=== PATIENT | male | born 1925 | race Caucasian/White ===

== ENCOUNTER 2016-05-30 09:01 | Emergency (ER) | payer MEDICARE ==
[~2016-05-30] VITALS: Ht 172.7 cm; Wt 68.0 kg
[~2016-05-30 09:01] MED LIST: HYZAAR; LOSA100T28 PO; MULT1TAB63
--- OUTSIDE RECORDS SUMMARY | 2016-05-30 09:09 | XMS REPORT | Continuity of Care Document ---
Author Author [facility] Organization [facility] Address Unknown Phone Unavailable Allergies Active Description Code Type Severity Reaction Onset Reported/Identified Relationship to Patient Clinical Status Yes Penicillins [id number] Drug Allergy Unknown N/A 02/17/2008 Yes No Known Drug Allergies [id number] Drug Allergy Unknown N/ A 07/07/2015 Medications Problems Date Dx Coded Attending Type Code Diagnosis Diagnosed By 01/17/2015 Ot 401.9 01/17/2015 ROSA MARIE Ot 780.79 01/17/2015 ROSA MARIE Ot 786.50 02/07/2015 VIRGEN FRANKLIN, DEVIN Magdaleno Ot R07.89 02/14/2015 VIRGEN FRANKLIN, DEVIN Magdaleno Ot R07.89 07/07/2015 MARQUEZ FRANKLIN, JUDIE Ken Ot R19.5 07/07/2015 MARQUEZ FRANKLIN, JUDIE Ken Ot R19.7 07/07/2015 MARQUEZ FRANKLIN, JUDIE Ken Ot Z01.818 07/10/2015 ROSA MARIE Ot 780.79 07/10/2015 ROSA MARIE Ot 786.50 07/10/2015 VIRGEN FRANKLIN, DEVIN Magdaleno Ot R07.89 07/10/2015 MARQUEZ FRANKLIN, JUDIE Ken Ot K57.90 DVRTCLOS OF INTEST, PART UNSP, W/O PERF 07/10/2015 MARQUEZ FRANKLIN, JUDIE Ken Ot K62.1 RECTAL POLYP 07/11/2015 JUDIE ZAYAS MD Ot K57.90 07/11/2015 JUDIE ZAYAS MD Ot K62.1 Procedures Results Encounters ACCT No. Visit Date/Time Discharge Status Pt. Type Provider Facility Loc./Unit Complaint [id number] 07/10/2015 07:57:00 2015 11:44:00 DIS Outpatient JUDIE ZAYAS MD [facility] [id number] 07/07/2015 06:05:00 2015 09:02:00 DIS Outpatient MARQUEZ FRANKLIN, JUDIE Ken [facility] PREOP [id number] 01/17/2015 11:47:00 2014 23:59:59 CLS Outpatient VIRGEN FRANKLIN, DEVIN Magdaleno [facility] RAD [id number] 12/03/2012 11:00:00 2012 23:59:59 CLS Outpatient ROSA MARIE [facility] LAB [id number] 01/17/2015 11:48:00 Document Registration
--- NOTE | 2016-05-30 09:36 | Diagnostic Imaging Report ---
INDICATION: Weight loss, shortness of breath, hypertension. Comparison made with prior examination from 01/17/2015. FINDINGS: The lungs are clear although mildly hyperexpanded with flattening of the diaphragms and expansion of the retrosternal airspace. This is unchanged. No infiltrate, failure, effusion or pneumothorax. IMPRESSION: Stable chest. Dictated by: Dictated on workstation # [id number]
[2016-05-30 10:14] LABS: BASOPHILS % (AUTO) 0 % (0-10); EOSINOPHILS % (AUTO) 0 % (0-10); LYMPHOCYTES # (AUTO) 3.4 X 10^3 (1.0-4.0); LYMPHOCYTES % (AUTO) 37 % (12-44); MEAN CORPUSCULAR HEMOGLOBIN 33 PG (25-34); MEAN CORPUSCULAR HGB CONC 35 G/DL (32-36); MEAN CORPUSCULAR VOLUME 94 FL (80-99); MEAN PLATELET VOLUME 8.6 FL (7.4-10.4); MONOCYTES # (AUTO) 0.9 X 10^3 (0.0-1.0); MONOCYTES % (AUTO) 9 % (0-12); NEUTROPHILS # (AUTO) 4.9 X 10^3 (1.8-7.8); NEUTROPHILS % (AUTO) 53 % (42-75); PLATELET COUNT 309 10^3/uL (130-400); RED BLOOD COUNT 4.66 10^6/uL (4.35-5.85); RED CELL DISTRIBUTION WIDTH 13.1 % (10.0-14.5); WHITE BLOOD COUNT 9.3 10^3/uL (4.3-11.0)
[2016-05-30 10:34] LABS: ALANINE AMINOTRANSFERASE 16 U/L (0-55); ALBUMIN 4.2 G/DL (3.2-4.5); ANION GAP 12 MMOL/L (5-14); ASPARTATE AMINO TRANSFERASE 18 U/L (5-34); BILIRUBIN,TOTAL 1.4 MG/DL (0.1-1.0); BLOOD UREA NITROGEN 14 MG/DL (7-18); BUN/CREATININE RATIO 15; CALCIUM 8.7 MG/DL (8.5-10.1); CARBON DIOXIDE 25 MMOL/L (21-32); CHLORIDE 95 MMOL/L (98-107); CREATININE SERUM 0.93 MG/DL (0.60-1.30); GFR ESTIMATED > 60; GLUCOSE 106 MG/DL (70-105); POTASSIUM 3.8 MMOL/L (3.6-5.0); SODIUM 132 MMOL/L (135-145); TOTAL PROTEIN 6.7 G/DL (6.4-8.2)
[2016-05-30] MEDS ORDERED: NS IV 1000 ML 1,000 ML IV ONE (11:07)
[2016-05-30] MEDS ORDERED: ANTACID SUSP 30 ML UDC (MYLANTA) PO ONE (11:15)
[2016-05-30] MEDS ORDERED: KETOROLAC 30 MG/ML VIAL IVP ONE (11:15)
[2016-05-30] MEDS ORDERED: ONDANSETRON 4 MG/2 ML (SDV) Z0FRAN IVP ONE (11:15)
[2016-05-30] MEDS ORDERED: LIDOCAINE 2% VISCOUS 15 ML UDC PO ONE (11:15)
[2016-05-30 12:03] LABS: BILIRUBIN,URINE NEGATIVE (NEGATIVE); KETONES,URINE NEGATIVE (NEGATIVE); LEUKOCYTE ESTERASE ,URINE NEGATIVE (NEGATIVE); NITRITE,URINE NEGATIVE (NEGATIVE); PH,URINE 7 (5-9); PROTEIN,URINE NEGATIVE (NEGATIVE); UROBILINOGEN,URINE NORMAL (NORMAL)
[2016-05-30 12:11] LABS: SQUAMOUS EPITHELIAL CELL,UR RARE /HPF
[2016-05-30] MEDS ORDERED: OMEP20TA7 PO (12:27)
[2016-05-30] MEDS ORDERED: OSLT75C PO (12:27)
--- NOTE | 2016-05-30 12:29 | ED General ---
General Chief Complaint: Respiratory Problems Stated Complaint: COUGH,ELEVATED BS, HEADACHE Nursing Triage Note: c/o cough/congestion since May 08. Had 5 day regimen of Tamiflu which improved symptoms. Patient's condition has regressed the last week. Denies fever. Denies vomiting. Reports weight loss. Nursing Sepsis Screen: No Definite Risk Source of Information: Patient, Family Exam Limitations: No Limitations History of Present Illness Time Seen by Provider: 09:05 Initial Comments This 89-year-old gentleman presents to the emergency room with complaints of headache, abdominal discomfort, cough, hypertension and diarrhea. Stools are loose and he has no appetite. Patient was treated for a bronchitis-like syndrome and was prescribed Cipro on May 20. He also has recently been diagnosed with influenza A and finished his Tamiflu treatment on the or . He took Tylenol and ibuprofen at home. He reports his headache is a new symptom now. Abdominal discomfort seems to be related to cough. He noted hypertension at home of 180/94. He doubled his losartan yesterday. Allergies and Home Medications Allergies Uncoded Allergies: pcn, iv dye (Allergy, Intermediate, hives and sob , 06/01/16) Home Medications Losartan Potassium 100 Mg Tablet 100 MG PO DAILY (Reported) Nebivolol HCl 5 Mg Tablet 5 MG PO DAILY PRN PRN HEART RATE (Reported) Omeprazole 20 Mg Capsule.dr 20 MG PO BID (Reported) Constitutional: see HPI EENTM: see HPI Respiratory: see HPI Cardiovascular: no symptoms reported Gastrointestinal: see HPI Genitourinary: no symptoms reported Musculoskeletal: no symptoms reported Skin: no symptoms reported Psychiatric/Neurological: See HPI Hematologic/Lymphatic: No Symptoms Reported Past Ciabehk-Oloxpw-Ojayog Hx Patient Social History Alcohol Use: Denies Use Recreational Drug Use: No Smoking Status: Former Smoker Type Used: Cigarettes 2nd Hand Smoke Exposure: No Recent Foreign Travel: No Contact w/Someone Who Travel: No Recent Infectious Disease Expo: No Recent Hopitalizations: Yes Immunizations Up To Date Date of Pneumonia Vaccine: Jul 10, 2011 Date of Influenza Vaccine: Feb 09, 2016 Surgeries HX Surgeries: Yes (right clavicle separtation surgery 1986, hernia repair 2006 , spinal sx) Respiratory Hx Respiratory Disorders: Yes (chronic bronchitis) Respiratory Disorders: Chronic Bronchitis Cardiovascular Hx Cardiac Disorders: Yes Cardiac Disorders: Hypertension Neurological Hx Neurological Disorders: No Reproductive System Hx Reproductive Disorders: No Genitourinary Hx Genitourinary Disorders: No Gastrointestinal Hx Gastrointestinal Disorders: No Musculoskeletal Hx Musculoskeletal Disorders: No Endocrine Hx Endocrine Disorders: No HEENT HX ENT Disorders: No Cancer Hx Cancer: No Psychosocial Hx Psychiatric Problems: No Blood Transfusions Hx Blood Disorders: No Physical Exam Vital Signs Vital Sign - Last 12Hours 05/30/16 09:10 Temp 97.5 Pulse 90 Resp 20 B/P 205/105 Pulse Ox 98 O2 Delivery Room Air Capillary Refill : Less Than 3 Seconds General Appearance: WD/WN Mild Distress HEENT: PERRL/EOMI TMs Normal Normal ENT Inspection Pharynx Normal Neck: Normal Inspection Respiratory: Lungs Clear Normal Breath Sounds No Accessory Muscle Use No Respiratory Distress Cardiovascular: Regular Rate, Rhythm No Edema No Murmur Gastrointestinal: Normal Bowel Sounds Soft Tenderness (epigastric) Extremity: Normal Inspection No Pedal Edema Neurologic/Psychiatric: Alert Oriented x3 No Motor/Sensory Deficits Normal 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 Epigastric pain instantly improved with GI cocktail. Since symptoms promptly rebounded after completing Tamiflu, I will prescribe a second round of Tamiflu. Blood pressure is now normal. Diagnostic Imaging Diagonstic Imaging: Xray Plain Films/CT/US/NM/MRI: chest Comments NAME: CRISTINA BOYKIN [facility] REC#: [id number] PT STATUS: REG ER : 1925 PHYSICIAN: DEJUAN BRANDON MD ADMIT DATE: 05/30/16/ER Draft Date of Exam:05/30/16 CHEST PA/LAT (2 VIEW) INDICATION: Weight loss, shortness of breath, hypertension. Comparison made with prior examination from 01/17/2015. FINDINGS: The lungs are clear although mildly hyperexpanded with flattening of the diaphragms and expansion of the retrosternal airspace. This is unchanged. No infiltrate, failure, effusion or pneumothorax. IMPRESSION: Stable chest. Dictated on workstation # [id number] Dict: 05/30/16925 Trans: 05/30/1636 [facility] [id number] Interpreted by: MAYA GEORGE Electronically signed by: Departure Impression Impression: Primary Impression: Flu-like symptoms Additional Impressions: Epigastric pain Headache Qualified Code: R51 - Headache Disposition: 01 HOME, SELF-CARE Condition: Improved Departure-Patient Inst. Decision time for Depature: 12:20 Referrals: DEVIN NEW MD (PCP/Family) Primary Care Physician Patient Instructions: Acute Abdomen (Belly Pain), Gastritis Add. Discharge Instructions: Drink plenty of clear liquids. Take omeprazole twice daily as prescribed for the next 2 weeks to protect your stomach. You are syndrome may be related to a new virus or a rebound of the influenza virus. You may take a second round of Tamiflu if you choose. Complete the entire 5 day course if you choose to take the Tamiflu. For pain, start with Tylenol (acetaminophen) 1000 mg every 6 hours as needed. For pain uncontrolled by Tylenol, add ibuprofen up to 600 mg every 6 hours as needed. Always take ibuprofen with food or milk to avoid stomach irritation. Contact your doctor or return to the emergency room if symptoms worsen or you' re not improving within the next couple of days. All discharge instructions reviewed with patient and/or family. Voiced understanding. DEJUAN BRANDON MD May 30, 2016 12:29 Urine Nitrite NEGATIVE NEGATIVE Urine Protein NEGATIVE NEGATIVE Urine RBC NONE /HPF Urine RBC (Auto) 1+ H NEGATIVE Urine Specific [place] 1.010 L 1.016-1.022 Urine Squamous Epithelial Cells RARE /HPF Urine Urobilinogen NORMAL NORMAL MG/DL Urine WBC NONE /HPF Urine pH 7 5-9 Micro Results Microbiology 05/30/16 Influenza Types A,B Antigen (JUAN A) - Final, Complete My Orders Orders-DEJUAN BRANDON MD Cbc With Automated Diff (05/30/16 09:07) Comprehensive Metabolic Panel (05/30/16 09:07) Influenza A And B Antigens (05/30/16 09:07) Chest Pa/Lat (2 View) (05/30/16 09:07) Saline Lock/Iv-Start (05/30/16 09:07) Ketorolac Injection (Toradol Injection) (05/30/16 11:15) Ondansetron Injection (Zofran Injectio (05/30/16 11:15) Lidocaine 2% Viscous 15 Ml (Xylocaine Vi (05/30/16 11:15) Antacid Suspension (Mylanta Suspension (05/30/16 11:15) Ns Iv 1000 Ml (Sodium Chloride 0.9%) (05/30/16 11:07) Lipase (05/30/16 11:07) Ua Culture If Indicated (05/30/16 11:07) Medications Given in ED Current Medications Medications Dose Ordered Sig/Dia Route Start Time Stop Time Status Last Admin Dose Admin Al Hydrox/Mg Hydrox/ Simethicone 30 ml 30 ml ONCE ONCE PO 05/30/16 11:15 05/30/16 11:16 DC 05/30/16 11:26 30 ML Ketorolac Tromethamine 30 mg ONCE ONCE IVP 05/30/16 11:15 05/30/16 11:16 DC 05/30/16 11:25 30 MG Lidocaine HCl 15 ml ONCE ONCE PO 05/30/16 11:15 05/30/16 11:16 DC 05/30/16 11:25 15 ML Ondansetron HCl 4 mg ONCE ONCE IVP 05/30/16 11:15 05/30/16 11:16 DC 05/30/16 11:25 4 MG Sodium Chloride 1,000 ml @ 0 mls/hr Q0M ONCE IV 05/30/16 11:07 05/30/16 11:09 DC 05/30/16 11:25 1,000 MLS/HR Vital Signs/I&O Vital Sign - Last 12Hours 05/30/16 05/30/16 09:10 11:25 Temp 97.5 98.3 Pulse 90 Resp 20 B/P 205/105 Pulse Ox 98 O2 Delivery Room Air Blood Pressure Mean: 138 Progress Note : Time: 12:24 Progress Note Patient feels much better after IV fluids and Toradol. Epigastric pain instantly improved with GI cocktail. Since symptoms promptly rebounded after completing Tamiflu, I will prescribe a second round of Tamiflu. Blood pressure is now normal. Diagnostic Imaging Diagonstic Imaging: Xray Plain Films/CT/US/NM/MRI: chest Comments NAME: CRISTINA BOYKIN [facility] REC#: [id number] PT STATUS: REG ER : 1925 PHYSICIAN: DEJUAN BRANDON MD ADMIT DATE: 05/30/16/ER Draft Date of Exam:05/30/16 CHEST PA/LAT (2 VIEW) INDICATION: Weight loss, shortness of breath, hypertension. Comparison made with prior examination from 01/17/2015. FINDINGS: The lungs are clear although mildly hyperexpanded with flattening of the diaphragms and expansion of the retrosternal airspace. This is unchanged. No infiltrate, failure, effusion or pneumothorax. IMPRESSION: Stable chest. Dictated on workstation # [id number] Dict: 05/30/1626 Trans: 05/30/16 0936 [facility] [id number] Interpreted by: MAYA GEORGE Electronically signed by: Departure Impression Impression: Primary Impression: Flu-like symptoms Additional Impressions: Epigastric pain Headache Qualified Code: R51 - Headache Disposition: 01 HOME, SELF-CARE Condition: Improved Departure-Patient Inst. Decision time for Depature: 12:20 Referrals: DEVIN NEW MD (PCP/Family) Primary Care Physician Patient Instructions: Acute Abdomen (Belly Pain), Gastritis Add. Discharge Instructions: Drink plenty of clear liquids. Take omeprazole twice daily as prescribed for the next 2 weeks to protect your stomach. You are syndrome may be related to a new virus or a rebound of the influenza virus. You may take a second round of Tamiflu if you choose. Complete the entire 5 day course if you choose to take the Tamiflu. For pain, start with Tylenol (acetaminophen) 1000 mg every 6 hours as needed. For pain uncontrolled by Tylenol, add ibuprofen up to 600 mg every 6 hours as needed. Always take ibuprofen with food or milk to avoid stomach irritation. Contact your doctor or return to the emergency room if symptoms worsen or you' re not improving within the next couple of days. All discharge instructions reviewed with patient and/or family. Voiced understanding. Scripts Omeprazole 20 Mg Tablet.dr20 Mg PO BID #30 TAB Prov:DEJUAN BRANDON MD 05/30/16 Oseltamivir Phosphate (Tamiflu)75 Mg Cap75 Mg PO BID #10 CAP Prov:DEJUAN BRANDON MD 05/30/16 DEJUAN BRANDON MD May 30, 2016 12:29
[2016-05-30 12:44] VITALS: BP 127/80
[2016-05-31] MEDS ORDERED: OMEP20CA12 PO (14:00)
[2016-05-31] MEDS ORDERED: NEBI5TAB8 PO (14:00)
[2016-06-25] MEDS ORDERED: LACT20SO2 PO (13:20)
[2016-06-25] MEDS ORDERED: AMLO5TAB2 PO (13:20)
[2016-06-25] MEDS ORDERED: LOSA50TA36 PO (13:20)
[2016-06-25] MEDS ORDERED: IBUP-2055 PO (13:20)
[2016-07-21] MEDS ORDERED: VALA10004 PO (08:11)
[2016-07-21] MEDS ORDERED: NEBI5TAB8 PO (08:11)
== END 2016-05-30 12:46 | disposition home or self-care (01) ==
LOC: EDUNIT# 09:01 → ER 09:04
DX: J11.1 Influenza due to unidentified influenza virus with other respiratory manifestations (principal); R51 Headache; R10.13 Epigastric pain; Z87.891 Personal history of nicotine dependence
CPT/HCPCS: 36415; 71020; 80053; 81000; 83690; 85025; 87804; 96361; 96374; 96375

== ENCOUNTER 2016-05-31 09:01 | Inpatient (IN) | payer MEDICARE ==
[~2016-05-31] VITALS: Ht 172.7 cm; Wt 66.6 kg
[~2016-05-31 09:01] MED LIST changes: +OMEP20TA7 PO; +OSLT75C PO
--- OUTSIDE RECORDS SUMMARY | 2016-05-31 09:07 | XMS REPORT | Continuity of Care Document ---
Author Author [facility] Organization [facility] Address Unknown Phone Unavailable Care Team Providers Care Plan Rep Name Role Phone DEVIN NEW MD PCP Insurance Providers Payer Name Policy Number Subscriber Name Relationship Wps Medicare [id number] Glenn Boykin 20 Self / Same As Patient Blue Cross [facility] Supp [id number] Glenn Boykin 20 Self / Same As Patient Advance Directives Directive Response Recorded Date/Time Advance Directives Yes 05/30/16 9:51am Health Care Power of Digital Forensics Investigator Suhail PINEDA DTR 07/10/15 9:47am Organ Donor Yes 07/10/15 9:47am Resuscitation Status Full Code 05/30/16 9:51am Chief Complaint and Reason for Visit Chief Complaint Respiratory Problems Reason for Visit Headache [id number] Epigastric pain Problems Active Problems Medical Problem Onset Date Status Epigastric pain Unknown Acute Flu-like symptoms Unknown Acute Headache Unknown Acute Medications Current Home Medications Medication Dose Units Route Directions Days/Qty Instructions Start Date Losartan Potassium 100 Mg 100 Mg Oral Daily 07/07/15 Oseltamivir Phosphate 75 Mg 75 Mg Oral Twice A Day 10 05/30/16 Omeprazole 20 Mg 20 Mg Oral Twice A Day 30 05/30/16 Past Home Medications Medication Directions Ordered Status [Hyzaar] Tab, 02/17/08 Discontinued Multivitamins 1 Ea Tablet, 02/17/08 Discontinued Social History Social History Problem Response Recorded Date/Time Alcohol Use Denies Use 05/30/2016 9:51am Recreational Drug Use No 05/30/2016 9:51am Recent Foreign Travel No 05/30/2016 9:10am Recent Infectious Disease Exposure No 05/30/2016 9:10am Smoking Status Former Smoker 05/30/2016 9:51am Do you dip or chew tobacco? No 07/10/2015 9:44am Type Used Cigarettes 05/30/2016 9:51am Recent Hopitalizations Yes 05/30/2016 9:51am Query Response Start Date Stop Date Smoking Status Former Smoker Hospital Discharge Instructions No hospital discharge instructions. Plan of Care Discharge Date 05/30/16 12:46pm Disposition 01 HOME, SELF-CARE Condition at Discharge Improved Instructions/Education Provided Gastritis Acute Abdomen (Belly Pain) Prescriptions See Medication Section Referrals DEVIN NEW MD - Primary Care Physician Additional Instructions/Education Drink plenty of clear liquids. Take omeprazole twice daily as prescribed for the next 2 weeks to protect your stomach. You are syndrome may be related to a new virus or a rebound of the influenza virus. You may take a second round of Tamiflu if you choose. Complete the entire 5 day course if you choose to take the Tamiflu. For pain, start with Tylenol (acetaminophen) 1000 mg every 6 hours as needed. For pain uncontrolled by Tylenol, add ibuprofen up to 600 mg every 6 hours as needed. Always take ibuprofen with food or milk to avoid stomach irritation. Contact your doctor or return to the emergency room if symptoms worsen or you' re not improving within the next couple of days. All discharge instructions reviewed with patient and/or family. Voiced understanding. Functional Status No functional status results. Allergies, Adverse Reactions, Alerts No known allergies. Immunizations No immunization records. Vital Signs Acute Vital Signs Vital Response Date/Time Temperature (Fahrenheit) 98.3 degrees F (97.6 - 99.5) 05/30/2016 12:44pm Temperature (Calculated Celsius) 36.61115 degrees C (36.4 - 37.5) 05/30/2016 12:44pm Temperature Source Temporal 05/30/2016 12:44pm Pulse Rate (adult) 62 bpm (60 - 90) 05/30/2016 12:44pm Respiratory Rate 16 bpm (12 - 24) 05/30/2016 12:44pm O2 Sat by Pulse Oximetry 98 % (88 - 100) 05/30/2016 12:44pm Blood Pressure 127/80 mm Hg 05/30/2016 12:44pm Blood Pressure Mean 138 mm Hg 05/30/2016 9:10am Pain Numeric Pain Scale 3 05/30/2016 12:44pm Height (Feet) 5 feet 05/30/2016 9:10am Height (Inches) 8 inches 05/30/2016 9:10am Height (Calculated Centimeters) 172.180565 cm 05/30/2016 9:10am Weight (Pounds) 150 pounds 05/30/2016 9:10am Weight (Calculated Kilograms) 68.740720 kilograms 05/30/2016 9:10am Capillary Refill Capillary Refill Less Than 3 Seconds 05/30/2016 9:10am Height 5 ft 8 in Weight 150 lb Body Mass Index 22.8 kg/m^2 Results Laboratory Results Test Name Result Units Flags Reference Collection Date/Time Result Date/ Time Comments White Blood Count 9.3 10^3/uL 4.3-11.0 05/30/2016 10:05am 05/30/2016 10 :18am Red Blood Count 4.66 10^6/uL 4.35-5.85 05/30/2016 10:05am 05/30/2016 10 :18am Hemoglobin 15.3 G/DL 13.3-17.7 05/30/2016 10:05am 05/30/2016 10:18am Hematocrit 44 % 40-54 05/30/2016 10:05am 05/30/2016 10:18am Mean Corpuscular Volume 94 FL 80-99 05/30/2016 10:05am 05/30/2016 10: 18am Mean Corpuscular Hemoglobin 33 PG 25-34 05/30/2016 10:05am 05/30/2016 10:18am Mean Corpuscular Hemoglobin Concent 35 G/DL 32-36 05/30/2016 10:05am 10:18am Red Cell Distribution Width 13.1 % 10.0-14.5 05/30/2016 10:05am 2016 10:18am Platelet Count 309 10^3/uL 130-400 05/30/2016 10:05am 05/30/2016 10: 18am Mean Platelet Volume 8.6 FL 7.4-10.4 05/30/2016 10:05am 05/30/2016 10: 18am Neutrophils (%) (Auto) 53 % 42-75 05/30/2016 10:05am 05/30/2016 10: 18am Lymphocytes (%) (Auto) 37 % 12-44 05/30/2016 10:05am 05/30/2016 10: 18am Monocytes (%) (Auto) 9 % 0-12 05/30/2016 10:05am 05/30/2016 10:18am Eosinophils (%) (Auto) 0 % 0-10 05/30/2016 10:05am 05/30/2016 10:18am Basophils (%) (Auto) 0 % 0-10 05/30/2016 10:05am 05/30/2016 10:18am Neutrophils # (Auto) 4.9 X 10^3 1.8-7.8 05/30/2016 10:05am 05/30/2016 10:18am Lymphocytes # (Auto) 3.4 X 10^3 1.0-4.0 05/30/2016 10:05am 05/30/2016 10:18am Monocytes # (Auto) 0.9 X 10^3 0.0-1.0 05/30/2016 10:05am 05/30/2016 10: 18am Eosinophils # (Auto) 0.0 10^3/uL 0.0-0.3 05/30/2016 10:05am 05/30/2016 10:18am Basophils # (Auto) 0.0 10^3/uL 0.0-0.1 05/30/2016 10:05am 05/30/2016 10 :18am Urine Color YELLOW 05/30/2016 11:50am 05/30/2016 12:12pm Urine Clarity CLEAR 05/30/2016 11:50am 05/30/2016 12:12pm Urine pH 7 5-9 05/30/2016 11:50am 05/30/2016 12:12pm Urine Specific [place] 1.010 * 1.016-1.022 05/30/2016 11:50am 2016 12:12pm Urine Protein NEGATIVE NEGATIVE 05/30/2016 11:50am 05/30/2016 12: 12pm Urine Glucose (UA) NEGATIVE NEGATIVE 05/30/2016 11:50am 05/30/2016 12 :12pm Urine RBC (Auto) 1+ * NEGATIVE 05/30/2016 11:50am 05/30/2016 12:12pm Urine Ketones NEGATIVE NEGATIVE 05/30/2016 11:50am 05/30/2016 12: 12pm Urine Nitrite NEGATIVE NEGATIVE 05/30/2016 11:50am 05/30/2016 12: 12pm Urine Bilirubin NEGATIVE NEGATIVE 05/30/2016 11:50am 05/30/2016 12: 12pm Urine Urobilinogen NORMAL MG/DL NORMAL 05/30/2016 11:50am 05/30/2016 12 :12pm Urine Leukocyte Esterase NEGATIVE NEGATIVE 05/30/2016 11:50am 2016 12:12pm Urine RBC NONE /HPF 05/30/2016 11:50am 05/30/2016 12:12pm Urine WBC NONE /HPF 05/30/2016 11:50am 05/30/2016 12:12pm Urine Bacteria NEGATIVE /HPF 05/30/2016 11:50am 05/30/2016 12:12pm Urine Squamous Epithelial Cells RARE /HPF 05/30/2016 11:50am 2016 12:12pm Urine Crystals NONE /LPF 05/30/2016 11:50am 05/30/2016 12:12pm Urine Casts NONE /LPF 05/30/2016 11:50am 05/30/2016 12:12pm Urine Mucus NEGATIVE /LPF 05/30/2016 11:50am 05/30/2016 12:12pm Urine Culture Indicated NO 05/30/2016 11:50am 05/30/2016 12:12pm Sodium Level 132 MMOL/L L 135-145 05/30/2016 10:05am 05/30/2016 10:35am Potassium Level 3.8 MMOL/L 3.6-5.0 05/30/2016 10:05am 05/30/2016 10: 35am Chloride Level 95 MMOL/L L 98-107 05/30/2016 10:05am 05/30/2016 10:35am Carbon Dioxide Level 25 MMOL/L 21-32 05/30/2016 10:05am 05/30/2016 10: 35am Anion Gap 12 MMOL/L 5-14 05/30/2016 10:05am 05/30/2016 10:35am Blood Urea Nitrogen 14 MG/DL 7-18 05/30/2016 10:05am 05/30/2016 10: 35am Creatinine 0.93 MG/DL 0.60-1.30 05/30/2016 10:05am 05/30/2016 10:35am BUN/Creatinine Ratio 15 05/30/2016 10:05am 05/30/2016 10:35am Estimat Glomerular Filtration Rate > 60 05/30/2016 10:05am 2016 10:35am GFR INTERPRETIVE DATA UNITS FOR ESTIMATED GFR (eGFR): mL/min/1.73 M2 REFERENCE RANGE FOR ESTIMATED GFR (eGFR) eGFR NORMAL eGFR >60 MODERATELY DECREASED eGFR 30-59 SEVERLY DECREASED eGFR 15-29 KIDNEY FAILURE <15 (OR DIALYSIS) Glucose Level 106 MG/DL H 70-105 05/30/2016 10:05am 05/30/2016 10:35am Calcium Level 8.7 MG/DL 8.5-10.1 05/30/2016 10:05am 05/30/2016 10:35am Total Bilirubin 1.4 MG/DL H 0.1-1.0 05/30/2016 10:05am 05/30/2016 10: 35am Alkaline Phosphatase 63 U/L 40-136 05/30/2016 10:05am 05/30/2016 10: 35am Aspartate Amino Transf (AST/SGOT) 18 U/L 5-34 05/30/2016 10:05am 2016 10:35am Alanine Aminotransferase (ALT/SGPT) 16 U/L 0-55 05/30/2016 10:05am 10:35am Total Protein 6.7 G/DL 6.4-8.2 05/30/2016 10:05am 05/30/2016 10:35am Albumin 4.2 G/DL 3.2-4.5 05/30/2016 10:05am 05/30/2016 10:35am Lipase 18 U/L 8-78 05/30/2016 10:05am 05/30/2016 11:40am Procedures No known history of procedures. Encounters Encounter Location Arrival/Admit Date Discharge/Depart Date Attending Provider Departed Emergency Room [facility] 05/30/16 9:04am 05/30 12:46pm DEJUAN BRANDON MD Recent Diagnosis
[2016-05-31] MEDS ORDERED: NS IV 500 ML 500 ML IV ONE (09:14)
[2016-05-31 09:37] LABS: BASOPHILS % (AUTO) 0 % (0-10); EOSINOPHILS % (AUTO) 0 % (0-10); LYMPHOCYTES # (AUTO) 2.9 X 10^3 (1.0-4.0); LYMPHOCYTES % (AUTO) 24 % (12-44); MEAN CORPUSCULAR HEMOGLOBIN 33 PG (25-34); MEAN CORPUSCULAR HGB CONC 35 G/DL (32-36); MEAN CORPUSCULAR VOLUME 93 FL (80-99); MEAN PLATELET VOLUME 8.8 FL (7.4-10.4); MONOCYTES # (AUTO) 0.8 X 10^3 (0.0-1.0); MONOCYTES % (AUTO) 7 % (0-12); NEUTROPHILS # (AUTO) 8.3 X 10^3 (1.8-7.8); NEUTROPHILS % (AUTO) 69 % (42-75); PLATELET COUNT 301 10^3/uL (130-400); RED BLOOD COUNT 4.86 10^6/uL (4.35-5.85); RED CELL DISTRIBUTION WIDTH 12.9 % (10.0-14.5)
[2016-05-31] MEDS ORDERED: fentaNYL INJECTION 100 MCG/2 ML AMP ONE (09:40)
--- NOTE | 2016-05-31 09:45 | ED General ---
General Chief Complaint: Cough/Cold/Flu Symptoms Stated Complaint: WEAKNESS/HEADACHE ELEV BP Source of Information: Patient Exam Limitations: No Limitations History of Present Illness Time Seen by Provider: 09:35 Initial Comments Here with report of headache, body aches and overall not feeling well. Seen yesterday for similar and was better at discharge. Started eating worse last night. Complains of pressure in his head overall. He is anxious and shaky currently. Does have mild cough. Denies nausea or vomiting. Decreased appetite noted. Timing/Duration: 2-3 Days Severity: Moderate Associated Systoms: No Chest Pain, No Cough, HeadachesNo Nausea/Vomiting, No Shortness of Air, Weakness Allergies and Home Medications Allergies Coded Allergies: No Known Drug Allergies (Unverified , 07/07/15) Home Medications Losartan Potassium 100 Mg Tablet 100 MG PO DAILY (Reported) Omeprazole 20 Mg Tablet.dr #30 20 MG PO BID Prescribed by: DEJUAN HORNE on 05/30/16 1227 Oseltamivir Phosphate 75 Mg Cap #10 75 MG PO BID Prescribed by: DEJUAN HORNE on 05/30/16 1227 Constitutional: see HPINo chills, No fever, malaise weakness EENTM: nose congestion nose painNo throat pain Respiratory: coughNo short of breath, No wheezing Cardiovascular: no symptoms reported Gastrointestinal: No constipation, loss of appetiteNo nausea, No vomiting Genitourinary: no symptoms reported Musculoskeletal: see HPI muscle painNo neck pain Skin: no symptoms reported Psychiatric/Neurological: Anxiety Headache Hematologic/Lymphatic: No Symptoms Reported All Other Systems Reviewed Negative Unless Noted: Yes Past Dmnlatn-Gflvph-Wdhyur Hx Patient Social History Alcohol Use: Denies Use Recreational Drug Use: No Smoking Status: Never a Smoker Type Used: Cigarettes 2nd Hand Smoke Exposure: No Recent Hopitalizations: Yes Immunizations Up To Date Date of Pneumonia Vaccine: Jul 10, 2011 Date of Influenza Vaccine: Feb 09, 2016 Surgeries HX Surgeries: Yes (right clavicle separtation surgery 1986, hernia repair 2006 , spinal sx) Surgeries: Abdominal, Orthopedic Respiratory Hx Respiratory Disorders: No (chronic bronchitis) Cardiovascular Hx Cardiac Disorders: Yes Reproductive System Hx Reproductive Disorders: No Genitourinary Hx Genitourinary Disorders: No Gastrointestinal Hx Gastrointestinal Disorders: No Musculoskeletal Hx Musculoskeletal Disorders: No Endocrine Hx Endocrine Disorders: No Psychosocial Hx Psychiatric Problems: No Blood Transfusions Hx Blood Disorders: No Reviewed Nursing Assessment Reviewed/Agree w Nursing PMH: Yes Family Medical History Significant Family History: No Pertinent Family Hx Physical Exam Vital Signs Vital Sign - Last 12Hours 05/31/16 09:05 Temp 97.6 Pulse 72 Resp 28 B/P 177/97 Pulse Ox 99 O2 Delivery Room Air Capillary Refill : General Appearance: WD/WN Anxious HEENT: PERRL/EOMI Pharyngeal Erythema (mild) Other (nasal congestion and maxillary sinus tenderness noted.) Respiratory: Lungs Clear Normal Breath Sounds Cardiovascular: Regular Rate, Rhythm No Murmur Gastrointestinal: Non Tender Soft Back: Normal Inspection No CVA Tenderness No Vertebral Tenderness Extremity: Non Tender No Calf Tenderness Neurologic/Psychiatric: Alert Oriented x3 Skin: Normal Color Warm/Dry Progress/Results/Core Measures Results/Orders Lab Results Laboratory Tests Test 05/31/16 09:30 Range/Units Alanine Aminotransferase (ALT/SGPT) 18 0-55 U/L Albumin 4.5 3.2-4.5 G/DL Alkaline Phosphatase 64 40-136 U/L Anion Gap 11 5-14 MMOL/L Aspartate Amino Transf (AST/SGOT) 19 5-34 U/L BUN/Creatinine Ratio 12 Basophils # (Auto) 0.0 0.0-0.1 10^3/uL Basophils (%) (Auto) 0 0-10 % Blood Urea Nitrogen 12 7-18 MG/DL C-Reactive Protein High Sensitivity 0.10 0.00-0.50 MG/DL Calcium Level 9.1 8.5-10.1 MG/DL Carbon Dioxide Level 24 21-32 MMOL/L Chloride Level 93 L 98-107 MMOL/L Creatinine 0.99 0.60-1.30 MG/DL Eosinophils # (Auto) 0.0 0.0-0.3 10^3/uL Eosinophils (%) (Auto) 0 0-10 % Estimat Glomerular Filtration Rate > 60 Glucose Level 117 H 70-105 MG/DL Hematocrit 45 40-54 % Hemoglobin 15.8 13.3-17.7 G/DL Lymphocytes # (Auto) 2.9 1.0-4.0 X 10^3 Lymphocytes (%) (Auto) 24 12-44 % Mean Corpuscular Hemoglobin 33 25-34 PG Mean Corpuscular Hemoglobin Concent 35 32-36 G/DL Mean Corpuscular Volume 93 80-99 FL Mean Platelet Volume 8.8 7.4-10.4 FL Monocytes # (Auto) 0.8 0.0-1.0 X 10^3 Monocytes (%) (Auto) 7 0-12 % Neutrophils # (Auto) 8.3 H 1.8-7.8 X 10^3 Neutrophils (%) (Auto) 69 42-75 % Platelet Count 301 130-400 10^3/uL Potassium Level 4.0 3.6-5.0 MMOL/L Red Blood Count 4.86 4.35-5.85 10^6/uL Red Cell Distribution Width 12.9 10.0-14.5 % Sodium Level 128 L 135-145 MMOL/L Total Bilirubin 1.5 H 0.1-1.0 MG/DL Total Protein 7.2 6.4-8.2 G/DL White Blood Count 12.0 H 4.3-11.0 10^3/uL My Orders Orders-ISATU BOOTH MD Ct Head Wo (05/31/16 09:14) Cbc With Automated Diff (05/31/16 09:14) Comprehensive Metabolic Panel (05/31/16 09:14) Hs C Reactive Protein (05/31/16 09:14) Saline Lock/Iv-Start (05/31/16 09:14) Ns Iv 500 Ml (Sodium Chloride 0.9%) (05/31/16 09:14) Fentanyl Injection (Sublimaze Injection (05/31/16 09:40) Ceftriaxone Injection (Rocephin Injectio (05/31/16 10:15) Fentanyl Injection (Sublimaze Injection (05/31/16 10:09) Dexamethasone Pf Injection (Decadron Pf (05/31/16 10:10) Fentanyl Injection (Sublimaze Injection (05/31/16 10:53) Psa Screen (05/31/16 10:56) Medications Given in ED Current Medications Medications Dose Ordered Sig/Dia Route Start Time Stop Time Status Last Admin Dose Admin Ceftriaxone Sodium/Sodium Chloride 50 ml @ 100 mls/hr ONCE ONCE IV 05/31/16 10:15 05/31/16 10:44 DC 05/31/16 10:38 100 MLS/HR Fentanyl Citrate 100 mcg 100 mcg STK-MED ONCE .ROUTE 05/31/16 09:40 05/31/16 09:41 DC 05/31/16 10:06 50 MCG Sodium Chloride 500 ml @ 0 mls/hr Q0M ONCE IV 05/31/16 09:14 05/31/16 09:15 DC 05/31/16 09:32 500 MLS/HR Vital Signs/I&O Vital Sign - Last 12Hours 05/31/16 05/31/16 05/31/16 09:05 10:06 10:28 Temp 97.6 97.6 97.6 Pulse 72 Resp 28 B/P 177/97 Pulse Ox 99 O2 Delivery Room Air Progress Note : Progress Note Seen and evaluated. IV, labs and UA ordered. CT head ordered. Monitor patient. Bony lesion noted on culture very him. Sinus disease also noted. Rocephin 1 g IV. Decadron 10 mg IV. Both meds for sinusitis but will get double coverage on calvarial lesion with Decadron. Patient is shaky, weak and having persistent pain despite fentanyl 50 g IV. I did discuss the case with Dr. Centeno. She accepts patient for admission. Status post verified and patient qualifies for observation status currently. 1040: Discussed case with Dr. Ledezma who is seen patient in the ER. She accepts patient for admission, observation status. Repeat fentanyl 50 g IV. Patient has not given urine sample yet and that is pending. This will be ordered for the floor. All findings concerns as discussed with patient and family who agree with plan. Admit, observation status. Diagnostic Imaging Diagonstic Imaging: CT Plain Films/CT/US/NM/MRI: head Comments VIA [facility]. [place], [place] NAME: CRISTINA BOYKIN [facility] REC#: [id number] PT STATUS: REG ER : [id number] PHYSICIAN: IASTU BOOTH MD ADMIT DATE: 05/31/16/ER Draft Date of Exam:05/31/16 CT HEAD WO INDICATION: Weakness, cough, headache. TECHNIQUE: Routine non contrast-enhanced axial images were obtained from the skull base to the vertex. COMPARISON: None. FINDINGS: The ventricles and cortical sulci are diffusely prominent, compatible with age-related volume loss. There are confluent areas of abnormal, low attenuation in the periventricular white matter. This is consistent with small vessel ischemic changes; age-indeterminate. There is no prior study available for comparison. There is no midline shift or mass-effect. No acute intra-axial hemorrhage is seen. There are no abnormal areas of increased or decreased density to suggest acute hemorrhage or edema. No extra-axial masses or collections are present. Evaluation of the bony calvarium demonstrates area of osteolysis involving the posterior calvarium to the left lateral midline. There appears to be some expansion of the calvarium as well. There is erosion of both the inner and outer tables. Area in question measures approximately 3.2 x 2.6 x 1.2 cm. The visualized paranasal sinuses show air-fluid levels within the bilateral maxillary sinuses. The mastoid air cells are clear. IMPRESSION: 1. No acute intracranial abnormality. No CT evidence of mass, acute infarct or intracranial hemorrhage. 2. Small vessel ischemic changes in the periventricular and subcortical white matter; likely chronic. 3. Air-fluid levels within the bilateral maxillary sinuses. Correlation for underlying acute sinusitis is recommended. 4. Abnormal appearance to the calvarium with apparent expansile lytic lesion posteriorly to the left lateral midline. Although this could represent a large arachnoid granulation, underlying malignant process cannot be excluded. Correlation with bone scan is recommended. Dictated on workstation # [id number] Dict: 05/31/16 0955 Trans: 05/31/16 1005 SAMUEL [id number] Interpreted by: DAMIAN BADILLO Electronically signed by: Departure Communication Time/Spoke to Admitting Phy: 10:24 Impression Impression: Primary Impression: Sinusitis Qualified Code: J01.00 - Acute maxillary sinusitis, unspecified Additional Impressions: Intractable headache Qualified Code: R51 - Headache Skull lesion Dehydration Disposition: ADMITTED INPATIENT Condition: Stable Decision to Admit Reason: Admit from ER (General) Decision to Admit/Date: May 31, 2016 Time/Decision to Admit Time: 10:24 Departure-Patient Inst. Referrals: DEVIN NEW MD (PCP/Family) Primary Care Physician ISATU BOOTH MD May 31, 2016 09:45
[2016-05-31 09:59] LABS: ALANINE AMINOTRANSFERASE 18 U/L (0-55); ALBUMIN 4.5 G/DL (3.2-4.5); ANION GAP 11 MMOL/L (5-14); ASPARTATE AMINO TRANSFERASE 19 U/L (5-34); BILIRUBIN,TOTAL 1.5 MG/DL (0.1-1.0); BLOOD UREA NITROGEN 12 MG/DL (7-18); BUN/CREATININE RATIO 12; CALCIUM 9.1 MG/DL (8.5-10.1); CARBON DIOXIDE 24 MMOL/L (21-32); CHLORIDE 93 MMOL/L (98-107); CREATININE SERUM 0.99 MG/DL (0.60-1.30); GFR ESTIMATED > 60; GLUCOSE 117 MG/DL (70-105); SODIUM 128 MMOL/L (135-145); TOTAL PROTEIN 7.2 G/DL (6.4-8.2)
--- NOTE | 2016-05-31 10:06 | Diagnostic Imaging Report ---
INDICATION: Weakness, cough, headache. TECHNIQUE: Routine non contrast-enhanced axial images were obtained from the skull base to the vertex. COMPARISON: None. FINDINGS: The ventricles and cortical sulci are diffusely prominent, compatible with age-related volume loss. There are confluent areas of abnormal, low attenuation in the periventricular white matter. This is consistent with small vessel ischemic changes; age-indeterminate. There is no prior study available for comparison. There is no midline shift or mass-effect. No acute intra-axial hemorrhage is seen. There are no abnormal areas of increased or decreased density to suggest acute hemorrhage or edema. No extra-axial masses or collections are present. Evaluation of the bony calvarium demonstrates area of osteolysis involving the posterior calvarium to the left lateral midline. There appears to be some expansion of the calvarium as well. There is erosion of both the inner and outer tables. Area in question measures approximately 3.2 x 2.6 x 1.2 cm. The visualized paranasal sinuses show air-fluid levels within the bilateral maxillary sinuses. The mastoid air cells are clear. IMPRESSION: 1. No acute intracranial abnormality. No CT evidence of mass, acute infarct or intracranial hemorrhage. 2. Small vessel ischemic changes in the periventricular and subcortical white matter; likely chronic. 3. Air-fluid levels within the bilateral maxillary sinuses. Correlation for underlying acute sinusitis is recommended. 4. Abnormal appearance to the calvarium with apparent expansile lytic lesion posteriorly to the left lateral midline. Although this could represent a large arachnoid granulation, underlying malignant process cannot be excluded. Correlation with bone scan is recommended. Dictated by: Dictated on workstation # [id number]
[2016-05-31] MEDS ORDERED: fentaNYL INJECTION 100 MCG/2 ML AMP IVP STA ×2 (10:09→10:53)
[2016-05-31] MEDS ORDERED: DEXAMETHASONE PF 10 MG/ML (DECADRON) VIAL IV STA (10:10)
[2016-05-31] MEDS ORDERED: cefTRIAXone INJECTION 1,000 MG in NS (IVPB) 50 ML IV ONE (10:15)
[2016-05-31] MEDS ORDERED: ENOXAPARIN 40 MG/0.4 ML (LOVENOX) SYR SC SCH (11:15)
[2016-05-31] MEDS ORDERED: cefTRIAXone INJECTION 1,000 MG in NS (IVPB) 50 ML IV SCH (11:20)
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
[2016-05-31] MEDS ORDERED: CATHETER FLUSH 10 ML SYR IV PRN (13:45)
[2016-05-31] MEDS ORDERED: OMEP20CA12 PO (14:00)
[2016-05-31] MEDS ORDERED: NEBI5TAB8 PO (14:00)
[2016-05-31] MEDS: NS IV 1000 ML 1,000 ML IV SCH ×2 (14:03→23:32)
[2016-05-31 14:04] VITALS: BP 160/76
[2016-05-31] MEDS: ACETAMINOPHEN 500 MG TAB (TYLENOL) PO PRN ×2 (14:09→20:33)
[2016-05-31] MEDS ORDERED: PATIENT MAY USE OWN MEDS, ALL MC SCH (14:30)
--- NOTE | 2016-05-31 14:31 | Diagnostic Imaging Report ---
PROCEDURE: US abdomen complete. TECHNIQUE: Multiple real-time grayscale images were obtained over the abdomen in various projections. INDICATION: Elevated bilirubin levels, generalized abdominal pain. COMPARISON: None. DISCUSSION: Sonographic evaluation of the abdomen was performed. The left hepatic lobe is mostly obscured due to overlying bowel gas. The visualized right hepatic lobe appears normal in echotexture and size. No discrete hepatic mass identified. The gallbladder appears normal without evidence of cholelithiasis, wall thickening, or pericholecystic fluid. No evidence of intrahepatic biliary duct dilatation. The common bile duct and pancreas are obscured due to overlying bowel gas. The spleen appears normal in echotexture and size measuring 9.3 cm. The visualized aorta and IVC appear within normal limits. The bilateral kidneys appear normal in echotexture and size without evidence of hydronephrosis or renal mass. The right kidney measures 11.3 cm. The left kidney measures 10.8 cm. There is no ascites or abnormal bowel loops identified. No sonographic Guzman sign was reported. IMPRESSION: 1. Limited visualization of the midline structures due to overlying bowel gas. No acute abnormality identified. Dictated by: Dictated on workstation # [id number]
[2016-05-31 15:32] VITALS: BP 163/93
[2016-05-31 19:15] VITALS: BP 143/79
[2016-05-31] MEDS: OMEPRAZOLE 20 MG (PriLOSEC) CAP NON-FORMULARY PO SCH (20:32)
[2016-05-31] MEDS ORDERED: PANTOPRAZOLE 20 MG TABLET (PROTONIX) PO SCH (21:00)
[2016-05-31] MEDS ORDERED: OMEPRAZOLE 20 MG (PriLOSEC) CAP NON-FORMULARY PO SCH (21:00)
[2016-06-01] VITALS: BP 155/78
[2016-06-01 04:00] VITALS: BP 148/84
[2016-06-01 05:47] LABS: BASOPHILS % (AUTO) 0 % (0-10); EOSINOPHILS % (AUTO) 0 % (0-10); LYMPHOCYTES # (AUTO) 2.5 X 10^3 (1.0-4.0); LYMPHOCYTES % (AUTO) 22 % (12-44); MEAN CORPUSCULAR HEMOGLOBIN 33 PG (25-34); MEAN CORPUSCULAR HGB CONC 35 G/DL (32-36); MEAN CORPUSCULAR VOLUME 94 FL (80-99); MEAN PLATELET VOLUME 9.2 FL (7.4-10.4); MONOCYTES # (AUTO) 1.1 X 10^3 (0.0-1.0); MONOCYTES % (AUTO) 10 % (0-12); NEUTROPHILS # (AUTO) 7.7 X 10^3 (1.8-7.8); NEUTROPHILS % (AUTO) 68 % (42-75); PLATELET COUNT 293 10^3/uL (130-400); RED BLOOD COUNT 4.29 10^6/uL (4.35-5.85); WHITE BLOOD COUNT 11.3 10^3/uL (4.3-11.0)
[2016-06-01] MEDS: OMEPRAZOLE 20 MG (PriLOSEC) CAP NON-FORMULARY PO SCH ×2 (06:20→23:24)
[2016-06-01 06:33] LABS: ALANINE AMINOTRANSFERASE 15 U/L (0-55); ANION GAP 11 MMOL/L (5-14); ASPARTATE AMINO TRANSFERASE 15 U/L (5-34); BILIRUBIN,TOTAL 1.1 MG/DL (0.1-1.0); BLOOD UREA NITROGEN 9 MG/DL (7-18); BUN/CREATININE RATIO 11; CALCIUM 8.4 MG/DL (8.5-10.1); CARBON DIOXIDE 23 MMOL/L (21-32); CHLORIDE 97 MMOL/L (98-107); CREATININE SERUM 0.84 MG/DL (0.60-1.30); GFR ESTIMATED > 60; GLUCOSE 102 MG/DL (70-105); POTASSIUM 4.4 MMOL/L (3.6-5.0); SODIUM 131 MMOL/L (135-145); TOTAL PROTEIN 5.7 G/DL (6.4-8.2)
[2016-06-01 06:45] LABS: BILIRUBIN,URINE NEGATIVE (NEGATIVE); KETONES,URINE NEGATIVE (NEGATIVE); LEUKOCYTE ESTERASE ,URINE NEGATIVE (NEGATIVE); NITRITE,URINE NEGATIVE (NEGATIVE); PH,URINE 7 (5-9); PROTEIN,URINE 1+ (NEGATIVE); UROBILINOGEN,URINE NORMAL (NORMAL)
[2016-06-01 06:59] LABS: SQUAMOUS EPITHELIAL CELL,UR RARE /HPF; WBC,URINE RARE /HPF
[2016-06-01 08:00] VITALS: BP 183/93
[2016-06-01] MEDS: ACETAMINOPHEN 500 MG TAB (TYLENOL) PO PRN ×4 (08:04→23:23)
[2016-06-01] MEDS ORDERED: ACETAMINOPHEN 650 MG SUPP (TYLENOL) ONE (08:19)
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
[2016-06-01] MEDS ORDERED: cefTRIAXone INJECTION 2,000 MG in NS (IVPB) 50 ML IV ONE (08:30)
[2016-06-01] MEDS ORDERED: VANCOMYCIN INJECTION 0.1 MG in NS (IVPB) 250 ML IV SCH (08:30)
[2016-06-01] MEDS ORDERED: IOHEXOL 350 MG/ML 100 ML (OMNIPAQUE 350) VIAL IV ONE (08:45)
[2016-06-01] MEDS ORDERED: NS 100 ML (IVPB) BAG IV ONE (08:45)
[2016-06-01] MEDS ORDERED: LOSARTAN 50 MG (COZAAR) TAB PO SCH (09:00)
[2016-06-01] MEDS ORDERED: NON-FORMULARY MEDICATION 1 EA EA (Losartan Potassium 100 MG) PO SCH (09:00)
[2016-06-01] MEDS ORDERED: VANCOMYCIN 1250 MG/NS 250 ML IVPB IV NR ×2 (10:00)
[2016-06-01] MEDS: NS IV 1000 ML 1,000 ML IV SCH ×4 (10:12→23:21)
[2016-06-01] MEDS: LOSARTAN 100 MG TAB PO SCH (10:53)
[2016-06-01 12:00] VITALS: BP 187/95
[2016-06-01] MEDS ORDERED: GADOBUTROL 7.5 MMOL/7.5 ML (GADAVIST) VIAL IV ONE (12:00)
[2016-06-01] MEDS ORDERED: ONDANSETRON 4 MG/2 ML (SDV) Z0FRAN ONE (12:18)
--- NOTE | 2016-06-01 15:20 | Diagnostic Imaging Report ---
PROCEDURE: MR imaging of the brain with and without contrast. TECHNIQUE: Multiplanar, multisequence MR imaging of the brain was performed with and without contrast. INDICATION: Skull lesion. Altered mental status. COMPARISON: CT head of 05/31/2016. FINDINGS: No foci of restricted diffusion to indicate acute infarct. No space-occupying mass or hydrocephalus. No blooming hypointensities on gradient imaging to indicate intracranial hemorrhage. 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 No isolated lobar atrophy. Central major arterial flow voids are preserved. Paranasal sinuses demonstrate air-fluid levels in both maxillary sinuses. Other paranasal sinuses are clear. The irregular lobulated intramedullary lesion in the posterior left parietal calvarium has intrinsic T1 hyperintensities, does not restrict diffusion and does not have appreciable enhancement. Imaging appearance would favor a benign process such as intraosseous hemangioma. No pathologic enhancement on postcontrast imaging. IMPRESSION: 1. No acute intracranial process. Specifically, no infarct or intracranial neoplasm. 2. Nonaggressive lesion in the high left parietal calvarium has intrinsic T1 hyperintensities most compatible with fat or chronic blood. This appearance would favor a benign process such as intraosseous hemangioma or prominent arachnoid granulations. Dictated by: Dictated on workstation # [id number]
[2016-06-01 16:00] VITALS: BP 164/80
--- NOTE | 2016-06-01 19:56 | Diagnostic Imaging Report ---
INDICATION: Fever. Cough. COMPARISON: 05/30/2016. EXAMINATION: Single frontal radiographic view of the chest was obtained. FINDINGS: Low inspiratory volumes. Otherwise, lungs are clear. There is no focal consolidation, large effusion or pneumothorax. Cardiac silhouette and pulmonary vasculature are within normal limits. Note is made of aortic atherosclerosis. Bony structures are stable. IMPRESSION: Low lung volumes, but otherwise no acute cardiopulmonary process. Dictated by: Dictated on workstation # [id number]
[2016-06-01 20:00] VITALS: BP 176/83
[2016-06-01] MEDS ORDERED: VANCOMYCIN 750 MG/NS 250 ML IVPB IV SCH ×2 (21:00)
[2016-06-02] VITALS: BP 186/71
[2016-06-02] MEDS ORDERED: ACETAMINOPHEN 650 MG SUPP (TYLENOL) ONE (01:17)
[2016-06-02 04:00] VITALS: BP 156/94
[2016-06-02 05:58] LABS: BASOPHILS % (AUTO) 0 % (0-10); EOSINOPHILS % (AUTO) 0 % (0-10); LYMPHOCYTES % (AUTO) 19 % (12-44); MEAN CORPUSCULAR HEMOGLOBIN 33 PG (25-34); MEAN CORPUSCULAR HGB CONC 35 G/DL (32-36); MEAN CORPUSCULAR VOLUME 95 FL (80-99); MEAN PLATELET VOLUME 8.9 FL (7.4-10.4); MONOCYTES # (AUTO) 1.1 X 10^3 (0.0-1.0); MONOCYTES % (AUTO) 10 % (0-12); NEUTROPHILS # (AUTO) 7.1 X 10^3 (1.8-7.8); NEUTROPHILS % (AUTO) 70 % (42-75); PLATELET COUNT 231 10^3/uL (130-400); RED BLOOD COUNT 4.04 10^6/uL (4.35-5.85); RED CELL DISTRIBUTION WIDTH 12.8 % (10.0-14.5); WHITE BLOOD COUNT 10.3 10^3/uL (4.3-11.0)
[2016-06-02 06:11] LABS: ALANINE AMINOTRANSFERASE 13 U/L (0-55); ALBUMIN 3.4 G/DL (3.2-4.5); ANION GAP 9 MMOL/L (5-14); ASPARTATE AMINO TRANSFERASE 19 U/L (5-34); BILIRUBIN,TOTAL 0.7 MG/DL (0.1-1.0); BLOOD UREA NITROGEN 8 MG/DL (7-18); BUN/CREATININE RATIO 10; CALCIUM 7.6 MG/DL (8.5-10.1); CARBON DIOXIDE 23 MMOL/L (21-32); CHLORIDE 94 MMOL/L (98-107); CREATININE SERUM 0.81 MG/DL (0.60-1.30); GFR ESTIMATED > 60; GLUCOSE 89 MG/DL (70-105); POTASSIUM 3.4 MMOL/L (3.6-5.0); SODIUM 126 MMOL/L (135-145); TOTAL PROTEIN 5.6 G/DL (6.4-8.2)
[2016-06-02] MEDS ORDERED: KETOROLAC 30 MG/ML VIAL IVP ONE (06:45)
[2016-06-02 08:25] VITALS: BP 134/71
[2016-06-02] MEDS: NS IV 1000 ML 1,000 ML IV SCH ×2 (08:27→22:58)
[2016-06-02] MEDS: OMEPRAZOLE 20 MG (PriLOSEC) CAP NON-FORMULARY PO SCH ×3 (08:58→21:49)
[2016-06-02] MEDS ORDERED: cefTRIAXone INJECTION 1,000 MG in NS (IVPB) 50 ML IV SCH (09:00)
[2016-06-02] MEDS: LOSARTAN 100 MG TAB PO SCH ×2 (09:00→10:26)
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
[2016-06-02] MEDS: GABAPENTIN 100 MG (NEURONTIN) CAP PO SCH ×2 (10:24→21:49)
[2016-06-02] MEDS ORDERED: KCL 20 MEQ TAB (K-DUR) PO ONE ×2 (10:28→10:30)
[2016-06-02] MEDS: ACYCLOVIR INJECTION 500 MG in NS (IVPB) 250 ML IV SCH ×2 (11:00→17:47)
[2016-06-02 12:30] VITALS: BP 131/70
[2016-06-02] MEDS: ACETAMINOPHEN 500 MG TAB (TYLENOL) PO PRN ×2 (13:18→21:49)
--- NOTE | 2016-06-02 16:00 | Progress Note-Standard ---
Standard Progress Note Progress Notes/Assess & Plan Progress/Assessment & Plan Herpes Zoster impacting 2/3 branches of trigeminal nerve significant ocular involvement. 2+ upper lid edema 3+ chemosis No proptosis noted 2+ injection on inferior and temporal conj. OS Only positive lissamine staining OU Cornea shows + F staining OS>>OD in open fissure Pupils PERRLA -APD No report of photophobia near VA (checked with bifocal) OD 20/40 20/200 FROM present no significant pain in any gaze cover test Ortho OU IOP with Spencer OD 19mmHg OS 21mmHg Pseudophakic with well positioned IOL None dilated few of the fundus WNL OU Final Diagnosis 1) Herpes Zoster impacting the L superior and inferior eye lid 2) Exposure keratitis secondary to lid edema OS>OD 3) Chronic inflammatory dry eye OU 4) Lid edema OS Currently no signs of active Zoster lesions on globe or cornea. Irritation is from Exotoxins Loss of VA appears to be from debris in the tear film Plan: 1) 800mg Acyclovir PO 5x a day 2) order Zirgan Ophthalmic salo QID OS for 7 days 3) AT Liberally ( At least QID) 4) Ice packs OS for comfort PRN 5) RTC in 48 hours if dismissed in my office for better SLE 6) Patient to call if condition becomes worse 7) Will consider topical steroid once patient is showing signs of improvement with antiviral HEATHER BAEZ OD Jun 02, 2016 16:00
[2016-06-02] MEDS: ARTIFICAL TEARS 0.4 ML UNIT DOSE (REFRESH PLUS) OU SCH ×2 (16:32→21:49)
[2016-06-02 16:59] VITALS: BP 148/87
[2016-06-02] MEDS ORDERED: GANCICLOVIR OS SCH (17:00)
[2016-06-02] MEDS ORDERED: TROUGH ORDER-PHARMACY XX NR (20:00)
[2016-06-02 20:59] VITALS: BP 175/83
[2016-06-03] VITALS: BP 147/68
[2016-06-03] MEDS: ACYCLOVIR INJECTION 500 MG in NS (IVPB) 250 ML IV SCH ×3 (02:26→18:07)
[2016-06-03] MEDS: ACETAMINOPHEN 500 MG TAB (TYLENOL) PO PRN ×3 (04:18→21:34)
[2016-06-03 04:21] VITALS: BP 130/90
[2016-06-03] MEDS: OMEPRAZOLE 20 MG (PriLOSEC) CAP NON-FORMULARY PO SCH ×2 (06:02→20:28)
[2016-06-03] MEDS: ARTIFICAL TEARS 0.4 ML UNIT DOSE (REFRESH PLUS) OU SCH ×4 (06:03→20:27)
[2016-06-03 08:15] VITALS: BP 158/78
[2016-06-03] MEDS: LOSARTAN 100 MG TAB PO SCH (09:24)
[2016-06-03] MEDS: GABAPENTIN 100 MG (NEURONTIN) CAP PO SCH ×2 (09:24→20:27)
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
[2016-06-03] MEDS: TRIFLURIDINE 1% 7.5 ML BTL (VIROPTIC) NON-FORMULARY OP SCH ×3 (11:38→20:27)
[2016-06-03] MEDS: ARTIFICAL TEARS 0.4 ML UNIT DOSE (REFRESH PLUS) OS PRN (11:52)
[2016-06-03 12:45] VITALS: BP 193/88
[2016-06-03 16:03] VITALS: BP 156/74
[2016-06-03] MEDS: NS IV 1000 ML 1,000 ML IV SCH (18:30)
[2016-06-03] MEDS: NYSTATIN ORAL SUSP 5 ML UDC PO SCH (18:30)
[2016-06-03 20:00] VITALS: BP 175/96
[2016-06-04] VITALS: BP 150/71
[2016-06-04] MEDS: NYSTATIN ORAL SUSP 5 ML UDC PO SCH ×4 (00:26→17:47)
[2016-06-04] MEDS: ARTIFICAL TEARS 0.4 ML UNIT DOSE (REFRESH PLUS) OS PRN (00:26)
[2016-06-04] MEDS: TRIFLURIDINE 1% 7.5 ML BTL (VIROPTIC) NON-FORMULARY OP SCH ×6 (00:26→20:03)
[2016-06-04] MEDS: ACYCLOVIR INJECTION 500 MG in NS (IVPB) 250 ML IV SCH ×3 (02:32→17:47)
[2016-06-04 04:00] VITALS: BP 160/80
[2016-06-04] MEDS: ARTIFICAL TEARS 0.4 ML UNIT DOSE (REFRESH PLUS) OU SCH ×4 (06:03→20:04)
[2016-06-04] MEDS: OMEPRAZOLE 20 MG (PriLOSEC) CAP NON-FORMULARY PO SCH ×2 (06:03→20:04)
[2016-06-04] MEDS: ACETAMINOPHEN 500 MG TAB (TYLENOL) PO PRN ×2 (06:03→19:12)
[2016-06-04] MEDS: NS IV 1000 ML 1,000 ML IV SCH ×2 (07:41→09:15)
[2016-06-04 08:00] VITALS: BP 176/74
[2016-06-04] MEDS: GABAPENTIN 100 MG (NEURONTIN) CAP PO SCH ×2 (09:09→20:04)
[2016-06-04] MEDS: LOSARTAN 100 MG TAB PO SCH (09:09)
[2016-06-04 10:51] LABS: BASOPHILS % (AUTO) 0 % (0-10); EOSINOPHILS % (AUTO) 1 % (0-10); LYMPHOCYTES # (AUTO) 2.8 X 10^3 (1.0-4.0); LYMPHOCYTES % (AUTO) 32 % (12-44); MEAN CORPUSCULAR HEMOGLOBIN 33 PG (25-34); MEAN CORPUSCULAR HGB CONC 36 G/DL (32-36); MEAN CORPUSCULAR VOLUME 92 FL (80-99); MEAN PLATELET VOLUME 8.9 FL (7.4-10.4); MONOCYTES # (AUTO) 1.1 X 10^3 (0.0-1.0); MONOCYTES % (AUTO) 13 % (0-12); NEUTROPHILS # (AUTO) 4.8 X 10^3 (1.8-7.8); NEUTROPHILS % (AUTO) 55 % (42-75); PLATELET COUNT 223 10^3/uL (130-400); RED BLOOD COUNT 3.94 10^6/uL (4.35-5.85); RED CELL DISTRIBUTION WIDTH 12.7 % (10.0-14.5); WHITE BLOOD COUNT 8.7 10^3/uL (4.3-11.0)
[2016-06-04 11:09] LABS: ANION GAP 10 MMOL/L (5-14); BLOOD UREA NITROGEN 10 MG/DL (7-18); BUN/CREATININE RATIO 14; CALCIUM 7.5 MG/DL (8.5-10.1); CARBON DIOXIDE 22 MMOL/L (21-32); CHLORIDE 95 MMOL/L (98-107); CREATININE SERUM 0.72 MG/DL (0.60-1.30); GFR ESTIMATED > 60; GLUCOSE 95 MG/DL (70-105); POTASSIUM 3.1 MMOL/L (3.6-5.0); SODIUM 127 MMOL/L (135-145)
[2016-06-04 11:11] LABS: ERYTHROCYTE SEDIMENTATION RATE 9 MM/HR (0-30)
[2016-06-04] MEDS ORDERED: ONDANSETRON 4 MG/2 ML (SDV) Z0FRAN IVP PRN (11:15)
[2016-06-04 11:16] LABS: CRENATED RBC MODERATE; EOSINOPHILS % (MANUAL) 1 %; LYMPHOCYTES % (MANUAL) 18 %; NEUTROPHILS % (MANUAL) 58 %; REACTIVE LYMPHOCYTES 15 %
[2016-06-04 12:00] VITALS: BP 161/92
[2016-06-04 16:56] VITALS: BP 187/88
[2016-06-04 19:59] VITALS: BP 170/72
[2016-06-04] MEDS ORDERED: POTASSIUM CHLORIDE INJ 20 MEQ in NS IV 1000 ML 1,000 ML IV SCH (20:01)
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
[2016-06-04] MEDS: NS W/KCL 20 MEQ/L 1,000 ML IV SCH (21:37)
[2016-06-05] VITALS: BP 155/72
[2016-06-05] MEDS: TRIFLURIDINE 1% 7.5 ML BTL (VIROPTIC) NON-FORMULARY OP SCH ×3 (00:03→09:33)
[2016-06-05] MEDS: NYSTATIN ORAL SUSP 5 ML UDC PO SCH ×2 (00:04→05:12)
[2016-06-05] MEDS: ARTIFICAL TEARS 0.4 ML UNIT DOSE (REFRESH PLUS) OS PRN (00:04)
[2016-06-05] MEDS: ACYCLOVIR INJECTION 500 MG in NS (IVPB) 250 ML IV SCH ×2 (02:14→09:34)
[2016-06-05] MEDS: NS W/KCL 20 MEQ/L 1,000 ML IV SCH (03:52)
[2016-06-05 04:00] VITALS: BP 150/90
[2016-06-05] MEDS: ARTIFICAL TEARS 0.4 ML UNIT DOSE (REFRESH PLUS) OU SCH ×2 (05:12→09:44)
[2016-06-05] MEDS: OMEPRAZOLE 20 MG (PriLOSEC) CAP NON-FORMULARY PO SCH (06:30)
[2016-06-05] MEDS ORDERED: KCL 10 MEQ TAB (MICRO K) PO SCH (07:00)
[2016-06-05 08:00] VITALS: BP 179/95
[2016-06-05] MEDS: LOSARTAN 100 MG TAB PO SCH (09:33)
[2016-06-05] MEDS: GABAPENTIN 100 MG (NEURONTIN) CAP PO SCH (09:33)
[2016-06-05] MEDS ORDERED: LIDOCAINE UROJET 2% GEL 10 ML PKG TOP PRN (11:00)
[2016-06-05] MEDS ORDERED: LIDOCAINE UROJET 2% GEL 10 ML PKG ONE (11:22)
--- NOTE | 2016-06-05 12:01 | Progress Note-Standard ---
Standard Progress Note Progress Notes/Assess & Plan Progress/Assessment & Plan Herpes Zoster impacting 2/3 branches of trigeminal nerve significant ocular involvement. 2+ upper lid edema 3+ chemosis No proptosis noted 2+ injection on inferior and temporal conj. OS Only positive lissamine staining OU Cornea shows + F staining OS>>OD in open fissure Pupils PERRLA -APD No report of photophobia near VA (checked with bifocal) OD 20/40 20/200 FROM present no significant pain in any gaze cover test Ortho OU IOP with Spencer OD 19mmHg OS 21mmHg Pseudophakic with well positioned IOL None dilated few of the fundus WNL OU HEATHER BAEZ OD Jun 05, 2016 12:01
--- NOTE | 2016-06-05 12:13 | Progress Note-Standard ---
Standard Progress Note Progress Notes/Assess & Plan Progress/Assessment & Plan Herpes Zoster impacting 2/3 branches of trigeminal nerve significant ocular involvement. significant improvement in lid edema and erythema. FROM Pupils PERRLA 1APD conj displays 2+ Chemosis and 2+ injection. Appears to be early circumlimbal injection developing Corneal staining has improved. No signs of zoster lesion developing no signs of toxicity from Viroptic IOP was 20mmHG patient reports photophobia but did not display signs during the exam Final Diagnosis Continue With topical Viroptic QID OS for full 7 day course (Zirgan not available) Begin Pred Forte QID OS for 7 days, patient is displaying inflammatory response due to viral shedding and exotoxins with lid involvement (This likely accounts for photophobia) Patients pain level and symptoms do not align with clinical findings Continue IV antiviral as directed by inpatient time (from an ophthalmic viewpoint 800mg acyclovir 5X would be adequate therapy) RTC in 48 hours of if symptoms increase Continue cold packs and AT PRN for discomfort VA today is stable from previous visit. Blurred vision likely result of debris in the tear film. Possible VF loss to to TIA in 2008 will complete VF when the patient is dismissed HEATHER BAEZ OD Jun 05, 2016 12:13
[2016-06-05] MEDS ORDERED: ALFUZOSIN HCL 10 MG TAB (UROXATRAL) PO SCH (18:00)
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
[2016-06-25] MEDS ORDERED: LACT20SO2 PO (13:20)
[2016-06-25] MEDS ORDERED: LOSA50TA36 PO (13:20)
[2016-06-25] MEDS ORDERED: IBUP-2055 PO (13:20)
[2016-06-25] MEDS ORDERED: AMLO5TAB2 PO (13:20)
[2016-07-21] MEDS ORDERED: NEBI5TAB8 PO (08:11)
[2016-07-21] MEDS ORDERED: VALA10004 PO (08:11)
== END 2016-06-05 11:38 | disposition swing bed (61) | DRG 125 ==
LOC: EDUNIT# 09:01 → ER 09:03 → UNDOADMOB 11:07 → 4TH 11:07 → INTOOBSV 06-02 11:52 → OBSVTOIN 06-02 11:52
PROVIDERS: ADMIT Internal Medicine; ATTEND Internal Medicine
DX: B02.39 Other herpes zoster eye disease (principal); B02.22 Postherpetic trigeminal neuralgia; J01.00 Acute maxillary sinusitis, unspecified; E87.1 Hypo-osmolality and hyponatremia; E86.0 Dehydration; H16.8 Other keratitis; E87.6 Hypokalemia; H57.8 Other specified disorders of eye and adnexa; Z66 Do not resuscitate; M85.88 Other specified disorders of bone density and structure, other site; I10 Essential (primary) hypertension; R63.4 Abnormal weight loss; K21.9 Gastro-esophageal reflux disease without esophagitis; R63.0 Anorexia
CPT/HCPCS: 36415; 70450; 70553; 71010; 71020; 76700; 80048; 80053; 81000; 82962; 83605; 83690; 84153; 85007; 85025; 85027; 85652; 86141; 87040; 87804; 96361; 96374; 96375; G0378

== ENCOUNTER 2016-06-05 09:01 | Inpatient (IN) | payer MEDICARE ==
[~2016-06-05] VITALS: Ht 172.7 cm; Wt 66.7 kg
[~2016-06-05 09:01] MED LIST changes: +NEBI5TAB8 PO; +OMEP20CA12 PO
[2016-06-05] MEDS ORDERED: PATIENT MAY USE OWN MEDS, ALL MC SCH (11:45)
[2016-06-05] MEDS ORDERED: CATHETER FLUSH 10 ML SYR IV PRN (11:45)
[2016-06-05] MEDS ORDERED: ACYCLOVIR INJECTION 500 MG in NS (IVPB) 250 ML IV SCH (11:45)
[2016-06-05] MEDS ORDERED: LIDOCAINE UROJET 2% GEL 10 ML PKG TOP PRN (11:45)
[2016-06-05] MEDS ORDERED: ONDANSETRON 4 MG/2 ML (SDV) Z0FRAN IVP PRN (11:45)
[2016-06-05 12:00] VITALS: BP 161/85
--- OUTSIDE RECORDS SUMMARY | 2016-06-05 12:13 | XMS REPORT | Continuity of Care Document ---
Author Author [facility] Organization 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 Name Role Phone DEVIN NEW MD PCP Insurance Providers Payer Name Policy Number Subscriber Name Relationship Wps Medicare [id number] Glenn Boykin 20 Self / Same As Patient Blue Cross [facility] Supp [id number] Glenn Boykin 20 Self / Same As Patient Advance Directives Directive Response Recorded Date/Time Advance Directives Yes 05/30/16 9:51am Health Care Power of Investment Strategist Suhail PINEDA DTR 07/10/15 9:47am Organ Donor Yes 07/10/15 9:47am Resuscitation Status Full Code 05/30/16 9:51am Chief Complaint and Reason for Visit Chief Complaint Respiratory Problems Reason for Visit Headache [id number] Epigastric pain Problems Active Problems Medical Problem [...] - 99.5) 05/30/2016 12:44pm Temperature (Calculated Celsius) 36.36532 degrees C (36.4 - 37.5) 05/30/2016 12:44pm [...] 8 inches 05/30/2016 9:10am Height (Calculated Centimeters) 172.893459 cm 05/30/2016 9:10am Weight (Pounds) 150 pounds 05/30/2016 9:10am Weight (Calculated Kilograms) 68.817947 kilograms 05/30/2016 9:10am Capillary Refill Capillary Refill [...] 5-9 05/30/2016 11:50am 05/30/2016 12:12pm Urine Specific [place] 1.010 * 1.016-1.022 05/30/2016 11:50am 2016 12:12pm [...] Date Attending Provider Departed Emergency Room [facility] 05/30/16 9:04am 05/30 12:46pm DEJUAN BRANDON MD Recent Diagnosis
[2016-06-05] MEDS ORDERED: ARTIFICAL TEARS 0.4 ML UNIT DOSE (REFRESH PLUS) OS PRN (12:15)
[2016-06-05] MEDS ORDERED: ARTIFICAL TEARS 0.4 ML UNIT DOSE (REFRESH PLUS) OU SCH (16:00)
--- NOTE | 2016-06-05 16:01 | Physical Therapy Evaluation ---
PT Evaluation-General Medical Diagnosis Admission Date Jun 05, 2016 at 11:42 Medical Diagnosis: Upper respiratory infection Onset Date: Jun 05, 2016 Therapy Diagnosis Therapy Diagnosis: weakness; abn gait Height/Weight Height (Feet): 5 Height (Inches): 8.00 Weight (Pounds): 146 Weight (Ounces): 15.0 Precautions Precautions/Isolations: Contact/Enteric Isolation Referral Physician: Taryn Reason for Referral: Evaluation/Treatment Medical History Pertinent Medical History: HTN Current History Pt admitted with upper respiratory infection with complaints of malaise and headache. Pt transfrred to [facility] for medical management and therapy services. Reviewed History: Yes Social History Home: Single Level Current Living Status: Alone Entry Into Home: Stairs With Railing Prior/Core FIM Prior Level of Function Functional [place] Measure 0=Not Assessed/NA 4=Minimal Assistance 1=Total Assistance 5=Supervision or Setup 2=Maximal Assistance 6=Modified [place] 3=Moderate Assistance 7=Complete [place] Pt was indep and active outdoors prior to admission. He performs yard work and still drives. PT Evaluation-Current Subjective Agreeable to PT. Reports he is somewhat weak. Objective Patient Orientation: Person, Place, Time, Situation Problem Solving: Good Attachments: IV ROM/Strength ROM Lower Extremities WFL Strenght Lower Extremities grossly 4/5 throughout Integumentary/Posture Integumentary intact Bowel Incontinence: No Bladder Incontinence: No Posture normal and symmetrical Neuromuscular (Tone, Coordination, Reflexes) no noted functional deficit Sensory Vision: Functional (left eye blurry due to shingles) Hearing: Impaired Hand Dominance: Right Sensation Right Lower Extremit: Intact Sensation Left Lower Extremity: Intact Transfers Functional [place] Measure 0=Not Assessed/NA 4=Minimal Assistance 1=Total Assistance 5=Supervision or Setup 2=Maximal Assistance 6=Modified [place] 3=Moderate Assistance 7=Complete [place] Transfers (B, C, W/C) (FIM): 4 (CGA for safety and light tactile cues to sequence) Supine to/from Sit: 4 Sit to/from Stand: 4 Sit to Lying (QC): 4 Lying to Sitting/Side of Bed(Q: 4 Sit to Stand (QC): 4 Chair/Aqk-em-Fzmaf Xfer(QC): 4 Gait Does the Patient Walk?: Yes Mode of Locomotion: Walk Anticipated Mode of Locomotion: Walk Gait (FIM): 2 Distance (FIM): 7=856-48 ft Distance: 125 ft Walk 50 ft with 2 Turns(QC): 4 (in the room to look out the window.) Walk 150 ft (QC): 88 (did not walk 150 ft) Gait Level of Assist: 4 (due to slightly unsteady gait without AD) Gait Assistive Device: None Comments/Gait Description Unsteady gait with narrow TAMMY at times and scissoring at times; recommend use of FWW to follow. Wheelchair Training Does the Pt Use a Wheelchair?: No Stairs Stairs (FIM): 0 (unsafe to attempt) Balance Sitting Static: Good Sitting Dynamic: Good Standing Static: Fair Standing Dynamic: Fair Treatment Gait training with education and cues for safety with functional mobility. Assessment/Needs Pt presents with decreased functional strength and mobility as well as balance deficits with functional gait. He presents with a decrease in functional activity tolerance as well. He will benefit from skilled PT services to work on addressing deficits to allow him to return home as before. Rehab Potential: Good PT Short Term Goals Short Term Goals Time Frame: Jun 12, 2016 Transfers (B,C,W/C) (FIM): 5 Gait (FIM): 5 Distance (FIM): 3=150 ft Gait Assistive Device: FWW PT Research Geologist Goals Research Geologist Goals PT Half-Way Goals Time Frame: Jun 19, 2016 Transfers (B,C,W/C) (FIM): 6 Sit to Lying (QC): 6 Lying-Sitting on Side/Bed(QC): 6 Sit to Stand (QC): 6 Chair/Acd-ug-Dmwwy Xfer(QC): 6 Does the Patient Walk: Yes Gait (FIM): 6 Walk 50ft with 2 Turns (QC): 6 Walk 150 ft (QC): 6 Gait Level of Assist: 6 Gait Assistive Device: Cane Single Point Does the Pt use WC or Scooter?: No Stairs (FIM): 2 # of Steps: 4 PT Plan Problem List Problem List: Activity Tolerance, Functional Strength, Safety Treatment/Plan Treatment Plan: Continue Plan of Care Treatment Plan: Bed Mobility, Education, Functional Activity Pooja, Functional Strength, Gait, Safety, Therapeutic Exercise, Transfers Treatment Duration: Jun 19, 2016 # of days/week 5 Visits Per Week: 5 Pt/Family Agrees w/Plan: Yes Safety Risks/Education Patient Education: Gait Training, Safety Issues Teaching Recipient: Patient Teaching Methods: Demonstration, Discussion Response to Teaching: Return Demonstration, Reinforcement Needed Discharge Recommendations Plan Use a FWW next visit Time/GCodes Time In: 1430 Time Out: 1500 Total Billed Treatment Time: 30 Total Billed Treatment visit EVM 15 GT 15 JAIME HARTMANN PT Jun 05, 2016 16:01
[2016-06-05] MEDS ORDERED: ARTIFICAL TEARS 0.4 ML UNIT DOSE (REFRESH PLUS) OU PRN (17:00)
[2016-06-05] MEDS: ALFUZOSIN HCL 10 MG TAB (UROXATRAL) PO SCH (17:04)
[2016-06-05] MEDS: NYSTATIN ORAL SUSP 5 ML UDC PO SCH ×2 (17:04→17:20)
[2016-06-05] MEDS: ACYCLOVIR INJECTION 500 MG in NS (IVPB) 250 ML IV SCH (17:05)
[2016-06-05] MEDS: prednisoLONE 1% OPTH (PRED FORTE) 5 ML BTL OS SCH ×3 (17:20→21:39)
[2016-06-05] MEDS: NS W/KCL 20 MEQ/L 1,000 ML IV SCH (17:21)
[2016-06-05] MEDS: TRIFLURIDINE 1% 7.5 ML BTL (VIROPTIC) NON-FORMULARY OP SCH ×2 (17:36→20:46)
[2016-06-05 18:00] VITALS: BP 136/77
[2016-06-05] MEDS: GABAPENTIN 100 MG (NEURONTIN) CAP PO SCH (20:52)
[2016-06-05] MEDS: OMEPRAZOLE 20 MG (PriLOSEC) CAP NON-FORMULARY PO SCH (20:52)
[2016-06-06] MEDS: ACYCLOVIR INJECTION 500 MG in NS (IVPB) 250 ML IV SCH ×3 (01:45→17:55)
[2016-06-06] MEDS: TRIFLURIDINE 1% 7.5 ML BTL (VIROPTIC) NON-FORMULARY OP SCH ×4 (04:07→12:48)
[2016-06-06] MEDS: NS W/KCL 20 MEQ/L 1,000 ML IV SCH ×2 (04:11→15:25)
[2016-06-06 06:00] VITALS: BP 148/79
[2016-06-06] MEDS: KCL 10 MEQ TAB (MICRO K) PO SCH (06:10)
[2016-06-06] MEDS: OMEPRAZOLE 20 MG (PriLOSEC) CAP NON-FORMULARY PO SCH ×2 (06:10→21:12)
[2016-06-06] MEDS: NYSTATIN ORAL SUSP 5 ML UDC PO SCH ×4 (06:10→17:55)
--- NOTE | 2016-06-06 08:49 | Progress Note-Hospitalist ---
Subjective HPI/CC On Admission patient feeling better reportingpain this morning. He has been able to void on his own. He did require catheterization 1 800 mL now. Mild photophobia this morning some blurring of vision better currently. Appetite improving afebrile. Still having left retro-orbital and forehead discomfort. Date Seen 06/06/16 Objective Exam Vital Signs Vital Sign - Last 12Hours 06/05/16 12:00 Temp 97.9 Pulse 67 Resp 18 B/P 161/85 Pulse Ox 98 O2 Delivery Room Air Capillary Refill : General Appearance: No Apparent Distress HEENT: Other (Minimal edema under her left eye there is minimal erythema over the left supraorbital nerve distribution no open sores are noted minimal conjunctival injection is noted patient opens his eyes not shielding them from the window but is open and eliminated. Pupils are 4-5 mm and equal extraocular muscles are intact.) Respiratory: Chest Non Tender Lungs Clear Normal Breath Sounds No Accessory Muscle Use No Respiratory Distress Cardiovascular: Regular Rate, Rhythm No Edema No Gallop No JVD No Murmur Normal Peripheral Pulses Gastrointestinal: Normal Bowel Sounds No Organomegaly No Pulsatile Mass Non Tender Soft Other (No suprapubic tenderness is noted the bladder is not palpable.) Assessment/Plan Assessment and Plan Assess & Plan/Chief Complaint 1. Herpes zoster involving the supraorbital nerve and conjunctiva continue to improve 2. Fever abating questionable encephalitis continue IV acyclovir 3. TIA lasting [address] head aspirin initiated blood pressure back down to normal continue to monitor today. 4. Urinary retention improved continue Flomax. SOBEIDA NEGRON MD Jun 06, 2016 08:49
[2016-06-06] MEDS ORDERED: prednisoLONE 1% OPTH (PRED FORTE) 5 ML BTL OS SCH (09:00)
[2016-06-06 09:40] VITALS: BP 182/88
[2016-06-06] MEDS: GABAPENTIN 100 MG (NEURONTIN) CAP PO SCH ×2 (09:44→21:12)
[2016-06-06] MEDS: PATIENT'S OWN MED (RX USE ONLY) PO SCH (09:44)
--- NOTE | 2016-06-06 09:52 | Occupational Therapy Eval ---
OT Evaluation-General/PLF Medical Diagnosis Admission Date Jun 05, 2016 at 11:42 Medical Diagnosis: Upper respiratory infection, shingles Onset Date: Jun 05, 2016 Therapy Diagnosis Therapy Diagnosis: decreased self care, weakness Height/Weight Height (Feet): 5 Height (Inches): 8.00 Weight (Pounds): 146 Weight (Ounces): 15.0 Precautions Precautions/Isolations: Contact Isolation (special), Fall Prevention Safety Interventions: Bed Exit Alarm Referral Physician: aTryn Referral Reason: Evaluation/Treatment Medical History Pertinent Medical History: GERD, HTN Additional Medical History Hernia repair, clavicle surgery 1986, vision loss lasting 4 months in 2003, TIA 2008, spinal surgery, chronic bronchitis Current History Shingles in L eye, trigeminal pain. lesion calvarium Reviewed History: Yes Social History Home: Single Level Current Living Status: Alone Entry Into Home: Stairs With Railing ADL-Prior Level of Function ADL PLOF Comments Patient and friend reported that he was independent with all his basic ADLs prior to admission. 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 Pain reported 0/10 Appearance Asleep but easily awakened. Confused, perseverated on getting a shower. Unable to follow instructions to take socks off. Able to answer some orientation questions with cues Mental Status/Objective Patient Orientation: Person, Place (with cues), Time (with cues) Attachments: IV Current Glasses/Contacts: Yes Upper Extremity ROM Grossly WFL bilat Upper Extremity Strength Difficulty following instructions for muscle testing. Grossly 4/5 bilat ADL-Treatment ADL-Current Pt's friend reported that she has been feeding him because he takes too big of bites and chokes. He can get a drink by holding her hand with a cup in it but does not reach for cup or mug. She said she has been brushing his teeth but thinks he could do it himself with setup. She reported that two people walk him to the bathroom with him holding on to IV pole. He needs help getting on and off the toilet and managing hygiene. Pt was unable to follow instructions to take his slipper socks off and perseverated about getting a shower and then resting. Functional [place] Measure 0=Not Assessed/NA 4=Minimal Assistance 1=Total Assistance 5=Supervision or Setup 2=Maximal Assistance 6=Modified [place] 3=Moderate Assistance 7=Complete IndependenceIRFPAI Quality Coding Scale 6 Independent with activity with or without an assistive device 5 Patient requires set up or clean up by helper. Patient completes activity by themselves 4 Supervision or touching assist (CGA). [place] provide cues , steadying assist 3 The helper provides less than half the effort to complete the activity 2 The helper provides more than half the effort to complete the activity 1 Dependent. The helper does all the effort to complete an activity 7 Patient refused to complete or attempt activity 9 The patient did not perform the activity before the current illness or injury 88 Not attempted due to Medical conditions or safety concerns Eating (FIM): 1 Eating (QC): 1 Grooming (FIM): 1 Oral Hygiene (QC): 1 Lower Body Dressing (FIM): 1 Toileting (FIM): 1 (two peson) Toileting Hygiene (QC): 1 (two person) Toilet/Commode Transfer (FIM): 1 (two person) Toilet Transfer (QC): 1 (two person) Per PT evaluation, pt was CGA-min with transfers and ambulation Education OT Patient Education: Purpose of tx/functional activities, Rehab process Teaching Recipient: Patient Teaching Methods: Discussion Response to Teaching: Verbalize Understanding OT Short Term Goals Short Term Goals Transfers (B,C,W/C) (FIM): 5 1=Demonstrate adherence to instructed precautions during ADL tasks. 2=Patient will verbalize/demonstrate understanding of assistive devices/ modifications for ADL. 3=Patient will improve strength/tolerance for activity to enable patient to perform ADL's. OT Pulp Mill Supervisor Goals Senior Care Goals Time Frame: Jun 20, 2016 Eating (FIM): 6 Eating (QC): 6 Groomin Oral Hygiene (QC): 6 Bathing(FIM): 5 Upper Body Dressing(FIM): 6 Lower Body Dressing(FIM): 6 Toileting(FIM): 6 Toileting Hygiene (QC): 6 Toilet/Commode Transfer(FIM): 6 Toilet/Commode Transfer (QC): 6 Shower Transfer(FIM): 6 Additional Goals: 2-Verbalize Understanding, 3-ImproveStrength/Pooja 1=Demonstrate adherence to instructed precautions during ADL tasks. 2=Patient will verbalize/demonstrate understanding of assistive devices/ modifications for ADL. 3=Patient will improve strength/tolerance for activity to enable patient to perform ADL's. OT Education/Plan Problem List/Assessment Assessment: Decreased UE Strength, Dependent Transfers, Impaired Cognition, Impaired Funct Balance, Impaired Self-Care Skills Pt would benefit from skilled OT to increase his independence in basic self care to allow him to return to his home to live safely with family support. Discharge Recommendations Plan/Recommendations: Continue POC Treatment Plan/Plan of Care Treatment,Training & Education: Yes Patient would benefit from OT for education, treatment and training to promote independence in ADL's, mobility, safety and/or upper extremity function for ADL' s. Plan of Care: ADL Retraining, Functional Mobility, UE Funct Exercise/Act, UE Neuromus Re-Ed/Coord Treatment Duration: Jun 20, 2016 # of days/week 5 Visits Per Week: 5 Agreement: Yes Rehab Potential: Good Time/GCodes Start Time: 09:00 Stop Time: 09:35 Total Time Billed (hr/min): 35 Billed Treatment Time visit, 35 minutes evaluation moderate complexity ALHAJI DAVILA OT Jun 06, 2016 09:51
[2016-06-06 10:05] VITALS: BP 167/89
--- NOTE | 2016-06-06 10:36 | Diagnostic Imaging Report ---
PROCEDURE: CT head without contrast. TECHNIQUE: Multiple contiguous axial images were obtained through the brain without the use of intravenous contrast. INDICATION: Weak. Difficulty speaking. COMPARISON: MRI brain without and with IV contrast 06/01/2016. CT head without contrast 05/31/2016. FINDINGS: No intracranial hemorrhage, mass-effect, hydrocephalus or extra-axial fluid collections. No CT evidence of acute infarction. Generalized cerebral and cerebellar parenchymal volume loss is age appropriate. Intracranial vascular calcifications. Stable benign-appearing lesion in the left parietal bone. Air-fluid levels in the partially visualized maxillary sinuses. Mastoid air cells are clear. The visualized orbits are unremarkable. IMPRESSION: 1. No acute intracranial CT findings. 2. Air-fluid levels in the bilateral maxillary sinuses are partially visualized. Dictated by: Dictated on workstation # [id number]
[2016-06-06] MEDS: prednisoLONE 1% OPTH (PRED FORTE) 5 ML BTL OS SCH ×2 (10:42→13:00)
[2016-06-06 10:45] VITALS: BP 158/88
[2016-06-06] MEDS: ACETAMINOPHEN 500 MG TAB (TYLENOL) PO PRN (10:53)
--- NOTE | 2016-06-06 11:20 | Physical Therapy Progress Note ---
Therapy Progress Note Attempted PT visit this am. Pt with increased confusion and perseverating on certain things. Nursing working to get a CT scan complete. No treatment this am. Will recheck in the afternoon. JAIME HARTMANN PT Jun 06, 2016 11:20
--- NOTE | 2016-06-06 11:42 | Progress Note-Hospitalist ---
Progress Note HPI/CC on Admission patient feeling better reportingpain this morning. He has been able to void on his own. He did require catheterization 1 800 mL now. Mild photophobia this morning some blurring of vision better currently. Appetite improving afebrile. Still having left retro-orbital and forehead discomfort. Progress Notes/Assess & Plan Date Seen 06/06/16 Diagonsis/Assessment & Plan HPI: I was called because manufactured buildings repairer was evaluating vision check and pt was unable to talk and was confused and OT reported pt was unable to take socks off and all he wanted to do was get in the shower. But when I evaluated the pt he had complete resolution of symptoms, was at bedside and whatever occurred is no longer present so will evaluate with NIH exam, obtain CT scan. Update: NIH score was 0. Patient does not seem to have any confusion currently his exam was normal normal commissioner of internal revenue normal strength and able to ambulate without difficulties so will monitor and manage conservatively. Scribed by Gilbert Torres under the direct supervision of Dr. Centeno. DIEGO CENTENO DO Jun 06, 2016 11:42
[2016-06-06] MEDS: ASPIRIN 325 MG (5 GR) TABLET PO SCH (12:48)
--- NOTE | 2016-06-06 15:11 | Physical Therapy Progress Note ---
Therapy Progress Note Per nursing, ok to see pt but pt is very tried and continues to have a headache that won't go away. Pt refused PT due to continued headache and feeling nauseated. PT will check back tomorrow. 1 visit, no tx Time: [id number] GLADYS RUTHERFORD PTA Jun 06, 2016 15:11
[2016-06-06] MEDS: TRIFLURIDINE 1% 7.5 ML BTL (VIROPTIC) NON-FORMULARY OS SCH ×2 (15:25→21:12)
[2016-06-06] MEDS: ALFUZOSIN HCL 10 MG TAB (UROXATRAL) PO SCH (17:55)
[2016-06-06 18:00] VITALS: BP 144/70
[2016-06-07] MEDS: NYSTATIN ORAL SUSP 5 ML UDC PO SCH ×3 (00:04→11:24)
[2016-06-07] MEDS: TRIFLURIDINE 1% 7.5 ML BTL (VIROPTIC) NON-FORMULARY OS SCH ×4 (00:04→11:24)
[2016-06-07] MEDS: ACYCLOVIR INJECTION 500 MG in NS (IVPB) 250 ML IV SCH ×2 (02:47→09:30)
[2016-06-07] MEDS: ACETAMINOPHEN 500 MG TAB (TYLENOL) PO PRN ×2 (04:34→09:28)
[2016-06-07 05:57] VITALS: BP 135/77
[2016-06-07] MEDS: KCL 10 MEQ TAB (MICRO K) PO SCH (06:10)
[2016-06-07] MEDS: OMEPRAZOLE 20 MG (PriLOSEC) CAP NON-FORMULARY PO SCH (06:10)
[2016-06-07] MEDS: ASPIRIN 325 MG (5 GR) TABLET PO SCH (06:10)
[2016-06-07] MEDS: PATIENT'S OWN MED (RX USE ONLY) PO SCH (09:29)
[2016-06-07] MEDS: GABAPENTIN 100 MG (NEURONTIN) CAP PO SCH (09:29)
--- NOTE | 2016-06-07 10:12 | Occupational Ther Daily Note ---
OT Current Status-Daily Note Subjective Pt seen in room, up in recliner, wants to shower rather than do sponge bath. No pain mentioned Appearance Alert, cooperative. More participative and attentive to task today Mental Status/Objective Patient Orientation: Person, Situation Functional [place] Measure 0=Not Assessed/NA 4=Minimal Assistance 1=Total Assistance 5=Supervision or Setup 2=Maximal Assistance 6=Modified [place] 3=Moderate Assistance 7=Complete [place] ADL-Treatment Functional [place] Measure 0=Not Assessed/NA 4=Minimal Assistance 1=Total Assistance 5=Supervision or Setup 2=Maximal Assistance 6=Modified [place] 3=Moderate Assistance 7=Complete IndependenceIRFPAI Quality Coding Scale 6 Independent with activity with or without an assistive device 5 Patient requires set up or clean up by helper. Patient completes activity by themselves 4 Supervision or touching assist (CGA). [place] provide cues , steadying assist 3 The helper provides less than half the effort to complete the activity 2 The helper provides more than half the effort to complete the activity 1 Dependent. The helper does all the effort to complete an activity 7 Patient refused to complete or attempt activity 9 The patient did not perform the activity before the current illness or injury 88 Not attempted due to Medical conditions or safety concerns Eating (FIM): 5 (Pt was able to take a bite of fruit and get a drink from a cup with setup) Eating (QC): 5 (Pt was able to take a bite of fruit and get a drink from a cup with setup) Grooming (FIM): 5 (Pt washed face and hands during shower) Bathing (FIM): 5 (Setup, supervision for standing. washed and dried all parts. Shower bench, grab bars, hand held shower. Stood without support to wash bottom) Upper Body (FIM): 5 (setup) Lower Body Dressing (FIM): 5 (setup, SBA when standing. SLipper socks off and on) Toileting (FIM): 5 (Managed clothing and hygiene, SBA when standing. Tall toilet, grab bars) Toileting Hygiene (QC): 4 (SBA/supervision when standing. managed clothing and hygiene) Transfers (B, C, W/C) (FIM): 4 (CGA, Fww. occasionally wobbly and with decreased safety awareness walking from chair to shower bench) Toilet/Commode Transfer (FIM): 5 (SBA, tall toilet, grab bars) Toilet Transfer (QC): 4 (SBA/supervision for getting on/off tall toilet, grab bars) Shower Transfer(FIM): 4 (CGA, shower bench, grab bars) Pt returned to chair, all needs met. Suggested chair alarm to RN due to decreased safety Education OT Patient Education: Modified ADL techniques, Purpose of tx/functional activities, Reviewed precautions, Safety issues, Transfer techniques Teaching Recipient: Patient Teaching Methods: Demonstration, Discussion Response to Teaching: Verbalize Understanding, Return Demonstration, Reinforcement Needed OT Short Term Goals Short Term Goals Transfers (B,C,W/C) (FIM): 5 1=Demonstrate adherence to instructed precautions during ADL tasks. 2=Patient will verbalize/demonstrate understanding of assistive devices/ modifications for ADL. 3=Patient will improve strength/tolerance for activity to enable patient to perform ADL's. OT Precision Instrument Maker And Repairer Goals Longterm Goals Time Frame: Jun 20, 2016 Eating (FIM): 6 Eating (QC): 6 Groomin Oral Hygiene (QC): 6 Bathing(FIM): 5 Upper Body Dressing(FIM): 6 Lower Body Dressing(FIM): 6 Toileting(FIM): 6 Toileting Hygiene (QC): 6 Toilet/Commode Transfer(FIM): 6 Toilet/Commode Transfer (QC): 6 Shower Transfer(FIM): 6 Additional Goals: 2-Verbalize Understanding, 3-ImproveStrength/Pooja 1=Demonstrate adherence to instructed precautions during ADL tasks. 2=Patient will verbalize/demonstrate understanding of assistive devices/ modifications for ADL. 3=Patient will improve strength/tolerance for activity to enable patient to perform ADL's. OT Education/Plan Problem List/Assessment Pt would benefit from skilled OT to increase his independence in basic self care to allow him to return to his home to live safely with family support. Discharge Recommendations Plan/Recommendations: Continue POC Treatment Plan/Plan of Care Patient would benefit from OT for education, treatment and training to promote independence in ADL's, mobility, safety and/or upper extremity function for ADL' s. Plan of Care: ADL Retraining, Functional Mobility, UE Funct Exercise/Act, UE Neuromus Re-Ed/Coord Treatment Duration: Jun 20, 2016 Visits Per Week: 5 Agreement: Yes Rehab Potential: Good Time/GCodes Start Time: 09:00 Stop Time: 09:35 Total Time Billed (hr/min): 35 Billed Treatment Time visit, 35 minutes ADL ALHAJI DAVILA OT Jun 07, 2016 10:12
--- NOTE | 2016-06-07 10:38 | Physical Therapy Daily Note ---
PT Daily Note-Current Subjective Patient is up in recliner and agrees to PT. Pain Numeric Pain Scale: 0-No Pain Location: No Pain Reported Mental Status Patient Orientation: Normal For Age Transfers Functional [place] Measure 0=Not Assessed/NA 4=Minimal Assistance 1=Total Assistance 5=Supervision or Setup 2=Maximal Assistance 6=Modified [place] 3=Moderate Assistance 7=Complete IndependenceIRFPAI Quality Coding Scale 6 Independent with activity with or without an assistive device 5 Patient requires set up or clean up by helper. Patient completes activity by themselves 4 Supervision or touching assist (CGA). [place] provide cues , steadying assist 3 The helper provides less than half the effort to complete the activity 2 The helper provides more than half the effort to complete the activity 1 Dependent. The helper does all the effort to complete an activity 7 Patient refused to complete or attempt activity 9 The patient did not perform the activity before the current illness or injury 88 Not attempted due to Medical conditions or safety concerns Transfers (B, C, W/C) (FIM): 5 Scootin Sit to/from Stand: 5 Sit to Stand (QC): 5 Gait Training Does the Patient Walk?: Yes Gait (FIM): 5 Distance (FIM): 3=150 ft Distance: 300' Walk 50 ft with 2 Turns(QC): 5 Walk 150 ft (QC): 5 Gait Level of Assist: 5 Gait Assistive Device: FWW safe and functional with FWW Exercises Seated Therapy Exercises: Ankle pumps, Long arc quads Seated Reps: 25 Assessment Patient tolerated treatment and returned to room and in recliner with needs met. Patient is progressing slowly. PT Short Term Goals Short Term Goals Time Frame: Jun 12, 2016 Transfers (B,C,W/C) (FIM): 5 Gait (FIM): 5 Distance (FIM): 3=150 ft Gait Assistive Device: FWW PT Skilled Nursing Goals Skilled Nursing Goals PT Naval Designer Goals Time Frame: Jun 19, 2016 Transfers (B,C,W/C) (FIM): 6 Sit to Lying (QC): 6 Lying-Sitting on Side/Bed(QC): 6 Sit to Stand (QC): 6 Chair/Toe-qf-Hqtpn Xfer(QC): 6 Does the Patient Walk: Yes Gait (FIM): 6 Walk 50ft with 2 Turns (QC): 6 Walk 150 ft (QC): 6 Gait Level of Assist: 6 Gait Assistive Device: Cane Single Point Does the Pt use WC or Scooter?: No Stairs (FIM): 2 # of Steps: 4 PT Plan Treatment/Plan Treatment Plan: Continue Plan of Care Treatment Plan: Bed Mobility, Education, Functional Activity Pooja, Functional Strength, Gait, Safety, Therapeutic Exercise, Transfers Treatment Duration: Jun 19, 2016 Visits Per Week: 5 Time/GCodes Time In: 1020 Time Out: 1035 Total Billed Treatment Time: 15 Total Billed Treatment 1 visit FA 15 min GENET CANELA PT Jun 07, 2016 10:38
[2016-06-07] MEDS ORDERED: [UNRECOGNIZED DRUG - OTHER] OP (12:46)
[2016-06-07] MEDS ORDERED: VALA10004 PO (12:48)
[2016-06-07] MEDS ORDERED: TAMS0.4C98 PO (12:49)
--- NOTE | 2016-06-07 13:10 | Discharge Summary-Hospitalist ---
Diagnosis/Chief Complaint Date of Admission Jun 05, 2016 at 11:42 Date of Discharge Discharge Date: Jun 07, 2016 Discharge Diagnosis 1. Herpes zoster involving the supraorbital nerve and conjunctiva continue to improve 2. Fever abating questionable encephalitis continue IV acyclovir 3. TIA lasting [address] head aspirin initiated blood pressure back down to normal continue to monitor today. 4. Urinary retention improved continue Flomax. Reason Hospital Visit/Course Mr. Bartlett was admitted to swing bed status after admission for herpes zoster involving the left supraorbital nerve and left conjunctiva without evidence for left zoster ophthalmicus according to Dr. Clinton. He did have evidence for sepsis not severe with ongoing fever requiring IV acyclovir. He had significant left-sided headache fatigue and dehydration in addition to hyponatremia requiring IV saline for hyponatremia as well as dehydration. His course was further complicated by urinary retention that did require catheterization for which 800 mL residual post void was obtained. Flomax was initiated and no further catheterization was required. His course was further complicated by TIA manifested as expressive aphasia that lasted for 10 minutes aspirin was initiated at for CT head scanning revealed no evidence for bleeding this was done because of his ongoing headache. He had no recurrence and was ultimately discharged after he demonstrated independent ambulation with return of appetite and ability to void on his own. He will continue Valtrex for another 5 days Viroptic eyedrops and will follow-up with next week. He is advised to follow with Dr. Person in 1-2 weeks as well. He should have a basic metabolic panel check for follow-up of his hyponatremia. He was discharged on a baby aspirin daily and told to contact EMS services via dialing 911 should he have any acute neurologic change at home. This was discussed with his daughter as well. He'll be set up for carotid duplex evaluation as an outpatient to be sent to Dr. Person. Discharge Summary Discharge Physical Examination Allergies: Uncoded Allergies: pcn, iv dye (Allergy, Intermediate, hives and sob , 06/01/16) Vitals & I&Os Vital Signs Date Time Temp Pulse Resp B/P Pulse Ox O2 Delivery O2 Flow Rate FiO2 06/07/16 05:57 98.1 98 18 135/77 93 Room Air Discharge Home Medications: Active Scripts Active Flomax (Tamsulosin HCl) 0.4 Mg Cap 0.4 Mg PO WITH EVENING MEAL Valtrex (Valacyclovir HCl) 1,000 Mg Tablet 1,000 Mg PO Q8H Viroptic (Trifluridine) 7.5 Ml Soln 7.5 Ml OP Q4H 5 Days Reported Bystolic (Nebivolol HCl) 5 Mg Tablet 5 Mg PO DAILY PRN Omeprazole 20 Mg Capsule.dr 20 Mg PO BID Losartan Potassium 100 Mg Tablet 100 Mg PO DAILY Instructions to patient/family Please see electonic discharge instructions given to patient. Copy Copies To 2: DEVIN PERSON MD, MARK D MD Jun 07, 2016 13:10
[2016-06-07] MEDS ORDERED: PRED1DRO OP (13:19)
[2016-06-07 14:20] VITALS: BP 132/62
--- NOTE | 2016-06-07 14:49 | Therapy Team Discharge Summary ---
Therapy Discharge Summary Discharge Recommendations Date of Discharge June 07, 2016 Therapy D/C Recommendations: 24 hr Supervision Occupational Therapy Pt was seen for skilled OT to increase his independence in basic self care to allow him to return home safely to live with family support. On evaluation, pt was dependant with eating, grooming, lower body dressing and toileting, requiring someone to feed him and two people to take him to the bathroom. During evaluation, he had an episode of decreased communication, self care management and mobility. He also had decreased vision from shingles in his eye. On date of discharge, he had progressed to SBA for eating, grooming, dressing and bathing and CGA for toilet and shower transfers (shower bench, tall toilet, grab bars, hand held shower.) 24 hour supervision is required. He may also benefit from skilled OT home health. See tx plan for goals met. DC OT PT Alf Goals Alf Goals PT Alf Goals Time Frame: Jun 19, 2016 Transfers (B,C,W/C) (FIM): 6 Sit to Lying (QC): 6 Lying-Sitting on Side/Bed(QC): 6 Sit to Stand (QC): 6 Chair/Drt-ta-Ggdqt Xfer(QC): 6 Does the Patient Walk: Yes Gait (FIM): 6 Walk 50ft with 2 Turns (QC): 6 Walk 150 ft (QC): 6 Gait Level of Assist: 6 Gait Assistive Device: Cane Single Point Does the Pt use WC or Scooter?: No Stairs (FIM): 2 # of Steps: 4 OT Alf Goals Captain Airline Pilot Goals Time Frame: Jun 20, 2016 Eating (FIM): 6 (Not met 2-24-17) Eating (QC): 6 (Not met 2-24-17) Groomin (Not met 2-24-17) Oral Hygiene (QC): 6 (Not met 2-24-17) Bathing(FIM): 5 (Met 2-24-17) Upper Body Dressing(FIM): 6 (Not met 2-24-17) Lower Body Dressing(FIM): 6 (Not met 2-24-17) Toileting(FIM): 6 (Not met 2-24-17) Toileting Hygiene (QC): 6 (Not met 2-24-17) Toilet/Commode Transfer(FIM): 6 (Not met 2-24-17) Toilet/Commode Transfer (QC): 6 (Not met 06-07-16) Shower Transfer(FIM): 6 (Not met 06-07-16) Additional Goals: 2-Verbalize Understanding, 3-ImproveStrength/Pooja 1=Demonstrate adherence to instructed precautions during ADL tasks. 2=Patient will verbalize/demonstrate understanding of assistive devices/ modifications for ADL. 3=Patient will improve strength/tolerance for activity to enable patient to perform ADL's. ALHAJI DAVILA OT Jun 07, 2016 14:48
--- NOTE | 2016-06-07 16:28 | Progress Note-Standard ---
Standard Progress Note Progress Notes/Assess & Plan Progress/Assessment & Plan Patient reports improvement in burning and stinging Vision some what blurry but improved. lid edema markedly improved 1+ conj injection 1+ circumlimbal injection no cell and flare All other finding consistent with last visit Final Diagnosis Zoster outbreak with ocular inflammation but no ocular lesions Will continue Oral or IV antiviral under care of hospitalist Continue Viroptic until full 7 days are completed Will evaluate in office at the end of therapy and consider need for topical steroid to reduce inflammation then HEATHER BAEZ OD Jun 07, 2016 16:28
--- NOTE | 2016-06-10 09:36 | Therapy Team Discharge Summary ---
Therapy Discharge Summary Discharge Recommendations Date of Discharge Jun 07, 2016 at 14:20 Therapy D/C Recommendations: 24 hr Supervision Physical Therapy This patient was seen by skilled PT services to address functional strength and mobility in prepartation to return home. Upon PT evaluation, he was min assist with functional gait and transfers and was assessed without an AD, however recommneding use of a walker for safety. Treatment consisted of transfers and gait training for safe functional mobility. At dischrge, pt was SBA with all mobility. He did make progress, but goals unmet due to short stay. DC PT due to discharge from facility. PT Penitentiary Goals Barrel Loader And Cleaner Goals PT Penitentiary Goals Time Frame: Jun 19, 2016 Transfers (B,C,W/C) (FIM): 6 (unmet, remained at a 5) Sit to Lying (QC): 6 (unmet, remained at a 5) Lying-Sitting on Side/Bed(QC): 6 (unmet, remained at a 5) Sit to Stand (QC): 6 (unmet, remained at a 5) Chair/Vbl-rk-Axsmb Xfer(QC): 6 (unmet, remained at a 5) Does the Patient Walk: Yes Gait (FIM): 6 (unmet, remained at a 5) Walk 50ft with 2 Turns (QC): 6 (unmet, remained at a) Walk 150 ft (QC): 6 (unmet, remained at a 5) Gait Level of Assist: 6 Gait Assistive Device: Cane Single Point Does the Pt use WC or Scooter?: No Stairs (FIM): 2 (unmet--not retested, unexpected DC) # of Steps: 4 OT Penitentiary Goals Penitentiary Goals Time Frame: Jun 20, 2016 Eating (FIM): 6 (Not met 2-24-17) Eating (QC): 6 (Not met 2-24-17) Groomin (Not met 2-24-17) Oral Hygiene (QC): 6 (Not met 2-24-17) Bathing(FIM): 5 (Met 2-24-17) Upper Body Dressing(FIM): 6 (Not met 2-24-17) Lower Body Dressing(FIM): 6 (Not met 2-24-17) Toileting(FIM): 6 (Not met 2-24-17) Toileting Hygiene (QC): 6 (Not met 2-24-17) Toilet/Commode Transfer(FIM): 6 (Not met 06-07-16) Toilet/Commode Transfer (QC): 6 (Not met 06-07-16) Shower Transfer(FIM): 6 (Not met 06-07-16) Additional Goals: 2-Verbalize Understanding, 3-ImproveStrength/Pooja 1=Demonstrate adherence to instructed precautions during ADL tasks. 2=Patient will verbalize/demonstrate understanding of assistive devices/ modifications for ADL. 3=Patient will improve strength/tolerance for activity to enable patient to perform ADL's. JAIME HARTMANN PT Jun 10, 2016 09:36
[2016-06-20] MEDS ORDERED: AMLO5TAB2 PO (08:44)
[2016-06-20] MEDS ORDERED: PRED5DRO17 OS (08:44)
[2016-06-20] MEDS ORDERED: ACET325T49 PO (08:44)
[2016-06-20] MEDS ORDERED: LACT20SO2 PO (09:25)
[2016-06-25] MEDS ORDERED: LACT20SO2 PO (13:20)
[2016-06-25] MEDS ORDERED: LOSA50TA36 PO (13:20)
[2016-06-25] MEDS ORDERED: IBUP-2055 PO (13:20)
[2016-06-25] MEDS ORDERED: AMLO5TAB2 PO (13:20)
[2016-07-21] MEDS ORDERED: NEBI5TAB8 PO (08:11)
[2016-07-21] MEDS ORDERED: VALA10004 PO (08:11)
== END 2016-06-07 14:20 | disposition home health service (06) | DRG 125 ==
LOC: 4TH 11:42
PROVIDERS: ADMIT Internal Medicine; ATTEND Internal Medicine
DX: B02.39 Other herpes zoster eye disease (principal); B02.22 Postherpetic trigeminal neuralgia; G45.9 Transient cerebral ischemic attack, unspecified; R33.9 Retention of urine, unspecified; R50.9 Fever, unspecified; I10 Essential (primary) hypertension; K21.9 Gastro-esophageal reflux disease without esophagitis; Z66 Do not resuscitate
CPT/HCPCS: 70450

== ENCOUNTER 2016-06-09 09:53 | Inpatient (IN) | payer MEDICARE ==
[~2016-06-09] VITALS: Ht 172.7 cm; Wt 60.8 kg
[2016-06-09] VITALS (7 sets, daily range): BP systolic 121–145; BP diastolic 57–107
[~2016-06-09 09:53] MED LIST changes: +PRED1DRO OP; +TAMS0.4C98 PO; +VALA10004 PO; +[UNRECOGNIZED DRUG - OTHER] OP
--- OUTSIDE RECORDS SUMMARY | 2016-06-09 09:58 | XMS REPORT | Continuity of Care Document ---
Author Author [facility] Organization [facility] Address Unknown Phone Unavailable Care Team Providers Care Financial Specialist Name Role Phone DEVIN NEW MD PCP Insurance Providers Payer Name Policy Number Subscriber Name Relationship Wps Medicare [id number] Glenn Boykin 20 Self / Same As Patient Blue Cross [facility] Supp [id number] Glenn Boykin 20 Self / Same As Patient Advance Directives Directive Response Recorded Date/Time Advance Directives Yes 05/30/16 9:51am Health Care Power of Verifier Suhail PINEDA DTR 07/10/15 9:47am Organ Donor Yes 07/10/15 9:47am Resuscitation Status Full Code 05/30/16 9:51am Chief Complaint and Reason for Visit Chief Complaint Respiratory Problems Reason for Visit Headache [id number] Epigastric pain Problems Active Problems Medical Problem [...] - 99.5) 05/30/2016 12:44pm Temperature (Calculated Celsius) 36.97992 degrees C (36.4 - 37.5) 05/30/2016 12:44pm [...] 8 inches 05/30/2016 9:10am Height (Calculated Centimeters) 172.205266 cm 05/30/2016 9:10am Weight (Pounds) 150 pounds 05/30/2016 9:10am Weight (Calculated Kilograms) 68.679762 kilograms 05/30/2016 9:10am Capillary Refill Capillary Refill [...] 5-9 05/30/2016 11:50am 05/30/2016 12:12pm Urine Specific [place] 1.010 * 1.016-1.022 05/30/2016 11:50am 2016 12:12pm [...] Date Attending Provider Departed Emergency Room [facility] 05/30/16 9:04am 05/30 12:46pm DEJUAN BRANDON MD Recent Diagnosis
[2016-06-09] MEDS ORDERED: NS IV 1000 ML 1,000 ML IV ONE (10:08)
[2016-06-09] MEDS ORDERED: ACETAMINOPHEN 325 MG SUPP (TYLENOL) PR ONE (10:15)
[2016-06-09 10:21] LABS: BASOPHILS % (AUTO) 0 % (0-10); EOSINOPHILS % (AUTO) 0 % (0-10); LYMPHOCYTES # (AUTO) 2.9 X 10^3 (1.0-4.0); LYMPHOCYTES % (AUTO) 26 % (12-44); MEAN CORPUSCULAR HEMOGLOBIN 33 PG (25-34); MEAN CORPUSCULAR HGB CONC 36 G/DL (32-36); MEAN CORPUSCULAR VOLUME 92 FL (80-99); MEAN PLATELET VOLUME 8.4 FL (7.4-10.4); MONOCYTES # (AUTO) 0.8 X 10^3 (0.0-1.0); MONOCYTES % (AUTO) 7 % (0-12); NEUTROPHILS # (AUTO) 7.7 X 10^3 (1.8-7.8); NEUTROPHILS % (AUTO) 67 % (42-75); PLATELET COUNT 385 10^3/uL (130-400); RED BLOOD COUNT 4.43 10^6/uL (4.35-5.85); RED CELL DISTRIBUTION WIDTH 13.1 % (10.0-14.5); WHITE BLOOD COUNT 11.4 10^3/uL (4.3-11.0)
[2016-06-09 10:29] LABS: INR 1.1 (0.8-1.4); PROTHROMBIN TIME PATIENT 13.6 SEC (12.2-14.7)
[2016-06-09] MEDS ORDERED: fentaNYL INJECTION 100 MCG/2 ML AMP IVP ONE ×3 (10:30→15:15)
[2016-06-09 10:39] LABS: ALANINE AMINOTRANSFERASE 31 U/L (0-55); ALBUMIN 4.2 G/DL (3.2-4.5); ANION GAP 14 MMOL/L (5-14); ASPARTATE AMINO TRANSFERASE 27 U/L (5-34); BILIRUBIN,TOTAL 1.7 MG/DL (0.1-1.0); BLOOD UREA NITROGEN 11 MG/DL (7-18); BUN/CREATININE RATIO 12; CALCIUM 8.9 MG/DL (8.5-10.1); CARBON DIOXIDE 21 MMOL/L (21-32); CHLORIDE 95 MMOL/L (98-107); CREATININE SERUM 0.92 MG/DL (0.60-1.30); GFR ESTIMATED > 60; GLUCOSE 108 MG/DL (70-105); SODIUM 130 MMOL/L (135-145); TOTAL PROTEIN 6.8 G/DL (6.4-8.2)
[2016-06-09 10:40] LABS: BILIRUBIN,URINE NEGATIVE (NEGATIVE); KETONES,URINE 3+ (NEGATIVE); LEUKOCYTE ESTERASE ,URINE NEGATIVE (NEGATIVE); NITRITE,URINE NEGATIVE (NEGATIVE); PH,URINE 8 (5-9); PROTEIN,URINE 2+ (NEGATIVE); UROBILINOGEN,URINE NORMAL (NORMAL)
[2016-06-09 10:51] LABS: WBC,URINE RARE /HPF
--- NOTE | 2016-06-09 10:53 | Diagnostic Imaging Report ---
INDICATION: Fever and weakness. COMPARISON: Comparison made with prior examination 06/01/2016. FINDINGS: There is cardiomegaly. Lungs are clear. There is no pleural effusion or pneumothorax. Mediastinum is unremarkable. IMPRESSION: 1. No acute cardiopulmonary abnormality. 2. Cardiomegaly. Dictated by: Dictated on workstation # [id number]
[2016-06-09] MEDS ORDERED: LABETALOL HCL 20 MG/4 ML VIAL ONE (11:19)
[2016-06-09] MEDS ORDERED: LABETALOL HCL 20 MG/4 ML VIAL IV ONE ×2 (11:30→11:45)
[2016-06-09] MEDS ORDERED: cefTRIAXone INJECTION 1,000 MG in NS (IVPB) 50 ML IV ONE ×4 (11:45)
[2016-06-09] MEDS ORDERED: ACYCLOVIR INJECTION 500 MG in NS (IVPB) 250 ML IV ONE (11:45)
--- NOTE | 2016-06-09 11:53 | ED General ---
General Chief Complaint: Fever-Adult/Adol Stated Complaint: FEVER/CONFUSION Nursing Triage Note: PT TO ED PER W/C BY FAMILY, PT HAS FEVER AND WEAKNESS, WAS RELEASED FROM HOSPITAL ON FRIDAY Nursing Sepsis Screen: Possible Severe Sepsis Risk Source of Information: Patient, Family, Old Records Exam Limitations: No Limitations History of Present Illness Time Seen by Provider: 10:01 Initial Comments This 89-year-old gentleman is brought to the emergency room by his family for reasons of acute decompensation this morning. He was recently admitted and treated for fever, sinusitis, herpes zoster and possible encephalitis. He was treated with antibiotics in the hospital and discharged on acyclovir. He was doing fairly well until this morning when he became febrile and developed acute altered mental status. He has also become rather restless. He is febrile on presentation. Patient is not talking in seems to be in pain. He would not eat breakfast this morning. Allergies and Home Medications Allergies Uncoded Allergies: pcn, iv dye (Allergy, Intermediate, hives and sob , 06/01/16) Home Medications Losartan Potassium 100 Mg Tablet 100 MG PO DAILY (Reported) Nebivolol HCl 5 Mg Tablet 5 MG PO DAILY PRN PRN HEART RATE (Reported) Omeprazole 20 Mg Capsule.dr 20 MG PO BID (Reported) Prednisolone Acetate 1 Ml Drops.susp #1 1 ML OP QID 1 drop left eye 4 times daily for 5 days Prescribed by: SOBEIDA NEGRON on 06/07/16 1319 Tamsulosin HCl 0.4 Mg Cap #30 0.4 MG PO with evening meal Prescribed by: SOBEIDA NEGRON on 06/07/16 1249 Trifluridine 7.5 Ml Soln 5Days 7.5 ML OP Q4H Prescribed by: SOBEIDA NEGRON on 06/07/16 1246 Valacyclovir HCl 1,000 Mg Tablet #15 1,000 MG PO Q8H Prescribed by: SOBEIDA NEGRON on 06/07/16 1248 Constitutional: see HPI EENTM: other (zoster rash to the left face and eye) Respiratory: no symptoms reported Cardiovascular: other (marked hypertension) Gastrointestinal: no symptoms reported Genitourinary: no symptoms reported Musculoskeletal: no symptoms reported Skin: no symptoms reported Psychiatric/Neurological: See HPI Hematologic/Lymphatic: No Symptoms Reported Past Bvnkdvb-Aloxdy-Ygskfg Hx Patient Social History Alcohol Use: Denies Use Recreational Drug Use: No Smoking Status: Former Smoker Type Used: Cigarettes 2nd Hand Smoke Exposure: No Recent Foreign Travel: No Contact w/Someone Who Travel: No Recent Infectious Disease Expo: No Recent Hopitalizations: Yes (DISCHARGED ON Friday06/07/16) Immunizations Up To Date Date of Pneumonia Vaccine: Jul 10, 2011 Date of Influenza Vaccine: Feb 09, 2016 Seasonal Allergies Seasonal Allergies: No Surgeries HX Surgeries: Yes (right clavicle separtation surgery 1986, hernia repair 2006 , spinal sx) Surgeries: Abdominal, Appendectomy, Orthopedic Respiratory Hx Respiratory Disorders: Yes (chronic bronchitis) Respiratory Disorders: Chronic Bronchitis Cardiovascular Hx Cardiac Disorders: Yes Cardiac Disorders: Hypertension Neurological Hx Neurological Disorders: Yes Neurological Disorders: TIA Reproductive System Hx Reproductive Disorders: No Sexually Transmitted Disease: No HIV/AIDS: No Genitourinary Hx Genitourinary Disorders: No Gastrointestinal Hx Gastrointestinal Disorders: Yes Gastrointestinal Disorders: Gastroesophageal Reflux Musculoskeletal Hx Musculoskeletal Disorders: Yes Musculoskeletal Disorders: Arthritis Endocrine Hx Endocrine Disorders: No HEENT HX ENT Disorders: Yes Loss of Vision: Bilateral Hearing Impairment: Hard of Hearing Cancer Hx Cancer: No Psychosocial Hx Psychiatric Problems: No Blood Transfusions Hx Blood Disorders: No Adverse Reaction to a Blood Tr: No Family Medical History Significant Family History: No Pertinent Family Hx Family Medial History: Abdominal aortic aneurysm 19 FATHER Cardiovascular disease G8 BROTHER G8 SISTER Completed stroke 19 MOTHER FH: cancer 19 MOTHER Physical Exam Vital Signs Vital Sign - Last 12Hours 06/09/16 09:55 Temp 102.1 Pulse 101 Resp 24 B/P 177/171 Pulse Ox 96 O2 Delivery Room Air Capillary Refill : Less Than 3 Seconds General Appearance: WD/WN Moderate Distress Other (ill appearing, restless) HEENT: PERRL/EOMI Pharynx Normal Other (zoster rash near the left eye) Neck: Full Range of Motion Normal Inspection Supple Respiratory: Lungs Clear Normal Breath Sounds No Accessory Muscle Use No Respiratory Distress Cardiovascular: No Edema No Murmur Gastrointestinal: Normal Bowel Sounds Non Tender Soft Extremity: Normal Inspection No Pedal Edema Neurologic/Psychiatric: Alert Other (patient is not able to communicate verbally. He has decreased responsiveness and appears somewhat agitated.) Skin: Normal Color Warm/Dry Progress/Results/Core Measures Results/Orders Lab Results Laboratory Tests Test 06/09/16 10:10 06/09/16 10:25 06/09/16 13:02 Range/Units Activated Partial Thromboplast Time 22 L 24-35 SEC Alanine Aminotransferase (ALT/SGPT) 31 0-55 U/L Albumin 4.2 3.2-4.5 G/DL Alkaline Phosphatase 53 40-136 U/L Anion Gap 14 5-14 MMOL/L Aspartate Amino Transf (AST/SGOT) 27 5-34 U/L BUN/Creatinine Ratio 12 Basophils # (Auto) 0.0 0.0-0.1 10^3/uL Basophils (%) (Auto) 0 0-10 % Blood Urea Nitrogen 11 7-18 MG/DL C-Reactive Protein High Sensitivity 0.36 0.00-0.50 MG/DL Calcium Level 8.9 8.5-10.1 MG/DL Carbon Dioxide Level 21 21-32 MMOL/L Chloride Level 95 L 98-107 MMOL/L Creatinine 0.92 0.60-1.30 MG/DL Eosinophils # (Auto) 0.0 0.0-0.3 10^3/uL Eosinophils (%) (Auto) 0 0-10 % Estimat Glomerular Filtration Rate > 60 Glucose Level 108 H 70-105 MG/DL Hematocrit 41 40-54 % Hemoglobin 14.6 13.3-17.7 G/DL INR Comment 1.1 0.8-1.4 Lactic Acid Level 1.9 0.5-2.0 MMOL/L Lymphocytes # (Auto) 2.9 1.0-4.0 X 10^3 Lymphocytes (%) (Auto) 26 12-44 % Mean Corpuscular Hemoglobin 33 25-34 PG Mean Corpuscular Hemoglobin Concent 36 32-36 G/DL Mean Corpuscular Volume 92 80-99 FL Mean Platelet Volume 8.4 7.4-10.4 FL Monocytes # (Auto) 0.8 0.0-1.0 X 10^3 Monocytes (%) (Auto) 7 0-12 % Neutrophils # (Auto) 7.7 1.8-7.8 X 10^3 Neutrophils (%) (Auto) 67 42-75 % Platelet Count 385 130-400 10^3/uL Potassium Level 4.0 3.6-5.0 MMOL/L Prothrombin Time 13.6 12.2-14.7 SEC Red Blood Count 4.43 4.35-5.85 10^6/uL Red Cell Distribution Width 13.1 10.0-14.5 % Sodium Level 130 L 135-145 MMOL/L Total Bilirubin 1.7 H 0.1-1.0 MG/DL Total Protein 6.8 6.4-8.2 G/DL White Blood Count 11.4 H 4.3-11.0 10^3/uL Urine Amorphous Sediment FEW SAMARA PHOSPHATE H /LPF Urine Bacteria FEW H /HPF Urine Bilirubin NEGATIVE NEGATIVE Urine Casts NONE /LPF Urine Clarity CLEAR Urine Color YELLOW Urine Crystals PRESENT H /LPF Urine Culture Indicated NO Urine Glucose (UA) NEGATIVE NEGATIVE Urine Ketones 3+ H NEGATIVE Urine Leukocyte Esterase NEGATIVE NEGATIVE Urine Mucus NEGATIVE /LPF Urine Nitrite NEGATIVE NEGATIVE Urine Protein 2+ H NEGATIVE Urine RBC NONE /HPF Urine RBC (Auto) 3+ H NEGATIVE Urine Specific [place] 1.010 L 1.016-1.022 Urine Urobilinogen NORMAL NORMAL MG/DL Urine WBC RARE /HPF Urine pH 8 5-9 CSF Appearance SLT CLDY CSF Color SL XANTH CSF Glucose 43 L 50-80 MG/DL CSF Lymphocytes % CSF Mononuclear WBCs % CSF Polynuclear WBCs % CSF RBC 53 H 0-0 CELLS CSF Total Protein 396 H 15-40 MG/DL CSF Tube Number 4 CSF WBC 4 0-5 CELLS Micro Results Microbiology 06/09/16 Gram Stain - Final, Resulted 06/09/16 CSF Culture, Resulted Pending 06/09/16 Influenza Types A,B Antigen (JUAN A) - Final, Complete My Orders Orders-DEJUAN BRANDON MD Cbc With Automated Diff (06/09/16 10:08) Comprehensive Metabolic Panel (06/09/16 10:08) Lactic Acid Analyzer (06/09/16 10:08) Blood Culture (06/09/16 10:08) Sputum Culture (06/09/16 10:08) Ua Culture If Indicated (06/09/16 10:08) Protime With Inr (06/09/16 10:08) Partial Thromboplastin Time (06/09/16 10:08) Chest 1 View, Ap/Pa Only (06/09/16 10:08) O2 (06/09/16 10:08) Saline Lock/Iv-Start (06/09/16 10:08) Saline Lock/Iv-Start (06/09/16 10:08) Vital Signs Adult Sepsis Patie Q1HR (06/09/16 10:08) Remove Rings In Anticipation O (06/09/16 10:08) Influenza A And B Antigens (06/09/16 10:08) Ns Iv 1000 Ml (Sodium Chloride 0.9%) (06/09/16 10:08) Acetaminophen Suppository (Tylenol Suppo (06/09/16 10:15) Fentanyl Injection (Sublimaze Injection (06/09/16 10:30) Labetalol Injection (Normodyne Injection (06/09/16 11:30) Labetalol Injection (Normodyne Injection (06/09/16 11:19) Ceftriaxone Injection (Rocephin Injectio (06/09/16 11:45) Ceftriaxone Injection (Rocephin Injectio (06/09/16 11:45) Acyclovir Injection (Zovirax Injection) (06/09/16 11:45) Fentanyl Injection (Sublimaze Injection (06/09/16 11:45) Labetalol Injection (Normodyne Injection (06/09/16 11:45) Hs C Reactive Protein (06/09/16 11:44) Ct Head Wo (06/09/16 11:45) Csf Cell Count (06/09/16 11:45) Csf Glucose (06/09/16 11:45) Csf Total Protein (06/09/16 11:45) Csf Culture (06/09/16 11:45) Virus Culture (06/09/16 11:45) Fentanyl Injection (Sublimaze Injection (06/09/16 15:15) Medications Given in ED Current Medications Medications Dose Ordered Sig/Dia Route Start Time Stop Time Status Last Admin Dose Admin Acetaminophen 650 mg ONCE ONCE SD 06/09/16 10:15 06/09/16 10:16 DC 06/09/16 10:17 650 MG Acyclovir/Sodium Chloride 260 ml @ 266 mls/hr ONCE ONCE IV 06/09/16 11:45 06/09/16 12:43 DC 06/09/16 13:12 266 MLS/HR Ceftriaxone Sodium 1000 mg/ Sodium Chloride 50 ml @ 100 mls/hr ONCE ONCE IV 06/09/16 11:45 06/09/16 12:14 DC 06/09/16 11:49 100 MLS/HR Ceftriaxone Sodium 1000 mg/ Sodium Chloride 50 ml @ 100 mls/hr ONCE ONCE IV 06/09/16 11:45 06/09/16 12:14 DC 06/09/16 11:50 100 MLS/HR Fentanyl Citrate 25 mcg ONCE ONCE IVP 06/09/16 10:30 06/09/16 10:31 DC 06/09/16 10:38 25 MCG Fentanyl Citrate 25 mcg ONCE ONCE IVP 06/09/16 15:15 06/09/16 15:16 DC 06/09/16 15:33 25 MCG Fentanyl Citrate 50 mcg ONCE ONCE IVP 06/09/16 11:45 06/09/16 11:46 DC 06/09/16 11:53 50 MCG Labetalol HCl 20 mg ONCE ONCE IV 06/09/16 11:45 06/09/16 11:46 DC 06/09/16 11:53 20 MG Labetalol HCl 10 mg 10 mg ONCE ONCE IV 06/09/16 11:30 06/09/16 11:31 DC 06/09/16 11:23 10 MG Sodium Chloride 1,000 ml @ 0 mls/hr Q0M ONCE IV 06/09/16 10:08 06/09/16 10:10 DC 06/09/16 10:17 1,000 MLS/HR Vital Signs/I&O Vital Sign - Last 12Hours 06/09/16 06/09/16 09:55 15:22 Temp 102.1 100.1 Pulse 101 82 Resp 24 11 B/P 177/171 Pulse Ox 96 96 O2 Delivery Room Air Blood Pressure Mean: 173 Progress Note #1: Time: 11:49 Progress Note Patient is still febrile despite Tylenol use and IV fluids. The initial liter of IV fluids is still running. At this point I'm concerned about meningitis either from herpes or from his sinusitis. I've ordered Rocephin 2 g and acyclovir 800 mg to be given by IV. Labetalol was used to treat blood pressure but blood pressure has now rebounded. An additional 20 mg of labetalol has been ordered along with 50 g of fentanyl to help with his discomfort. CT of the head has been ordered and lumbar puncture is planned. I will check with anesthesia regarding availability for LP as this patient's LP may be difficult given his chills and altered mental status. Progress Note #2: Time: 15:06 Progress Note Patient received Rocephin 2 g IV and acyclovir 800 mg IV. He continues to have altered mental status. Lumbar puncture was successful and revealed findings suspicious for meningitis. Diagnostic Imaging Diagonstic Imaging: Xray Plain Films/CT/US/NM/MRI: chest Comments Chest x-ray viewed by me and report reviewed. See report below: NAME: CRISTINA BOYKIN [facility] REC#: [id number] PT STATUS: REG ER : 1925 PHYSICIAN: DEJUAN BRANDON MD ADMIT DATE: 06/09/16/ER Signed Date of Exam: 06/09/16 CHEST 1 VIEW, AP/PA ONLY INDICATION: Fever and weakness. COMPARISON: Comparison made with prior examination 06/01/2016. FINDINGS: There is cardiomegaly. Lungs are clear. There is no pleural effusion or pneumothorax. Mediastinum is unremarkable. IMPRESSION: 1. No acute cardiopulmonary abnormality. 2. Cardiomegaly. Dictated by: Dictated on workstation # [id number] Dict: 06/09/16 1050 Trans: 06/09/16 1053 [id number] Interpreted by: BROCK IBRAHIM Electronically signed by:BROCK IBRAHIM 06/09/16 1056 Diagonstic Imaging: CT Plain Films/CT/US/NM/MRI: head Comments CT head viewed by me and report reviewed. See report below: NAME: CRISTINA BOYKIN [facility] REC#: [id number] PT STATUS: REG ER : 1925 PHYSICIAN: DEJUAN BRANDON MD ADMIT DATE: 06/09/16/ER Draft Date of Exam:06/09/16 CT HEAD WO PROCEDURE: CT head without contrast. TECHNIQUE: Multiple contiguous axial images were obtained through the brain without the use of intravenous contrast. INDICATION: Fever, weakness. FINDINGS: This exam is less than optimal due to motion and streak artifact. There is no mass, shift of midline or hemorrhage to suggest an acute intracranial abnormality. 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 The ventricles are also stable in size when compared to the prior exam. The cortical atrophy and the periventricular encephalomalacia seen previously is again visualized and no different. The orbits are symmetrical and within normal limits. There is persistent involvement of the maxillary antrum by mucosal thickening and fluid. The left maxillary antrum does seem better aerated than on the prior exam however. IMPRESSION: 1. There is no evidence for an acute intracranial abnormality on this suboptimal exam. 2. If clinical concern regarding an acute abnormality persists and further imaging is desired, then MRI would be recommended. Dictated on workstation # [id number] Dict: 06/09/16 1259 Trans: 06/09/16 1309 [id number] Interpreted by: TEODORO VINSON MD Departure Impression Impression: Primary Impression: Meningitis Additional Impressions: Sepsis Qualified Code: A41.9 - Sepsis, unspecified organism Altered mental status Qualified Code: R41.82 - Altered mental status, unspecified Hypertensive urgency Herpes zoster Qualified Code: B02.8 - Zoster with other complications Disposition: 09 ADMITTED INPATIENT Condition: Improved Decision to Admit Reason: Admit from ER (General) Decision to Admit/Date: Jun 09, 2016 Time/Decision to Admit Time: 10:30 Departure-Patient Inst. Referrals: DEVIN NEW MD (PCP/Family) Primary Care Physician DEJUAN BRANDON MD Jun 09, 2016 11:52
--- NOTE | 2016-06-09 13:09 | Diagnostic Imaging Report ---
PROCEDURE: CT head without contrast. TECHNIQUE: Multiple contiguous axial images were obtained through the brain without the use of intravenous contrast. INDICATION: Fever, weakness. FINDINGS: This exam is less than optimal due to motion and streak artifact. There is no mass, shift of midline or hemorrhage to suggest an acute intracranial abnormality. 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 The ventricles are also stable in size when compared to the prior exam. The cortical atrophy and the periventricular encephalomalacia seen previously is again visualized and no different. The orbits are symmetrical and within normal limits. There is persistent involvement of the maxillary antrum by mucosal thickening and fluid. The left maxillary antrum does seem better aerated than on the prior exam however. IMPRESSION: 1. There is no evidence for an acute intracranial abnormality on this suboptimal exam. 2. If clinical concern regarding an acute abnormality persists and further imaging is desired, then MRI would be recommended. Dictated by: Dictated on workstation # [id number]
--- NOTE | 2016-06-09 13:25 | Anesthesia-Procedure Note ---
Procedure Start/Stop Time Date of Procedure: Jun 09, 2016 Start Time: 12:50 Referring Physician: Danielito Stop Time: 13:15 Procedures/Interventions Discussed Risk,Benefits: Yes Patient Consents: No (Patients daughter signed consent) Position: Lying, L3-4, Right Sterile Technique: Yes Opening Pressure: 25 Fluid Color: cloudy, yellow orangeish Spinal Needle Used: 22g Winn 3 1/2 inch Procedure Notes Procedure explained to patients family. Consent signed. Pt already on left side. Nurse helped with positioning. Back palpated, beta prep x 3. Drape placed. 22 g Winn used csf obtained. Needle removed. KOJO YATES CRNA Jun 09, 2016 13:25
[2016-06-09 13:50] LABS: CSF GLUCOSE 43 MG/DL (50-80)
[2016-06-09 14:16] LABS: CSF TOTAL PROTEIN 396 MG/DL (15-40)
[2016-06-09 14:57] LABS: APPEARANCE,CSF SLT CLDY; COLOR,CSF SL XANTH; WHITE BLOOD CELL,CSF 4 CELLS (0-5)
[2016-06-09] MEDS ORDERED: NITROGLYCERIN 2% OINT 1 GM UNIT DOSE PACKET ONE (16:09)
[2016-06-09] MEDS ORDERED: ACETAMINOPHEN 650 MG SUPP (TYLENOL) ONE (16:09)
[2016-06-09] MEDS ORDERED: NITROGLYCERIN 2% OINT 1 GM UNIT DOSE PACKET TOP PRN (16:15)
[2016-06-09] MEDS ORDERED: ACETAMINOPHEN 325 MG TABLET/CAPLET (TYLENOL) PO PRN (16:30)
[2016-06-09] MEDS: D5 1/2 NS W/KCL 20 MEQ/L 1,000 ML IV SCH (17:44)
[2016-06-09] MEDS: fentaNYL INJECTION 100 MCG/2 ML AMP IVP PRN (17:46)
[2016-06-09] MEDS: cefTRIAXone 2 GM/NS 50 ML IVPB IV SCH ×2 (21:40)
[2016-06-09] MEDS: ACYCLOVIR 800 MG/NS 250 ML IVPB IV SCH ×2 (21:46)
[2016-06-09] MEDS ORDERED: ACETAMINOPHEN 650 MG SUPP (TYLENOL) PR PRN (23:45)
[2016-06-09] MEDS ORDERED: ACETAMINOPHEN 325 MG SUPP (TYLENOL) ONE (23:49)
[2016-06-10] VITALS (24 sets, daily range): BP systolic 82–163; BP diastolic 51–111
[2016-06-10] MEDS ORDERED: ACETAMINOPHEN 325 MG SUPP (TYLENOL) PR PRN
[2016-06-10] MEDS: fentaNYL INJECTION 100 MCG/2 ML AMP IVP PRN (00:56)
[2016-06-10 04:19] LABS: BASOPHILS % (AUTO) 0 % (0-10); EOSINOPHILS % (AUTO) 0 % (0-10); LYMPHOCYTES % (AUTO) 23 % (12-44); MEAN CORPUSCULAR HEMOGLOBIN 34 PG (25-34); MEAN CORPUSCULAR HGB CONC 36 G/DL (32-36); MEAN CORPUSCULAR VOLUME 93 FL (80-99); MEAN PLATELET VOLUME 8.7 FL (7.4-10.4); MONOCYTES # (AUTO) 1.6 X 10^3 (0.0-1.0); MONOCYTES % (AUTO) 13 % (0-12); NEUTROPHILS # (AUTO) 8.1 X 10^3 (1.8-7.8); NEUTROPHILS % (AUTO) 64 % (42-75); PLATELET COUNT 329 10^3/uL (130-400); RED BLOOD COUNT 3.88 10^6/uL (4.35-5.85); RED CELL DISTRIBUTION WIDTH 13.3 % (10.0-14.5); WHITE BLOOD COUNT 12.7 10^3/uL (4.3-11.0)
[2016-06-10 04:39] LABS: ANION GAP 12 MMOL/L (5-14); BLOOD UREA NITROGEN 12 MG/DL (7-18); BUN/CREATININE RATIO 15; CALCIUM 7.9 MG/DL (8.5-10.1); CARBON DIOXIDE 21 MMOL/L (21-32); CHLORIDE 96 MMOL/L (98-107); CREATININE SERUM 0.79 MG/DL (0.60-1.30); GFR ESTIMATED > 60; GLUCOSE 118 MG/DL (70-105); PHOSPHORUS 2.4 MG/DL (2.3-4.7); POTASSIUM 3.5 MMOL/L (3.6-5.0); SODIUM 129 MMOL/L (135-145)
[2016-06-10] MEDS: MAGNESIUM 1 GM/100 ML IVPB 100 ML IV SCH (05:28)
[2016-06-10] MEDS: KCL 20 MEQ TAB (K-DUR) PO SCH (05:28)
[2016-06-10] MEDS: ACYCLOVIR 800 MG/NS 250 ML IVPB IV SCH ×4 (05:43→14:06)
[2016-06-10] MEDS: D5 1/2 NS W/KCL 20 MEQ/L 1,000 ML IV SCH ×3 (05:43→16:30)
[2016-06-10] MEDS ORDERED: KCL 20 MEQ TAB (K-DUR) PO SCH (06:00)
[2016-06-10] MEDS ORDERED: MAGNESIUM 1 GM/100 ML IVPB 100 ML IV SCH (06:00)
[2016-06-10] MEDS ORDERED: POTASSIUM CL 10MEQ/50ML IVPB 50 ML IV SCH (06:00)
[2016-06-10] MEDS ORDERED: FLU TRIvalent (5 YOA+) 2016-17 (AFLURIA) 0.5 ML IM ONE (07:00)
[2016-06-10] MEDS: POTASSIUM CL 10MEQ/50ML IVPB 50 ML IV SCH ×3 (07:58→10:49)
[2016-06-10] MEDS: cefTRIAXone 2 GM/NS 50 ML IVPB IV SCH ×2 (08:11)
[2016-06-10] MEDS ORDERED: PATIENT MAY USE OWN MED,SINGLE MED PO SCH (08:30)
[2016-06-10] MEDS: TRIFLURIDINE 1% OP SCH ×4 (08:30→20:09)
--- NOTE | 2016-06-10 08:54 | History & Physical-Hospitalist ---
HPI History of Present Illness: HPI/Chief Complaint Mr. Bartlett is an 89-year-old white male who been discharged in the hospital on Friday the after treatment for herpes zoster with left trigeminal nerve involvement and concern for zoster ophthalmicus. It was ultimately determined that he did not have ZOSTER OPHTHALMICUS. HE WAS SENT HOME WITH valtrex 1 g every 8 hours. according to his daughter he became fatigued and has developed headaches and fever with nausea. she had to crush the medicine. he then became confused and delirious. he was brought back to the emergency room where he was noted to be febrile and stuporous. lumbar puncture revealed a significantly elevated protein level with over [address] head was negative. 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 this morning he is moaning in bed unable to give any history with daughter at the bedside. above history is taken from the daughter. she denies that he was complaining about any photophobia or vision change or ocular pain. they had been compliant with viroptic eyedrops as well as his valtrex. she had been able to get it down him by crushing the pill. Date Seen 06/10/16 Attending Physician Darren Person MD PCP Darren Person MD Referring Physician Date of Admission Jun 09, 2016 at 15:23 Home Medications & Allergies Home Medications Reviewed patient Home Medication Reconciliation Form Allergies Uncoded Allergies: pcn, iv dye (Allergy, Intermediate, hives and sob , 06/01/16) Past Uhdxjzs-Uiwpyr-Riwsts Hx Patient Social History Alcohol Use: Denies Use Recreational Drug Use: No Smoking Status: Former Smoker Type Used: Cigarettes 2nd Hand Smoke Exposure: No Physical Abuse Screen: No Sexual Abuse: No Recent Foreign Travel: No Contact w/other who traveled: No Recent Hopitalizations: Yes (DISCHARGED ON Friday06/07/16) Recent Infectious Disease Expo: No Immunizations Up To Date Date of Pneumonia Vaccine: Jul 10, 2011 Date of Influenza Vaccine: Feb 09, 2016 Seasonal Allergies Seasonal Allergies: No Surgeries HX Surgeries: Yes (right clavicle separtation surgery 1986, hernia repair 2006 , spinal sx) Surgeries: Abdominal, Appendectomy, Orthopedic Respiratory Hx Respiratory Disorders: Yes (chronic bronchitis) Cardiovascular Hx Cardiovascular Disorders: Yes Cardiac Disorders: Hypertension Neurological Hx Neurological Disorders: Yes Neurological Disorders: TIA Reproductive System Hx Reproductive Disorders: No Sexually Transmitted Disease: No HIV/AIDS: No Genitourinary Hx Genitourinary Disorders: No Gastrointestinal Hx Gastrointestinal Disorders: Yes Gastrointestinal Disorders: Gastroesophageal Reflux Musculoskeletal Hx Musculoskeletal Disorders: Yes Musculoskeletal Disorders: Arthritis Endocrine Hx Endocrine Disorders: No HEENT HX ENT Disorders: Yes Loss of Vision: Bilateral Hearing Impairment: Hard of Hearing Cancer Hx Cancer: No Psychosocial Hx Psychiatric Problems: No Blood Transfusions Hx Blood Disorders: No Adverse Reaction to a Blood Tr: No Family Medical History Significant Family History: No Pertinent Family Hx Family Hx: Abdominal aortic aneurysm 19 FATHER Cardiovascular disease G8 BROTHER G8 SISTER Completed stroke 19 MOTHER FH: cancer 19 MOTHER Review of Systems ROS-Unable to Obtain: unable to give hx Constitutional: see HPI Physical Exam Physical Exam Vital Signs Vital Sign - Last 12Hours 06/09/16 09:55 Temp 102.1 Pulse 101 Resp 24 B/P 177/171 Pulse Ox 96 O2 Delivery Room Air Capillary Refill : Less Than 3 Seconds General Appearance: Mild Distress HEENT: Other (pupils 4mm equil reactive to light ) Neck: Other (no rigidity but there is mild stiffness range of motion appears to be normal.) Respiratory: Lungs Clear Normal Breath Sounds No Accessory Muscle Use No Respiratory Distress Cardiovascular: Regular Rate, Rhythm No Edema No Gallop No JVD No Murmur Normal Peripheral Pulses Gastrointestinal: Normal Bowel Sounds No Organomegaly Soft Extremity: Normal Inspection Normal Range of Motion No Pedal Edema Skin: Warm/Dry Other (mild flushing no rashes noted no petechia no purpura) Results Results/Procedures Lab Laboratory Tests 06/09/16 10:10 06/10/16 04:05 06/11/16 04:05 Assessment/Plan Admission Diagnosis 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 There is no evidence to suggest bacterial meningitis so we will discontinue Rocephin. Had a long discussion with the daughter. Did discuss risk with ongoing delirium and cognitive dysfunction. Also discussed the risk for seizure disorder with daughter and staff. He is also at risk for urinary retention for which there is no current evidence for. We'll continue to monitor. Currently prognosis is guarded. 2. Mild hyponatremia 3. Previous herpes zoster with second third division trigeminal nerve involvement on the left. Clinical Quality Measures DVT/VTE Risk/Contraindication: Risk Factor Score Per Nursin RFS Level Per Nursing on Admit: 2=Moderate SOBEIDA NEGRON MD Jun 10, 2016 08:54
[2016-06-10] MEDS ORDERED: PRED1DRO OS (10:22)
[2016-06-10] MEDS ORDERED: TAMS0.4C2 PO (10:22)
[2016-06-10] MEDS ORDERED: VALA1000 PO (10:22)
[2016-06-10] MEDS ORDERED: TRIF7.5D6 OS (10:27)
[2016-06-11] VITALS (15 sets, daily range): BP systolic 117–165; BP diastolic 58–98
[2016-06-11] MEDS: ACYCLOVIR 800 MG/NS 250 ML IVPB IV SCH ×4 (01:55→14:42)
[2016-06-11 04:17] LABS: BASOPHILS % (AUTO) 0 % (0-10); EOSINOPHILS # (AUTO) 0.1 10^3/uL (0.0-0.3); EOSINOPHILS % (AUTO) 1 % (0-10); LYMPHOCYTES # (AUTO) 2.1 X 10^3 (1.0-4.0); LYMPHOCYTES % (AUTO) 20 % (12-44); MEAN CORPUSCULAR HEMOGLOBIN 33 PG (25-34); MEAN CORPUSCULAR HGB CONC 36 G/DL (32-36); MEAN CORPUSCULAR VOLUME 93 FL (80-99); MEAN PLATELET VOLUME 8.3 FL (7.4-10.4); MONOCYTES # (AUTO) 0.9 X 10^3 (0.0-1.0); MONOCYTES % (AUTO) 9 % (0-12); NEUTROPHILS # (AUTO) 7.2 X 10^3 (1.8-7.8); NEUTROPHILS % (AUTO) 70 % (42-75); PLATELET COUNT 319 10^3/uL (130-400); RED BLOOD COUNT 3.87 10^6/uL (4.35-5.85); RED CELL DISTRIBUTION WIDTH 13.4 % (10.0-14.5); WHITE BLOOD COUNT 10.4 10^3/uL (4.3-11.0)
[2016-06-11 04:38] LABS: ANION GAP 12 MMOL/L (5-14); BLOOD UREA NITROGEN 5 MG/DL (7-18); BUN/CREATININE RATIO 7; CALCIUM 7.9 MG/DL (8.5-10.1); CARBON DIOXIDE 20 MMOL/L (21-32); CHLORIDE 101 MMOL/L (98-107); CREATININE SERUM 0.68 MG/DL (0.60-1.30); GFR ESTIMATED > 60; GLUCOSE 129 MG/DL (70-105); MAGNESIUM 2.1 MG/DL (1.8-2.4); PHOSPHORUS 1.8 MG/DL (2.3-4.7); POTASSIUM 4.1 MMOL/L (3.6-5.0); SODIUM 133 MMOL/L (135-145)
[2016-06-11] MEDS: TRIFLURIDINE 1% OP SCH ×6 (04:57→20:57)
[2016-06-11] MEDS: POTASSIUM CL 10MEQ/50ML IVPB 50 ML IV SCH (05:16)
[2016-06-11] MEDS: MAGNESIUM 1 GM/100 ML IVPB 100 ML IV SCH (05:16)
[2016-06-11] MEDS: KCL 20 MEQ TAB (K-DUR) PO SCH (05:16)
--- NOTE | 2016-06-11 08:29 | Diagnostic Imaging Report ---
INDICATION: Dyspnea COMPARISON STUDY: Chest from June 09. FINDINGS: Portable upright view of the chest demonstrates the lungs to be clear. The heart, mediastinum, pulmonary vascularity and visualized bony thorax are normal. IMPRESSION: Negative chest. Dictated by: Dictated on workstation # [id number]
--- NOTE | 2016-06-11 09:20 | Progress Note-Hospitalist ---
Subjective HPI/CC On Admission Mr. Bartlett is an 89-year-old white male who been discharged in the hospital on Friday the after treatment for herpes zoster with left trigeminal nerve involvement and concern for zoster ophthalmicus. It was ultimately determined that he did not have ZOSTER OPHTHALMICUS. HE WAS SENT HOME WITH valtrex 1 g every 8 hours. according to his daughter he became fatigued and has developed headaches and fever with nausea. she had to crush the medicine. he then became confused and delirious. he was brought back to the emergency room where he was noted to be febrile and stuporous. lumbar puncture revealed a significantly elevated protein level with over [address] head was negative. 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 this morning he is moaning in bed unable to give any history with daughter at the bedside. above history is taken from the daughter. she denies that he was complaining about any photophobia or vision change or ocular pain. they had been compliant with viroptic eyedrops as well as his valtrex. she had been able to get it down him by crushing the pill. Date Seen 06/11/16 Subjective/Events-last exam THE PATIENT IS AWAKE AND ALERT THIS MORNING FOR ME DENYING HEADACHE. hE REPORTS MILD SORENESS IN HIS NECK BUT DEMONSTRATES NORMAL RANGE OF MOTION IN BED. He reports he feels a little bit queasy but denies nausea. He reports some mild left photophobia denying visual disturbance this morning. He denies chills or fever. He is oriented to person and place. Objective Exam Vital Signs Vital Sign - Last 12Hours 06/09/16 09:55 Temp 102.1 Pulse 101 Resp 24 B/P 177/171 Pulse Ox 96 O2 Delivery Room Air Capillary Refill : Less Than 3 Seconds General Appearance: No Apparent Distress HEENT: Other (pupils 5 mm symmetrical reactive to light no evidence for pain or reaction on testing noted. Minimal injection of the left eye) Neck: Non Tender (I'll tenderness noted but he exhibits normal range of motion and there is no splinting on range of motion.) Supple Respiratory: Lungs Clear Normal Breath Sounds No Accessory Muscle Use Cardiovascular: Regular Rate, Rhythm No Edema No Gallop No JVD No Murmur Normal Peripheral Pulses Gastrointestinal: Normal Bowel Sounds Non Tender Soft Results/Procedures Lab Laboratory Tests 06/11/16 04:05 Assessment/Plan Assessment and Plan Assess & Plan/Chief Complaint 1. 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 We'll continue acyclovir with likely transfer to the floor later today. Will advance diet as tolerated significant improvement in mental status with no evidence for seizure activity. 2. 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 3. Recent treatment for left second and third trigeminal branch herpes zoster with no evidence to suggest zoster ophthalmicus at this time. SOBEIDA NEGRON MD Jun 11, 2016 09:20
[2016-06-11] MEDS ORDERED: ONDANSETRON 4 MG/2 ML (SDV) Z0FRAN IVP PRN (09:30)
[2016-06-11] MEDS: D5 1/2 NS W/KCL 20 MEQ/L 1,000 ML IV SCH ×3 (10:19→17:43)
[2016-06-12 00:05] VITALS: BP 162/92
[2016-06-12] MEDS: TRIFLURIDINE 1% OP SCH ×6 (00:52→21:25)
[2016-06-12] MEDS: D5 1/2 NS W/KCL 20 MEQ/L 1,000 ML IV SCH ×4 (01:49→21:38)
[2016-06-12] MEDS: ACYCLOVIR 800 MG/NS 250 ML IVPB IV SCH ×4 (02:21→15:28)
[2016-06-12 04:25] VITALS: BP 136/73
[2016-06-12 08:00] VITALS: BP 175/93
--- NOTE | 2016-06-12 11:23 | Physical Therapy Evaluation ---
PT Evaluation-General Medical Diagnosis Admission Date Jun 09, 2016 at 15:23 Medical Diagnosis: AMS Onset Date: Jun 12, 2016 Therapy Diagnosis Therapy Diagnosis: weaknss; abn gait Height/Weight Height (Feet): 5 Height (Inches): 8 Weight (Pounds): 142 Weight (Ounces): 5.0 Precautions Precautions/Isolations: Fall Prevention, Standard Precautions Referral Physician: Pramod Reason for Referral: Evaluation/Treatment Medical History Pertinent Medical History: Arthritis, GERD, HTN Additional Medical History Zoster Opthmalicus Current History Recent discharge from [facility] and returned the next day with AMS and decreased mobility. Currently on acute for medical management. Reviewed History: Yes Social History Home: Single Level Current Living Status: Alone Entry Into Home: Stairs With Railing Prior/Core FIM Prior Level of Function Functional [place] Measure 0=Not Assessed/NA 4=Minimal Assistance 1=Total Assistance 5=Supervision or Setup 2=Maximal Assistance 6=Modified [place] 3=Moderate Assistance 7=Complete [place] Bed Mobility: 7 Transfers (B,C,W/C) (FIM): 7 Gait: 7 Pt was indep and active at [facility]. PT Evaluation-Current Subjective Pt agreees to PT. Pain Numeric Pain Scale: 0-No Pain Location: No Pain Reported Objective Patient Orientation: Person, Confused Problem Solving: Poor Attachments: IV ROM/Strength ROM Lower Extremities WNL Strenght Lower Extremities Grossly 4/5 throughout Integumentary/Posture Integumentary intact Bowel Incontinence: No Bladder Incontinence: No Posture normal and symmetrical Neuromuscular (Tone, Coordination, Reflexes) no noted functional deficits Sensory Vision: Wears Glasses Hearing: Impaired Hand Dominance: Right Sensation Right Lower Extremit: Intact Sensation Left Lower Extremity: Intact Transfers Functional [place] Measure 0=Not Assessed/NA 4=Minimal Assistance 1=Total Assistance 5=Supervision or Setup 2=Maximal Assistance 6=Modified [place] 3=Moderate Assistance 7=Complete [place] Transfers (B, C, W/C) (FIM): 4 (CGA with functional tranfers primarily to provide tactile cues) Supine to/from Sit: 4 Sit to/from Stand: 4 Gait Mode of Locomotion: Walk Anticipated Mode of Locomotion: Walk Gait (FIM): 4 Distance (FIM): 3=150 ft Gait Assistive Device: FWW Comments/Gait Description Pt needs CGA for safety, has some difficulty staying inside walker, especially with turning. Confusion makes gait unsteady and obstacles are difficult to avoid. Balance Sitting Static: Good Sitting Dynamic: Good Standing Static: Fair Standing Dynamic: Fair Treatment Toileted with min assist and heavy cueing for sequencing and safety. Min virgil tiwth toilet transfers and SBA while he perfromed tran care. SB-CGa while he stood at sink to wash hands. In bed post treatment with needs met and bed alarm activated. Assessment/Needs Pt presents with a decline in functional mobility. He has impaired LE strength , impaired balance and decreased ability to safely transfer or ambulated. He is also limited by cognitive deficits (confusion) that limits mobility. He will benefit from skilled therapy services to address safety and mobility to allow him to return home. Rehab Potential: Good PT Conference Translator Goals Conference Translator Goals PT Conference Translator Goals Time Frame: Jun 19, 2016 Transfers (B,C,W/C) (FIM): 6 Gait (FIM): 6 Gait distance (FIM): 3=150 ft Gait Assistive Device: FWW PT Plan Problem List Problem List: Activity Tolerance, Functional Strength, Safety, Balance, Gait, Transfer, Bed Mobility Treatment/Plan Treatment Plan: Continue Plan of Care Treatment Plan: Bed Mobility, Education, Functional Activity Pooja, Functional Strength, Gait, Safety, Therapeutic Exercise, Transfers Treatment Duration: Jun 19, 2016 # of days/week 5-6 Visits Per Week: 5-6 Pt/Family Agrees w/Plan: Yes Safety Risks/Education Patient Education: Safety Issues Teaching Recipient: Patient Teaching Methods: Demonstration, Discussion Response to Teaching: Reinforcement Needed Time/GCodes Time In: 1005 Time Out: 1030 Total Billed Treatment Time: 25 Total Billed Treatment visit EV 15 FA 10 JAIME HARTMANN PT Jun 12, 2016 11:23
[2016-06-12 12:00] VITALS: BP 161/92
[2016-06-12 14:31] LABS: HSV 2 DNA PCR CSF Not Detected (Not Detected)
[2016-06-12 16:00] VITALS: BP 170/89
--- NOTE | 2016-06-12 19:53 | Progress Note-Hospitalist ---
Subjective HPI/CC On Admission Mr. Bartlett is an 89-year-old white male who been discharged in the hospital on Friday the after treatment for herpes zoster with left trigeminal nerve involvement and concern for zoster ophthalmicus. It was ultimately determined that he did not have ZOSTER OPHTHALMICUS. HE WAS SENT HOME WITH valtrex 1 g every 8 hours. according to his daughter he became fatigued and has developed headaches and fever with nausea. she had to crush the medicine. he then became confused and delirious. he was brought back to the emergency room where he was noted to be febrile and stuporous. lumbar puncture revealed a significantly elevated protein level with over [address] head was negative. 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 this morning he is moaning in bed unable to give any history with daughter at the bedside. above history is taken from the daughter. she denies that he was complaining about any photophobia or vision change or ocular pain. they had been compliant with viroptic eyedrops as well as his valtrex. she had been able to get it down him by crushing the pill. Date Seen 06/12/16 Subjective/Events-last exam The he shouldn't was alert this morning reporting but little confused. 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 Objective Exam Vital Signs Vital Sign - Last 12Hours 06/09/16 09:55 Temp 102.1 Pulse 101 Resp 24 B/P 177/171 Pulse Ox 96 O2 Delivery Room Air Capillary Refill : Less Than 3 Seconds General Appearance: No Apparent Distress HEENT: PERRL/EOMI Neck: Full Range of Motion Non Tender Supple Respiratory: Chest Non Tender Lungs Clear Normal Breath Sounds No Accessory Muscle Use No Respiratory Distress Cardiovascular: Regular Rate, Rhythm No Edema No Gallop No JVD No Murmur Normal Peripheral Pulses Gastrointestinal: Normal Bowel Sounds No Organomegaly No Pulsatile Mass Non Tender Soft Assessment/Plan Assessment and Plan Assess & Plan/Chief Complaint 1. 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 while the patient is still intermittently con resolution of headess. Continue IV acyclovir.. 2. 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 Will DC Pastrana and monitor. 3. Recent treatment for left second and third trigeminal branch herpes zoster with no evidence to suggest zoster ophthalmicus at this time. SOBEIDA NEGRON MD Jun 12, 2016 19:53
[2016-06-12 20:00] VITALS: BP 165/98
[2016-06-12] MEDS ORDERED: LOSARTAN 50 MG (COZAAR) TAB PO SCH (21:00)
[2016-06-12] MEDS: fentaNYL INJECTION 100 MCG/2 ML AMP IVP PRN (22:36)
[2016-06-12] MEDS ORDERED: LORazepam INJ 2 MG/ML (ATIVAN) VIAL IVP PRN (22:45)
[2016-06-12] MEDS ORDERED: HALOPERIDOL 5 MG/ML (HALDOL) AMP IM PRN (22:45)
[2016-06-13 00:45] VITALS: BP 175/95
[2016-06-13] MEDS: fentaNYL INJECTION 100 MCG/2 ML AMP IVP PRN (01:08)
[2016-06-13] MEDS: TRIFLURIDINE 1% OP SCH ×4 (01:08→12:12)
[2016-06-13] MEDS: ACYCLOVIR 800 MG/NS 250 ML IVPB IV SCH ×4 (02:02→14:56)
[2016-06-13 04:25] VITALS: BP 163/87
[2016-06-13 07:33] LABS: HSV 1 DNA PCR Not Detected (Not Detected)
[2016-06-13] MEDS: D5 1/2 NS W/KCL 20 MEQ/L 1,000 ML IV SCH (07:55)
[2016-06-13 08:00] VITALS: BP 182/108
--- NOTE | 2016-06-13 09:20 | Physical Therapy Daily Note ---
PT Daily Note-Current Subjective Agrees to PT. Pt is up in chair with breakfast tray in front of him. Requests to toilet post treatment. Pain Numeric Pain Scale: 0-No Pain Location: No Pain Reported Mental Status Patient Orientation: Person, Confused Transfers Functional [place] Measure 0=Not Assessed/NA 4=Minimal Assistance 1=Total Assistance 5=Supervision or Setup 2=Maximal Assistance 6=Modified [place] 3=Moderate Assistance 7=Complete IndependenceIRFPAI Quality Coding Scale 6 Independent with activity with or without an assistive device 5 Patient requires set up or clean up by helper. Patient completes activity by themselves 4 Supervision or touching assist (CGA). [place] provide cues , steadying assist 3 The helper provides less than half the effort to complete the activity 2 The helper provides more than half the effort to complete the activity 1 Dependent. The helper does all the effort to complete an activity 7 Patient refused to complete or attempt activity 9 The patient did not perform the activity before the current illness or injury 88 Not attempted due to Medical conditions or safety concerns Transfers (B, C, W/C) (FIM): 4 (CGA for safety) Supine to/from Sit: 4 (CGA/tactile cues to direct due to some confusion) Sit to/from Stand: 4 Tactile cues for safety and to direct/cue him. Toilet transfer with sBA. Gait Training Gait (FIM): 4 (SB-CGA) Distance (FIM): 3=150 ft Distance: 300 ft Gait Assistive Device: FWW Pt used FWW with improved coordination and stayed inside the walker and managed turns with no safety concerns. Treatments Gait. Pt toileted with sBA for transfers, pt able to perfrom pericare with SBA. Stood at sink to wash hands with SBA. Pt in bed post treatment with bed rails up and alarm activitated. Assessment Current Status: Good Progress Improved mobility. Pt remains somewhat confused but more clear than he was yesterday and not as "fidgety" today. PT Nursing Home Goals Slot Machine Mechanic Goals PT Nursing Home Goals Time Frame: Jun 19, 2016 Transfers (B,C,W/C) (FIM): 6 Gait (FIM): 6 Gait distance (FIM): 3=150 ft Gait Assistive Device: FWW PT Plan Problem List Problem List: Activity Tolerance, Functional Strength, Safety, Gait, Transfer Treatment/Plan Treatment Plan: Continue Plan of Care Treatment Plan: Bed Mobility, Education, Functional Activity Pooja, Functional Strength, Gait, Safety, Therapeutic Exercise, Transfers Treatment Duration: Jun 19, 2016 Visits Per Week: 5-6 Time/GCodes Time In: 835 Time Out: 900 Total Billed Treatment Time: 25 Total Billed Treatment visit FA 10 GT 15 JAIME HARTMANN PT Jun 13, 2016 09:20
[2016-06-13 12:00] VITALS: BP 164/106
[2016-06-13] MEDS ORDERED: CATHETER FLUSH 10 ML SYR IV PRN (12:30)
[2016-06-13] MEDS ORDERED: CATHETER FLUSH 10 ML SYR IV SCH (14:00)
--- NOTE | 2016-06-14 12:29 | Discharge Summary-Hospitalist ---
Diagnosis/Chief Complaint Date of Admission Jun 09, 2016 at 15:23 Date of Discharge Jun 13, 2016 at 15:42 Discharge Date: Jun 13, 2016 Admission Diagnosis 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 There is no evidence to suggest bacterial meningitis so we will discontinue Rocephin. Had a long discussion with the daughter. Did discuss risk with ongoing delirium and cognitive dysfunction. Also discussed the risk for seizure disorder with daughter and staff. He is also at risk for urinary retention for which there is no current evidence for. We'll continue to monitor. Currently prognosis is guarded. 2. Mild hyponatremia 3. Previous herpes zoster with second third division trigeminal nerve involvement on the left. Discharge Diagnosis 1. 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 while the patient is still intermittently con resolution of headess. Continue IV acyclovir.. 2. 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 Will DC [place] and monitor. 3. Recent treatment for left second and third trigeminal branch herpes zoster with no evidence to suggest zoster ophthalmicus at this time. Reason Hospital Visit/Course Mr. Bartlett is an 89-year-old white male who been discharged in the hospital on Friday the after treatment for herpes zoster with left trigeminal nerve involvement and concern for zoster ophthalmicus. It was ultimately determined that he did not have ZOSTER OPHTHALMICUS. HE WAS SENT HOME WITH valtrex 1 g every 8 hours. according to his daughter he became fatigued and has developed headaches and fever with nausea. she had to crush the medicine. he then became confused and delirious. he was brought back to the emergency room where he was noted to be febrile and stuporous. lumbar puncture revealed a significantly elevated protein level with over [address] head was negative. 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 this morning he is moaning in bed unable to give any history with daughter at the bedside. above history is taken from the daughter. she denies that he was complaining about any photophobia or vision change or ocular pain. they had been compliant with viroptic eyedrops as well as his valtrex. she had been able to get it down him by crushing the pill. Hospital course: Patient was admitted to the intensive care unit and IV acyclovir and IV fluids were initiated. Patient exhibited no seizure activity. He did have asymptomatic hypokalemia and underwent IV and by mouth replacement. Delirium with agitated behavior improved significantly. He was still slightly confused but fever defervesced as did hyponatremia and headache. He was discharged to swing bed status to continue a 2 week course of IV acyclovir. 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 Discharge Summary Discharge Physical Examination Allergies: Uncoded Allergies: pcn, iv dye (Allergy, Intermediate, hives and sob , 06/01/16) Vitals & I&Os Vital Signs Date Time Temp Pulse Resp B/P Pulse Ox O2 Delivery O2 Flow Rate FiO2 06/13/16 12:55 97.3 06/13/16 12:00 120 10 164/106 98 Room Air Hospital Course Labs (last 24 hrs) Microbiology 06/09/16 Blood Culture - Preliminary, Resulted No growth 06/09/16 Gram Stain - Final, Complete 06/09/16 CSF Culture - Final, Complete No growth 06/09/16 Influenza Types A,B Antigen (JUAN A) - Final, Complete Discharge Home Medications: Active Scripts Active Reported Trifluridine 7.5 Ml Drops 1 Drop OS Q4H Pred Forte (Prednisolone Acetate) 1 Ml Drops.susp 1 Drop OS QID 5 Days HAS NOT STARTED YET / FILLED 06/07/16 #5ML FOR A 5 DAY THERAPY Tamsulosin HCl 0.4 Mg Cap.er.24h 0.4 Mg PO DAILY Valacyclovir (Valacyclovir HCl) 1,000 Mg Tablet 1,000 Mg PO Q8H Bystolic (Nebivolol HCl) 5 Mg Tablet 5 Mg PO DAILY PRN Omeprazole 20 Mg Capsule.dr 20 Mg PO BID Losartan Potassium 100 Mg Tablet 100 Mg PO DAILY Instructions to patient/family Please see electonic discharge instructions given to patient. Clinical Quality Measures DVT/VTE Risk/Contraindication: Risk Factor Score Per Nursin RFS Level Per Nursing on Admit: 2=Moderate SOBEIDA NEGRON MD Jun 14, 2016 12:29
[2016-06-25] MEDS ORDERED: LACT20SO2 PO (13:20)
[2016-06-25] MEDS ORDERED: IBUP-2055 PO (13:20)
[2016-06-25] MEDS ORDERED: LOSA50TA36 PO (13:20)
[2016-06-25] MEDS ORDERED: AMLO5TAB2 PO (13:20)
[2016-07-21] MEDS ORDERED: VALA10004 PO (08:11)
[2016-07-21] MEDS ORDERED: NEBI5TAB8 PO (08:11)
== END 2016-06-13 15:42 | disposition swing bed (61) | DRG 74 ==
LOC: EDUNIT# 09:53 → ER 09:54 → ICU 15:23 → 4TH 06-11 14:42
PROVIDERS: ADMIT Internal Medicine
PROC: 009U3ZX Drainage of Spinal Canal, Percutaneous Approach, Diagnostic (ICD-10-PCS; principal; 2016-06-09)
DX: B02.0 Zoster encephalitis (principal); R41.82 Altered mental status, unspecified; E87.1 Hypo-osmolality and hyponatremia; I16.0 Hypertensive urgency; J32.9 Chronic sinusitis, unspecified; Z66 Do not resuscitate; K21.9 Gastro-esophageal reflux disease without esophagitis; R63.0 Anorexia; J42 Unspecified chronic bronchitis; Z86.73 Personal history of transient ischemic attack (TIA), and cerebral infarction without residual deficits; Z87.891 Personal history of nicotine dependence; I10 Essential (primary) hypertension; H91.90 Unspecified hearing loss, unspecified ear; N40.1 Benign prostatic hyperplasia with lower urinary tract symptoms
CPT/HCPCS: 36415; 51702; 70450; 71010; 80048; 80053; 81000; 82945; 83605; 83735; 84100; 84157; 85025; 85610; 85730; 86141; 87040; 87070; 87205; 87252; 87529; 87804; 89051; 96365; 96375; 96376

== ENCOUNTER 2016-06-13 15:14 | Inpatient (IN) | payer MEDICARE ==
[~2016-06-13] VITALS: Ht 172.7 cm; Wt 60.8 kg
[~2016-06-13 15:14] MED LIST changes: +PRED1DRO OS; +TAMS0.4C2 PO; +TRIF7.5D6 OS; +VALA1000 PO
[2016-06-13] MEDS ORDERED: ACYCLOVIR INJECTION 800 MG in NS (IVPB) 250 ML IV SCH (15:45)
[2016-06-13] MEDS ORDERED: ACETAMINOPHEN 650 MG SUPP (TYLENOL) PR PRN (15:45)
[2016-06-13] MEDS ORDERED: PATIENT MAY USE OWN MED,SINGLE MED PO SCH (15:45)
[2016-06-13] MEDS ORDERED: fentaNYL INJECTION 100 MCG/2 ML AMP IVP PRN (15:45)
[2016-06-13] MEDS ORDERED: HALOPERIDOL 5 MG/ML (HALDOL) AMP IM PRN (15:45)
[2016-06-13] MEDS ORDERED: ONDANSETRON 4 MG/2 ML (SDV) Z0FRAN IVP PRN (15:45)
[2016-06-13] MEDS ORDERED: LORazepam INJ 2 MG/ML (ATIVAN) VIAL IVP PRN (15:45)
[2016-06-13] MEDS ORDERED: CATHETER FLUSH 10 ML SYR IV PRN (16:45)
--- OUTSIDE RECORDS SUMMARY | 2016-06-13 17:08 | XMS REPORT | Continuity of Care Document ---
Author Author [facility] Organization [facility] Address Unknown Phone Unavailable Care Team Providers Care Marketer Name Role Phone DEVIN NEW MD PCP Insurance Providers Payer Name Policy Number Subscriber Name Relationship Wps [employer] [id number] Glenn Boykin 20 Self / Same As Patient Blue Cross [facility] Supp [id number] Glenn Boykin 18 Self / Same As Patient Advance Directives Directive Response Recorded Date/Time Advance Directives Yes 05/30/16 9:51am Health Care Power of Fixture Fabricator Repairer Suhail PINEDA DTR 07/10/15 9:47am Organ Donor Yes 07/10/15 9:47am Resuscitation Status Full Code 05/30/16 9:51am Chief Complaint and Reason for Visit Chief Complaint Respiratory Problems Reason for Visit Headache [id number] Epigastric pain Problems Active Problems Medical Problem [...] - 99.5) 05/30/2016 12:44pm Temperature (Calculated Celsius) 36.99478 degrees C (36.4 - 37.5) 05/30/2016 12:44pm [...] 8 inches 05/30/2016 9:10am Height (Calculated Centimeters) 172.931183 cm 05/30/2016 9:10am Weight (Pounds) 150 pounds 05/30/2016 9:10am Weight (Calculated Kilograms) 68.949661 kilograms 05/30/2016 9:10am Capillary Refill Capillary Refill [...] 5-9 05/30/2016 11:50am 05/30/2016 12:12pm Urine Specific [place] 1.010 * 1.016-1.022 05/30/2016 11:50am 2016 12:12pm [...] Date Attending Provider Departed Emergency Room [facility] 05/30/16 9:04am 05/30 12:46pm DEJUAN BRANDON MD Recent Diagnosis
[2016-06-13 18:00] VITALS: BP 167/98
[2016-06-13] MEDS: TRIFLURIDINE 1% 7.5 ML BTL (VIROPTIC) NON-FORMULARY OP SCH (20:00)
[2016-06-13] MEDS: LOSARTAN 50 MG (COZAAR) TAB PO SCH (20:39)
[2016-06-13] MEDS: CATHETER FLUSH 10 ML SYR IV SCH (20:39)
[2016-06-13 20:41] VITALS: BP 175/95
[2016-06-14] MEDS: CATHETER FLUSH 10 ML SYR IV SCH ×3 (01:56→22:33)
[2016-06-14] MEDS: ACYCLOVIR INJECTION 800 MG in NS (IVPB) 250 ML IV SCH ×2 (01:56→14:27)
[2016-06-14] MEDS: TRIFLURIDINE 1% 7.5 ML BTL (VIROPTIC) NON-FORMULARY OP SCH ×6 (04:00→20:00)
[2016-06-14 09:08] VITALS: BP 161/108
--- NOTE | 2016-06-14 11:16 | Physical Therapy Evaluation ---
PT Evaluation-General Medical Diagnosis Admission Date Jun 13, 2016 at 15:42 Medical Diagnosis: AMS Onset Date: Jun 13, 2016 Therapy Diagnosis Therapy Diagnosis: weakness; abn gait Height/Weight Height (Feet): 5 Height (Inches): 8 Weight (Pounds): 134 Weight (Ounces): 5.0 Precautions Precautions/Isolations: Fall Prevention, Standard Precautions Weight Bear Status Weight Bearing Restriction: Weight Bearing/Tolerated Referral Physician: Taryn Reason for Referral: Evaluation/Treatment Medical History Pertinent Medical History: Arthritis, GERD, HTN Current History Recent hospitalization with diagnosis of herpes zoster in his left eye, dischrged home and returned the next day with AMS and decreased functional mobility. Pt transferred to [facility] status for continued medical management and skilled therapy services. Reviewed History: Yes Social History Home: Single Level Current Living Status: Alone (good family support) Prior/Core FIM Prior Level of Function Functional [place] Measure 0=Not Assessed/NA 4=Minimal Assistance 1=Total Assistance 5=Supervision or Setup 2=Maximal Assistance 6=Modified [place] 3=Moderate Assistance 7=Complete [place] Bed Mobility: 7 Transfers (B,C,W/C) (FIM): 7 Gait: 7 Active; cared for self; community ambulator and still drives. PT Evaluation-Current Subjective Agreeable to PT. No complaints. Pain Numeric Pain Scale: 0-No Pain Location: No Pain Reported Objective Patient Orientation: Person, Confused Problem Solving: Fair ROM/Strength ROM Lower Extremities wNL Strenght Lower Extremities Grossly 4/5 throughout Integumentary/Posture Integumentary Intact Bowel Incontinence: No Bladder Incontinence: No Posture normal; symmetrical Neuromuscular (Tone, Coordination, Reflexes) intact Sensory Vision: Wears Glasses Hearing: Impaired Hand Dominance: Right Sensation Right Lower Extremit: Intact Sensation Left Lower Extremity: Intact Transfers Functional [place] Measure 0=Not Assessed/NA 4=Minimal Assistance 1=Total Assistance 5=Supervision or Setup 2=Maximal Assistance 6=Modified [place] 3=Moderate Assistance 7=Complete [place] Transfers (B, C, W/C) (FIM): 4 (close CGA for safety) Supine to/from Sit: 4 Sit to/from Stand: 4 Sit to Lying (QC): 4 (tactile cues to sequence) Lying to Sitting/Side of Bed(Q: 4 Sit to Stand (QC): 4 (CGA for safety) Chair/Lei-jc-Taiex Xfer(QC): 4 Gait Does the Patient Walk?: Yes Mode of Locomotion: Walk Anticipated Mode of Locomotion: Walk Gait (FIM): 4 Distance (FIM): 3=150 ft Walk 50 ft with 2 Turns(QC): 4 (in his room) Walk 150 ft (QC): 4 Gait Level of Assist: 4 Gait Assistive Device: FWW Comments/Gait Description steady gait; slight unsteadiness with turning and through doorways. Wheelchair Training Does the Pt Use a Wheelchair?: No Balance Sitting Static: Good Sitting Dynamic: Good Standing Static: Fair Standing Dynamic: Fair Treatment Gait training and work on functional transfers. Pt toileted with SBA for toilet transfer; he stood at sink to work on functional dynamic balance to wash hands, brush teeth and comb his hair. Pt up in chair post treatmeht with chair alarm activated. Assessment/Needs Pt presents with a decline in functional safety awareness and decreased ability to transfer and mobilize without assist. slight balance deficits noted as well. He will benefit from skilled PT to work on functional mobilty and indep to prepare for discharge home as before. Rehab Potential: Fair Post Rehab Potential-Barriers: confusion PT Short Term Goals Short Term Goals Time Frame: Jun 21, 2016 Transfers (B,C,W/C) (FIM): 5 Gait (FIM): 5 PT Mcc Goals Director Speech Language Goals PT Director Speech Language Goals Time Frame: Jun 28, 2016 Transfers (B,C,W/C) (FIM): 7 Sit to Lying (QC): 6 Lying-Sitting on Side/Bed(QC): 6 Sit to Stand (QC): 6 Chair/Mkz-cc-Dgyjj Xfer(QC): 6 Does the Patient Walk: Yes Gait (FIM): 6 Gait distance (FIM): 3=150 ft Walk 50ft with 2 Turns (QC): 6 Walk 150 ft (QC): 6 Gait Level of Assist: 6 Gait Assistive Device: FWW Does the Pt use WC or Scooter?: No PT Plan Problem List Problem List: Activity Tolerance, Functional Strength, Safety, Balance, Gait, Transfer Treatment/Plan Treatment Plan: Continue Plan of Care Treatment Plan: Bed Mobility, Education, Functional Activity Pooja, Functional Strength, Gait, Safety, Therapeutic Exercise, Transfers Treatment Duration: Jun 28, 2016 # of days/week 6 Visits Per Week: 6 Pt/Family Agrees w/Plan: Yes Safety Risks/Education Patient Education: Transfer Techniques, Safety Issues Teaching Recipient: Patient Teaching Methods: Discussion Response to Teaching: Reinforcement Needed Time/GCodes Time In: 815 Time Out: 847 Total Billed Treatment Time: 32 Total Billed Treatment visit EVM 15 FA 17 JAIME HARTMANN PT Jun 14, 2016 11:16
--- NOTE | 2016-06-14 12:26 | Progress Note-Hospitalist ---
Subjective Date Seen 06/14/16 Subjective/Events-last exam Patient denies any complaints. Still confused at times but not agitated. He did not require Haldol or Ativan last night. He denies headache and is afebrile. Objective Exam Vital Signs Vital Sign - Last 12Hours 06/13/16 18:00 Temp 96.8 Pulse 120 Resp 20 B/P 167/98 Pulse Ox 97 O2 Delivery Room Air Capillary Refill : General Appearance: No Apparent Distress Respiratory: Chest Non Tender Lungs Clear Normal Breath Sounds No Accessory Muscle Use No Respiratory Distress Cardiovascular: Regular Rate, Rhythm No Edema No Gallop No JVD No Murmur Normal Peripheral Pulses Assessment/Plan Assessment and Plan Assess & Plan/Chief Complaint 1. 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 2. Asymptomatic blood pressure elevation likely aggravated by previous IV fluids will continue losartan won't add to list at this time. SOBEIDA NEGRON MD Jun 14, 2016 12:26
[2016-06-14 18:00] VITALS: BP 164/94
[2016-06-14] MEDS: LOSARTAN 50 MG (COZAAR) TAB PO SCH (20:30)
[2016-06-15] MEDS: ACYCLOVIR INJECTION 800 MG in NS (IVPB) 250 ML IV SCH ×2 (02:06→14:03)
[2016-06-15] MEDS: TRIFLURIDINE 1% 7.5 ML BTL (VIROPTIC) NON-FORMULARY OP SCH ×7 (04:00→23:54)
[2016-06-15 06:00] VITALS: BP 131/75
[2016-06-15] MEDS: CATHETER FLUSH 10 ML SYR IV SCH ×2 (07:01→14:03)
--- NOTE | 2016-06-15 11:32 | Physical Therapy Daily Note ---
PT Daily Note-Current Subjective Patient in bed sleeping pre tx, agrees to PT but very lethargic. Patient has no complaints of pain. Pain Numeric Pain Scale: 0-No Pain Appearance Patient in bed post tx set up for lunch, has nurse call, phone, tray, all needs met. Bed alarm on. Mental Status Patient Orientation: Person, Place Transfers Functional [place] Measure 0=Not Assessed/NA 4=Minimal Assistance 1=Total Assistance 5=Supervision or Setup 2=Maximal Assistance 6=Modified [place] 3=Moderate Assistance 7=Complete IndependenceIRFPAI Quality Coding Scale 6 Independent with activity with or without an assistive device 5 Patient requires set up or clean up by helper. Patient completes activity by themselves 4 Supervision or touching assist (CGA). [place] provide cues , steadying assist 3 The helper provides less than half the effort to complete the activity 2 The helper provides more than half the effort to complete the activity 1 Dependent. The helper does all the effort to complete an activity 7 Patient refused to complete or attempt activity 9 The patient did not perform the activity before the current illness or injury 88 Not attempted due to Medical conditions or safety concerns Transfers (B, C, W/C) (FIM): 5 Scootin Supine to/from Sit: 5 Sit to/from Stand: 4 CGA for sit to stand Gait Training Gait (FIM): 4 Distance: 200' Gait Level of Assist: 4 Gait Persons Needed: 1 Gait Assistive Device: FWW CGA, slow but steady ambulation, patient tends to lean over his walker a little too much Treatments bed mobility and transfers, ambulation Assessment Current Status: Fair Progress improving endurance PT Short Term Goals Short Term Goals Time Frame: Jun 21, 2016 Transfers (B,C,W/C) (FIM): 5 Gait (FIM): 5 PT Demolition Specialist Goals Demolition Specialist Goals PT Demolition Specialist Goals Time Frame: Jun 28, 2016 Transfers (B,C,W/C) (FIM): 7 Sit to Lying (QC): 6 Lying-Sitting on Side/Bed(QC): 6 Sit to Stand (QC): 6 Chair/Kku-ep-Rzimg Xfer(QC): 6 Does the Patient Walk: Yes Gait (FIM): 6 Gait distance (FIM): 3=150 ft Walk 50ft with 2 Turns (QC): 6 Walk 150 ft (QC): 6 Gait Level of Assist: 6 Gait Assistive Device: FWW Does the Pt use WC or Scooter?: No PT Plan Problem List Problem List: Activity Tolerance, Functional Strength, Safety, Balance, Gait, Transfer, Bed Mobility Treatment/Plan Treatment Plan: Continue Plan of Care Treatment Plan: Bed Mobility, Education, Functional Activity Pooja, Functional Strength, Gait, Safety, Therapeutic Exercise, Transfers Treatment Duration: Jun 28, 2016 Visits Per Week: 6 Safety Risks/Education Patient Education: Gait Training, Transfer Techniques, Safety Issues Teaching Recipient: Patient Teaching Methods: Demonstration, Discussion Response to Teaching: Reinforcement Needed Time/GCodes Time In: 1115 Time Out: 1130 Total Billed Treatment Time: 15 Total Billed Treatment 1 visit GT 15 min ERIN TREADWELL PT Jun 15, 2016 11:32
[2016-06-15 16:00] VITALS: BP 177/95
[2016-06-15] MEDS: ACETAMINOPHEN 325 MG TABLET/CAPLET (TYLENOL) PO PRN (18:22)
[2016-06-15 20:07] VITALS: BP 144/86
[2016-06-15] MEDS: LOSARTAN 50 MG (COZAAR) TAB PO SCH (20:16)
[2016-06-16] MEDS: CATHETER FLUSH 10 ML SYR IV SCH ×3 (00:35→14:09)
[2016-06-16] MEDS: ACYCLOVIR INJECTION 800 MG in NS (IVPB) 250 ML IV SCH ×2 (02:08→14:09)
[2016-06-16] MEDS: TRIFLURIDINE 1% 7.5 ML BTL (VIROPTIC) NON-FORMULARY OP SCH ×2 (03:47→08:00)
[2016-06-16 05:00] VITALS: BP 154/86
[2016-06-16] MEDS: ACETAMINOPHEN 325 MG TABLET/CAPLET (TYLENOL) PO PRN (13:00)
[2016-06-16 18:00] VITALS: BP 167/90
[2016-06-16] MEDS: LOSARTAN 50 MG (COZAAR) TAB PO SCH (20:03)
[2016-06-17] MEDS: ACYCLOVIR INJECTION 800 MG in NS (IVPB) 250 ML IV SCH ×2 (01:20→14:15)
[2016-06-17] MEDS: CATHETER FLUSH 10 ML SYR IV SCH ×4 (01:24→21:29)
[2016-06-17 06:00] VITALS: BP 170/90
[2016-06-17] MEDS: ACETAMINOPHEN 325 MG TABLET/CAPLET (TYLENOL) PO PRN (07:01)
--- NOTE | 2016-06-17 10:56 | Progress Note-Hospitalist ---
Progress Note Progress Notes/Assess & Plan Date Seen 06/17/16 Diagonsis/Assessment & Plan Chart Review: No fever Vitals stable project administrator: Pt is complaining of left eye pain. Pt was using eye drops but stopped using them after 5 days. RN will call Ophthalmology. Lab checked HSV 1-2, and will need to check Zoster. Patient Interview: Dr. Centeno informs pt that they will consult Ophthalmology regarding eye pain. Pt is having regular BMs. Physical exam stable. Pt states that he is eating and drinking without complications, and would like to DC when possible. vital signs stable, pleasant, oriented 3, sitting on commode Regular rate and rhythm, clear to auscultation Left eye with mild injected appearance Assessment: Herpes zoster encephalitis/meningitis Left eye pain due to zoster involvement Plan: Lab eval for Zoster if able to add this on Consult Ophthalmology regarding eye pain Scribed by Gilbert Torres under the direct supervision of Dr. Centeno. DIEGO CENTENO DO Jun 17, 2016 10:56
--- NOTE | 2016-06-17 11:33 | Physical Therapy Daily Note ---
PT Daily Note-Current Subjective Pt sitting in recliner upon arrival. Sp is present. Pt agrees to PT. Pain Numeric Pain Scale: 0-No Pain Location: No Pain Reported Mental Status Patient Orientation: Person, Place, Time, Situation Transfers Functional [place] Measure 0=Not Assessed/NA 4=Minimal Assistance 1=Total Assistance 5=Supervision or Setup 2=Maximal Assistance 6=Modified [place] 3=Moderate Assistance 7=Complete IndependenceIRFPAI Quality Coding Scale 6 Independent with activity with or without an assistive device 5 Patient requires set up or clean up by helper. Patient completes activity by themselves 4 Supervision or touching assist ([facility]). [place] provide cues , steadying assist 3 The helper provides less than half the effort to complete the activity 2 The helper provides more than half the effort to complete the activity 1 Dependent. The helper does all the effort to complete an activity 7 Patient refused to complete or attempt activity 9 The patient did not perform the activity before the current illness or injury 88 Not attempted due to Medical conditions or safety concerns Transfers (B, C, W/C) (FIM): 5 Scootin Sit to/from Stand: 5 Sit to Stand (QC): 5 Weight Bearing Weight Bearing Restriction: Full Weight Bearing Location Restriction: LE Bilateral Gait Training Does the Patient Walk?: Yes Gait (FIM): 4 Distance (FIM): 3=150 ft Distance: 400' Walk 50 ft with 2 Turns(QC): 4 Walk 150 ft (QC): 4 Gait Level of Assist: 4 Gait Persons Needed: 1 Gait Assistive Device: FWW Pt's yesenia is slow but steady with no LOB. Pt is able to ambulate farther than previous tx. Wheelchair Training Does the Pt Use a Wheelchair?: No Treatments Pt transfers from recliner to standing at [facility] and ambulate in hallway using FWW at [facility]. Pt returns to room and rest in recliner at [facility] Pt is left with all needs met at end of tx. Assessment Current Status: Good Progress Pt was able to increase distance ambulated and pt reports less fatigue than previous tx. PT Short Term Goals Short Term Goals Time Frame: Jun 21, 2016 Transfers (B,C,W/C) (FIM): 5 Gait (FIM): 5 PT Usp Goals Usp Goals PT Usp Goals Time Frame: Jun 28, 2016 Transfers (B,C,W/C) (FIM): 7 Sit to Lying (QC): 6 Lying-Sitting on Side/Bed(QC): 6 Sit to Stand (QC): 6 Chair/Hyc-de-Ptkwa Xfer(QC): 6 Does the Patient Walk: Yes Gait (FIM): 6 Gait distance (FIM): 3=150 ft Walk 50ft with 2 Turns (QC): 6 Walk 150 ft (QC): 6 Gait Level of Assist: 6 Gait Assistive Device: FWW Does the Pt use WC or Scooter?: No PT Plan Problem List Problem List: Activity Tolerance, Safety Treatment/Plan Treatment Plan: Continue Plan of Care Treatment Plan: Bed Mobility, Education, Functional Activity Pooja, Functional Strength, Gait, Safety, Therapeutic Exercise, Transfers Treatment Duration: Jun 28, 2016 Visits Per Week: 6 Safety Risks/Education Patient Education: Gait Training, Transfer Techniques, Correct Positioning, Safety Issues Teaching Recipient: Patient, Significant Other Teaching Methods: Discussion Response to Teaching: Verbalize Understanding Time/GCodes Time In: 855 Time Out: 920 Total Billed Treatment Time: 25 Total Billed Treatment visit, GT (15m) & FA (10m) GLADYS RUTHERFORD PTA Jun 17, 2016 11:33
[2016-06-17] MEDS ORDERED: ARTIFICAL TEARS 0.4 ML UNIT DOSE (REFRESH PLUS) OS SCH (17:15)
[2016-06-17] MEDS: ARTIFICAL TEARS 0.4 ML UNIT DOSE (REFRESH PLUS) OS SCH ×2 (17:41→21:29)
[2016-06-17] MEDS: prednisoLONE 1% OPTH (PRED FORTE) 5 ML BTL OS SCH ×2 (17:41→21:04)
[2016-06-17] MEDS: amLODIPine 5 MG (NORVASC) TAB PO SCH (17:49)
[2016-06-17 18:00] VITALS: BP 198/116
[2016-06-17] MEDS: LOSARTAN 50 MG (COZAAR) TAB PO SCH (21:04)
[2016-06-18] MEDS: ACYCLOVIR INJECTION 800 MG in NS (IVPB) 250 ML IV SCH ×2 (02:33→13:44)
[2016-06-18] MEDS: CATHETER FLUSH 10 ML SYR IV SCH ×3 (05:44→21:05)
[2016-06-18 06:46] VITALS: BP 159/86
[2016-06-18] MEDS: prednisoLONE 1% OPTH (PRED FORTE) 5 ML BTL OS SCH ×4 (08:52→21:05)
[2016-06-18] MEDS: ARTIFICAL TEARS 0.4 ML UNIT DOSE (REFRESH PLUS) OS SCH ×4 (09:45→21:05)
--- NOTE | 2016-06-18 11:23 | Physical Therapy Daily Note ---
PT Daily Note-Current Subjective Pt sitting in recliner upon arrival. Pt agreed to PT. Pain Numeric Pain Scale: 0-No Pain Location: No Pain Reported Mental Status Patient Orientation: Person, Place, Situation Attachments: IV Transfers Functional [place] Measure 0=Not Assessed/NA 4=Minimal Assistance 1=Total Assistance 5=Supervision or Setup 2=Maximal Assistance 6=Modified [place] 3=Moderate Assistance 7=Complete IndependenceIRFPAI Quality Coding Scale 6 Independent with activity with or without an assistive device 5 Patient requires set up or clean up by helper. Patient completes activity by themselves 4 Supervision or touching assist (CGA). [place] provide cues , steadying assist 3 The helper provides less than half the effort to complete the activity 2 The helper provides more than half the effort to complete the activity 1 Dependent. The helper does all the effort to complete an activity 7 Patient refused to complete or attempt activity 9 The patient did not perform the activity before the current illness or injury 88 Not attempted due to Medical conditions or safety concerns Transfers (B, C, W/C) (FIM): 5 Scootin Sit to/from Stand: 5 Sit to Stand (QC): 5 Weight Bearing Weight Bearing Restriction: Full Weight Bearing Location Restriction: LE Bilateral Gait Training Does the Patient Walk?: Yes Gait (FIM): 5 Distance: 300' Walk 50 ft with 2 Turns(QC): 5 Walk 150 ft (QC): 5 Gait Level of Assist: 5 Gait Persons Needed: 1 Gait Assistive Device: FWW Pt walks with slow yesenia but steady and no LOB. Wheelchair Training Does the Pt Use a Wheelchair?: No Treatments Pt transfers at [facility]. Pt ambulates using FWW at [facility]. Pt uses restroom before leaving room for ambulation. Pt returns to room after walk and rests in recliner with all needs met at end of tx. Assessment Current Status: Good Progress Pt continues to be a little confused but able to follow instructions. Pt is continuing to walk increased distances more independently. PT Short Term Goals Short Term Goals Time Frame: Jun 21, 2016 Transfers (B,C,W/C) (FIM): 5 Gait (FIM): 5 PT Retirement Goals Retirement Goals PT Top Case Assembler Goals Time Frame: Jun 28, 2016 Transfers (B,C,W/C) (FIM): 7 Sit to Lying (QC): 6 Lying-Sitting on Side/Bed(QC): 6 Sit to Stand (QC): 6 Chair/Aiq-xz-Wtuav Xfer(QC): 6 Does the Patient Walk: Yes Gait (FIM): 6 Gait distance (FIM): 3=150 ft Walk 50ft with 2 Turns (QC): 6 Walk 150 ft (QC): 6 Gait Level of Assist: 6 Gait Assistive Device: FWW Does the Pt use WC or Scooter?: No PT Plan Problem List Problem List: Activity Tolerance, Safety, Balance, Gait Treatment/Plan Treatment Plan: Continue Plan of Care Treatment Plan: Bed Mobility, Education, Functional Activity Pooja, Functional Strength, Gait, Safety, Therapeutic Exercise, Transfers Treatment Duration: Jun 28, 2016 Visits Per Week: 6 Safety Risks/Education Patient Education: Gait Training, Transfer Techniques, Correct Positioning, Safety Issues Teaching Recipient: Patient Teaching Methods: Discussion Response to Teaching: Verbalize Understanding Time/GCodes Time In: 920 Time Out: 945 Total Billed Treatment Time: 25 Total Billed Treatment FA (10m) & GT (15m) GLADYS RUTHERFORD PTA Jun 18, 2016 11:23
[2016-06-18 17:29] VITALS: BP 147/87
[2016-06-18] MEDS: amLODIPine 5 MG (NORVASC) TAB PO SCH (18:23)
--- NOTE | 2016-06-18 19:57 | Progress Note-Hospitalist ---
Subjective Date Seen 06/18/16 Subjective/Events-last exam Pt Sleeping in NAD. Wakens easily voicing no complaints denies GONZALEZ photophobia or eye pain. Objective Exam Vital Signs Vital Sign - Last 12Hours 06/13/16 18:00 Temp 96.8 Pulse 120 Resp 20 B/P 167/98 Pulse Ox 97 O2 Delivery Room Air Capillary Refill : General Appearance: No Apparent Distress HEENT: PERRL/EOMI Respiratory: Lungs Clear Normal Breath Sounds No Accessory Muscle Use No Respiratory Distress Cardiovascular: Regular Rate, Rhythm No Edema No Gallop No JVD No Murmur Normal Peripheral Pulses Assessment/Plan Assessment and Plan Assess & Plan/Chief Complaint 1. 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 Asymptomatic blood pressure elevation moderating with hx of HTN continue losartan SOBEIDA NEGORN MD Jun 18, 2016 19:57
[2016-06-18] MEDS: LOSARTAN 50 MG (COZAAR) TAB PO SCH (21:04)
[2016-06-19] MEDS: ACYCLOVIR INJECTION 800 MG in NS (IVPB) 250 ML IV SCH ×2 (02:49→15:30)
[2016-06-19] MEDS: CATHETER FLUSH 10 ML SYR IV SCH ×3 (05:09→20:16)
[2016-06-19 06:00] VITALS: BP 129/80
[2016-06-19] MEDS: ACETAMINOPHEN 325 MG TABLET/CAPLET (TYLENOL) PO PRN ×2 (06:10→15:30)
[2016-06-19] MEDS: ARTIFICAL TEARS 0.4 ML UNIT DOSE (REFRESH PLUS) OS SCH ×4 (08:21→20:15)
[2016-06-19] MEDS: prednisoLONE 1% OPTH (PRED FORTE) 5 ML BTL OS SCH ×4 (08:21→20:17)
--- NOTE | 2016-06-19 11:49 | Discharge Summary-Hospitalist ---
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 Pt was using eye drops but stopped using them after 5 days. RN will call Ophthalmology. Lab checked HSV 1-2, and will need to check Zoster. Patient Interview: Dr. Centeno informs pt that they will consult Ophthalmology regarding eye pain. Pt is having regular BMs. Physical exam stable. Pt states that he is eating and drinking without complications, and would like to DC when possible. vital signs stable, pleasant, oriented 3, sitting on commode Regular rate and rhythm, clear to auscultation Left eye with mild injected appearance Assessment: Herpes zoster encephalitis/meningitis Left eye pain due to zoster involvement Plan: Lab eval for Zoster if able to add this on Consult Ophthalmology regarding eye pain Scribed by Gilbert Torres under the direct supervision of Dr. Centeno. 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 Patient Interview: Pt sleeping during visit. Physical exam stable. Scribed by Gilbert Torres under the direct supervision of Dr. Centeno. No fever, vital signs stable, sleeping soundly Regular rate and rhythm, no tachypnea noted Hospital course: Patient had an uneventful hospital course he was placed on swing bed for IV acyclovir due to failure on by mouth formulation for shingles induced meningitis. Overall he had an uncomplicated hospital course but due to advanced age and out of his routine he did began to have delusions and hallucinations that was resolved with medication. He was deemed stable for rehabilitation and he will be transferred there tomorrow in stable condition. Discharge Summary Discharge Physical Examination Allergies: Uncoded Allergies: pcn, iv dye (Allergy, Intermediate, hives and sob , 06/01/16) Vitals & I&Os Vital Signs Date Time Temp Pulse Resp B/P Pulse Ox O2 Delivery O2 Flow Rate FiO2 06/19/16 07:38 Room Air 06/19/16 06:00 99.0 103 18 129/80 96 Discharge Home Medications: Active Scripts Active Reported Trifluridine 7.5 Ml Drops 1 Drop OS Q4H Pred Forte (Prednisolone Acetate) 1 Ml Drops.susp 1 Drop OS QID 5 Days HAS NOT STARTED YET / FILLED 06/07/16 #5ML FOR A 5 DAY THERAPY Tamsulosin HCl 0.4 Mg Cap.er.24h 0.4 Mg PO DAILY Valacyclovir (Valacyclovir HCl) 1,000 Mg Tablet 1,000 Mg PO Q8H Bystolic (Nebivolol HCl) 5 Mg Tablet 5 Mg PO DAILY PRN Omeprazole 20 Mg Capsule.dr 20 Mg PO BID Losartan Potassium 100 Mg Tablet 100 Mg PO DAILY Instructions to patient/family Please see electonic discharge instructions given to patient. DIEGO CNETENO DO Jun 19, 2016 11:49
--- NOTE | 2016-06-19 13:01 | Physical Therapy Daily Note ---
PT Daily Note-Current Subjective Pt is asleep in bed upon arrival. Nursing reports family is wanting pt up and eating so PT wakes pt. Pt agrees to walk with PT. Mental Status Patient Orientation: Person, Place, Situation Transfers Functional [place] Measure 0=Not Assessed/NA 4=Minimal Assistance 1=Total Assistance 5=Supervision or Setup 2=Maximal Assistance 6=Modified [place] 3=Moderate Assistance 7=Complete IndependenceIRFPAI Quality Coding Scale 6 Independent with activity with or without an assistive device 5 Patient requires set up or clean up by helper. Patient completes activity by themselves 4 Supervision or touching assist (CGA). [place] provide cues , steadying assist 3 The helper provides less than half the effort to complete the activity 2 The helper provides more than half the effort to complete the activity 1 Dependent. The helper does all the effort to complete an activity 7 Patient refused to complete or attempt activity 9 The patient did not perform the activity before the current illness or injury 88 Not attempted due to Medical conditions or safety concerns Transfers (B, C, W/C) (FIM): 5 Scootin Roll Left to Right (QC): 5 Supine to/from Sit: 5 Sit to/from Stand: 5 Sit to Lying (QC): 5 Sit to Stand (QC): 5 Weight Bearing Weight Bearing Restriction: Full Weight Bearing Location Restriction: LE Bilateral Gait Training Does the Patient Walk?: Yes Gait (FIM): 5 Distance (FIM): 3=150 ft Distance: 250' Walk 50 ft with 2 Turns(QC): 5 Walk 150 ft (QC): 5 Gait Level of Assist: 5 Gait Persons Needed: 1 Gait Assistive Device: FWW Pt walks with slow yesenia but steady with no LOB. PT is at close SBA while ambulating. Wheelchair Training Does the Pt Use a Wheelchair?: No Treatments Pt transfers at SBA as well as ambulates at close SBA. PT ambulates in hallways before returning to room to rest in recliner and eat lunch. Pt is left with all needs met at end of tx. Assessment Current Status: Good Progress Pt gets confused at times but is able to follow instructions given. PT Short Term Goals Short Term Goals Time Frame: Jun 21, 2016 Transfers (B,C,W/C) (FIM): 5 Gait (FIM): 5 PT High Man Goals High Man Goals PT Nursing Home Goals Time Frame: Jun 28, 2016 Transfers (B,C,W/C) (FIM): 7 Sit to Lying (QC): 6 Lying-Sitting on Side/Bed(QC): 6 Sit to Stand (QC): 6 Chair/Aft-rv-Qlurt Xfer(QC): 6 Does the Patient Walk: Yes Gait (FIM): 6 Gait distance (FIM): 3=150 ft Walk 50ft with 2 Turns (QC): 6 Walk 150 ft (QC): 6 Gait Level of Assist: 6 Gait Assistive Device: FWW Does the Pt use WC or Scooter?: No PT Plan Problem List Problem List: Activity Tolerance, Functional Strength, Safety, Balance, Gait Treatment/Plan Treatment Plan: Continue Plan of Care Treatment Plan: Bed Mobility, Education, Functional Activity Pooja, Functional Strength, Gait, Safety, Therapeutic Exercise, Transfers Treatment Duration: Jun 28, 2016 Visits Per Week: 6 Safety Risks/Education Patient Education: Gait Training, Transfer Techniques, Correct Positioning, Safety Issues Teaching Recipient: Patient Teaching Methods: Discussion Response to Teaching: Verbalize Understanding Time/GCodes Time In: 1145 Time Out: 1200 Total Billed Treatment Time: 15 Total Billed Treatment visit, GT (15m) GLADYS RUTHERFORD PTA Jun 19, 2016 13:01
[2016-06-19] MEDS: amLODIPine 5 MG (NORVASC) TAB PO SCH (17:31)
[2016-06-19 17:35] VITALS: BP 150/88
[2016-06-19] MEDS: LOSARTAN 50 MG (COZAAR) TAB PO SCH (20:15)
[2016-06-20] MEDS: ACYCLOVIR INJECTION 800 MG in NS (IVPB) 250 ML IV SCH (02:39)
[2016-06-20] MEDS: CATHETER FLUSH 10 ML SYR IV SCH (05:11)
[2016-06-20 06:00] VITALS: BP 140/88
[2016-06-20] MEDS ORDERED: PRED5DRO17 OS (08:44)
[2016-06-20] MEDS ORDERED: ACET325T49 PO (08:44)
[2016-06-20] MEDS ORDERED: AMLO5TAB2 PO (08:44)
[2016-06-20 09:09] LABS: BASOPHILS % (AUTO) 0 % (0-10); EOSINOPHILS # (AUTO) 0.1 10^3/uL (0.0-0.3); EOSINOPHILS % (AUTO) 1 % (0-10); LYMPHOCYTES # (AUTO) 2.6 X 10^3 (1.0-4.0); LYMPHOCYTES % (AUTO) 23 % (12-44); MEAN CORPUSCULAR HEMOGLOBIN 35 PG (25-34); MEAN CORPUSCULAR HGB CONC 36 G/DL (32-36); MEAN CORPUSCULAR VOLUME 96 FL (80-99); MEAN PLATELET VOLUME 8.4 FL (7.4-10.4); MONOCYTES # (AUTO) 0.9 X 10^3 (0.0-1.0); MONOCYTES % (AUTO) 8 % (0-12); NEUTROPHILS # (AUTO) 7.5 X 10^3 (1.8-7.8); NEUTROPHILS % (AUTO) 68 % (42-75); PLATELET COUNT 375 10^3/uL (130-400); RED BLOOD COUNT 4.14 10^6/uL (4.35-5.85); RED CELL DISTRIBUTION WIDTH 14.9 % (10.0-14.5)
[2016-06-20] MEDS: ARTIFICAL TEARS 0.4 ML UNIT DOSE (REFRESH PLUS) OS SCH (09:16)
[2016-06-20] MEDS: ACETAMINOPHEN 325 MG TABLET/CAPLET (TYLENOL) PO PRN (09:16)
[2016-06-20] MEDS: prednisoLONE 1% OPTH (PRED FORTE) 5 ML BTL OS SCH (09:16)
[2016-06-20] MEDS ORDERED: LACT20SO2 PO (09:25)
[2016-06-20] MEDS ORDERED: LACTULOSE SYRUP 10GM/15ML (ENULOSE) 30ML UDC PO ONE (09:30)
[2016-06-20] MEDS ORDERED: BISACODYL 10 MG SUPP (DULCOLAX) PR ONE (09:30)
[2016-06-20 09:31] LABS: ALANINE AMINOTRANSFERASE 39 U/L (0-55); ALBUMIN 3.7 G/DL (3.2-4.5); ANION GAP 13 MMOL/L (5-14); ASPARTATE AMINO TRANSFERASE 20 U/L (5-34); BILIRUBIN,TOTAL 1.1 MG/DL (0.1-1.0); BLOOD UREA NITROGEN 9 MG/DL (7-18); BUN/CREATININE RATIO 11; CALCIUM 8.6 MG/DL (8.5-10.1); CARBON DIOXIDE 21 MMOL/L (21-32); CHLORIDE 97 MMOL/L (98-107); CREATININE SERUM 0.83 MG/DL (0.60-1.30); GFR ESTIMATED > 60; GLUCOSE 162 MG/DL (70-105); POTASSIUM 3.9 MMOL/L (3.6-5.0); SODIUM 131 MMOL/L (135-145); TOTAL PROTEIN 6.3 G/DL (6.4-8.2)
--- NOTE | 2016-06-20 11:01 | Discharge Summary-Hospitalist ---
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 Pt was using eye drops but stopped using them after 5 days. RN will call Ophthalmology. Lab checked HSV 1-2, and will need to check Zoster. Patient Interview: Dr. Centeno informs pt that they will consult Ophthalmology regarding eye pain. Pt is having regular BMs. Physical exam stable. Pt states that he is eating and drinking without complications, and would like to DC when possible. 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 Centeno. Reason Hospital Visit/Course Notes from 06/19/2016: Chart Review: No fever Vitals stable especially since Norvasc 5mg for high BP Pt having hallucinations at night xerox machine mechanic: RN states that pt has been hallucinating. Patient Interview: Pt sleeping during visit. Physical exam stable. Scribed by Gilbert Torres under the direct supervision of Dr. Centeno. No fever, vital signs stable, sleeping soundly Regular rate and rhythm, no tachypnea noted Hospital course: Patient had an uneventful hospital course he was placed on swing bed for IV acyclovir due to failure on by mouth formulation for shingles induced meningitis. Overall he had an uncomplicated hospital course but due to advanced age and out of his routine he did began to have delusions and hallucinations that was resolved with medication. He was deemed stable for rehabilitation and he will be transferred there tomorrow in stable condition. Notes from 06/20/2016: xerox machine mechanic: RN states that pt has not had a BM since the . Patient Interview: Dr. Centeno discusses plans to move pt to rehab. Pt is agreeable with this plan. Physical exam stable. no fever, vital signs stable, pleasant, oriented 3 but poor recall No edema Clear to auscultation bilaterally Plan: Lactulose Dulcolax Suppository In-pt rehab Scribed by Gilbert Torres under the direct supervision of Dr. Centeno. Hospital course: Patient had an uneventful swing bed course he was placed on IV acyclovir to complete 14 days of meningitis treatment. He did have hallucinations and delirium periodically and considering his advanced age in underlying cognitive deficiency that was managed conservatively. Overall he did well placed on left eye drops for discomfort and was able to be strong enough to go to rehabilitation prior to returning back home to become stronger and be successful at living at home once discharge. Discharge Summary Discharge Physical Examination Allergies: Uncoded Allergies: pcn, iv dye (Allergy, Intermediate, hives and sob , 06/01/16) Vitals & I&Os Vital Signs Date Time Temp Pulse Resp B/P Pulse Ox O2 Delivery O2 Flow Rate FiO2 06/20/16 09:21 Room Air 06/20/16 06:00 97.4 111 20 140/88 96 Hospital Course Labs (last 24 hrs) Laboratory Tests 06/20/16 09:01: Alanine Aminotransferase (ALT/SGPT) 39, Albumin 3.7, Alkaline Phosphatase 59, Anion Gap 13, Aspartate Amino Transf (AST/SGOT) 20, BUN/Creatinine Ratio 11, Basophils # (Auto) 0.0, Basophils (%) (Auto) 0, Blood Urea Nitrogen 9, Calcium Level 8.6, Carbon Dioxide Level 21, Chloride Level 97L, Creatinine 0.83, Eosinophils # (Auto) 0.1, Eosinophils (%) (Auto) 1, Estimat Glomerular Filtration Rate > 60, Glucose Level 162H, Hematocrit 40, Hemoglobin 14.3, Lymphocytes # (Auto) 2.6, Lymphocytes (%) (Auto) 23, Mean Corpuscular Hemoglobin 35H, Mean Corpuscular Hemoglobin Concent 36, Mean Corpuscular Volume 96, Mean Platelet Volume 8.4, Monocytes # (Auto) 0.9, Monocytes (%) (Auto) 8, Neutrophils # (Auto) 7.5, Neutrophils (%) (Auto) 68, Platelet Count 375, Potassium Level 3.9, Red Blood Count 4.14L, Red Cell Distribution Width 14.9H, Sodium Level 131L, Total Bilirubin 1.1H, Total Protein 6.3L, White Blood Count 11.0 Pending Labs Laboratory Tests 06/20/16 09:01: Alanine Aminotransferase (ALT/SGPT) 39, Albumin 3.7, Alkaline Phosphatase 59, Anion Gap 13, Aspartate Amino Transf (AST/SGOT) 20, BUN/Creatinine Ratio 11, Basophils # (Auto) 0.0, Basophils (%) (Auto) 0, Blood Urea Nitrogen 9, Calcium Level 8.6, Carbon Dioxide Level 21, Chloride Level 97, Creatinine 0.83, Eosinophils # (Auto) 0.1, Eosinophils (%) (Auto) 1, Estimat Glomerular Filtration Rate > 60, Glucose Level 162, Hematocrit 40, Hemoglobin 14.3, Lymphocytes # (Auto) 2.6, Lymphocytes (%) (Auto) 23, Mean Corpuscular Hemoglobin 35, Mean Corpuscular Hemoglobin Concent 36, Mean Corpuscular Volume 96, Mean Platelet Volume 8.4, Monocytes # (Auto) 0.9, Monocytes (%) (Auto) 8, Neutrophils # (Auto) 7.5, Neutrophils (%) (Auto) 68, Platelet Count 375, Potassium Level 3.9, Red Blood Count 4.14, Red Cell Distribution Width 14.9, Sodium Level 131, Total Bilirubin 1.1, Total Protein 6.3, White Blood Count 11.0 Discharge Home Medications: Active Scripts Active Lactulose 20 Gm/30 Ml Solution 20 Gm PO BID 30 Days Prednisolone Acetate 5 Ml Drops.susp 0 Ml OS QID 30 Days Acetaminophen 325 Mg Tablet 650 Mg PO Q4H PRN 30 Days Amlodipine Besylate 5 Mg Tablet 5 Mg PO 18 30 Days Reported Pred Forte (Prednisolone Acetate) 1 Ml Drops.susp 1 Drop OS QID 5 Days HAS NOT STARTED YET / FILLED 06/07/16 #5ML FOR A 5 DAY THERAPY Tamsulosin HCl 0.4 Mg Cap.er.24h 0.4 Mg PO DAILY Bystolic (Nebivolol HCl) 5 Mg Tablet 5 Mg PO DAILY PRN Omeprazole 20 Mg Capsule.dr 20 Mg PO BID Losartan Potassium 100 Mg Tablet 100 Mg PO DAILY Instructions to patient/family Please see electonic discharge instructions given to patient. DIEGO CENTENO DO Jun 20, 2016 11:01
[2016-06-25] MEDS ORDERED: LACT20SO2 PO (13:20)
[2016-06-25] MEDS ORDERED: IBUP-2055 PO (13:20)
[2016-06-25] MEDS ORDERED: LOSA50TA36 PO (13:20)
[2016-06-25] MEDS ORDERED: AMLO5TAB2 PO (13:20)
--- NOTE | 2016-07-11 18:14 | Optometry Progress Note ---
Standard Progress Note Progress Notes/Assess & Plan Progress/Assessment & Plan Exam: CC: Irritated OS eye x month - associated with Shingles. Notes irritation, no vision changes per patient. VA cc: OD: 20/40 OS: 20/30 IOP 18/22 w/ tonopen SLEx: L/L: clean OU Conj: 1+ injection diffuse OD, white OS K: 1+ spk OD, clear OS - no dendrite noted OU a/c: d/q OU Assessment: 1. Chronic Herpes Zoster Ophthalmicus OS Plan: 1. restart Pred Forte qid OS 2. start Refresh non preserved a.t. qid OS - separate gtts by 15 min 3. patient possibly discharged within next week - needs f/u @ [facility] upon discharge. Call immediately if notices changes in vision or comfort. 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
[2016-07-21] MEDS ORDERED: NEBI5TAB8 PO (08:11)
[2016-07-21] MEDS ORDERED: VALA10004 PO (08:11)
== END 2016-06-20 09:49 | DRG 74 ==
LOC: 4TH 15:42
PROVIDERS: ADMIT Internal Medicine; ATTEND Internal Medicine
DX: B02.0 Zoster encephalitis (principal); R41.82 Altered mental status, unspecified; E87.1 Hypo-osmolality and hyponatremia; I16.0 Hypertensive urgency; J32.9 Chronic sinusitis, unspecified; Z66 Do not resuscitate; K21.9 Gastro-esophageal reflux disease without esophagitis; R63.0 Anorexia; J42 Unspecified chronic bronchitis; Z86.73 Personal history of transient ischemic attack (TIA), and cerebral infarction without residual deficits; Z87.891 Personal history of nicotine dependence; I10 Essential (primary) hypertension; H91.90 Unspecified hearing loss, unspecified ear; N40.1 Benign prostatic hyperplasia with lower urinary tract symptoms
CPT/HCPCS: 36415; 80053; 85025

== ENCOUNTER 2016-06-20 09:50 | Inpatient (IN) | payer MEDICARE ==
[~2016-06-20] VITALS: Ht 172.7 cm; Wt 60.6 kg
[2016-06-20 09:45] VITALS: BP 148/88
[~2016-06-20 09:50] MED LIST changes: +ACET325T49 PO; +AMLO5TAB2 PO; +LACT20SO2 PO; +PRED5DRO17 OS
--- NOTE | 2016-06-20 10:06 | Physical Therapy Evaluation ---
PT Evaluation-General Medical Diagnosis Admission Date 06/20/16 Medical Diagnosis: encephalitis Onset Date: Jun 20, 2016 Therapy Diagnosis Therapy Diagnosis: weakness; abn gait Height/Weight Height (Feet): 5 Height (Inches): 8 Weight (Pounds): 134 Weight (Ounces): 5.0 Precautions Precautions/Isolations: Standard Precautions Referral Physician: Zechariah Reason for Referral: Evaluation/Treatment Medical History Pertinent Medical History: Arthritis, GERD, HTN Current History Admitted to ARU post acute and swing bed stay for continued functional strengthening. Prior to this admit he was admitted with herpes zoster in his left eye. Reviewed History: Yes Social History Home: Single Level Current Living Status: Alone (good family support) Entry Into Home: Stairs With Railing PT Steps Into Home: 3 Prior/Core FIM Prior Level of Function Functional [place] Measure 0=Not Assessed/NA 4=Minimal Assistance 1=Total Assistance 5=Supervision or Setup 2=Maximal Assistance 6=Modified [place] 3=Moderate Assistance 7=Complete [place] Bed Mobility: 7 Transfers (B,C,W/C) (FIM): 7 Gait: 7 active in his yard; still driving; cares for all needs and grocery shopping PT Evaluation-Current Subjective Agrees to PT. "I'm ready to get started getting stronger so I can go home. " Pain Numeric Pain Scale: 0-No Pain Location: No Pain Reported Pt/Family Goals Return home [facility] Objective Patient Orientation: Person, Place, Time, Situation ROM/Strength ROM Lower Extremities WNL Strenght Lower Extremities grossly 4/5 Integumentary/Posture Integumentary intact Bowel Incontinence: No Bladder Incontinence: No Posture normal and symmetrical Neuromuscular (Tone, Coordination, Reflexes) No noted functional deficits Sensory Vision: Wears Glasses Hearing: Impaired Hand Dominance: Right Sensation Right Lower Extremit: Intact Sensation Left Lower Extremity: Intact Transfers Functional [place] Measure 0=Not Assessed/NA 4=Minimal Assistance 1=Total Assistance 5=Supervision or Setup 2=Maximal Assistance 6=Modified [place] 3=Moderate Assistance 7=Complete IndependenceIRFPAI Quality Coding Scale 6 Independent with activity with or without an assistive device 5 Patient requires set up or clean up by helper. Patient completes activity by themselves 4 Supervision or touching assist (CGA). [place] provide cues , steadying assist 3 The helper provides less than half the effort to complete the activity 2 The helper provides more than half the effort to complete the activity 1 Dependent. The helper does all the effort to complete an activity 7 Patient refused to complete or attempt activity 9 The patient did not perform the activity before the current illness or injury 88 Not attempted due to Medical conditions or safety concerns Transfers (B, C, W/C) (FIM): 4 (CGA for safety) Roll Left to Right (QC): 5 Supine to/from Sit: 5 Sit to/from Stand: 4 (CGA for safetyand cues for hand placment) Sit to Lying (QC): 5 Lying to Sitting/Side of Bed(Q: 5 Sit to Stand (QC): 4 Chair/Kri-dk-Kvirz Xfer(QC): 4 Car Transfer (QC): 88 (not assessed) Cga with sit to stand for safety. Gait Does the Patient Walk?: Yes Mode of Locomotion: Walk Gait (FIM): 4 (CGA for safety) Distance (FIM): 3=150 ft Walk 10 feet (QC): 4 Walk 50 ft with 2 Turns(QC): 4 Walk 150 ft (QC): 4 Walking 10ft/uneven surface-QC: 4 Gait Assistive Device: FWW Comments/Gait Description CGA with gait for safety; no noted LOB episode Stairs Stairs (FIM): 2 #of Steps: 4 Level of Assist: 4 1 Step (curb) (QC): 4 4 Steps (QC): 4 12 Steps (QC): 88 (unable to attempt) Balance Sitting Static: Normal Sitting Dynamic: Normal Standing Static: Fair Standing Dynamic: Fair Picking up an Object (QC): 4 Treatment Gait training with FWW with focus on turning and safety; standing ther ex to increase LE strengh for improved functional transfers and gait. Education on ARU and POC on this unit. Toilet transfer x 2 with SBA for transfer and sBA for pericare. Assessment/Needs Pt presents with slight LE weakness and need for assist with functional mobility with decreased safety with mod indep mobility. He will benefit from skilled therapy services to work on gait, transfers, safety and functional mobility to allow him to return home as before. Rehab Potential: Good PT Short Term Goals Short Term Goals Time Frame: Jun 25, 2016 Transfers (B,C,W/C) (FIM): 5 Gait (FIM): 5 Distance (FIM): 3=150 ft PT Alf Goals Warehouse Technician Goals PT Alf Goals Time Frame: Jul 03, 2016 Transfers (B,C,W/C) (FIM): 7 Sit to Lying (QC): 6 Lying-Sitting on Side/Bed(QC): 6 Sit to Stand (QC): 6 Roll Left to Right (QC): 6 Chair/Qla-zj-Kfups Xfer(QC): 6 Car Transfer (QC): 6 Does the Patient Walk: Yes Gait (FIM): 7 Gait distance (FIM): 3=150 ft Walk 10 feet (QC): 6 Walk 10ft-Uneven Surface(QC): 6 Walk 50ft with 2 Turns (QC): 6 Walk 150 ft (QC): 6 Does the Pt use WC or Scooter?: No Stairs (FIM): 7 # of Steps: 12 1 Step (curb) (QC): 6 4 Steps (QC): 6 12 Steps (QC): 6 Stairs Level Of Assist: 7 Picking up an Object (QC): 6 PT Plan Problem List Problem List: Activity Tolerance, Functional Strength, Safety, Balance, Gait, Transfer, Bed Mobility Treatment/Plan Treatment Plan: Continue Plan of Care Treatment Plan: Bed Mobility, Education, Functional Activity Pooja, Functional Strength, Group Therapy, Gait, Safety, Therapeutic Exercise, Transfers Treatment Duration: Jul 03, 2016 # of days/week 5-6 Visits Per Week: 10-15 Minutes/Day (M-F): 60-90 Pt/Family Agrees w/Plan: Yes Safety Risks/Education Patient Education: Transfer Techniques, Safety Issues Teaching Recipient: Patient Teaching Methods: Demonstration, Discussion Response to Teaching: Reinforcement Needed Time/GCodes Time In: 945 Time Out: 1045 Total Billed Treatment Time: 60 Total Billed Treatment visit EVL 15 GT 25 EX 20 JAIME HARTMANN PT Jun 20, 2016 10:06
--- OUTSIDE RECORDS SUMMARY | 2016-06-20 10:12 | XMS REPORT | Continuity of Care Document ---
Author Author [facility] Organization [facility] Address Unknown Phone Unavailable Care Team Providers Care Financial Planning Consultant Name Role Phone DEVIN NEW MD PCP Insurance Providers Payer Name Policy Number Subscriber Name Relationship [employer]ps Medicare [id number] Glenn Boykin 20 Self / Same As Patient [employer] [facility] Supp [id number] Glenn Boykin 20 Self / Same As Patient Advance Directives Directive Response Recorded Date/Time Advance Directives Yes 06/13/16 5:30pm Health Care Power of Mobile Plant Operators Suhail PINEDA DTR 06/13/16 5:30pm Organ Donor Yes 06/13/16 5:30pm Resuscitation Status DNR-Order Obtained 06/13/16 5:30pm Problems Active Problems Medical Problem Onset Date Status Acute maxillary sinusitis Unknown Acute Altered mental status Unknown Acute Dehydration Unknown Acute Epigastric pain Unknown Acute Flu-like symptoms Unknown Acute Headache Unknown Acute Herpes zoster Unknown Acute Hypertensive urgency Unknown Acute Intractable headache Unknown Acute Meningitis Unknown Acute Sepsis Unknown Acute Sinusitis Unknown Acute Skull lesion Unknown Acute Medications Current Home Medications Medication Dose Units Route Directions Days/Qty Instructions Start Date Losartan Potassium 100 Mg 100 Mg Oral Daily 07/07/15 Omeprazole 20 Mg 20 Mg Oral Twice A Day 05/31/16 Nebivolol Hcl 5 Mg 5 Mg Oral Daily as needed for Heart Rate 05/31/16 Tamsulosin Hcl 0.4 Mg 0.4 Mg Oral Daily 06/10/16 Prednisolone Acetate 1 Ml 1 Drop Left Eye Four Times Daily 5 Days HAS NOT STARTED YET / FILLED 06/07/16 #5ML FOR A 5 DAY THERAPY 06/10/16 Amlodipine Besylate 5 Mg 5 Mg Oral 18 30 Days 06/20/16 Acetaminophen 325 Mg 650 Mg Oral Every 4HRS as needed for Fever 30 Days 06/20/16 Prednisolone Acetate 5 Ml 0 Ml Left Eye Four Times Daily 30 Days 06/20 Lactulose 20 Gm/30 Ml 20 Gm Oral Twice A Day 30 Days 06/20/16 Past Home Medications Medication Directions Ordered Status [Hyzaar] Tab, 02/17/08 Discontinued Multivitamins 1 Ea Tablet, 02/17/08 Discontinued Oseltamivir Phosphate 75 Mg Cap, 75 Mg Oral Twice A Day 05/30/16 Discontinued Omeprazole 20 Mg Tablet.dr, 20 Mg Oral Twice A Day 05/30/16 Discontinued Trifluridine 7.5 Ml Soln, 7.5 Ml Ophthalmic Every 4HRS 06/07/16 Discontinued Valacyclovir Hcl 1,000 Mg Tablet, 1000 Mg Oral Every 8HRS 06/07/16 Discontinued Tamsulosin Hcl 0.4 Mg Cap, 0.4 Mg Oral With Evening Meal 06/07/16 Discontinued Prednisolone Acetate 1 Ml Drops.susp, 1 Ml Ophthalmic Four Times Daily Discontinued Valacyclovir Hcl 1,000 Mg Tablet, 1000 Mg Oral Every 8HRS 06/10/16 Discontinued Trifluridine 7.5 Ml Drops, 1 Drop Left Eye Every 4HRS 06/10/16 Discontinued Social History Social History Problem Response Recorded Date/Time Sexually Transmitted Disease No 06/09/2016 4:00pm HIV/AIDS No 06/09/2016 4:00pm Do you dip or chew tobacco? No 07/10/2015 9:44am Type Used Cigarettes 06/09/2016 4:00pm Recent Hopitalizations Y DISCHARGED ON Friday06/07/16 06/09/2016 4:00pm Sexually Transmitted Disease No 06/09/2016 4:00pm Hospital Discharge Instructions No hospital discharge instructions. Plan of Care Discharge Date 06/20/16 9:49am Disposition 09 ADMITTED INPATIENT Instructions/Education Provided Aseptic Meningitis Prescriptions See Medication Section Referrals (Unspecified) - Reason(s) for Referral: MAKE FOLLOW UP APPT WITH DR. GALINDO AT DISCHARGE. Functional Status Query Response Date Recorded Patient Orientation Person Place Situation June 19, 2016 1:01pm Patient Orientation Person Place Situation Eyes Open June 20, 2016 10:02am Comprehension Ability Understands Concepts June 20, 2016 9:21am Allergies, Adverse Reactions, Alerts Allergen Type Severity Reaction Status Last Updated pcn, iv dye Allergy Intermediate hives and sob Active 06/01/16 Immunizations Name Given Type FLU TRIvalent 5 years - Adult 06/10/16 Administered Vital Signs Acute Vital Signs Vital Response Date/Time Temperature (Fahrenheit) 97.4 degrees F (97.6 - 99.5) 06/20/2016 6:00am Temperature (Calculated Celsius) 36.65762 degrees C (36.4 - 37.5) 06/20/2016 6:00am Temperature Source Tympanic 06/20/2016 6:00am Pulse Rate (adult) 111 bpm (60 - 90) 06/20/2016 6:00am Respiratory Rate 20 bpm (12 - 24) 06/20/2016 6:00am O2 Sat by Pulse Oximetry 96 % (88 - 100) 06/20/2016 6:00am Blood Pressure 140/88 mm Hg 06/20/2016 6:00am Blood Pressure Mean 105 mm Hg 06/20/2016 6:00am Pain Numeric Pain Scale 4 06/20/2016 9:50am Height (Feet) 5 feet 06/09/2016 9:55am Height (Inches) 8 inches 06/09/2016 9:55am Height (Calculated Centimeters) 172.103934 cm 06/09/2016 9:55am Weight (Pounds) 134 pounds 06/13/2016 6:00am Weight (Ounces) 5.0 oz 06/12/2016 6:33am Weight (Calculated Grams) 00057.378 gm 06/13/2016 6:00am Weight (Calculated Kilograms) 60.247437 kilograms 06/13/2016 6:00am Calculated BMI 22.3 05/31/2016 2:14pm Capillary Refill Capillary Refill Less Than 3 Seconds 06/12/2016 12:05am Results Laboratory Results Test Name Result Units [...] 5-9 05/30/2016 11:50am 05/30/2016 12:12pm Urine Specific [place] 1.010 * 1.016-1.022 05/30/2016 11:50am 2016 12:12pm [...] Sodium Level 132 MMOL/L L 135-145 05/30/2016 10:0505/30/2016 10:35am Potassium Level 3.8 MMOL/L 3.6-5.0 05/30/2016 10:0505/30/2016 10: 35am Chloride Level 95 MMOL/L L 98-107 05/30/2016 10:0505/30/2016 10:35am Carbon Dioxide Level 25 MMOL/L 21-32 [...] Glucose Level 106 MG/DL H 70-105 05/30/2016 10:0505/30/2016 10:35am Calcium Level 8.7 MG/DL 8.5-10.1 05/30/2016 10:0505/30/2016 10:35am Total Bilirubin 1.4 MG/DL H 0.1-1.0 05/30/2016 10:0505/30/2016 10: 35am Alkaline Phosphatase 63 U/L 40-136 05/30/2016 10:05am 05/30/2016 10: 35am Aspartate Amino Transf (AST/SGOT) 18 U/L 5-34 05/30/2016 10:05am 2016 10:35am Alanine Aminotransferase (ALT/SGPT) 16 U/L 0-55 05/30/2016 10:05am 10:35am Total Protein 6.7 G/DL 6.4-8.2 05/30/2016 10:05am 05/30/2016 10:35am Albumin 4.2 G/DL 3.2-4.5 05/30/2016 10:05am 05/30/2016 10:35am Lipase 18 U/L 8-78 05/30/2016 10:05am 05/30/2016 11:40am Pending Laboratory Results Test Name Collection Date/Time Pending Microbiology Results Procedure Source Collection Date/Time Procedures Procedure Status Date Provider(s) DRAINAGE OF SPINAL CANAL, PERCUTANEOUS APPROACH, DIAGNOSTIC Completed KOJO YATES NURSING HOME DIRECTOR Encounters Encounter Location Arrival/Admit Date Discharge/Depart Date Attending Provider Discharged Inpatient [facility] 06/13/16 3:42pm 9:49am DIEGO MCKOY DO Discharged Inpatient [facility] 06/09/16 3:23pm 3:42pm DEVIN NEW MD Discharged Inpatient [facility] 06/05/16 11:42am 2:20pm DIEGO MCKOY DO Discharged Inpatient [facility] 06/02/16 11:57am 11:38am ELLIS ROSARIO MD Departed Emergency Room [facility] 05/30/16 9:04am 05/30 12:46pm DEJUAN BRANDON MD
[2016-06-20] MEDS ORDERED: ACYCLOVIR INJECTION 800 MG in NS (IVPB) 250 ML IV SCH (11:09)
--- NOTE | 2016-06-20 13:40 | Occupational Ther Daily Note ---
OT Current Status-Daily Note Subjective Pt seen in room, up in recliner, finishing lunch. Agreeable to OT. No pain mentioned Appearance Alert, cooperative, impulsive Mental Status/Objective Functional [place] Measure 0=Not Assessed/NA 4=Minimal Assistance 1=Total Assistance 5=Supervision or Setup 2=Maximal Assistance 6=Modified [place] 3=Moderate Assistance 7=Complete [place] ADL-Treatment Functional [place] Measure 0=Not Assessed/NA 4=Minimal Assistance 1=Total Assistance 5=Supervision or Setup 2=Maximal Assistance 6=Modified [place] 3=Moderate Assistance 7=Complete IndependenceIRFPAI Quality Coding Scale 6 Independent with activity with or without an assistive device 5 Patient requires set up or clean up by helper. Patient completes activity by themselves 4 Supervision or touching assist (CGA). [place] provide cues , steadying assist 3 The helper provides less than half the effort to complete the activity 2 The helper provides more than half the effort to complete the activity 1 Dependent. The helper does all the effort to complete an activity 7 Patient refused to complete or attempt activity 9 The patient did not perform the activity before the current illness or injury 88 Not attempted due to Medical conditions or safety concerns Other Treatment Pt did 10 repetitions bilat UE exercise with red theraband (medium intensity), with skilled education in how to do each exercise. pt also did 10 reps bilat UE ex with 2# free weight, with skilled education and cues to do exercise correctly. Pt was able to track repetitions and switch sides without difficulty. Exercise to strengthen arms for transfers, using grab bars, transfers. Pt's daughter came to visit and provided education on rehab process and her Dad's abilities, with his OK. Pt left up in recliner, chair alarm on, all needs met. Education OT Patient Education: Exercise program, Purpose of tx/functional activities, Rehab process, Safety issues Teaching Recipient: Patient, Family Teaching Methods: Discussion Response to Teaching: Verbalize Understanding OT Short Term Goals Short Term Goals Transfers (B,C,W/C) (FIM): 5 1=Demonstrate adherence to instructed precautions during ADL tasks. 2=Patient will verbalize/demonstrate understanding of assistive devices/ modifications for ADL. 3=Patient will improve strength/tolerance for activity to enable patient to perform ADL's. OT Chcf Goals Phlebotomy Technologist Goals 1=Demonstrate adherence to instructed precautions during ADL tasks. 2=Patient will verbalize/demonstrate understanding of assistive devices/ modifications for ADL. 3=Patient will improve strength/tolerance for activity to enable patient to perform ADL's. OT Education/Plan Discharge Recommendations Plan/Recommendations: Continue POC Treatment Plan/Plan of Care Patient would benefit from OT for education, treatment and training to promote independence in ADL's, mobility, safety and/or upper extremity function for ADL' s. Rehab Potential: Good Time/GCodes Start Time: 12:55 Stop Time: 13:30 Total Time Billed (hr/min): 35 Billed Treatment Time visit, 35 minutes exercise ALHAJI DAVILA OT Jun 20, 2016 13:40
--- NOTE | 2016-06-20 13:40 | Occupational Therapy Eval ---
OT Evaluation-General/PLF Medical Diagnosis Admission Date Jun 20, 2016 at 09:50 Medical Diagnosis: encephalitis Onset Date: Jun 09, 2016 Therapy Diagnosis Therapy Diagnosis: weakness, decr self care, decr mobility, decr cognition Height/Weight Height (Feet): 5 Height (Inches): 8 Weight (Pounds): 134 Weight (Ounces): 5.0 Precautions Precautions/Isolations: Standard Precautions Weight Bear Status Location Restriction: LE Bilateral Referral Physician: Zechariah Referral Reason: Evaluation/Treatment Medical History Pertinent Medical History: Arthritis, GERD, HTN Additional Medical History Hernia repair, clavicle surgery 1986, vision loss lasting 4 months in 2003, TIA 2008, spinal surgery, chronic bronchitis Current History Pt recently hospitalized with shingles in L eye, trigeminal pain, TIA. Readmitted with meningitis Reviewed History: Yes Social History Home: Single Level Current Living Status: Alone (good family support) Entry Into Home: Stairs With Railing Steps Into Home: 3 ADL-Prior Level of Function ADL PLOF Comments Pt was independent with all basic ADLs prior to hospitalizations. He worked in and outside the home and still drove. Good family support Occupation: retired from [employer] Self: Yes OT Current Status Subjective Pt seen in room, up in bed, agreeable to OT. Pain 0/10 Appearance Alert, cooperative Mental Status/Objective Patient Orientation: Person, Place, Time Comprehension: 5 Expression: 5 Social Interaction: 5 Problem Solvin Memory: 4 Pt had just finished Speech Therapy, with orientation cues Attachments: Central Line Current Glasses/Contacts: Yes Dentures/Partials: Yes Hand Dominance: Right Upper Extremity ROM Grossly WFL bilat Upper Extremity Sensation Pt reported no problems Upper Extremity Strength Grossly 4/5 bilat ADL-Treatment ADL-Current Decreased safety awareness. Not always aware of location of walker in position to his body and items in environment Functional [place] Measure 0=Not Assessed/NA 4=Minimal Assistance 1=Total Assistance 5=Supervision or Setup 2=Maximal Assistance 6=Modified [place] 3=Moderate Assistance 7=Complete IndependenceIRFPAI Quality Coding Scale 6 Independent with activity with or without an assistive device 5 Patient requires set up or clean up by helper. Patient completes activity by themselves 4 Supervision or touching assist (CGA). [place] provide cues , steadying assist 3 The helper provides less than half the effort to complete the activity 2 The helper provides more than half the effort to complete the activity 1 Dependent. The helper does all the effort to complete an activity 7 Patient refused to complete or attempt activity 9 The patient did not perform the activity before the current illness or injury 88 Not attempted due to Medical conditions or safety concerns Eating (FIM): 6 (Pt ordered his own food and was able to feed himself and open packages. Pt has dentures and reported there are foods he cannot eat without his teeth) Eating (QC): 6 Grooming (FIM): 5 (SBA standing at sink, FWW for balance. Supervision for sequencing, problem solving. Able to take cap off toothpaste but needed cue to brush dentures. ) Oral Hygiene (QC): 4 (Supervision) Bathing (FIM): 5 (Supervision required for sequencing, proble solvingsafety. Washed and dried all parts, including back. Skilled cues to sit to wash and dry lower body. Shower bench, grab bars, hand held shower) Shower/Bathe Self (QC): 4 (Supervision) Upper Body Dressing (FIM): 5 (Setup) Upper Body Dressing (QC): 5 Lower Body Dressing (FIM): 5 (Supervision for sequencing, safety. FWW for balance. Donned pants, socks, shoes, tied laces) Lower Body Dressing (QC): 4 (Supervision) On/Off Footwear (QC): 4 (Supervision) Toileting (FIM): 5 (SBA, Supervision for safety, tall toilet, grab bar. Pt preferred BSC over toilet, with arms - to make it taller. ) Toileting Hygiene (QC): 4 (Supervision) Transfers (B, C, W/C) (FIM): 5 (Supervision. FWW) Toilet/Commode Transfer (FIM): 5 (Supervision, SBA. Tall toilet, BSC over toilet, grab bar. Skilled cues for placement of FWW) Toilet Transfer (QC): 4 (Supervision) Shower Transfer (FIM): 5 (Supervision, SBA. Shower bench, grab bar) Pt tended to walk off and leave walker. Other Treatments Pt was left up in recliner, chair alarm on, all needs met. Education OT Patient Education: Modified ADL techniques, Progress toward Goal/Update tx plan, Purpose of tx/functional activities, Rehab process, Safety issues, Transfer techniques, Use of adapted equipment Teaching Recipient: Patient Teaching Methods: Demonstration, Discussion Response to Teaching: Reinforcement Needed OT Short Term Goals Short Term Goals Time Frame: Jun 26, 2016 Toilet/Commode Transfer(FIM): 5 Shower Transfer(FIM): 5 1=Demonstrate adherence to instructed precautions during ADL tasks. 2=Patient will verbalize/demonstrate understanding of assistive devices/ modifications for ADL. 3=Patient will improve strength/tolerance for activity to enable patient to perform ADL's. OT Proofer Prepress Goals Proofer Prepress Goals Time Frame: Jul 04, 2016 Eating (FIM): 6 Eating (QC): 6 Groomin Oral Hygiene (QC): 6 Bathing(FIM): 6 Shower/Bathe Self (QC): 6 Upper Body Dressing(FIM): 6 Upper Body Dressing (QC): 6 Lower Body Dressing(FIM): 6 Lower Body Dressing (QC): 6 On/Off Footwear (QC): 6 Toileting(FIM): 6 Toileting Hygiene (QC): 6 Toilet/Commode Transfer(FIM): 6 Toilet/Commode Transfer (QC): 6 Additional Goals: 2-Verbalize Understanding, 3-ImproveStrength/Pooja 1=Demonstrate adherence to instructed precautions during ADL tasks. 2=Patient will verbalize/demonstrate understanding of assistive devices/ modifications for ADL. 3=Patient will improve strength/tolerance for activity to enable patient to perform ADL's. OT Education/Plan Problem List/Assessment Assessment: Decreased Safety Aware, Decreased UE Strength, Dependent Transfers , Impaired Cognition, Impaired Self-Care Skills Pt would benefit fromo skilled OT to increase his independence in basic self care to allow him to safely return to his home with decreased risk of falling and decreased caregiver burden Discharge Recommendations Plan/Recommendations: Continue POC Treatment Plan/Plan of Care Treatment,Training & Education: Yes Patient would benefit from OT for education, treatment and training to promote independence in ADL's, mobility, safety and/or upper extremity function for ADL' s. Plan of Care: ADL Retraining, Cognitive Retraining, Functional Mobility, Group Exercise/Act as Ind (education, exercise, memory, problem solving, socialization ), UE Funct Exercise/Act, UE Neuromus Re-Ed/Coord Treatment Duration: Jul 04, 2016 # of days/week 5-6 Visits Per Week: 10-11 Minutes/Day (M-F): 75-90 Minutes/Day (Sat/[place]): PRN Agreement: Yes Rehab Potential: Good Time/GCodes Start Time: 11:10 Stop Time: 12:10 Total Time Billed (hr/min): 60 Billed Treatment Time visit, 15 minutes evaluation moderate intensity, 45 minutes ADL ALHAJI DAVILA OT Jun 20, 2016 13:40
[2016-06-20] MEDS: prednisoLONE 1% OPTH (PRED FORTE) 5 ML BTL OS SCH ×3 (13:53→21:10)
--- NOTE | 2016-06-20 14:56 | ST Cognitive Linguistic Eval ---
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 Gabriel Apple Reason for Referral: Evaluation/Treatment Cognitive Screen Medical History Pertinent Medical History: Arthritis, GERD, HTN Reviewed History: Yes Social History Current Living Status: Alone (good family support) Speech PLF-Current Status Prior Level of Function The patient was unable to provide the clinician with prior level of function information. Subjective The patient was recently admitted to [facility] with a diagnosis of encephalopathy. The patient greeted the clinician appropriately and agreed to participate in the cognitive evaluation on this date. Language Eval: Auditory Comprehends Simple Yes/No Ques: Functional Indent/Objects Multiple Jesus: Functional Ident/Pics in Multiple Jesus: Functional Follows 1-Step Commands: Moderate Follows Complex Directions: Moderate Follows General Conversations: Moderate Language Eval: Verbal Language Completes Spontaneous Greeting: Functional Produces Auto, Serial Info: Mild Imitates Simple Words/Phrases: Mild (With repetition provided for increased accuracy.) Word Finding: Mild Requests Basic Needs: Mild States Basic Personal Info: Mild Expresses Complex Ideas: Moderate Cognitive Patient Orientation The patient was oriented to month and year. The patient required cues for accurate identification of date and day of week. Per patient, he is currently in [place]. Objective Cognitive Domain Attention: Moderate Memory: Moderate Problem Solving: Moderate Executive Functions: Moderate Objective Impression The patient demonstrated mild to moderate cognitive impairment with deficits noted in attention, orientation, and memory. Communication/Social Cognition Comprehension: 3 Expression: 4 Social Interaction: 4 Problem Solvin Memory: 2 Speech Patient Assess Expression of Ideas/Wants: Exhibits (3) Understanding [place] Content: Usually Understands (3) Brief Interview-Mental Status: Yes Repetition of Three Words: Two (2) Temporal Orientation: Year: Correct (3) Temporal Orientation: Month: Accurate within 5 days(2) Temporal Orientation: Day: Incorrect or No Answer(0) Recall : Wear to say "Sock": No, could not recall (0) Recall : Color: Yes, after cueing (1) Recall : Bed: No, could not recall (0) Speech Short Term Goals Short Term Goals Short Term Goals 1. The patient will demonstrate 80% accuracy with simple orientation tasks with mild clinician cueing. 2. The patient will recall and demonstrate two functional memory strategies for use at home. 3. The patient will complete functional, simple ADL's with 80% accuracy ( reading a clock, writing a check). Time Frame-STG: One Week Speech Supervisor Payroll Goals Supervisor Payroll Goals 1. The patient will demonstrate improved cognitive linguistic function for increased safety and function with ADL's. Comprehension: 5 Expression: 5 Social Interaction: 5 Problem Solvin Memory: 4 Speech-Plan Treatment Plan Speech Therapy Treatment Plan: Continue Plan of Care Skilled speech therapy to focus on functional memory and problem solving tasks. Treatment Duration: Jul 18, 2016 # of days/week Five. Visits Per Week: Five. Minutes/Day (M-F): 30 Rehab Potential: Guarded Safety Risks/Education Teaching Recipient: Patient Teaching Methods: Discussion Response to Teaching: Verbalize Understanding Education Topics Provided: Plan of Care Time Speech Therapy Time In: 10:50 Speech Therapy Time Out: 11:05 Total Billed Time: 15 Billed Treatment Time 1, GEORGI AGUILAR Jun 20, 2016 14:56
--- NOTE | 2016-06-20 16:20 | Physical Therapy Daily Note ---
PT Daily Note-Current Subjective agrees to PT. Transfers Functional [place] Measure 0=Not Assessed/NA 4=Minimal Assistance 1=Total Assistance 5=Supervision or Setup 2=Maximal Assistance 6=Modified [place] 3=Moderate Assistance 7=Complete IndependenceIRFPAI Quality Coding Scale 6 Independent with activity with or without an assistive device 5 Patient requires set up or clean up by helper. Patient completes activity by themselves 4 Supervision or touching assist (CGA). [place] provide cues , steadying assist 3 The helper provides less than half the effort to complete the activity 2 The helper provides more than half the effort to complete the activity 1 Dependent. The helper does all the effort to complete an activity 7 Patient refused to complete or attempt activity 9 The patient did not perform the activity before the current illness or injury 88 Not attempted due to Medical conditions or safety concerns Treatments Pt ambulated x 125 ft x 2 with FWW with CGA; SBA with bed mobility and CGA with sit to stand. Pt rode NU Step x 12 minutes to work on LE strength and functional activity tolerance to progress gait; pt transferred to toilet with sBA and reminders to pull pants down fully. Nursing notified of pt being on the toilet. Assessment Current Status: Good Progress PT Short Term Goals Short Term Goals Time Frame: Jun 25, 2016 Transfers (B,C,W/C) (FIM): 5 Gait (FIM): 5 Distance (FIM): 3=150 ft PT Biology Manager Goals Biology Manager Goals PT Biology Manager Goals Time Frame: Jul 03, 2016 Transfers (B,C,W/C) (FIM): 7 Sit to Lying (QC): 6 Lying-Sitting on Side/Bed(QC): 6 Sit to Stand (QC): 6 Roll Left to Right (QC): 6 Chair/[place]la[place]zz[place] Xfer(QC): 6 Car Transfer (QC): 6 Does the Patient Walk: Yes Gait (FIM): 7 Gait distance (FIM): 3=150 ft Walk 10 feet (QC): 6 Walk 10ft-Uneven Surface(QC): 6 Walk 50ft with 2 Turns (QC): 6 Walk 150 ft (QC): 6 Does the Pt use WC or Scooter?: No Stairs (FIM): 7 # of Steps: 12 1 Step (curb) (QC): 6 4 Steps (QC): 6 12 Steps (QC): 6 Stairs Level Of Assist: 7 Picking up an Object (QC): 6 PT Plan Problem List Problem List: Activity Tolerance, Functional Strength, Safety, Balance, Gait, Transfer Treatment/Plan Treatment Plan: Continue Plan of Care Treatment Plan: Bed Mobility, Education, Functional Activity Pooja, Functional Strength, Group Therapy, Gait, Safety, Therapeutic Exercise, Transfers Treatment Duration: Jul 03, 2016 Visits Per Week: 10-15 Minutes/Day (M-F): 60-90 Safety Risks/Education Patient Education: Safety Issues Teaching Recipient: Patient Teaching Methods: Discussion Response to Teaching: Reinforcement Needed Time/GCodes Time In: 1530 Time Out: 1555 Total Billed Treatment Time: 25 Total Billed Treatment visit EX 12 GT 13 JAIME HARTMANN PT Jun 20, 2016 16:20
[2016-06-20] MEDS: ALFUZOSIN HCL 10 MG TAB (UROXATRAL) PO SCH (17:10)
[2016-06-20] MEDS: amLODIPine 5 MG (NORVASC) TAB PO SCH (17:10)
[2016-06-20] MEDS: PANTOPRAZOLE 20 MG TABLET (PROTONIX) PO SCH (17:10)
[2016-06-20 18:16] VITALS: BP 133/79
[2016-06-20] MEDS: LACTULOSE SYRUP 10GM/15ML (ENULOSE) 30ML UDC PO SCH ×2 (21:00→21:10)
[2016-06-20] MEDS: LOSARTAN 50 MG (COZAAR) TAB PO SCH (21:10)
[2016-06-20] MEDS: ACYCLOVIR INJECTION 800 MG in NS (IVPB) 250 ML IV SCH (23:14)
[2016-06-21 06:00] VITALS: BP 125/87
[2016-06-21] MEDS: PANTOPRAZOLE 20 MG TABLET (PROTONIX) PO SCH ×2 (06:08→17:22)
[2016-06-21] MEDS: NEBIVOLOL 5 MG TAB (BYSTOLIC) PO SCH (08:09)
[2016-06-21] MEDS: LACTULOSE SYRUP 10GM/15ML (ENULOSE) 30ML UDC PO SCH ×3 (08:09→21:07)
[2016-06-21] MEDS: prednisoLONE 1% OPTH (PRED FORTE) 5 ML BTL OS SCH ×4 (08:09→21:07)
--- NOTE | 2016-06-21 08:10 | HISTORY AND PHYSICAL ---
DATE OF ADMISSION: 06/20/2016 CHIEF COMPLAINT: Difficulty with walking. HISTORY OF PRESENT ILLNESS: The patient is an 89-year-old male, who had recently been discharged from the hospital on 06/07 after treatment for herpes zoster with left trigeminal nerve involvement and concern for zoster ophthalmicus. It was felt that he did not have zoster ophthalmicus. He was sent home with Valtrex every 8 hours. He became more fatigued, developed headaches, fever and nausea. The patient was brought to the ED and found to be febrile and stuporous. Lumbar puncture revealed a significantly elevated protein level with over [address] of the head was negative. The patient was treated empirically with acyclovir IV. 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 The patient was also noted to have mild hyponatremia. The patient had urinary obstruction with prostatism, aggravated by narcotic therapies, which the patient no longer requiring, Pastr[place] catheter was discontinued. The patient is now referred to Inpatient Rehabilitation Unit due to decline in functional independence. The patient has some memory and cognitive deficits as well and had been independent and living alone prior to this The patient is currently min assist for ambulation with a front wheel walker. Min assist for transfers, and the patient is modified independent for eating, standby assist for grooming. Min assist for hygiene, shower and bath and standby assist for dressing. PAST MEDICAL HISTORY: 1. Hypertension. 2. GERD. 3. Arthritis. PAST SURGICAL HISTORY: 1. Hernia repair. 2. Clavicle surgery. 3. Spinal surgery. ALLERGIES: 1. PENICILLIN. 2. IV DYE. FAMILY HISTORY: Noncontributory. SOCIAL HISTORY: Retired, a , lives in [place], [place] alone. He has a supportive family nearby REVIEW OF SYSTEMS: Ten-point review of systems significant for weakness, headache, which is largely resolved. Some cognitive impairment, which appears to be improving and urinary retention. MEDICATIONS: 1. Bystolic 5 mg p.o. daily. 2. Acyclovir b.i.d. IV. 3. Cozaar 100 mg p.o. at bedtime. 4. Lactulose p.o. b.i.d. 5. Amlodipine 5 mg p.o. daily. 6. Uroxatral 10 mg p.o. daily. 7. Protonix 20 mg p.o. b.i.d. 8. Prednisolone drop left eye q.i.d. 9. Tylenol 650 mg p.o. q.4 hours p.r.n. mild pain or fever. PHYSICAL EXAMINATION: Significant for a pleasant male, appearing his stated age, alert and oriented in no acute distress. VITAL SIGNS: He is afebrile, pulse is 104, respirations 14, blood pressure 133/79. O2 sats 96% on room air. HEENT: Vision, speech, hearing, grossly intact. No oral lesion is noted. NECK: Supple without mass. HEART: Regular rhythm. LUNGS: Clear. ABDOMEN: Soft, nontender. Bowel sounds present. EXTREMITIES: No lower edema. No calf tenderness. MUSCULOSKELETAL: The patient has functional active range of motion of all 4 extremities. NEUROLOGICAL: Strength is grossly 4/5. He is right-handed. He wears glasses. Hearing is mildly impaired but functional. Sensation is grossly intact to touch.He has impaired memory IMPRESSION: 1. 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 2. Mild hyponatremia. 3. Previous herpes zoster with 2nd and 3rd division trigeminal nerve involvement on the left. 4. Urinary obstruction with prostatism, improved. 5. Hypertension, controlled with medication. 6. Chronic bronchitis. 7. GERD. PLAN: The patient will have a comprehensive program of inpatient rehabilitation with a goal of maximizing level of functional dependence prior to discharge home with home health care. The patient will have PT/OT 90 minutes per day, each discipline, 5 days a week, when not being seen by speech therapy, for gait strengthening, conditioning, balance, ADLs, any patient/family/caregiver training necessary, any adaptive equipment and training necessary. Speech therapy to do ongoing cognitive therapy 3 to 5 times a week for 30 to 45 minutes per day, for 2 to 3 weeks. Rehabilitation nursing assist with bowel, bladder, skin, wound care, medication administration, pain management. surgical services director assist with discharge planning, community reentry. Follow-up with Dr. Benavidez and hospitalist service as per their schedules. Continue current medications. ESTIMATED LENGTH OF STAY: 2 weeks. PROGNOSIS: Rehab prognosis appears good for goal of discharging home with home health care and family to assist as needed. DIET: 2 grams sodium CODE STATUS: Do Not Resuscitate. POST ADMISSION PHYSICIAN ASSESSMENT: The preadmission screen agrees with the post admission assessment that the patient is a good candidate for inpatient rehabilitation. He appears to be well motivated to participate in 3 hours of therapy a day. He should be able tolerate 3 hours of therapy a day from a medical standpoint. He should benefit from the 3 hours of therapy a day. He has a reasonable discharge plan, he has reasonable discharge rehabilitation goals and a supportive family. He has various comorbidities that need to be closely monitored with medications and treatments adjusted on a basis as needed. These include his hypertension and BPH associated with urinary retention. Barriers to discharge for this patient who had been independent prior to this are for him to be modified independent to supervision for ADLs, mobility skills with improved cognition prior to discharge home so as to lessen the burden of the caregivers. Risks for this patient include: 1. Fall. 2. Fracture. 3. DVT. 4. Pulmonary embolism. 5. Urinary retention. 6. UTI. 7. Respiratory infection. 8. Aspiration. 9. Poorly controlled hypertension. 10. Recurrent encephalitis. Therapy with cardiac and fall precautions. SCDs for DVT prophylaxis. Job ID: [id number] Dictated Date: 06/20/2016 20:10:27 Package Dyer Date: 06/21/2016 07:48:31/amanda SMITH
--- NOTE | 2016-06-21 08:21 | PM & R (SOAP) Progress Note ---
Subjective Subjective/Events-last exam Patient was seen in his room this AM Adjusting well to unit Appreciiate Therapy assessments Patient min assist for transfers Review of Systems Musculoskeletal: : leg pain Objective Exam Last Set of Vital Signs Vital Signs Date Time Temp Pulse Resp B/P Pulse Ox O2 Delivery O2 Flow Rate FiO2 06/21/16 06:00 98.2 111 16 125/87 97 Room Air Capillary Refill : I&O Bad tableGeneral: Alert, Cooperative, No Acute Distress HEENT: Atraumatic, PERRLA, EOMI, Mucous Memb Moist/[place] Neck: Supple, No JVD Lungs: Clear to Auscultation Heart: Regular Rate Abdomen: Normal Bowel Sounds, Soft, No Tenderness Extremities: No Edema Neuro: Other (generalized weakness Mild cognitive deficits) Assessment/Plan Assessment Encephalopathy secondary to herpes zoster encephalitis under tretment BPH with hx of urinary retention -monitor voiding Presbycusis HTN controlled Plan Continue PT/OT/ST F/U with Hospitalist PRN mONITOR FOR URINARY RETENTION OTIS FERNANDEZ MD Jun 21, 2016 08:21
--- NOTE | 2016-06-21 08:30 | Individualized Plan of Care ---
Individualized Plan of Care Rehab Nursing IPOC Order Admission Date Jun 20, 2016 at 09:50 Current Orders Admission-Acute Rehab Unit (06/20/16 09:45) Code/Resuscitation (06/20/16 10:42) Sequential Compression Device 08,20 (06/20/16 10:42) Sodium 2g (2000 Mg) (06/20/16 Lunch) Losartan Tablet (Cozaar Tablet) (06/20/16 21:00) Acetaminophen Tablet/Caplet (Tylenol T (06/20/16 10:45) Amlodipine Tablet (Norvasc Tablet) (06/20/16 18:00) Prednisolone 1% Ophthalmic Sidra (Pred For (06/20/16 13:00) Consult Physician (06/20/16 10:42) Lactulose Oral Solution (Enulose Oral So (06/20/16 21:00) Nebivolol Tablet (Bystolic Tablet) (06/21/16 09:00) Pt Evaluate/Treat Request (06/20/16 10:42) Weight Bearing Status (06/20/16 10:42) Request Ot Evaluate & Treat (06/20/16 10:42) Request For Cognitive Services (06/20/16 10:42) Rehab Nursing Orders-Ipoc (06/20/16 10:42) Acyclovir Injection (Zovirax Injection) (06/20/16 11:09) Acyclovir Injection (Zovirax Injection) (06/20/16 23:00) Alfuzosin Tablet (Uroxatral Tablet) (06/20/16 18:00) Pantoprazole Tablet (Protonix Tablet) (06/20/16 17:00) Patient Visit (06/20/16 ) Speech Sound Lang Comp (06/20/16 ) Patient Visit (06/20/16 ) Pt Eval Low Complexity (06/20/16 ) Gait Training, Ea 15 Min (06/20/16 ) Exercise Therap, Ea 15 Min (06/20/16 ) Patient Visit (06/20/16 ) Exercise Therap, Ea 15 Min (06/20/16 ) Gait Training, Ea 15 Min (06/20/16 ) Rehab Nursing Orders: Diseage Management, Edu in Press Rel Techn, Pain Management Toilet every (bladder): (hrs): q 2 hours while awake PT IPOC Problem List: Activity Tolerance, Functional Strength, Safety, Balance, Gait, Transfer Treatment Plan: Continue Plan of Care Bed Mobility, Education, Functional Activity Pooja, Functional Strength, Group Therapy, Gait, Safety, Therapeutic Exercise, Transfers Treatment Duration: Jul 03, 2016 Visits Per Week: 10-15 Minutes/Day (M-F): 60-90 Minutes/Day (Sat/Stewart): prn OT IPOC Problems: Decreased Safety Aware, Decreased UE Strength, Dependent Transfers, Impaired Cognition, Impaired Self-Care Skills OT Problems Pt would benefit fromo skilled OT to increase his independence in basic self care to allow him to safely return to his home with decreased risk of falling and decreased caregiver burden Plan of Care: ADL Retraining, Cognitive Retraining, Functional Mobility, Group Exercise/Act as Ind (education, exercise, memory, problem solving, socialization ), UE Funct Exercise/Act, UE Neuromus Re-Ed/Coord Treatment Duration: Jul 04, 2016 Visits Per Week: 10-11 Minutes/Day (M-F): 75-90 Minutes/Day (Sat/Stewart): PRN ST IPOC Speech Therapy Treatment Plan: Continue Plan of Care Treatment Duration: Jul 18, 2016 Visits Per Week: Five. Minutes/Day (M-F): 30 Physician IPOC Medical Issues being managed closely and that require the 24 hour availability of a physician: HTN Confusion Encephalitis Medical Issues: Bowel/Bladder Function, DVT Prophylaxis, Falls Precautions, Fluid/Electrolyte/Nutrition Balance, Infection Protection, Other (List) (as per above and monitor for urinary retention) Brief Synthesis of Preadmission Screen, Post-Admission Evaluation, and Therapy Evaluations: 89 yo male who lioves alone who developed herpes zoster encephalitis associated with confusion and fever and generalized weakness with a resulting decline in functional [place]. Had been Independent prior to this Admitted to medical floor and trated with antiviral agent and now referred to IRU Being Followed By Hospitalist service Medical Prognosis: Good Anticipated Length of Stay: 07/20/16 Rehab Goals Modified Independent to supervison for adls and mobility skills Improved cognition and no further Urinary retention Continenece of bowel and bladder Patient has HX fo BPH with urinary retention Anticipated discharge destinat: Home with [facility] and Family OTIS FERNANDEZ MD Jun 21, 2016 08:30
--- NOTE | 2016-06-21 11:05 | Speech Therapy Daily Note ---
Speech Daily Progress Note Subjective The patient was sitting upright in recliner upon entrance. The patient greeted the clinician appropriately and agreed to participate in the cognitive treatment session on this date. Objective The Hurst Cognitive Assessment (MoCA) Version One was provided on this date to continue the cognitive assessment. The patient demonstrated a mild to moderate cognitive impairment displaying a result of +21/30. Below are the specific results of the evaluation: - Visuospatial/Executive Function: The patient was able to accurately copy a cube and complete the clock drawing. The patient was unable to complete trail- making tasks on this date. - Naming: The patient was able to name three of three single items. - Memory (Immediate and Delayed): The patient was able to recall three of five single words immediately and zero of five single words following a five minute delay. - Attention: The patient was able to repeat five digits immediately and identify a letter in a string of letters. The patient was unable to provide three digits in reverse order (working memory). - Language: The patient was able to accurately repeat single phrases. - Abstractions: The patient was able to state a similarity between two items ( simple), however, was unable to with more complex words. - Orientation: The patient was oriented to date, month, year, place, and city. Assessment Assessment Current Status: Good Progress Treatment Plan Continue Plan of Care Communication Comprehension: 4 Expression: 4 Social Cognition Social Interaction: 5 Problem Solvin Memory: 2 Speech Short Term Goals Short Term Goals Short Term Goals 1. The patient will demonstrate 80% accuracy with simple orientation tasks with mild clinician cueing. 2. The patient will recall and demonstrate two functional memory strategies for use at home. 3. The patient will complete functional, simple ADL's with 80% accuracy ( reading a clock, writing a check). 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 The patient will demonstrate improved cognitive linguistic function for increased safety and function with ADL's. Comprehension: 5 Expression: 5 Social Interaction: 5 Problem Solvin Memory: 4 Speech-Plan Treatment Plan Speech Therapy Treatment Plan: Continue Plan of Care Continue skilled speech pathology for improved functional problem solving and memory strategies. Treatment Duration: Jul 18, 2016 # of days/week Five. Visits Per Week: Five. Minutes/Day (M-F): 30 Rehab Potential: Guarded Safety Risks/Education Teaching Recipient: Patient Teaching Methods: Discussion Response to Teaching: Verbalize Understanding Education Topics Provided: Plan of Care, Results Time Speech Therapy Time In: 10:04 Speech Therapy Time Out: 10:19 Total Billed Time: 15 Billed Treatment Time 1, GEORGI BEGUM Jun 21, 2016 11:05
[2016-06-21] MEDS: ACYCLOVIR INJECTION 800 MG in NS (IVPB) 250 ML IV SCH ×2 (11:17→23:21)
--- NOTE | 2016-06-21 11:43 | Progress Note-Hospitalist ---
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 RN states that pt is occasionally impulsive or disoriented. Patient Interview: Pt states that he feels good today. Pt states that he is having regular BMs. Physical exam stable. Pt states that he feels ready to go home, and would like to DC as soon as possible. Assessment: Herpes zoster with encephalitis Debility Hypertension Hallucinations Delirium Plan: Continue recovery Scribed by Gilbert Torres under the direct supervision of Dr. Centeno. DIEGO CENTENO DO Jun 21, 2016 11:43
--- NOTE | 2016-06-21 12:00 | Physical Therapy Daily Note ---
PT Daily Note-Current Subjective Pt sitting in recliner upon arrival. Pt asked if could have taller walker so new taller FWW brought to pt. Pt agrees to PT. Mental Status Patient Orientation: Person, Confused, Situation Transfers Functional [place] Measure 0=Not Assessed/NA 4=Minimal Assistance 1=Total Assistance 5=Supervision or Setup 2=Maximal Assistance 6=Modified [place] 3=Moderate Assistance 7=Complete IndependenceIRFPAI Quality Coding Scale 6 Independent with activity with or without an assistive device 5 Patient requires set up or clean up by helper. Patient completes activity by themselves 4 Supervision or touching assist (CGA). [place] provide cues , steadying assist 3 The helper provides less than half the effort to complete the activity 2 The helper provides more than half the effort to complete the activity 1 Dependent. The helper does all the effort to complete an activity 7 Patient refused to complete or attempt activity 9 The patient did not perform the activity before the current illness or injury 88 Not attempted due to Medical conditions or safety concerns Transfers (B, C, W/C) (FIM): 4 Scootin Sit to/from Stand: 4 Sit to Stand (QC): 4 Weight Bearing Weight Bearing Restriction: Full Weight Bearing Location Restriction: LE Bilateral Gait Training Does the Patient Walk?: Yes Gait (FIM): 5 Distance (FIM): 3=150 ft Distance: 250' Walk 10 feet (QC): 5 Walk 50 ft with 2 Turns(QC): 5 Walk 150 ft (QC): 5 Gait Level of Assist: 5 Gait Persons Needed: 1 Gait Assistive Device: FWW Pt ambulates with FWW with normalized gait pattern. Pt practiced with Small Base Quad Cane although pt needs more practice with proper sequencing. Wheelchair Training Does the Pt Use a Wheelchair?: No Exercises NuStep Minutes: 15 NuStep Workload: 4 Treatments Pt transfers at SBA using FWW. Pt ambulates using FWW at SBA and with QC at [facility] for balance support. Pt completed NuStep before needing to use restroom. Pt returned to recliner to rest at end of tx with all needs met. Assessment Current Status: Good Progress Pt needs VC for completing tasks. Pt is improving with independence of mobility so trying to progress to QC but cognitive deficits still making it difficult to remember sequencing. PT Short Term Goals Short Term Goals Time Frame: Jun 25, 2016 Gait (FIM): 5 Distance (FIM): 3=150 ft PT Fpc Goals Fpc Goals PT Fpc Goals Time Frame: Jul 03, 2016 Transfers (B,C,W/C) (FIM): 7 Sit to Lying (QC): 6 Lying-Sitting on Side/Bed(QC): 6 Sit to Stand (QC): 6 Roll Left to Right (QC): 6 Chair/Wui-vo-Ckefr Xfer(QC): 6 Car Transfer (QC): 6 Does the Patient Walk: Yes Gait (FIM): 7 Gait distance (FIM): 3=150 ft Walk 10 feet (QC): 6 Walk 10ft-Uneven Surface(QC): 6 Walk 50ft with 2 Turns (QC): 6 Walk 150 ft (QC): 6 Does the Pt use WC or Scooter?: No Stairs (FIM): 7 # of Steps: 12 1 Step (curb) (QC): 6 4 Steps (QC): 6 12 Steps (QC): 6 Stairs Level Of Assist: 7 Picking up an Object (QC): 6 PT Plan Problem List Problem List: Activity Tolerance, Safety, Balance, Gait Treatment/Plan Treatment Plan: Continue Plan of Care Treatment Plan: Bed Mobility, Education, Functional Activity Pooja, Functional Strength, Group Therapy, Gait, Safety, Therapeutic Exercise, Transfers Treatment Duration: Jul 03, 2016 Visits Per Week: 10-15 Minutes/Day (M-F): 60-90 Minutes/Day (Sat/Stewart): prn Safety Risks/Education Patient Education: Gait Training, Transfer Techniques, Correct Positioning, Safety Issues Teaching Recipient: Patient Teaching Methods: Discussion Response to Teaching: Reinforcement Needed Time/GCodes Time In: 1030 Time Out: 1115 Total Billed Treatment Time: 45 Total Billed Treatment visit, GT (15m), EX (15m) & FA (15m) GLADYS RUTHERFORD PTA Jun 21, 2016 11:59
--- NOTE | 2016-06-21 12:03 | Occupational Ther Daily Note ---
OT Current Status-Daily Note Subjective Pt seen in room, up in recliner, agreeable to OT. Pt declined ADLs other than grooming. No pain reported Appearance Alert, cooperative, continues impulsive and tries to get up Mental Status/Objective Functional [place] Measure 0=Not Assessed/NA 4=Minimal Assistance 1=Total Assistance 5=Supervision or Setup 2=Maximal Assistance 6=Modified [place] 3=Moderate Assistance 7=Complete [place] ADL-Treatment Functional [place] Measure 0=Not Assessed/NA 4=Minimal Assistance 1=Total Assistance 5=Supervision or Setup 2=Maximal Assistance 6=Modified [place] 3=Moderate Assistance 7=Complete IndependenceIRFPAI Quality Coding Scale 6 Independent with activity with or without an assistive device 5 Patient requires set up or clean up by helper. Patient completes activity by themselves 4 Supervision or touching assist (CGA). [place] provide cues , steadying assist 3 The helper provides less than half the effort to complete the activity 2 The helper provides more than half the effort to complete the activity 1 Dependent. The helper does all the effort to complete an activity 7 Patient refused to complete or attempt activity 9 The patient did not perform the activity before the current illness or injury 88 Not attempted due to Medical conditions or safety concerns Grooming (FIM): 5 (SBA shaving, brushing teeth at sink, FWW for balance) Toileting (FIM): 5 (SBA with clothing management and hygiene. tall toilet, grab bars, FWW) Toilet/Commode Transfer (FIM): 5 (SBA, tall toilet, grab bar) Other Treatment Pt walked SBA for safety, FWW to gym area. pt did 12 min bilat UE exercise with arm bike set at 10W resistance. Also did bilat activities with 1# weight on each arm (peg activity and graded clothespins). He was able to follow single step instructions but confused two step instructions. UE strengthening to help with safely getting up from surfaces with or without arm rests and for safe standing during ADLs. Pt walked back to his room, SBA for safety, FWW ( sometimes picks up walker off ground, especially when turning). Pt left up in recliner, all needs met, chair alarm on. Education OT Patient Education: Exercise program, Progress toward Goal/Update tx plan, Purpose of tx/functional activities, Safety issues, Transfer techniques Teaching Recipient: Patient Teaching Methods: Discussion Response to Teaching: Return Demonstration, Reinforcement Needed OT Short Term Goals Short Term Goals Time Frame: Jun 26, 2016 Toilet/Commode Transfer(FIM): 5 Shower Transfer(FIM): 5 1=Demonstrate adherence to instructed precautions during ADL tasks. 2=Patient will verbalize/demonstrate understanding of assistive devices/ modifications for ADL. 3=Patient will improve strength/tolerance for activity to enable patient to perform ADL's. OT Latex Fashions Designer Goals Latex Fashions Designer Goals Time Frame: Jul 04, 2016 Eating (FIM): 6 Eating (QC): 6 Groomin Oral Hygiene (QC): 6 Bathing(FIM): 6 Shower/Bathe Self (QC): 6 Upper Body Dressing(FIM): 6 Upper Body Dressing (QC): 6 Lower Body Dressing(FIM): 6 Lower Body Dressing (QC): 6 On/Off Footwear (QC): 6 Toileting(FIM): 6 Toileting Hygiene (QC): 6 Toilet/Commode Transfer(FIM): 6 Toilet/Commode Transfer (QC): 6 Comprehension(FIM): 5 Expression (FIM): 5 Social Interaction(FIM): 5 Problem Solving(FIM): 5 Memory(FIM): 4 Additional Goals: 2-Verbalize Understanding, 3-ImproveStrength/Pooja 1=Demonstrate adherence to instructed precautions during ADL tasks. 2=Patient will verbalize/demonstrate understanding of assistive devices/ modifications for ADL. 3=Patient will improve strength/tolerance for activity to enable patient to perform ADL's. OT Education/Plan Problem List/Assessment Pt would benefit fromo skilled OT to increase his independence in basic self care to allow him to safely return to his home with decreased risk of falling and decreased caregiver burden Discharge Recommendations Plan/Recommendations: Continue POC Treatment Plan/Plan of Care Patient would benefit from OT for education, treatment and training to promote independence in ADL's, mobility, safety and/or upper extremity function for ADL' s. Plan of Care: ADL Retraining, Cognitive Retraining, Functional Mobility, Group Exercise/Act as Ind (education, exercise, memory, problem solving, socialization ), UE Funct Exercise/Act, UE Neuromus Re-Ed/Coord Treatment Duration: Jul 04, 2016 Visits Per Week: 10-11 Minutes/Day (M-F): 75-90 Minutes/Day (Sat/Stewart): PRN Agreement: Yes Rehab Potential: Guarded Time/GCodes Start Time: 08:30 Stop Time: 09:30 Total Time Billed (hr/min): 60 Billed Treatment Time visit, 20 minutes ADL, 40 minutes exercise ALHAJI DAVILA OT Jun 21, 2016 12:02
--- NOTE | 2016-06-21 15:21 | Therapy Group Daily Note ---
Therapy Daily Group Note Patient Education Topic Other List Below (ARU Description ) Exercises LE Seated Exercise, UE Exercise Other/Notes Pt participated in PT/OT Group in Therapy [facility] area. Pt ambulated to Group using FWW. Group consisted of Intro. (Name, [place]/Where You Live, Favorite Childhood Memory), Socialization, UE/LE Ex, Memory Recall for Peer Memories shared and Name that Tune Recall. Pt has trouble hearing and needs instructions repeated. PT assists pt in returning to room. Pt transfers back to recliner at end of tx with all needs met. Start Time: 13:00 Stop Time: 14:00 Total Billed Treatment Time: 60 Total Billed Treatment 1, GRP GLADYS RUTHERFORD HEAD IRRIGATOR Jun 21, 2016 15:21
--- NOTE | 2016-06-21 16:01 | Speech Therapy Progress Note ---
Therapy Progress Note The patient's daughter, Kay, requested an update on the patient's cognitive status from the clinician. Per patient's daughter, the patient was "completely independent and functioning like a 32-year-old before he got sick." Kay stated the patient is responsible for his own finances, house work, and day to day appointments. The clinician shared with Kay the patient's current status, as well as, treatment goals for the upcoming week. The clinician will update the patient's daughter following treatment on Friday at the phone number she requested [phone]. GEORGI KHALIL Jun 21, 2016 16:01
[2016-06-21] MEDS: ALFUZOSIN HCL 10 MG TAB (UROXATRAL) PO SCH (17:22)
[2016-06-21] MEDS: amLODIPine 5 MG (NORVASC) TAB PO SCH (17:22)
[2016-06-21 18:12] VITALS: BP 115/86
[2016-06-21] MEDS: LOSARTAN 50 MG (COZAAR) TAB PO SCH (21:06)
[2016-06-22] MEDS: ACETAMINOPHEN 325 MG TABLET/CAPLET (TYLENOL) PO PRN ×2 (03:46→16:55)
[2016-06-22 05:02] VITALS: BP 159/76
[2016-06-22] MEDS: PANTOPRAZOLE 20 MG TABLET (PROTONIX) PO SCH ×2 (06:22→16:55)
--- NOTE | 2016-06-22 09:16 | Physical Therapy Daily Note ---
PT Daily Note-Current Subjective Pt supine in bed upon arrival. Pt agrees to ambulation for PT tx. PT assists pt with putting robe on as well as slipper socks for ambulation. Pain Numeric Pain Scale: 0-No Pain Location: No Pain Reported Mental Status Patient Orientation: Person, Confused, Situation Transfers Functional [place] Measure 0=Not Assessed/NA 4=Minimal Assistance 1=Total Assistance 5=Supervision or Setup 2=Maximal Assistance 6=Modified [place] 3=Moderate Assistance 7=Complete IndependenceIRFPAI Quality Coding Scale 6 Independent with activity with or without an assistive device 5 Patient requires set up or clean up by helper. Patient completes activity by themselves 4 Supervision or touching assist ([facility]). [place] provide cues , steadying assist 3 The helper provides less than half the effort to complete the activity 2 The helper provides more than half the effort to complete the activity 1 Dependent. The helper does all the effort to complete an activity 7 Patient refused to complete or attempt activity 9 The patient did not perform the activity before the current illness or injury 88 Not attempted due to Medical conditions or safety concerns Transfers (B, C, W/C) (FIM): 5 Scootin Rollin Roll Left to Right (QC): 6 Supine to/from Sit: 6 Sit to/from Stand: 5 Sit to Stand (QC): 5 Weight Bearing Weight Bearing Restriction: Full Weight Bearing Location Restriction: LE Bilateral Gait Training Does the Patient Walk?: Yes Gait (FIM): 4 Distance (FIM): 3=150 ft Distance: 250' Walk 10 feet (QC): 4 Walk 50 ft with 2 Turns(QC): 4 Walk 150 ft (QC): 4 Gait Level of Assist: 4 Gait Persons Needed: 1 Gait Assistive Device: Cane Small Base Quad Pt ambulates with QC on R side but needs VC for sequencing. Pt gets a little off balance but never LOB, drifts to R side slightly but will self correct. Wheelchair Training Does the Pt Use a Wheelchair?: No Treatments Pt transfers at [facility]. Pt is sometimes impulsive. Pt ambulates in [facility] using Small Base Quad Cane at [facility] for safety/balance. Pt returns to room to rest in recliner with all needs met at end of tx. Assessment Current Status: Good Progress Pt is walking better with QC but still has some balance issues that he is able to self correct. Pt is impulsive and has some social awareness problems. PT Short Term Goals Short Term Goals Time Frame: Jun 25, 2016 Gait (FIM): 5 Distance (FIM): 3=150 ft PT Fpc Goals Construction Producer Goals PT Construction Producer Goals Time Frame: Jul 03, 2016 Transfers (B,C,W/C) (FIM): 7 Sit to Lying (QC): 6 Lying-Sitting on Side/Bed(QC): 6 Sit to Stand (QC): 6 Roll Left to Right (QC): 6 Chair/Owu-jd-Phgqg Xfer(QC): 6 Car Transfer (QC): 6 Does the Patient Walk: Yes Gait (FIM): 7 Gait distance (FIM): 3=150 ft Walk 10 feet (QC): 6 Walk 10ft-Uneven Surface(QC): 6 Walk 50ft with 2 Turns (QC): 6 Walk 150 ft (QC): 6 Does the Pt use WC or Scooter?: No Stairs (FIM): 7 # of Steps: 12 1 Step (curb) (QC): 6 4 Steps (QC): 6 12 Steps (QC): 6 Stairs Level Of Assist: 7 Picking up an Object (QC): 6 PT Plan Problem List Problem List: Activity Tolerance, Safety, Balance, Gait, Transfer Treatment/Plan Treatment Plan: Continue Plan of Care Treatment Plan: Bed Mobility, Education, Functional Activity Pooja, Functional Strength, Group Therapy, Gait, Safety, Therapeutic Exercise, Transfers Treatment Duration: Jul 03, 2016 Visits Per Week: 10-15 Minutes/Day (M-F): 60-90 Minutes/Day (Sat/Stewart): prn Safety Risks/Education Patient Education: Gait Training, Transfer Techniques, Correct Positioning, Safety Issues Teaching Recipient: Patient Teaching Methods: Discussion Response to Teaching: Reinforcement Needed Time/GCodes Time In: 835 Time Out: 850 Total Billed Treatment Time: 15 Total Billed Treatment visit, GT (15m) LGADYS RUTHERFORD PTA Jun 22, 2016 09:16
[2016-06-22] MEDS: NEBIVOLOL 5 MG TAB (BYSTOLIC) PO SCH (09:49)
[2016-06-22] MEDS: LACTULOSE SYRUP 10GM/15ML (ENULOSE) 30ML UDC PO SCH ×2 (09:49→20:51)
[2016-06-22] MEDS: ACYCLOVIR INJECTION 800 MG in NS (IVPB) 250 ML IV SCH ×2 (09:50→22:22)
[2016-06-22] MEDS: prednisoLONE 1% OPTH (PRED FORTE) 5 ML BTL OS SCH ×4 (09:50→20:51)
[2016-06-22] MEDS: amLODIPine 5 MG (NORVASC) TAB PO SCH (16:55)
[2016-06-22] MEDS: ALFUZOSIN HCL 10 MG TAB (UROXATRAL) PO SCH (16:55)
[2016-06-22] MEDS: IBUPROFEN TABLET 200 MG TAB PO PRN (17:18)
[2016-06-22 18:27] VITALS: BP 136/74
[2016-06-22] MEDS: LOSARTAN 50 MG (COZAAR) TAB PO SCH (20:51)
[2016-06-23 05:21] VITALS: BP 122/67
[2016-06-23] MEDS: PANTOPRAZOLE 20 MG TABLET (PROTONIX) PO SCH ×2 (06:20→16:53)
[2016-06-23] MEDS: prednisoLONE 1% OPTH (PRED FORTE) 5 ML BTL OS SCH ×4 (09:42→22:08)
[2016-06-23] MEDS: IBUPROFEN TABLET 200 MG TAB PO PRN ×3 (09:42→22:04)
[2016-06-23] MEDS: NEBIVOLOL 5 MG TAB (BYSTOLIC) PO SCH (09:42)
[2016-06-23] MEDS: LACTULOSE SYRUP 10GM/15ML (ENULOSE) 30ML UDC PO SCH ×2 (09:42→22:04)
[2016-06-23] MEDS: ACYCLOVIR INJECTION 800 MG in NS (IVPB) 250 ML IV SCH ×2 (11:43→22:06)
[2016-06-23] MEDS: ACETAMINOPHEN 325 MG TABLET/CAPLET (TYLENOL) PO PRN ×3 (11:50→22:04)
[2016-06-23] MEDS: amLODIPine 5 MG (NORVASC) TAB PO SCH (17:01)
[2016-06-23] MEDS: ALFUZOSIN HCL 10 MG TAB (UROXATRAL) PO SCH (17:01)
[2016-06-23 18:00] VITALS: BP 132/73
[2016-06-23] MEDS: LOSARTAN 50 MG (COZAAR) TAB PO SCH (22:04)
[2016-06-24] MEDS: PANTOPRAZOLE 20 MG TABLET (PROTONIX) PO SCH ×2 (05:58→17:22)
[2016-06-24 06:02] VITALS: BP 151/74
[2016-06-24] MEDS: NEBIVOLOL 5 MG TAB (BYSTOLIC) PO SCH (08:26)
[2016-06-24] MEDS: LACTULOSE SYRUP 10GM/15ML (ENULOSE) 30ML UDC PO SCH ×2 (08:26→19:56)
--- NOTE | 2016-06-24 09:46 | Occupational Ther Daily Note ---
OT Current Status-Daily Note Subjective No pain reported. Pt. states that he would like to go home soon. Appearance Pt. is sitting up in chair. Agrees to work with therapy. Mental Status/Objective Patient Orientation: Person Functional [place] Measure 0=Not Assessed/NA 4=Minimal Assistance 1=Total Assistance 5=Supervision or Setup 2=Maximal Assistance 6=Modified [place] 3=Moderate Assistance 7=Complete [place] Memory(FIM): 4 (Pt. does require cues at times to sequence steps. Does get into a hurry at times and forgets safety needs.) ADL-Treatment Functional [place] Measure 0=Not Assessed/NA 4=Minimal Assistance 1=Total Assistance 5=Supervision or Setup 2=Maximal Assistance 6=Modified [place] 3=Moderate Assistance 7=Complete IndependenceIRFPAI Quality Coding Scale 6 Independent with activity with or without an assistive device 5 Patient requires set up or clean up by helper. Patient completes activity by themselves 4 Supervision or touching assist (C[facility]). [place] provide cues , steadying assist 3 The helper provides less than half the effort to complete the activity 2 The helper provides more than half the effort to complete the activity 1 Dependent. The helper does all the effort to complete an activity 7 Patient refused to complete or attempt activity 9 The patient did not perform the activity before the current illness or injury 88 Not attempted due to Medical conditions or safety concerns Grooming (FIM): 5 (SBA at sink to brush teeth and hair.) Bathing (FIM): 5 (Supervision in shower. Pt. would stand and turn around under spray. Encouraged to sit down for safety.) Upper Body (FIM): 5 Lower Body Dressing (FIM): 5 (SBA to don underwear, pants, socks, and shoes.) Toileting (FIM): 5 (supervision on toilet.) Transfers (B, C, W/C) (FIM): 5 (Pt. ambulated with and without walker, with SBA using gait belt. Pt. states that he could "go either way.") Shower Transfer(FIM): 5 Pt. is able to shower and dress with SBA/supervision. Does require cues to complete steps at times. Cues for safety needed as well. After ADLs, pt. ambulated to therapy gym. Tolerated 15 minutes on armbike to increase overall strength and mobility with daily tasks. Ambulated back to room. Requested to try and use the bathroom again. Pt. requested to sit for awhile. Pt. instructed to pull red cord. Nursing notified that pt. is on toilet. Education OT Patient Education: Exercise program, Modified ADL techniques, Progress toward Goal/Update tx plan, Purpose of tx/functional activities, Reviewed precautions, Rehab process, Transfer techniques Teaching Recipient: Patient Teaching Methods: Demonstration, Discussion Response to Teaching: Verbalize Understanding, Return Demonstration OT Short Term Goals Short Term Goals Time Frame: Jun 26, 2016 Toilet/Commode Transfer(FIM): 5 Shower Transfer(FIM): 5 1=Demonstrate adherence to instructed precautions during ADL tasks. 2=Patient will verbalize/demonstrate understanding of assistive devices/ modifications for ADL. 3=Patient will improve strength/tolerance for activity to enable patient to perform ADL's. OT Care Home Goals Care Home Goals Time Frame: Jul 04, 2016 Eating (FIM): 6 Eating (QC): 6 Groomin Oral Hygiene (QC): 6 Bathing(FIM): 6 Shower/Bathe Self (QC): 6 Upper Body Dressing(FIM): 6 Upper Body Dressing (QC): 6 Lower Body Dressing(FIM): 6 Lower Body Dressing (QC): 6 On/Off Footwear (QC): 6 Toileting(FIM): 6 Toileting Hygiene (QC): 6 Toilet/Commode Transfer(FIM): 6 Toilet/Commode Transfer (QC): 6 Comprehension(FIM): 5 Expression (FIM): 5 Social Interaction(FIM): 5 Problem Solving(FIM): 5 Memory(FIM): 4 Additional Goals: 2-Verbalize Understanding, 3-ImproveStrength/Pooja 1=Demonstrate adherence to instructed precautions during ADL tasks. 2=Patient will verbalize/demonstrate understanding of assistive devices/ modifications for ADL. 3=Patient will improve strength/tolerance for activity to enable patient to perform ADL's. OT Education/Plan Problem List/Assessment Assessment: Decreased Activ Tolerance, Dependent Transfers, Impaired Cognition , Impaired I ADL's, Impaired Self-Care Skills Pt would benefit fromo skilled OT to increase his independence in basic self care to allow him to safely return to his home with decreased risk of falling and decreased caregiver burden Discharge Recommendations Plan/Recommendations: Continue POC Therapy D/C Recommendations: Home w/ Family Support, Occupational Therapy Home Care Treatment Plan/Plan of Care Treatment,Training & Education: Yes Patient would benefit from OT for education, treatment and training to promote independence in ADL's, mobility, safety and/or upper extremity function for ADL' s. Plan of Care: ADL Retraining, Cognitive Retraining, Functional Mobility, Group Exercise/Act as Ind (education, exercise, memory, problem solving, socialization ), UE Funct Exercise/Act, UE Neuromus Re-Ed/Coord Treatment Duration: Jul 04, 2016 Visits Per Week: 10-11 Minutes/Day (M-F): 75-90 Minutes/Day (Sat/Stewart): PRN Agreement: Yes Rehab Potential: Fair Time/GCodes Start Time: 08:30 Stop Time: 09:30 Total Time Billed (hr/min): 60 Billed Treatment Time 1, ADL x 45minutes, EX x 15minutes NOE CRUM OT Jun 24, 2016 09:46
[2016-06-24] MEDS: prednisoLONE 1% OPTH (PRED FORTE) 5 ML BTL OS SCH ×4 (11:19→20:00)
[2016-06-24] MEDS: ACYCLOVIR INJECTION 800 MG in NS (IVPB) 250 ML IV SCH ×2 (11:19→22:13)
--- NOTE | 2016-06-24 11:31 | Speech Therapy Daily Note ---
Speech Daily Progress Note Subjective The patient was seated upright in recliner upon entrance. The patient greeted the clinician appropriately and agreed to participate in the cognitive treatment session on this date. Objective Assessment of Language Related Functional Activities (IZAIAH) was initiated on this date. The tasks provided were common situations the patient will encounter in his familiar environment post discharge. See below for results of specific sections: - Telling Time: The patient demonstrated 90% accuracy (with two occurrences of self-correction) with telling time on an analog clock. - Counting Money: The patient demonstrated 90% accuracy with mild clinician cueing during coin and bill addition and subtraction. - Addressing an Envelope: The patient demonstrated 100% accuracy with addressing and envelope and recording his specific return address on the form. - Solving Simple Math: The patient demonstrated 70% accuracy with solving simple math (calculating change, payments) with mild clinician cueing provided. Assessment Assessment Current Status: Good Progress Treatment Plan Continue Plan of Care Communication Comprehension: 4 Expression: 5 Social Cognition Social Interaction: 5 Problem Solvin Memory: 4 (Pt. does require cues at times to sequence steps. Does get into a hurry at times and forgets safety needs.) Speech Short Term Goals Short Term Goals Short Term Goals 1. The patient will demonstrate 80% accuracy with simple orientation tasks with mild clinician cueing. 2. The patient will recall and demonstrate two functional memory strategies for use at home. 3. The patient will complete functional, simple ADL's with 80% accuracy ( reading a clock, writing a check). Time Frame-STG: One Week Speech Nursing Home Goals Statistical Consultant Goals 1. The patient will demonstrate improved cognitive linguistic function for increased safety and function with ADL's. Comprehension: 5 Expression: 5 Social Interaction: 5 Problem Solvin Memory: 4 Speech-Plan Treatment Plan Speech Therapy Treatment Plan: Continue Plan of Care Continue skilled cognitive therapy to target functional problem solving and memory strategies. Treatment Duration: Jul 18, 2016 # of days/week Five. Visits Per Week: Five. Minutes/Day (M-F): 30 Rehab Potential: Fair Safety Risks/Education Teaching Recipient: Patient Teaching Methods: Discussion Response to Teaching: Verbalize Understanding Education Topics Provided: Plan of Care, Progress Time Speech Therapy Time In: 09:30 Speech Therapy Time Out: 10:00 Total Billed Time: 30 Billed Treatment Time 1 GEORGI BEGUM Jun 24, 2016 11:31
--- NOTE | 2016-06-24 11:52 | Physical Therapy Daily Note ---
PT Daily Note-Current Subjective Pt sitting in recliner upon arrival. Pt agrees to PT due to motivated to discharge. Pain Location: No Pain Reported Mental Status Patient Orientation: Person, Place, Time, Situation Transfers Functional [place] Measure 0=Not Assessed/NA 4=Minimal Assistance 1=Total Assistance 5=Supervision or Setup 2=Maximal Assistance 6=Modified [place] 3=Moderate Assistance 7=Complete IndependenceIRFPAI Quality Coding Scale 6 Independent with activity with or without an assistive device 5 Patient requires set up or clean up by helper. Patient completes activity by themselves 4 Supervision or touching assist ([facility]). [place] provide cues , steadying assist 3 The helper provides less than half the effort to complete the activity 2 The helper provides more than half the effort to complete the activity 1 Dependent. The helper does all the effort to complete an activity 7 Patient refused to complete or attempt activity 9 The patient did not perform the activity before the current illness or injury 88 Not attempted due to Medical conditions or safety concerns Transfers (B, C, W/C) (FIM): 6 Scootin Sit to/from Stand: 6 Sit to Stand (QC): 6 Chair/Usd-oe-Gljly Xfer(QC): 6 Bed to/from Chair: 6 Weight Bearing Weight Bearing Restriction: Full Weight Bearing Location Restriction: LE Bilateral Gait Training Does the Patient Walk?: Yes Gait (FIM): 5 Distance (FIM): 3=150 ft Distance: 150' Walk 10 feet (QC): 5 Walk 50 ft with 2 Turns(QC): 5 Walk 150 ft (QC): 5 Gait Level of Assist: 5 Gait Persons Needed: 1 Gait Assistive Device: Cane Small Base Quad Pt walks with normalized gait pattern although QC seems to throw pt off normal rhythm of gait. Wheelchair Training Does the Pt Use a Wheelchair?: No Exercises Seated Therapy Exercises: Ankle pumps, Long arc quads, Hip flexion, Kicking activity, Hip abd/add Seated Reps: 20 NuStep Minutes: 15 NuStep Workload: 5 Treatments Pt transfers at Mod I using QC. PT ambulates using QC at A for safety. Pt completes NuStep use and Seated EX on mat to increase activity tolerance and strength. Pt is left EOB on mat in Therapy Gym at end of tx with all needs met. OT is wanting to work with pt after PT tx is complete. Assessment Current Status: Good Progress Pt has improved on independence of transfers and ambulation. Pt demonstrates gait rhythm disruption with use of QC so PT will try ambulation w/o AD this afternoon for tx. Attempting to discharge on Friday. PT Short Term Goals Short Term Goals Time Frame: Jun 25, 2016 Gait (FIM): 5 Distance (FIM): 3=150 ft PT Real Estate Accountant Goals Real Estate Accountant Goals PT Real Estate Accountant Goals Time Frame: Jul 03, 2016 Transfers (B,C,W/C) (FIM): 7 Sit to Lying (QC): 6 Lying-Sitting on Side/Bed(QC): 6 Sit to Stand (QC): 6 Rollin Roll Left to Right (QC): 6 Chair/Xmt-yz-[place] Xfer(QC): 6 Car Transfer (QC): 6 Does the Patient Walk: Yes Gait (FIM): 7 Gait distance (FIM): 3=150 ft Walk 10 feet (QC): 6 Walk 10ft-Uneven Surface(QC): 6 Walk 50ft with 2 Turns (QC): 6 Walk 150 ft (QC): 6 Does the Pt use WC or Scooter?: No Stairs (FIM): 7 # of Steps: 12 1 Step (curb) (QC): 6 4 Steps (QC): 6 12 Steps (QC): 6 Stairs Level Of Assist: 7 Picking up an Object (QC): 6 PT Plan Problem List Problem List: Activity Tolerance, Safety, Balance, Gait Treatment/Plan Treatment Plan: Continue Plan of Care Treatment Plan: Bed Mobility, Education, Functional Activity Pooja, Functional Strength, Group Therapy, Gait, Safety, Therapeutic Exercise, Transfers Treatment Duration: Jul 03, 2016 Visits Per Week: 10-15 Minutes/Day (M-F): 60-90 Minutes/Day (Sat/Stewart): prn Safety Risks/Education Patient Education: Gait Training, Transfer Techniques, Correct Positioning, Safety Issues Teaching Recipient: Patient Teaching Methods: Discussion Response to Teaching: Verbalize Understanding Time/GCodes Time In: 1030 Time Out: 1115 Total Billed Treatment Time: 45 Total Billed Treatment visit, FA (15m) & EX X2 (30m) GLADYS RUTHERFORD PTA Jun 24, 2016 11:52
--- NOTE | 2016-06-24 11:52 | Occupational Ther Daily Note ---
OT Current Status-Daily Note Subjective Pt. worried that he has not had a bowel movement. States, "I would really like to have some relief. No pain reported. Appearance Pt. is up in therapy gym. Agrees to treatment. Mental Status/Objective Patient Orientation: Person Functional [place] Measure 0=Not Assessed/NA 4=Minimal Assistance 1=Total Assistance 5=Supervision or Setup 2=Maximal Assistance 6=Modified [place] 3=Moderate Assistance 7=Complete [place] ADL-Treatment Functional [place] Measure 0=Not Assessed/NA 4=Minimal Assistance 1=Total Assistance 5=Supervision or Setup 2=Maximal Assistance 6=Modified [place] 3=Moderate Assistance 7=Complete IndependenceIRFPAI Quality Coding Scale 6 Independent with activity with or without an assistive device 5 Patient requires set up or clean up by helper. Patient completes activity by themselves 4 Supervision or touching assist ([facility]). [place] provide cues , steadying assist 3 The helper provides less than half the effort to complete the activity 2 The helper provides more than half the effort to complete the activity 1 Dependent. The helper does all the effort to complete an activity 7 Patient refused to complete or attempt activity 9 The patient did not perform the activity before the current illness or injury 88 Not attempted due to Medical conditions or safety concerns Toileting (FIM): 6 Transfers (B, C, W/C) (FIM): 6 Other Treatment Pt. is able to ambulate with cane with mod I to chair. Pt. then states that he has to go to bathroom. Ambulated to room and transferred to toilet with Mod I. Unable to have bowel movement, but able to cleanse self and pull up pants. Ambulated back to room. Donned 1 lb. wrist weights and completed series of bilateral UE exercises, with reaching and raising arms. Completed these tasks to increase UE strength, but also to work on bilateral coordination and fine motor strength. Pt. tolerated treatment well. Ambulated back to room with Mod I using cane. Pt. states again that maybe he should sit on toilet. But then decided against it. Pt. is worried about not being able to have bowel movement. Transferred back to chair. All needs met in room. Education OT Patient Education: Correct positioning, Exercise program, Progress toward Goal/Update tx plan, Purpose of tx/functional activities, Reviewed precautions, Rehab process, Transfer techniques Teaching Recipient: Patient Teaching Methods: Demonstration, Discussion Response to Teaching: Verbalize Understanding, Return Demonstration OT Short Term Goals Short Term Goals Time Frame: Jun 26, 2016 Toilet/Commode Transfer(FIM): 5 Shower Transfer(FIM): 5 1=Demonstrate adherence to instructed precautions during ADL tasks. 2=Patient will verbalize/demonstrate understanding of assistive devices/ modifications for ADL. 3=Patient will improve strength/tolerance for activity to enable patient to perform ADL's. OT Grape Crusher Goals Half-Way Goals Time Frame: Jul 04, 2016 Eating (FIM): 6 Eating (QC): 6 Groomin Oral Hygiene (QC): 6 Bathing(FIM): 6 Shower/Bathe Self (QC): 6 Upper Body Dressing(FIM): 6 Upper Body Dressing (QC): 6 Lower Body Dressing(FIM): 6 Lower Body Dressing (QC): 6 On/Off Footwear (QC): 6 Toileting(FIM): 6 Toileting Hygiene (QC): 6 Toilet/Commode Transfer(FIM): 6 Toilet/Commode Transfer (QC): 6 Comprehension(FIM): 5 Expression (FIM): 5 Social Interaction(FIM): 5 Problem Solving(FIM): 5 Memory(FIM): 4 Additional Goals: 2-Verbalize Understanding, 3-ImproveStrength/Pooja 1=Demonstrate adherence to instructed precautions during ADL tasks. 2=Patient will verbalize/demonstrate understanding of assistive devices/ modifications for ADL. 3=Patient will improve strength/tolerance for activity to enable patient to perform ADL's. OT Education/Plan Problem List/Assessment Assessment: Decreased Activ Tolerance, Impaired I ADL's, Impaired Self-Care Skills Pt would benefit fromo skilled OT to increase his independence in basic self care to allow him to safely return to his home with decreased risk of falling and decreased caregiver burden Discharge Recommendations Plan/Recommendations: Continue POC Therapy D/C Recommendations: Home w/ Family Support, Occupational Therapy Home Care Treatment Plan/Plan of Care Treatment,Training & Education: Yes Patient would benefit from OT for education, treatment and training to promote independence in ADL's, mobility, safety and/or upper extremity function for ADL' s. Plan of Care: ADL Retraining, Cognitive Retraining, Functional Mobility, Group Exercise/Act as Ind (education, exercise, memory, problem solving, socialization ), UE Funct Exercise/Act, UE Neuromus Re-Ed/Coord Treatment Duration: Jul 04, 2016 Visits Per Week: 10-11 Minutes/Day (M-F): 75-90 Minutes/Day (Sat/Stewart): PRN Agreement: Yes Rehab Potential: Fair Time/GCodes Start Time: 11:20 Stop Time: 11:45 Total Time Billed (hr/min): 25 Billed Treatment Time 1, FA x 2 NOE CRUM OT Jun 24, 2016 11:51
--- NOTE | 2016-06-24 14:20 | PM & R (SOAP) Progress Note ---
Subjective Subjective/Events-last exam Patient was seen in his room this afternoon Patient Modified Independent for transfers Cognition gradually improving Objective Exam Last Set of Vital Signs Vital Signs Date Time Temp Pulse Resp B/P Pulse Ox O2 Delivery O2 Flow Rate FiO2 06/24/16 09:00 Room Air 06/24/16 06:02 98.6 76 20 151/74 97 Capillary Refill : I&O Intake and Output 06/24/16 00:00 Intake Total 3016 ml Balance 3016 ml Intake Oral 2500 ml IV Total 516 ml # Voids 7 # Bowel Movements 1 General: Alert, Cooperative, No Acute Distress HEENT: Atraumatic, PERRLA, EOMI, Mucous Memb Moist/[place] Neck: Supple, No JVD Lungs: Clear to Auscultation Heart: Regular Rate Abdomen: Normal Bowel Sounds, Soft, No Tenderness Extremities: No Edema Neuro: Other (generalized weakness Mild cognitive deficits) Assessment/Plan Assessment 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 OTIS FERNANDEZ MD Jun 24, 2016 14:20
--- NOTE | 2016-06-24 14:50 | Physical Therapy Daily Note ---
PT Daily Note-Current Subjective Pt is sitting in recliner upon arrival visiting with daughter. Pt agrees to PT. Pain Location: No Pain Reported Mental Status Patient Orientation: Person, Place, Situation Transfers Functional [place] Measure 0=Not Assessed/NA 4=Minimal Assistance 1=Total Assistance 5=Supervision or Setup 2=Maximal Assistance 6=Modified [place] 3=Moderate Assistance 7=Complete IndependenceIRFPAI Quality Coding Scale 6 Independent with activity with or without an assistive device 5 Patient requires set up or clean up by helper. Patient completes activity by themselves 4 Supervision or touching assist (CGA). [place] provide cues , steadying assist 3 The helper provides less than half the effort to complete the activity 2 The helper provides more than half the effort to complete the activity 1 Dependent. The helper does all the effort to complete an activity 7 Patient refused to complete or attempt activity 9 The patient did not perform the activity before the current illness or injury 88 Not attempted due to Medical conditions or safety concerns Transfers (B, C, W/C) (FIM): 6 Scootin Sit to/from Stand: 6 Sit to Stand (QC): 6 Weight Bearing Weight Bearing Restriction: Full Weight Bearing Location Restriction: LE Bilateral Gait Training Does the Patient Walk?: Yes Gait (FIM): 5 Distance (FIM): 3=150 ft Distance: 350' Walk 10 feet (QC): 5 Walk 50 ft with 2 Turns(QC): 5 Walk 150 ft (QC): 5 Gait Level of Assist: 5 Gait Persons Needed: 1 Gait Assistive Device: None Pt ambualtes w/o AD since QC seemed to throw off pt's gait rhythm. Pt needs VC to slow down so pt can self correct as he starts to drift toward R or stumbles while walking. Pt has no LOB incidents though. Wheelchair Training Does the Pt Use a Wheelchair?: No Treatments Pt transfers w/o AD at Mod I. Pt ambulates in [facility] Commons w/o AD but needs VC to slow down to enable pt to self correct when needed. PT, pt & daughter visit about expectations of Friday discharge, no AD for home and what they need from PT with final txs tomorrow. Pt returns to room to rest in recliner at end of tx with all needs met. Assessment Current Status: Good Progress Pt has improved with independence of transfers and ambulation with less restrictive AD to not using AD. PT Short Term Goals Short Term Goals Time Frame: Jun 25, 2016 Gait (FIM): 5 Distance (FIM): 3=150 ft PT Outcome Analyst Goals Outcome Analyst Goals PT Outcome Analyst Goals Time Frame: Jul 03, 2016 Transfers (B,C,W/C) (FIM): 7 Sit to Lying (QC): 6 Lying-Sitting on Side/Bed(QC): 6 Sit to Stand (QC): 6 Rollin Roll Left to Right (QC): 6 Chair/Rbf-kd-Fwayx Xfer(QC): 6 Car Transfer (QC): 6 Does the Patient Walk: Yes Gait (FIM): 7 Gait distance (FIM): 3=150 ft Walk 10 feet (QC): 6 Walk 10ft-Uneven Surface(QC): 6 Walk 50ft with 2 Turns (QC): 6 Walk 150 ft (QC): 6 Does the Pt use WC or Scooter?: No Stairs (FIM): 7 # of Steps: 12 1 Step (curb) (QC): 6 4 Steps (QC): 6 12 Steps (QC): 6 Stairs Level Of Assist: 7 Picking up an Object (QC): 6 PT Plan Problem List Problem List: Activity Tolerance, Safety, Balance Treatment/Plan Treatment Plan: Continue Plan of Care Treatment Plan: Bed Mobility, Education, Functional Activity Pooja, Functional Strength, Group Therapy, Gait, Safety, Therapeutic Exercise, Transfers Treatment Duration: Jul 03, 2016 Visits Per Week: 10-15 Minutes/Day (M-F): 60-90 Minutes/Day (Sat/Stewart): prn Safety Risks/Education Patient Education: Gait Training, Transfer Techniques, Correct Positioning, Safety Issues Teaching Recipient: Patient, Family Teaching Methods: Discussion Response to Teaching: Verbalize Understanding Time/GCodes Time In: 1330 Time Out: 1400 Total Billed Treatment Time: 30 Total Billed Treatment visit, GT (20m) & FA (10m) GLADSY RUTHERFORD PTA Jun 24, 2016 14:50
[2016-06-24] MEDS: amLODIPine 5 MG (NORVASC) TAB PO SCH (17:22)
[2016-06-24] MEDS: ALFUZOSIN HCL 10 MG TAB (UROXATRAL) PO SCH (17:22)
[2016-06-24 18:16] VITALS: BP 160/83
[2016-06-24] MEDS: IBUPROFEN TABLET 200 MG TAB PO PRN (19:56)
[2016-06-24] MEDS: LOSARTAN 50 MG (COZAAR) TAB PO SCH (19:56)
[2016-06-25 05:44] VITALS: BP 137/78
[2016-06-25] MEDS: PANTOPRAZOLE 20 MG TABLET (PROTONIX) PO SCH ×2 (06:12→17:13)
[2016-06-25] MEDS: IBUPROFEN TABLET 200 MG TAB PO PRN ×2 (06:12→15:46)
[2016-06-25] MEDS: LACTULOSE SYRUP 10GM/15ML (ENULOSE) 30ML UDC PO SCH ×2 (08:51→20:38)
[2016-06-25] MEDS: NEBIVOLOL 5 MG TAB (BYSTOLIC) PO SCH (08:51)
[2016-06-25] MEDS: prednisoLONE 1% OPTH (PRED FORTE) 5 ML BTL OS SCH ×4 (08:51→20:29)
[2016-06-25] MEDS: ACYCLOVIR INJECTION 800 MG in NS (IVPB) 250 ML IV SCH (10:56)
--- NOTE | 2016-06-25 11:05 | Physical Therapy Daily Note ---
PT Daily Note-Current Subjective Pt sitting in recliner upon arrival. Pt wants to use restroom before leaving room for tx. Pt agrees to PT. Pain Location: No Pain Reported Mental Status Patient Orientation: Person, Place, Time, Situation Transfers Functional [place] Measure 0=Not Assessed/NA 4=Minimal Assistance 1=Total Assistance 5=Supervision or Setup 2=Maximal Assistance 6=Modified [place] 3=Moderate Assistance 7=Complete IndependenceIRFPAI Quality Coding Scale 6 Independent with activity with or without an assistive device 5 Patient requires set up or clean up by helper. Patient completes activity by themselves 4 Supervision or touching assist (CGA). [place] provide cues , steadying assist 3 The helper provides less than half the effort to complete the activity 2 The helper provides more than half the effort to complete the activity 1 Dependent. The helper does all the effort to complete an activity 7 Patient refused to complete or attempt activity 9 The patient did not perform the activity before the current illness or injury 88 Not attempted due to Medical conditions or safety concerns Transfers (B, C, W/C) (FIM): 7 Scootin Rollin Roll Left to Right (QC): 6 Supine to/from Sit: 7 Sit to/from Stand: 7 Sit to Lying (QC): 6 Sit to Stand (QC): 6 Chair/Uaw-kh-Yszfn Xfer(QC): 6 Bed to/from Chair: 7 Car Transfer (QC): 6 Pt completed simulated car transfer in Therapy Gym. Weight Bearing Weight Bearing Restriction: Full Weight Bearing Location Restriction: LE Bilateral Gait Training Does the Patient Walk?: Yes Gait (FIM): 7 Distance (FIM): 3=150 ft Distance: 300' Walk 10 feet (QC): 6 Walk 50 ft with 2 Turns(QC): 6 Walk 150 ft (QC): 6 Walking 10ft/uneven surface-QC: 6 Gait Level of Assist: 7 Gait Persons Needed: 1 Gait Assistive Device: None Pt has normalized gait pattern and doesn't use AD. Pt is remembering to slow down while ambulating and self correcting when needed, no LOB. Wheelchair Training Does the Pt Use a Wheelchair?: No Stair Training Stair Training: Handrails/: 1 handrail Stairs (FIM): 7 #of Steps: 12 1 Step (curb) (QC): 6 4 Steps (QC): 6 12 Steps (QC): 6 Stairs: Pattern: Reciprocal Level of Assist: 7 Balance Picking up an Object (QC): 6 Special Test Comments Pt able to bend over to picker packer object off floor with no AD and had no LOB. Treatments Pt transfers at Ind. w/o AD and ambulates w/o AD at Ind. Pt completes stairs, walking on uneven surface, picking up object from floor with no LOB and done Indep. Pt completes bed mobility with out Safety Concerns. Pt is left with all needs met at end of tx. Assessment Current Status: Good Progress Pt walks with both safety and Indep. Pt has improved with transfers and mobility since beginning of tx. PT Short Term Goals Short Term Goals Time Frame: Jun 25, 2016 Gait (FIM): 5 Distance (FIM): 3=150 ft PT Fdc Goals Fdc Goals PT Counterintelligence/Humint Specialist Goals Time Frame: Jul 03, 2016 Transfers (B,C,W/C) (FIM): 7 Sit to Lying (QC): 6 Lying-Sitting on Side/Bed(QC): 6 Sit to Stand (QC): 6 Rollin Roll Left to Right (QC): 6 Chair/Lpr-ck-Puhlg Xfer(QC): 6 Car Transfer (QC): 6 Does the Patient Walk: Yes Gait (FIM): 7 Gait distance (FIM): 3=150 ft Walk 10 feet (QC): 6 Walk 10ft-Uneven Surface(QC): 6 Walk 50ft with 2 Turns (QC): 6 Walk 150 ft (QC): 6 Does the Pt use WC or Scooter?: No Stairs (FIM): 7 # of Steps: 12 1 Step (curb) (QC): 6 4 Steps (QC): 6 12 Steps (QC): 6 Stairs Level Of Assist: 7 Picking up an Object (QC): 6 PT Plan Treatment/Plan Treatment Plan: Continue Plan of Care Treatment Plan: Bed Mobility, Education, Functional Activity Pooja, Functional Strength, Group Therapy, Gait, Safety, Therapeutic Exercise, Transfers Treatment Duration: Jul 03, 2016 Visits Per Week: 10-15 Minutes/Day (M-F): 60-90 Minutes/Day (Sat/[place]): prn Safety Risks/Education Patient Education: Gait Training, Transfer Techniques, Correct Positioning, Safety Issues Teaching Recipient: Patient Teaching Methods: Discussion Response to Teaching: Verbalize Understanding Time/GCodes Time In: 1015 Time Out: 1100 Total Billed Treatment Time: 45 Total Billed Treatment visit, GT (15m) & FA X2 (30m) GLADYS RUTHERFORD LINE PERSON Jun 25, 2016 11:05
--- NOTE | 2016-06-25 11:16 | Occupational Ther Daily Note ---
OT Current Status-Daily Note Subjective No pain reported. Appearance Pt. is up in chair. Agrees to work with therapy. Mental Status/Objective Patient Orientation: Person, Place Functional [place] Measure 0=Not Assessed/NA 4=Minimal Assistance 1=Total Assistance 5=Supervision or Setup 2=Maximal Assistance 6=Modified [place] 3=Moderate Assistance 7=Complete [place] ADL-Treatment Functional [place] Measure 0=Not Assessed/NA 4=Minimal Assistance 1=Total Assistance 5=Supervision or Setup 2=Maximal Assistance 6=Modified [place] 3=Moderate Assistance 7=Complete IndependenceIRFPAI Quality Coding Scale 6 Independent with activity with or without an assistive device 5 Patient requires set up or clean up by helper. Patient completes activity by themselves 4 Supervision or touching assist (CGA). [place] provide cues , steadying assist 3 The helper provides less than half the effort to complete the activity 2 The helper provides more than half the effort to complete the activity 1 Dependent. The helper does all the effort to complete an activity 7 Patient refused to complete or attempt activity 9 The patient did not perform the activity before the current illness or injury 88 Not attempted due to Medical conditions or safety concerns Eating (FIM): 6 Eating (QC): 6 Grooming (FIM): 6 Oral Hygiene (QC): 6 Bathing (FIM): 6 Shower/Bathe Self (QC): 6 Upper Body (FIM): 6 Upper Body Dressing (QC): 6 Lower Body Dressing (FIM): 6 Lower Body Dressing (QC): 6 On/Off Footwear (QC): 6 Toileting (FIM): 6 Toileting Hygiene (QC): 6 Transfers (B, C, W/C) (FIM): 6 Toilet/Commode Transfer (FIM): 6 Toilet Transfer (QC): 6 Shower Transfer(FIM): 6 Other Treatment Pt. is able to complete all ADL activities this date, independently with some safety concerns. Pt. seems to get in a hurry when ambulating or transferring. Pt. does not use an assistive device to ambulate, but does use the shower chair in shower. No other equipment needed. However, will recommend to daughter that pt. does demonstrate safety concerns at times due to the pace at which he moves. After ADLs, pt. ambulates to therapy gym and completes 15 minutes on armbike at mod resistance. No rest break required. Tolerated this well. Went to kitchen. Pt. given task of retrieving item from high cabinet, low cabinet, and refridgerator. Pt. able to do these but required multiple cues, as he could not process all three requests at the same time. Ambulated back to room. All needs met in room. Education OT Patient Education: Progress toward Goal/Update tx plan, Purpose of tx/ functional activities, Reviewed precautions, Rehab process, Transfer techniques Teaching Recipient: Patient Teaching Methods: Demonstration, Discussion Response to Teaching: Verbalize Understanding, Return Demonstration OT Short Term Goals Short Term Goals Time Frame: Jun 26, 2016 Toilet/Commode Transfer(FIM): 5 Shower Transfer(FIM): 5 1=Demonstrate adherence to instructed precautions during ADL tasks. 2=Patient will verbalize/demonstrate understanding of assistive devices/ modifications for ADL. 3=Patient will improve strength/tolerance for activity to enable patient to perform ADL's. OT Retirement Goals Retirement Goals Time Frame: Jul 04, 2016 Eating (FIM): 6 Eating (QC): 6 Groomin Oral Hygiene (QC): 6 Bathing(FIM): 6 Shower/Bathe Self (QC): 6 Upper Body Dressing(FIM): 6 Upper Body Dressing (QC): 6 Lower Body Dressing(FIM): 6 Lower Body Dressing (QC): 6 On/Off Footwear (QC): 6 Toileting(FIM): 6 Toileting Hygiene (QC): 6 Toilet/Commode Transfer(FIM): 6 Toilet/Commode Transfer (QC): 6 Comprehension(FIM): 5 Expression (FIM): 5 Social Interaction(FIM): 5 Problem Solving(FIM): 5 Memory(FIM): 4 Additional Goals: 2-Verbalize Understanding, 3-ImproveStrength/Pooja 1=Demonstrate adherence to instructed precautions during ADL tasks. 2=Patient will verbalize/demonstrate understanding of assistive devices/ modifications for ADL. 3=Patient will improve strength/tolerance for activity to enable patient to perform ADL's. OT Education/Plan Problem List/Assessment Assessment: Decreased Activ Tolerance, Impaired I ADL's Pt would benefit fromo skilled OT to increase his independence in basic self care to allow him to safely return to his home with decreased risk of falling and decreased caregiver burden Discharge Recommendations Plan/Recommendations: Continue POC Therapy D/C Recommendations: Home w/ Family Support, Occupational Therapy Home Care Treatment Plan/Plan of Care Treatment,Training & Education: Yes Patient would benefit from OT for education, treatment and training to promote independence in ADL's, mobility, safety and/or upper extremity function for ADL' s. Plan of Care: ADL Retraining, Cognitive Retraining, Functional Mobility, Group Exercise/Act as Ind (education, exercise, memory, problem solving, socialization ), UE Funct Exercise/Act, UE Neuromus Re-Ed/Coord Treatment Duration: Jul 04, 2016 Visits Per Week: 10-11 Minutes/Day (M-F): 75-90 Minutes/Day (Sat/Stewart): PRN Agreement: Yes Rehab Potential: Good Time/GCodes Start Time: 08:30 Stop Time: 09:30 Total Time Billed (hr/min): 60 Billed Treatment Time 1, ADL x 45minutes, Ex x 15minutes NOE CRUM OT Jun 25, 2016 11:16
--- NOTE | 2016-06-25 13:16 | PM & R (SOAP) Progress Note ---
Subjective Subjective/Events-last exam Patient was seen in his room earlier today Appreciate Labs and current therapy notes Current meds reviewed, Discussed case with BÁRBARA Cole family to pick patient up early tomorrow and they will stay with patient upon discharge to assure his safety.Patient Modifeid Independent for transfers.Memory gradually improving Objective Exam Last Set of Vital Signs Vital Signs Date Time Temp Pulse Resp B/P Pulse Ox O2 Delivery O2 Flow Rate FiO2 06/25/16 09:00 Room Air 06/25/16 05:44 97.5 80 12 137/78 98 Capillary Refill : I&O Intake and Output 06/24/16 23:59 Intake Total 1726 ml Balance 1726 ml Intake Oral 1460 ml IV Total 266 ml # Voids 9 # Bowel Movements 3 General: Alert, Cooperative, No Acute Distress HEENT: Atraumatic, PERRLA, EOMI, Mucous Memb Moist/[place] Neck: Supple, No JVD Lungs: Clear to Auscultation Heart: Regular Rate Abdomen: Normal Bowel Sounds, Soft, No Tenderness Extremities: No Edema Neuro: Other (generalized weakness Mild cognitive deficits) Assessment/Plan Assessment 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 F/U with PCP OTIS Greco MD Jun 25, 2016 13:16
[2016-06-25] MEDS ORDERED: LACT20SO2 PO (13:20)
[2016-06-25] MEDS ORDERED: AMLO5TAB2 PO (13:20)
[2016-06-25] MEDS ORDERED: LOSA50TA36 PO (13:20)
[2016-06-25] MEDS ORDERED: IBUP-2055 PO (13:20)
[2016-06-25] MEDS: ACETAMINOPHEN 325 MG TABLET/CAPLET (TYLENOL) PO PRN (14:40)
--- NOTE | 2016-06-25 15:03 | Speech Therapy Daily Note ---
Speech Daily Progress Note Subjective The patient was seated upright in recliner upon entrance. The patient greeted the clinician appropriately and agreed to participate in the cognitive treatment session on this date. Objective The Qasim Cognitive Assessment (MoCA) Version Two was provided on this date to complete a re-assessment prior to discharge. The patient demonstrated a mild cognitive (improvement from his initial evaluation) impairment displaying a result of +24/30. Below are the specific results of the evaluation: - Visuospatial/Executive Function: The patient was able to accurately copy a rectangle, complete trail-making activity, and complete the clock drawing. - Naming: The patient was able to name three of three single items. - Memory (Immediate and Delayed): The patient was able to recall three of five single words immediately and one of five single words following a five minute delay. - Attention: The patient was able to repeat five digits immediately and identify a letter in a string of letters. The patient was unable to provide three digits in reverse order (working memory). - Language: The patient was able to accurately repeat single phrases. - Abstractions: The patient was able to state a similarity between two items ( simple and complex). - Orientation: The patient was oriented to date, month, year, place, and city. Assessment Assessment Current Status: Good Progress Treatment Plan Continue Plan of Care Communication Comprehension: 5 Expression: 5 Social Cognition Social Interaction: 5 Problem Solvin Memory: 4 Speech Short Term Goals Short Term Goals Short Term Goals 1. The patient will demonstrate 80% accuracy with simple orientation tasks with mild clinician cueing. 2. The patient will recall and demonstrate two functional memory strategies for use at home. 3. The patient will complete functional, simple ADL's with 80% accuracy ( reading a clock, writing a check). Time Frame-STG: One Week Speech Skilled Nursing Goals Attendance Officer Goals 1. The patient will demonstrate improved cognitive linguistic function for increased safety and function with ADL's. Comprehension: 5 Expression: 5 Social Interaction: 5 Problem Solvin Memory: 4 Speech-Plan Treatment Plan Speech Therapy Treatment Plan: Continue Plan of Care Continue skilled speech therapy to target functional memory strategies. Treatment Duration: Jul 18, 2016 # of days/week Five. Visits Per Week: Five. Minutes/Day (M-F): 30 Rehab Potential: Good Safety Risks/Education Teaching Recipient: Patient Teaching Methods: Discussion Response to Teaching: Verbalize Understanding Education Topics Provided: Plan of Care, Results, Recommendations Time Speech Therapy Time In: 09:00 Speech Therapy Time Out: 09:30 Total Billed Time: 30 Billed Treatment Time 1, GEORGI BEGUM Jun 25, 2016 15:03
--- NOTE | 2016-06-25 15:45 | Therapy Group Daily Note ---
Therapy Daily Group Note Exercises LE Seated Exercise, UE Exercise, Other (Memorization) Other/Notes Pt ambulated to group w/o AD at [facility]. Pt participated in PT/OT group which consists of Introduction (Name, Where you are from & Favorite Place to Visit), Socialization, Memorization Activity, UE/LE Seated Ex as well as Words of [place] and Encouragement. PT actively participated in group by completing EX with group as well as trying to pick matches during Memorization Activity and giving Words of [place]. Pt returned to recliner in room to rest at end of tx with all needs met. Start Time: 13:00 Stop Time: 14:10 Total Billed Treatment Time: 70 Total Billed Treatment 1, GRP GLADYS RUTHERFORD UNIFIED COMMUNICATIONS ARCHITECT Jun 25, 2016 15:45
[2016-06-25 15:53] LABS: BASOPHILS % (AUTO) 0 % (0-10); EOSINOPHILS # (AUTO) 0.1 10^3/uL (0.0-0.3); EOSINOPHILS % (AUTO) 1 % (0-10); LYMPHOCYTES # (AUTO) 2.7 X 10^3 (1.0-4.0); LYMPHOCYTES % (AUTO) 29 % (12-44); MEAN CORPUSCULAR HEMOGLOBIN 34 PG (25-34); MEAN CORPUSCULAR HGB CONC 34 G/DL (32-36); MEAN CORPUSCULAR VOLUME 100 FL (80-99); MEAN PLATELET VOLUME 8.6 FL (7.4-10.4); MONOCYTES # (AUTO) 0.7 X 10^3 (0.0-1.0); MONOCYTES % (AUTO) 7 % (0-12); NEUTROPHILS # (AUTO) 5.9 X 10^3 (1.8-7.8); NEUTROPHILS % (AUTO) 63 % (42-75); PLATELET COUNT 323 10^3/uL (130-400); RED BLOOD COUNT 3.35 10^6/uL (4.35-5.85); RED CELL DISTRIBUTION WIDTH 15.6 % (10.0-14.5); WHITE BLOOD COUNT 9.4 10^3/uL (4.3-11.0)
[2016-06-25 16:06] LABS: ANION GAP 13 MMOL/L (5-14); BLOOD UREA NITROGEN 7 MG/DL (7-18); BUN/CREATININE RATIO 7; CALCIUM 8.9 MG/DL (8.5-10.1); CARBON DIOXIDE 23 MMOL/L (21-32); CHLORIDE 101 MMOL/L (98-107); CREATININE SERUM 0.94 MG/DL (0.60-1.30); GFR ESTIMATED > 60; GLUCOSE 132 MG/DL (70-105); POTASSIUM 3.6 MMOL/L (3.6-5.0); SODIUM 137 MMOL/L (135-145)
[2016-06-25] MEDS: amLODIPine 5 MG (NORVASC) TAB PO SCH (17:13)
[2016-06-25] MEDS: ALFUZOSIN HCL 10 MG TAB (UROXATRAL) PO SCH (17:13)
[2016-06-25 18:26] VITALS: BP 147/82
[2016-06-25] MEDS: LOSARTAN 50 MG (COZAAR) TAB PO SCH (20:29)
[2016-06-26] MEDS: PANTOPRAZOLE 20 MG TABLET (PROTONIX) PO SCH (06:00)
[2016-06-26 06:29] VITALS: BP 160/90
[2016-06-26 07:06] VITALS: BP 160/90
--- NOTE | 2016-06-26 08:28 | Therapy Team Discharge Summary ---
Therapy Discharge Summary Discharge Recommendations Date of Discharge Therapy D/C Recommendations: Home w/ Family Support, Occupational Therapy Home Care Physical Therapy This patient was seen for skilled PT post admission due to diagnosis of encephalopathy. Upon admit, he was slightly confused and was min assist with transfers and gait and needed assist on 4 steps. Treatment consisted of functional mobility, strength, safety, progression of gait to no assistive device as well as awareness of safe decisions and problem solving. He has made excellent progress and has achieved all goals set at evaluation. Pt to discharge home alone with family support as needed. Recommend follow up care with home PT but unsure if family/patient are willing to accept. DC PT at this time. PT Senior Living Goals Building Construction Contractor Goals PT Building Construction Contractor Goals Time Frame: Jul 03, 2016 Transfers (B,C,W/C) (FIM): 7 Roll Left to Right (QC): 6 Sit to Lying (QC): 6 Lying-Sitting on Side/Bed(QC): 6 Sit to Stand (QC): 6 Chair/Lrp-if-Xwnjf Xfer(QC): 6 Car Transfer (QC): 6 Does the Patient Walk: Yes Gait (FIM): 7 Gait distance (FIM): 3=150 ft Walk 10 feet (QC): 6 Walk 10ft-Uneven Surface(QC): 6 Walk 50ft with 2 Turns (QC): 6 Walk 150 ft (QC): 6 Does the Pt use WC or Scooter?: No Stairs (FIM): 7 # of Steps: 12 1 Step (curb) (QC): 6 4 Steps (QC): 6 12 Steps (QC): 6 Stairs Level Of Assist: 7 Picking up an Object (QC): 6 All goals met. Pt is indep with functional mobility and transfers. OT Building Construction Contractor Goals Building Construction Contractor Goals Time Frame: Jul 04, 2016 Eating (FIM): 6 Eating (QC): 6 Oral Hygiene (QC): 6 Grooming(FIM): 6 Bathing(FIM): 6 Shower/Bathe Self (QC): 6 Upper Body Dressing(FIM): 6 Upper Body Dressing (QC): 6 Lower Body Dressing(FIM): 6 Lower Body Dressing (QC): 6 On/Off Footwear (QC): 6 Toileting(FIM): 6 Toileting Hygiene (QC): 6 Toilet/Commode Transfer(FIM): 6 Toilet/Commode Transfer (QC): 6 Comprehension(FIM): 5 Expression (FIM): 5 Social Interaction(FIM): 5 Problem Solving(FIM): 5 Memory(FIM): 4 Additional Goals: 2-Verbalize Understanding, 3-ImproveStrength/Pooja 1=Demonstrate adherence to instructed precautions during ADL tasks. 2=Patient will verbalize/demonstrate understanding of assistive devices/ modifications for ADL. 3=Patient will improve strength/tolerance for activity to enable patient to perform ADL's. Speech Senior Living Goals Senior Living Goals 1. The patient will demonstrate improved cognitive linguistic function for increased safety and function with ADL's. Comprehension: 5 Expression: 5 Social Interaction: 5 Problem Solvin Memory: 4 JAIME HARTMANN PT Jun 26, 2016 08:28
--- NOTE | 2016-06-26 08:37 | PM & R (SOAP) Progress Note ---
Subjective Subjective/Events-last exam Patient was discharged to home early this AM with his daughter.Has progressed well Blood pressure still somewhat elevated Patient will have f/u with PCP DR Person re this. Objective Exam Last Set of Vital Signs Vital Signs Date Time Temp Pulse Resp B/P Pulse Ox O2 Delivery O2 Flow Rate FiO2 06/26/16 07:06 90 18 160/90 95 06/26/16 06:29 98.4 Room Air Capillary Refill : I&O Intake and Output 06/26/16 00:00 Intake Total 1326 ml Balance 1326 ml Intake Oral 1060 ml IV Total 266 ml # Voids 6 General: Alert, Cooperative, No Acute Distress HEENT: Atraumatic, PERRLA, EOMI, Mucous Memb Moist/[place] Neck: Supple, No JVD Lungs: Clear to Auscultation Heart: Regular Rate Abdomen: Normal Bowel Sounds, Soft, No Tenderness Extremities: No Edema Neuro: Other (generalized weakness Mild cognitive deficits) Results Lab Laboratory Tests 06/25/16 15:40: Anion Gap 13, BUN/Creatinine Ratio 7, Basophils # (Auto) 0.0, Basophils (%) ( Auto) 0, Blood Urea Nitrogen 7, Calcium Level 8.9, Carbon Dioxide Level 23, Chloride Level 101, Creatinine 0.94, Eosinophils # (Auto) 0.1, Eosinophils (%) ( Auto) 1, Estimat Glomerular Filtration Rate > 60, Glucose Level 132H, Hematocrit 34L, Hemoglobin 11.5L, Lymphocytes # (Auto) 2.7, Lymphocytes (%) ( Auto) 29, Mean Corpuscular Hemoglobin 34, Mean Corpuscular Hemoglobin Concent 34 , Mean Corpuscular Volume 100H, Mean Platelet Volume 8.6, Monocytes # (Auto) 0.7 , Monocytes (%) (Auto) 7, Neutrophils # (Auto) 5.9, Neutrophils (%) (Auto) 63, Platelet Count 323, Potassium Level 3.6, Red Blood Count 3.35L, Red Cell Distribution Width 15.6H, Sodium Level 137, White Blood Count 9.4 Assessment/Plan Assessment 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 F/U with PCP DR Person See orders OTIS FERNANDEZ MD Jun 26, 2016 08:37
--- NOTE | 2016-06-26 10:43 | Therapy Team Discharge Summary ---
Therapy Discharge Summary Discharge Recommendations Date of Discharge Jun 26, 2016 at 06:52 Therapy D/C Recommendations: Home w/ Family Support, Occupational Therapy Home Care Occupational Therapy Pt. is discharging home today with daughter. Pt. has met all goals with some safety concerns. However, it is unknown if these safety concerns are from baseline, or if this is new. Pt. is functionally able to complete tasks, but safety concerns noted at times because he completes them fast and sometimes somewhat impulsive. Pt. is discharging home with daughter's assist. Recommend home health OT to make sure pt. is safe in home. PT Stock Pitcher Goals Fci Goals PT Fci Goals Time Frame: Jul 03, 2016 Transfers (B,C,W/C) (FIM): 7 Roll Left to Right (QC): 6 Sit to Lying (QC): 6 Lying-Sitting on Side/Bed(QC): 6 Sit to Stand (QC): 6 Chair/Hfe-og-Pfsqg Xfer(QC): 6 Car Transfer (QC): 6 Does the Patient Walk: Yes Gait (FIM): 7 Gait distance (FIM): 3=150 ft Walk 10 feet (QC): 6 Walk 10ft-Uneven Surface(QC): 6 Walk 50ft with 2 Turns (QC): 6 Walk 150 ft (QC): 6 Does the Pt use WC or Scooter?: No Stairs (FIM): 7 # of Steps: 12 1 Step (curb) (QC): 6 4 Steps (QC): 6 12 Steps (QC): 6 Stairs Level Of Assist: 7 Picking up an Object (QC): 6 OT Fci Goals Fci Goals Time Frame: Jul 04, 2016 Eating (FIM): 6 (met) Eating (QC): 6 (met) Oral Hygiene (QC): 6 (met) Grooming(FIM): 6 (met) Bathing(FIM): 6 (met) Shower/Bathe Self (QC): 6 (met) Upper Body Dressing(FIM): 6 (met) Upper Body Dressing (QC): 6 (met) Lower Body Dressing(FIM): 6 (met) Lower Body Dressing (QC): 6 (met) On/Off Footwear (QC): 6 (met) Toileting(FIM): 6 (met) Toileting Hygiene (QC): 6 (met) Toilet/Commode Transfer(FIM): 6 (met) Toilet/Commode Transfer (QC): 6 (met) Comprehension(FIM): 5 Expression (FIM): 5 Social Interaction(FIM): 5 Problem Solving(FIM): 5 Memory(FIM): 4 Additional Goals: 2-Verbalize Understanding, 3-ImproveStrength/Pooja 1=Demonstrate adherence to instructed precautions during ADL tasks. 2=Patient will verbalize/demonstrate understanding of assistive devices/ modifications for ADL. 3=Patient will improve strength/tolerance for activity to enable patient to perform ADL's. Speech Stock Pitcher Goals Fci Goals 1. The patient will demonstrate improved cognitive linguistic function for increased safety and function with ADL's. Comprehension: 5 Expression: 5 Social Interaction: 5 Problem Solvin Memory: 4 NOE CRUM OT Jun 26, 2016 10:43
--- NOTE | 2016-07-10 10:42 | DISCHARGE SUMMARY ---
DATE OF ADMISSION: 06/20/2016 DATE OF DISCHARGE: 06/26/2016 HISTORY OF PRESENT ILLNESS: The patient is an 89-year-old male, who had recently been discharged from the hospital on 06/07 after treatment for herpes zoster with left trigeminal nerve involvement and concern for zoster ophthalmicus. It was felt that he did not have zoster ophthalmicus. He was sent home with Valtrex every 8 hours. He became more fatigued, developed headaches fever and nausea. The patient was brought to the ED and found to be febrile and stuporous. Lumbar puncture revealed a significantly elevated protein level of over [address] of the head was negative. The patient was treated empirically with acyclovir IV for herpes zoster encephalitis. The patient was also found to have mild hyponatremia. The patient had urinary obstruction with prostatism aggravated by narcotic therapies which the patient no longer required. The Pastrana catheter was discontinued. The patient had general debilitation from all this and delirium, and the patient with resulting decline of functional dependence and the patient was referred to inpatient rehabilitation for ongoing therapies. PAST MEDICAL HISTORY: 1. Hypertension. 2. GERD. 3. Arthritis. 4. Hernia repair. 5. Clavicle surgery. 6. Spinal surgery. SOCIAL HISTORY: The patient lives in [place] alone, but has supportive family nearby. MEDICAL COURSE: The patient was followed by hospitalist service and Dr. Apple while on rehabilitation unit. He completed his course of for IV Acyclovir. He was afebrile during his stay. His pulse was 90 on 06/26. Respirations 18, blood pressure 160/90, O2 sat 95% on room air. CBC on 06/25 showed WBC 9.4, hemoglobin and hematocrit 11.5 and 34, MCV 100, platelet count 323,000. Chemistry on 06/25 showed normal electrolytes, BUN and creatinine. Blood glucose was mildly elevated at 132. He continued on his antihypertensive medications and his prednisolone eyedrops. His hyponatremia had resolved with serum sodium 137 on 06/25. REHABILITATION COURSE: He progressed well with his therapies. He had increased strength and endurance. Speech therapy notes upon admission, he has significant impairment in memory, mild to moderate impairment in problem solving, social interaction, expression and comprehension. The patient demonstrated mild to moderate cognitive impairment with deficits noted in attention, orientation and memory. The patient had skilled speech therapy to address these issues and he demonstrated mild cognitive improvement from his initial evaluation displaying the results of 24 out of 30 on Qasim cognitive assessment version II. The patient lobbied for an early discharge which was approved and he may have ongoing therapies on an outpatient basis. OT notes that he had met all goals but there are still some safety concerns uncertain if these safety concerns are from him baseline or if this is new. He is functionally able to complete tasks but safety concerns noted at times because he completes them fast and sometimes somewhat impulsive. He will be discharging home with his daughter's assistance. Supervision for some of his activities but is modified independent for the most part for dressing, toileting, toilet transfers, grooming, bathing, eating. Upon admission, he was set up for upper body dressing. Min assist for lower body dressing, supervision to standby assist for the remainder of his ADLs, other than eating, which was modified independent with extra time. He has dentures and reported there are foods he cannot without his dentures. PT notes upon admission, he was slightly confused and was min assist for transfers, and gait and needed assistance to go up and down 4 steps. He made excellent progress and is modified independent to supervision for bed mobility, transfers, and ambulation without gait aide. DISCHARGE INSTRUCTIONS: He will have follow-up with PCP, Dr. Person, follow with home health care. Continue current diet. He completed his course of antibiotics. DISCHARGE MEDICATIONS: 1. Bystolic 5 mg p.o. daily. 2. Flomax 0.4 mg p.o. daily. 3. Prednisolone one drop left eye q.i.d. 4. Amlodipine 5 mg p.o. daily. 5. Cozaar 100 mg p.o. daily. 6. Uroxatral 10 mg p.o. daily. 7. Protonix 20 mg p.o. b.i.d. 8. Tylenol 650 mg p.o. q.4 hours p.r.n. mild pain or fever. DISCHARGE DIAGNOSES: 1. 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 2. Hypertension, controlled with medication. 3. Hyponatremia, resolved. 4. GERD, on Protonix. 5. BPH with urinary retention, on medications. 6. Chronic bronchitis. 7. Presbycusis 8. Mild normocytic anemia. 9. Mild hypoglycemia with serum sodium 132 on 06/25. CONDITION AT DISCHARGE: Improved and stable. PROGNOSIS: Rehab prognosis appears good for continued improvement at home with ongoing therapies. He may be more appropriate for a more formal assisted living setting than his daughter can provide due to some mild cognitive deficits and safety concerns. 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
[2016-07-21] MEDS ORDERED: NEBI5TAB8 PO (08:11)
[2016-07-21] MEDS ORDERED: VALA10004 PO (08:11)
== END 2016-06-26 06:52 | disposition home or self-care (01) | DRG 73 ==
PROVIDERS: ADMIT Physical Medicine & Rehabilitation; ATTEND Physical Medicine & Rehabilitation
DX: B02.0 Zoster encephalitis (principal); G93.40 Encephalopathy, unspecified; E87.1 Hypo-osmolality and hyponatremia; I10 Essential (primary) hypertension; K21.9 Gastro-esophageal reflux disease without esophagitis; N40.1 Benign prostatic hyperplasia with lower urinary tract symptoms; R33.9 Retention of urine, unspecified; J42 Unspecified chronic bronchitis; Z66 Do not resuscitate; H91.10 Presbycusis, unspecified ear
CPT/HCPCS: 36415; 80048; 85025

== ENCOUNTER 2016-07-01 19:28 | Inpatient (IN) | payer MEDICARE ==
[~2016-07-01] VITALS: Ht 172.7 cm; Wt 59.1 kg
[~2016-07-01 19:28] MED LIST changes: +IBUP-2055 PO; +LOSA50TA36 PO
--- OUTSIDE RECORDS SUMMARY | 2016-07-01 19:33 | XMS REPORT | Continuity of Care Document ---
Author Author [facility] Organization [facility] Address Unknown Phone Unavailable Care Team Providers Care Hotel Maintenance Technician Name Role Phone DEVIN NEW MD PCP Insurance Providers Payer Name Policy Number Subscriber Name Relationship Wps Medicare [id number] Glenn Boykin 20 Self / Same As Patient [employer] [place] Supp [id number] Glenn Boykin 20 Self / Same As Patient Advance Directives Directive Response Recorded Date/Time Advance Directives Yes 06/13/16 5:30pm Health Care Power of Pollution Control Engineer Suhail PINEDA DTR 06/13/16 5:30pm Organ Donor [...] - 99.5) 06/20/2016 6:00am Temperature (Calculated Celsius) 36.74243 degrees C (36.4 - 37.5) 06/20/2016 6:00am [...] 8 inches 06/09/2016 9:55am Height (Calculated Centimeters) 172.363455 cm 06/09/2016 9:55am Weight (Pounds) 134 pounds 06/13/2016 6:00am Weight (Ounces) 5.0 oz 06/12/2016 6:33am Weight (Calculated Grams) 51379.378 gm 06/13/2016 6:00am Weight (Calculated Kilograms) 60.542046 kilograms 06/13/2016 6:00am Calculated BMI 22.3 05/31/2016 [...] 5-9 05/30/2016 11:50am 05/30/2016 12:12pm Urine Specific [place] 1.010 * 1.016-1.022 05/30/2016 11:50am 2016 12:12pm [...] CANAL, PERCUTANEOUS APPROACH, DIAGNOSTIC Completed KOJO YATES POT BUILDER Encounters Encounter Location Arrival/Admit Date Discharge/Depart Date Attending Provider Discharged Inpatient [facility] 06/13/16 3:42pm 9:49am DIEGO MCKOY DO Discharged Inpatient [facility] 06/09/16 3:23pm 3:42pm DEVIN NEW MD Discharged Inpatient [facility] 06/05/16 11:42am 2:20pm DIEGO MCKOY DO Discharged Inpatient [facility] 06/02/16 11:57am 11:38am ELLSI ROSARIO MD Departed Emergency Room [facility] 05/30/16 9:04am 05/30 12:46pm DEJUAN BRANDON MD
[2016-07-01] MEDS ORDERED: NS IV 500 ML 500 ML IV ONE ×2 (19:51→20:41)
[2016-07-01 19:59] LABS: BASOPHILS % (AUTO) 0 % (0-10); EOSINOPHILS # (AUTO) 0.1 10^3/uL (0.0-0.3); EOSINOPHILS % (AUTO) 1 % (0-10); LYMPHOCYTES # (AUTO) 3.3 X 10^3 (1.0-4.0); LYMPHOCYTES % (AUTO) 26 % (12-44); MEAN CORPUSCULAR HEMOGLOBIN 35 PG (25-34); MEAN CORPUSCULAR HGB CONC 36 G/DL (32-36); MEAN CORPUSCULAR VOLUME 97 FL (80-99); MEAN PLATELET VOLUME 8.6 FL (7.4-10.4); MONOCYTES # (AUTO) 1.3 X 10^3 (0.0-1.0); MONOCYTES % (AUTO) 10 % (0-12); NEUTROPHILS # (AUTO) 8.1 X 10^3 (1.8-7.8); NEUTROPHILS % (AUTO) 63 % (42-75); PLATELET COUNT 393 10^3/uL (130-400); RED BLOOD COUNT 4.07 10^6/uL (4.35-5.85); RED CELL DISTRIBUTION WIDTH 15.9 % (10.0-14.5); WHITE BLOOD COUNT 12.9 10^3/uL (4.3-11.0)
[2016-07-01 20:11] LABS: PROTHROMBIN TIME PATIENT 12.9 SEC (12.2-14.7)
[2016-07-01 20:21] LABS: ALANINE AMINOTRANSFERASE 21 U/L (0-55); ALBUMIN 3.9 G/DL (3.2-4.5); ANION GAP 13 MMOL/L (5-14); ASPARTATE AMINO TRANSFERASE 15 U/L (5-34); BILIRUBIN,TOTAL 0.8 MG/DL (0.1-1.0); BLOOD UREA NITROGEN 12 MG/DL (7-18); BUN/CREATININE RATIO 14; CALCIUM 8.9 MG/DL (8.5-10.1); CARBON DIOXIDE 23 MMOL/L (21-32); CHLORIDE 95 MMOL/L (98-107); CREATININE SERUM 0.85 MG/DL (0.60-1.30); GFR ESTIMATED > 60; GLUCOSE 130 MG/DL (70-105); POTASSIUM 3.4 MMOL/L (3.6-5.0); SODIUM 131 MMOL/L (135-145); TOTAL PROTEIN 6.5 G/DL (6.4-8.2)
--- NOTE | 2016-07-01 20:41 | ED General ---
General Chief Complaint: Altered Mental Status Stated Complaint: AMS Nursing Triage Note: FAMILY REPORTS RECENT D/C FROM [facility]OSP[facility] FOR [facility]AL [facility]EN[facility]. FAMILY REPORTS INCREASED WEAKNESS, DECREASED APPETITE X3 DAYS WITH CONFUSED SPEECH TODAY. Nursing Sepsis Screen: No Definite Risk Source of Information: Patient Exam Limitations: No Limitations History of Present Illness Time Seen by Provider: 20:00 Initial Comments Here with family who reports that he has had intermittent altered mental status today with confusion and confused speech as well as weakness. He has had multiple events in the last few months and has had a long hospitalization. Apparently he was just discharged last Friday and was doing better on and Friday and Friday. Yesterday he was more tired and today they were having difficulty with him taking his medicines and eating. He also was more sleepy and confused with confused speech. Family states this is definitely a change today. No focal deficits just globally weak and confused. Reportedly mild fever today. No vomiting or breathing problems noted no diarrhea noted. Patient denies complaints but is confused. Timing/Duration: 12-24 Hours, Getting Worse Severity: Moderate Associated Systoms: No Chest Pain, Fever/ChillsNo Nausea/Vomiting, No Shortness of Air, Weakness Allergies and Home Medications Allergies Uncoded Allergies: pcn, iv dye (Allergy, Intermediate, hives and sob , 06/01/16) Home Medications Amlodipine Besylate 5 Mg Tablet #30 5 MG PO 18 Prescribed by: OTIS FERNANDEZ on 06/25/16 1320 Ibuprofen 200 Mg Tablet #60 400 MG PO Q6H PRN PRN MILD PAIN Prescribed by: OTIS FERNANDEZ on 06/25/16 1320 Lactulose 20 Gm/30 Ml Solution #1 20 GM PO BID Prescribed by: OTIS FERNANDEZ on 06/25/16 1320 Losartan Potassium 50 Mg Tablet #30 100 MG PO HS Prescribed by: OTIS FERNANDEZ on 06/25/16 1320 Nebivolol HCl 5 Mg Tablet 5 MG PO DAILY PRN PRN HEART RATE (Reported) Omeprazole 20 Mg Capsule.dr 20 MG PO BID (Reported) Prednisolone Acetate 1 Ml Drops.susp 5Days 1 DROP OS QID (Reported) HAS NOT STARTED YET / FILLED 06/07/16 #5ML FOR A 5 DAY THERAPY Tamsulosin HCl 0.4 Mg Cap.er.24h 0.4 MG PO DAILY (Reported) Constitutional: see HPINo chills, fever Respiratory: no symptoms reported Cardiovascular: no symptoms reported Gastrointestinal: no symptoms reported Other Unable to complete review of systems due to altered mental status and confusion. Past Weiopts-Dvcazz-Nifddb Hx Patient Social History Alcohol Use: Denies Use Recreational Drug Use: No Smoking Status: Former Smoker Type Used: Cigarettes 2nd Hand Smoke Exposure: No Recent Foreign Travel: No Contact w/Someone Who Travel: No Recent Infectious Disease Expo: No Recent Hopitalizations: Yes (VIRAL MENINGITIS) Immunizations Up To Date Date of Pneumonia Vaccine: Jul 10, 2011 Date of Influenza Vaccine: Feb 09, 2016 Seasonal Allergies Seasonal Allergies: No Surgeries HX Surgeries: Yes (right clavicle separtation surgery 1986, hernia repair 2006 , spinal sx) Surgeries: Abdominal, Appendectomy, Orthopedic Respiratory Hx Respiratory Disorders: Yes (chronic bronchitis) Respiratory Disorders: Chronic Bronchitis Cardiovascular Hx Cardiac Disorders: Yes Cardiac Disorders: Hypertension Neurological Hx Neurological Disorders: Yes Neurological Disorders: TIA Reproductive System Hx Reproductive Disorders: No Sexually Transmitted Disease: No HIV/AIDS: No Genitourinary Hx Genitourinary Disorders: No Gastrointestinal Hx Gastrointestinal Disorders: Yes Gastrointestinal Disorders: Gastroesophageal Reflux Musculoskeletal Hx Musculoskeletal Disorders: Yes Musculoskeletal Disorders: Arthritis Endocrine Hx Endocrine Disorders: No HEENT HX ENT Disorders: Yes Loss of Vision: Bilateral Hearing Impairment: Hard of Hearing Cancer Hx Cancer: No Psychosocial Hx Psychiatric Problems: No Blood Transfusions Hx Blood Disorders: No Adverse Reaction to a Blood Tr: No Reviewed Nursing Assessment Reviewed/Agree w Nursing PMH: Yes Family Medical History Significant Family History: No Pertinent Family Hx Family Medial History: Abdominal aortic aneurysm 19 FATHER Cardiovascular disease G8 BROTHER G8 SISTER Completed stroke 19 MOTHER FH: cancer 19 MOTHER Physical Exam-Suspected Sepsis Physical Exam Vital Signs Vital Sign - Last 12Hours 07/01/16 19:50 Temp 99.4 Pulse 107 Resp 18 B/P 150/100 Pulse Ox 95 O2 Delivery Nasal Cannula O2 Flow Rate 2 Capillary Refill : Less Than 3 Seconds Blood Pressure Mean: 124 General Appearance: No Apparent Distress Thin HEENT: PERRL/EOMI Pharynx Normal Neck: Full Range of Motion Non Tender Supple Respiratory: Lungs Clear Normal Breath Sounds Cardiovascular: No Murmur Tachycardia Gastrointestinal: Non Tender Soft Back: Normal Inspection No CVA Tenderness No Vertebral Tenderness Extremity: Non Tender No Calf Tenderness Neurologic/Psychiatric: Alert Oriented x3 No Motor/Sensory Deficits lead sprinkler II- XII Norm as Tested Other Skin: normal color warm/dry Progress/Results/Core Measures Suspected Sepsis Recent Fever Within 48 Hours: Yes Infection Criteria Present: Documented Infection New/Unexplained Altered Menta: No Sepsis Screen: No Definite Risk Sepsis Diagnosis: SIRS Temperature:99.0 Pulse: 88 Respiratory Rate: 16 Laboratory Tests 07/01/16 19:50: White Blood Count 12.9H Blood Pressure 157 /107 Mean: 124 Laboratory Tests 07/01/16 19:50: Creatinine 0.85, INR Comment 1.0, Platelet Count 393, Total Bilirubin 0.8 Results/Orders Lab Results Laboratory Tests Test 07/01/16 19:50 07/01/16 20:41 07/01/16 21:55 Range/Units Activated Partial Thromboplast Time 22 L 24-35 SEC Alanine Aminotransferase (ALT/SGPT) 21 0-55 U/L Albumin 3.9 3.2-4.5 G/DL Alkaline Phosphatase 53 40-136 U/L Anion Gap 13 5-14 MMOL/L Aspartate Amino Transf (AST/SGOT) 15 5-34 U/L BUN/Creatinine Ratio 14 Basophils # (Auto) 0.0 0.0-0.1 10^3/uL Basophils (%) (Auto) 0 0-10 % Blood Urea Nitrogen 12 7-18 MG/DL Calcium Level 8.9 8.5-10.1 MG/DL Carbon Dioxide Level 23 21-32 MMOL/L Chloride Level 95 L 98-107 MMOL/L Creatinine 0.85 0.60-1.30 MG/DL Eosinophils # (Auto) 0.1 0.0-0.3 10^3/uL Eosinophils (%) (Auto) 1 0-10 % Estimat Glomerular Filtration Rate > 60 Glucose Level 130 H 70-105 MG/DL Hematocrit 40 40-54 % Hemoglobin 14.3 # 13.3-17.7 G/DL INR Comment 1.0 0.8-1.4 Lactic Acid Level 2.28 *H 0.50-2.00 MMOL/L Lymphocytes # (Auto) 3.3 1.0-4.0 X 10^3 Lymphocytes (%) (Auto) 26 12-44 % Mean Corpuscular Hemoglobin 35 H 25-34 PG Mean Corpuscular Hemoglobin Concent 36 32-36 G/DL Mean Corpuscular Volume 97 80-99 FL Mean Platelet Volume 8.6 7.4-10.4 FL Monocytes # (Auto) 1.3 H 0.0-1.0 X 10^3 Monocytes (%) (Auto) 10 0-12 % Neutrophils # (Auto) 8.1 H 1.8-7.8 X 10^3 Neutrophils (%) (Auto) 63 42-75 % Platelet Count 393 130-400 10^3/uL Potassium Level 3.4 L 3.6-5.0 MMOL/L Prothrombin Time 12.9 12.2-14.7 SEC Red Blood Count 4.07 L 4.35-5.85 10^6/uL Red Cell Distribution Width 15.9 H 10.0-14.5 % Sodium Level 131 L 135-145 MMOL/L Total Bilirubin 0.8 0.1-1.0 MG/DL Total Protein 6.5 6.4-8.2 G/DL Troponin I < 0.30 <0.30 NG/ML White Blood Count 12.9 H 4.3-11.0 10^3/uL Urine Bacteria NEGATIVE /HPF Urine Bilirubin NEGATIVE NEGATIVE Urine Casts NONE /LPF Urine Clarity CLEAR Urine Color YELLOW Urine Crystals NONE /LPF Urine Culture Indicated NO Urine Glucose (UA) NEGATIVE NEGATIVE Urine Ketones NEGATIVE NEGATIVE Urine Leukocyte Esterase NEGATIVE NEGATIVE Urine Mucus NEGATIVE /LPF Urine Nitrite NEGATIVE NEGATIVE Urine Protein 2+ H NEGATIVE Urine RBC 0-2 /HPF Urine RBC (Auto) 1+ H NEGATIVE Urine Specific [place] 1.010 L 1.016-1.022 Urine Urobilinogen NORMAL NORMAL MG/DL Urine WBC RARE /HPF Urine pH 7 5-9 Micro Results Microbiology 07/01/16 Influenza Types A,B Antigen (JUAN A) - Final, Complete My Orders Orders-ISATU BOOTH MD Cbc With Automated Diff (07/01/16 19:51) Comprehensive Metabolic Panel (07/01/16 19:51) Lactic Acid Analyzer (07/01/16 19:51) Blood Culture (07/01/16 19:51) Sputum Culture (07/01/16 19:51) Ua Culture If Indicated (07/01/16 19:51) Protime With Inr (07/01/16 19:51) Partial Thromboplastin Time (07/01/16 19:51) Chest 1 View, Ap/Pa Only (07/01/16 19:51) O2 (07/01/16 19:51) Saline Lock/Iv-Start (07/01/16 19:51) Vital Signs Adult Sepsis Patie Q1HR (07/01/16 19:51) Remove Rings In Anticipation O (07/01/16 19:51) Influenza A And B Antigens (07/01/16 19:51) Saline Lock/Iv-Start (07/01/16 19:51) Ns Iv 500 Ml (Sodium Chloride 0.9%) (07/01/16 19:51) Ct Head Wo (07/01/16 20:36) Ekg Tracing (07/01/16 20:41) Troponin I (07/01/16 20:41) Ns Iv 500 Ml (Sodium Chloride 0.9%) (07/01/16 20:41) Medications Given in ED Current Medications Medications Dose Ordered Sig/Dia Route Start Time Stop Time Status Last Admin Dose Admin Sodium Chloride 500 ml @ 0 mls/hr Q0M ONCE IV 07/01/16 19:51 07/01/16 19:53 DC 07/01/16 20:03 0 MLS/HR Sodium Chloride 500 ml @ 0 mls/hr Q0M ONCE IV 07/01/16 20:41 07/01/16 20:42 DC 07/01/16 20:54 500 MLS/HR Vital Signs/I&O Vital Sign - Last 12Hours 07/01/16 07/01/16 07/01/16 19:50 19:50 20:33 Temp 99.4 99.0 Pulse 107 88 Resp 18 16 B/P 150/100 157/107 Pulse Ox 95 95 98 O2 Delivery Nasal Cannula Nasal Cannula Nasal Cannula O2 Flow Rate 2 2 1 Capillary Refill : Less Than 3 Seconds Blood Pressure Mean: 124 Progress Note : Progress Note Seen and evaluated. IV, labs, UA, chest x-ray and CT head ordered. Lactic acid and blood cultures ordered. Normal saline 500 mL bolus. 2039: Lactic acid elevated at 2.28. Urine pending. Stroke scale is negative. 2133: UA negative and CXR negative. 2199: I have discussed the case with Dr. Tobias at 2134. I discussed findings and concerns with family. We'll admit the patient observation status for possible dehydration. Patient did have only mild elevation of temperature which may be related to dehydration. There is no infection focus noted on chest x-ray are ordered and UA. CT scan is unchanged. Patient may be having decline also related to the age and multiple illnesses recently. Patient does live at home alone. I did discuss the concerns about this with the family and they are also concerned and understand that he may need placement soon. ECG Initial ECG Impression Date: Jul 01, 2016 Initial ECG Impression Time: 20:48 Initial ECG Rate: 91 Initial ECG Rhythm: Normal Sinus Initial ECG Comparisson: No Previous ECG Available Comment Sinus rhythm with occasional PAC. Left axis deviation. Right bundle branch block. Change from previous of 05/02/2005. No evidence of ST elevation NH. Interpreted by me. Diagnostic Imaging Diagonstic Imaging: Xray Plain Films/CT/US/NM/MRI: chest Comments [facility]. [place], [place] NAME: CRISTINA BOYKIN [facility] REC#: [id number] PT STATUS: REG ER : 1925 PHYSICIAN: ISATU BOOTH MD ADMIT DATE: 07/01/16/ER Draft Date of Exam:07/01/16 CHEST 1 VIEW, AP/PA ONLY EXAM: Single view chest. FINDINGS: There are degenerative features in the shoulders and spine but no acute osseous abnormality. IMPRESSION: Stable radiographic appearance of the chest. No acute cardiopulmonary process demonstrated. Dictated on workstation # [id number] Dict: 07/01/162035 Trans: 07/01/162051 [facility] [id number] Interpreted by: MIRZA JUAREZ MD Electronically signed by: Diagonstic Imaging: CT Plain Films/CT/US/NM/MRI: head Comments NAME: CRISTINA BOYKIN [facility] REC#: [id number] PT STATUS: REG ER : 1925 PHYSICIAN: ISATU BOOTH MD ADMIT DATE: 07/01/16/ER Signed Date of Exam: 07/01/16 CT HEAD WO PROCEDURE: CT head without contrast. TECHNIQUE: Multiple contiguous axial images were obtained through the brain without the use of intravenous contrast. INDICATION: Altered mental status and altered level of consciousness. Comparison made with prior study from 06/09/2016. FINDINGS: Global volume loss is unchanged compatible with age. There is no CT demonstration of intracranial hemorrhage. There is no mass effect. There is no hydrocephalus. There is no abnormal extra-axial collection. Basilar cisterns are patent and posterior fossa is unremarkable. There is no evidence of loss of hall-white differentiation. Mastoids appear clear. There is no acute calvarial abnormality but there is an abnormal lucent calvarial lesion demonstrated within the high left parietal bone. This has not significantly changed from previous exams. Prior MRI had imaging appearance most suggestive of a benign lesion such as a hemangioma. IMPRESSION: 1. Global volume loss with no CT demonstration of an acute intracranial abnormality. 2. 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 Dictated by: Dictated on workstation # [id number] Dict: 07/01/162106 Trans: 07/01/162123 [id number] Interpreted by: MIRZA JUAREZ MD Electronically signed by:MIRZA JUAREZ MD 07/01/162125 Departure Communication Time/Spoke to Admitting Phy: 21:35 Impression Impression: Primary Impression: Dehydration Additional Impression: Altered mental status Qualified Code: R41.0 - Disorientation, unspecified Disposition: 09 ADMITTED INPATIENT Condition: Stable Decision to Admit Reason: Admit from ER (General) Decision to Admit/Date: Jul 01, 2016 Time/Decision to Admit Time: 21:35 Departure-Patient Inst. Referrals: DEVIN NEW MD (PCP/Family) Primary Care Physician ISATU BOOTH MD Jul 01, 2016 20:41
[2016-07-01 20:47] LABS: BILIRUBIN,URINE NEGATIVE (NEGATIVE); KETONES,URINE NEGATIVE (NEGATIVE); LEUKOCYTE ESTERASE ,URINE NEGATIVE (NEGATIVE); NITRITE,URINE NEGATIVE (NEGATIVE); PH,URINE 7 (5-9); PROTEIN,URINE 2+ (NEGATIVE); UROBILINOGEN,URINE NORMAL (NORMAL)
--- NOTE | 2016-07-01 20:52 | Diagnostic Imaging Report ---
EXAM: Single view chest. FINDINGS: Background interstitial changes within the lungs are not appreciably changed. There is no focal alveolar consolidation or effusion. There is no pneumothorax. Heart size and mediastinal contours are stable without evidence of failure. There are degenerative features in the shoulders and spine but no acute osseous abnormality. IMPRESSION: Stable radiographic appearance of the chest. No acute cardiopulmonary process demonstrated. Dictated by: Dictated on workstation # [id number]
[2016-07-01 20:57] LABS: WBC,URINE RARE /HPF
--- NOTE | 2016-07-01 21:15 | Diagnostic Imaging Report ---
PROCEDURE: CT head without contrast. TECHNIQUE: Multiple contiguous axial images were obtained through the brain without the use of intravenous contrast. INDICATION: Altered mental status and altered level of consciousness. Comparison made with prior study from 06/09/2016. FINDINGS: Global volume loss is unchanged compatible with age. There is no CT demonstration of intracranial hemorrhage. There is no mass effect. There is no hydrocephalus. There is no abnormal extra-axial collection. Basilar cisterns are patent and posterior fossa is unremarkable. There is no evidence of loss of hall-white differentiation. Mastoids appear clear. There is no acute calvarial abnormality but there is an abnormal lucent calvarial lesion demonstrated within the high left parietal bone. This has not significantly changed from previous exams. Prior MRI had imaging appearance most suggestive of a benign lesion such as a hemangioma. IMPRESSION: 1. Global volume loss with no CT demonstration of an acute intracranial abnormality. 2. 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 Dictated by: Dictated on workstation # [id number]
[2016-07-01 23:00] VITALS: BP 145/85
[2016-07-01] MEDS ORDERED: NS IV 1000 ML 1,000 ML ONE (23:12)
[2016-07-02] VITALS: BP 157/84
[2016-07-02] MEDS: NS IV 1000 ML 1,000 ML IV SCH ×2 (00:15→12:58)
[2016-07-02 04:00] VITALS: BP 155/83
[2016-07-02 05:32] LABS: BASOPHILS % (AUTO) 0 % (0-10); EOSINOPHILS # (AUTO) 0.1 10^3/uL (0.0-0.3); EOSINOPHILS % (AUTO) 1 % (0-10); LYMPHOCYTES # (AUTO) 3.1 X 10^3 (1.0-4.0); LYMPHOCYTES % (AUTO) 29 % (12-44); MEAN CORPUSCULAR HEMOGLOBIN 35 PG (25-34); MEAN CORPUSCULAR HGB CONC 35 G/DL (32-36); MEAN CORPUSCULAR VOLUME 98 FL (80-99); MEAN PLATELET VOLUME 8.6 FL (7.4-10.4); MONOCYTES # (AUTO) 0.9 X 10^3 (0.0-1.0); MONOCYTES % (AUTO) 9 % (0-12); NEUTROPHILS # (AUTO) 6.4 X 10^3 (1.8-7.8); NEUTROPHILS % (AUTO) 61 % (42-75); PLATELET COUNT 376 10^3/uL (130-400); RED BLOOD COUNT 3.75 10^6/uL (4.35-5.85); RED CELL DISTRIBUTION WIDTH 15.9 % (10.0-14.5); WHITE BLOOD COUNT 10.6 10^3/uL (4.3-11.0)
[2016-07-02 05:57] LABS: ALANINE AMINOTRANSFERASE 17 U/L (0-55); ALBUMIN 3.7 G/DL (3.2-4.5); ANION GAP 12 MMOL/L (5-14); ASPARTATE AMINO TRANSFERASE 15 U/L (5-34); BILIRUBIN,TOTAL 0.9 MG/DL (0.1-1.0); BLOOD UREA NITROGEN 8 MG/DL (7-18); BUN/CREATININE RATIO 10; CALCIUM 8.4 MG/DL (8.5-10.1); CARBON DIOXIDE 25 MMOL/L (21-32); CHLORIDE 99 MMOL/L (98-107); CREATININE SERUM 0.79 MG/DL (0.60-1.30); GFR ESTIMATED > 60; GLUCOSE 104 MG/DL (70-105); POTASSIUM 3.5 MMOL/L (3.6-5.0); SODIUM 136 MMOL/L (135-145); TOTAL PROTEIN 5.9 G/DL (6.4-8.2)
[2016-07-02 08:00] VITALS: BP 147/85
[2016-07-02] MEDS ORDERED: TAMS0.4C98 PO (08:25)
[2016-07-02] MEDS ORDERED: LOSA100T28 PO (08:25)
[2016-07-02] MEDS ORDERED: AMLO5TAB2 PO (09:01)
[2016-07-02] MEDS ORDERED: IBUP-2055 PO (09:01)
[2016-07-02] MEDS ORDERED: ACET-93 PO (09:01)
[2016-07-02] MEDS ORDERED: PROP10DR9 OU (09:02)
--- NOTE | 2016-07-02 11:19 | Anesthesia-Procedure Note ---
Procedure Start/Stop Time Date of Procedure: Jul 02, 2016 Start Time: 11:00 Stop Time: 11:15 Procedures/Interventions Discussed Risk,Benefits: Yes Patient Consents: Yes Position: Lying, Right Sterile Technique: Yes Opening Pressure: 14 Fluid Color: Slight yellow tint Spinal Needle Used: Other (22 G pencan) Procedure Notes Spoke with Patient and family about Lumbar Puncture. Consent signed by daughter. Back prepped and draped in sterile fashion. Procedure as above. Tolerated well. KOJO YATES CRNA Jul 02, 2016 11:19
[2016-07-02 11:37] LABS: CSF GLUCOSE 47 MG/DL (50-80)
[2016-07-02 11:46] LABS: APPEARANCE,CSF CLEAR; COLOR,CSF SL XANTH; WHITE BLOOD CELL,CSF 137 CELLS (0-5)
[2016-07-02 11:57] LABS: LYMPHOCYTES,CSF 86 %
[2016-07-02 11:58] LABS: CSF TOTAL PROTEIN 259 MG/DL (15-40)
[2016-07-02 12:00] VITALS: BP 178/100
[2016-07-02] MEDS ORDERED: NEBIVOLOL 5 MG TAB (BYSTOLIC) PO PRN (12:30)
[2016-07-02] MEDS ORDERED: IBUPROFEN TABLET 200 MG TAB PO PRN (12:30)
[2016-07-02] MEDS ORDERED: ARTIFICAL TEARS 0.4 ML UNIT DOSE (REFRESH PLUS) OU PRN (13:00)
[2016-07-02] MEDS ORDERED: PATIENT MAY USE OWN MEDS, ALL MC SCH (13:15)
[2016-07-02] MEDS: amLODIPine 5 MG (NORVASC) TAB PO SCH (13:57)
[2016-07-02 16:00] VITALS: BP 139/59
[2016-07-02 19:40] VITALS: BP 167/94
[2016-07-02] MEDS: LOSARTAN 100MG TABLETS PO SCH (20:03)
--- NOTE | 2016-07-02 20:55 | History & Physical-Hospitalist ---
HPI History of Present Illness: HPI/Chief Complaint Mr. 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 History taken by his daughter at the bedside. She stated that he initially did well for the first 48 hours. He then lost his appetite for food and fluids. He became increasingly confused the evening of his admission and at 4 a.m. he woke her up from sleep getting ready to go to work. He has been retired for 15 years. He appeared flushed and his temperature is a recall was a little over 100. He was brought to the emergency room where he was confused and did reports that he had a headache. He denied neck stiffness chills or fever but did exhibit inattention and his history was suspect. 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 He had no evidence for keratitis or corneal involvement and finished up a course of Viroptic and valacyclovir. As I recall roughly a week and this he developed fever and left-sided headache. Lumbar puncture revealed elevated protein level around 230 decreased glucose level is predominantly lymphocytic. Herpes simplex 1 and 2 were negative until and bacterial cultures were negative Gram stain was negative. I had thought that herpes zoster studies were done but cannot locate them at this time. 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 Date Seen 07/02/16 Attending Physician Raghu Tobias MD PCP Darren Person MD Referring Physician Date of Admission Jul 01, 2016 at 22:30 Home Medications & Allergies Home Medications Reviewed patient Home Medication Reconciliation Form Allergies Allergies Coded Allergies Iodinated Contrast Media - Oral and (Unverified Allergy, Severe, HIVES & SHORTNESS OF BREATH, 07/03/16) Penicillins (Unverified Allergy, Severe, HIVES, SHORTNESS OF BREATH, 07/03/16) Uncoded Allergies pcn, iv dye ( Allergy, Intermediate, hives and sob , 06/01/16) Past Zqkbito-Zltenz-Ghzrun Hx Patient Social History Alcohol Use: Denies Use Recreational Drug Use: No Smoking Status: Never a Smoker Type Used: Cigarettes 2nd Hand Smoke Exposure: No Physical Abuse Screen: No Sexual Abuse: No Recent Foreign Travel: No Contact w/other who traveled: No Recent Hopitalizations: Yes (VIRAL MENINGITIS) Recent Infectious Disease Expo: No Immunizations Up To Date Date of Pneumonia Vaccine: Jul 10, 2011 Date of Influenza Vaccine: Feb 09, 2016 Seasonal Allergies Seasonal Allergies: No Surgeries HX Surgeries: Yes (right clavicle separtation surgery 1986, hernia repair 2006 , spinal sx) Surgeries: Abdominal, Appendectomy, Orthopedic Respiratory Hx Respiratory Disorders: Yes (chronic bronchitis) Cardiovascular Hx Cardiovascular Disorders: Yes Cardiac Disorders: Hypertension Neurological Hx Neurological Disorders: Yes Neurological Disorders: TIA Reproductive System Hx Reproductive Disorders: No Sexually Transmitted Disease: No HIV/AIDS: No Genitourinary Hx Genitourinary Disorders: No Gastrointestinal Hx Gastrointestinal Disorders: Yes Gastrointestinal Disorders: Gastroesophageal Reflux Musculoskeletal Hx Musculoskeletal Disorders: Yes Musculoskeletal Disorders: Arthritis Endocrine Hx Endocrine Disorders: No HEENT HX ENT Disorders: Yes Loss of Vision: Bilateral Hearing Impairment: Hard of Hearing Cancer Hx Cancer: No Psychosocial Hx Psychiatric Problems: No Blood Transfusions Hx Blood Disorders: No Adverse Reaction to a Blood Tr: No Reviewed Nursing Assessment Reviewed/Agree w Nursing PMH: Yes Family Medical History Significant Family History: No Pertinent Family Hx Family Hx: Abdominal aortic aneurysm 19 FATHER Cardiovascular disease G8 BROTHER G8 SISTER Completed stroke 19 MOTHER FH: cancer 19 MOTHER Review of Systems Constitutional: No chills, No diaphoresis, No dizziness, No fever, malaise, weakness Respiratory: No cough, No dyspnea on exertion, No hemoptysis, No orthopnea, No phlegm, No short of breath, No stridor, No wheezing Cardiovascular: no symptoms reported, No chest pain, No edema, No Hx of Intervention, No palpitations, No syncope, No vascular heart diseas Psychiatric/Neurological: Headache, Other (Confusion) Physical Exam Physical Exam Vital Signs Vital Sign - Last 12Hours 07/01/16 19:50 Temp 99.4 Pulse 107 Resp 18 B/P (MAP) 150/100 Pulse Ox 95 O2 Delivery Nasal Cannula O2 Flow Rate 2 Capillary Refill : Less Than 3 Seconds General Appearance: Other (Pleasantly confused no acute distress) Eyes: Bilateral Eye EOMI, Bilateral Eye Normal Inspection, Bilateral Eye PERRL Neck: Full Range of Motion, Supple Respiratory: Chest Non Tender, Lungs Clear, Normal Breath Sounds, No Accessory Muscle Use, No Respiratory Distress Cardiovascular: Regular Rate, Rhythm, No Edema, No Gallop, No JVD, No Murmur, Normal Peripheral Pulses Gastrointestinal: Normal Bowel Sounds, No Organomegaly, No Pulsatile Mass, Non Tender, Soft Extremity: Normal Capillary Refill, Normal Inspection, Normal Range of Motion, Non Tender, No Calf Tenderness, No Pedal Edema Neurologic/Psychiatric: Alert (Oriented 2 but does exhibit inattention. When asked he dote that he has a headache but appears to be in no acute distress he follow simple commands mild generalized weakness is noted he is able to use a walker independently), early intervention specialist II-XII Norm as Tested Results Results/Procedures Lab Assessment/Plan Admission Diagnosis 1. 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 the possibility of her nonbacterial forms of meningitis or Lyme's are in the differential as well will await fungal studies and Lyme serologies. . We will also consult with infectious disease. Clinical Quality Measures DVT/VTE Risk/Contraindication: Risk Factor Score Per Nursin RFS Level Per Nursing on Admit: 3=High SOBEIDA NEGRON MD Jul 02, 2016 20:55
[2016-07-02] MEDS ORDERED: ACYCLOVIR 500 MG/10 ML INJ (ZOVIRAX) VIAL IV ONE (21:53)
[2016-07-02] MEDS ORDERED: D5W 100 ML IVPB 100 ML IV ONE (21:55)
[2016-07-02] MEDS: D5W IV SCH (22:13)
[2016-07-02] MEDS: ACYCLOVIR IV SCH (22:13)
[2016-07-03] VITALS: BP 153/89
[2016-07-03] MEDS: NS IV 1000 ML 1,000 ML IV SCH ×2 (02:48→15:30)
[2016-07-03] MEDS ORDERED: ACYCLOVIR 500 MG/10 ML INJ (ZOVIRAX) VIAL IV ONE (04:49)
[2016-07-03] MEDS ORDERED: D5W 50 ML IVPB SOLUTION 50 ML IV ONE (04:55)
[2016-07-03] MEDS: D5W IV SCH (05:21)
[2016-07-03] MEDS: ACYCLOVIR IV SCH ×5 (05:21→22:00)
[2016-07-03 08:00] VITALS: BP 146/85
--- NOTE | 2016-07-03 08:52 | Progress Note-Hospitalist ---
Subjective Date Seen 07/03/16 Subjective/Events-last exam family report less confusion with improved appetite. MAXIMUM TEMPERATURE a little over 100. Patient tolerating solids appears to be in no acute distress. Reports mild headache denies photophobia. Also denies neck stiffness. Objective Exam Vital Signs Vital Sign - Last 12Hours 07/01/16 19:50 Temp 99.4 Pulse 107 Resp 18 B/P (MAP) 150/100 Pulse Ox 95 O2 Delivery Nasal Cannula O2 Flow Rate 2 Capillary Refill : Less Than 3 Seconds General Appearance: No Apparent Distress Eyes: Bilateral Eye PERRL Neck: Full Range of Motion, Supple Respiratory: Chest Non Tender, Lungs Clear, Normal Breath Sounds, No Accessory Muscle Use, No Respiratory Distress Cardiovascular: Regular Rate, Rhythm, No Edema, No Gallop, No JVD, No Murmur, Normal Peripheral Pulses, Tachycardia (regular heart rate 102) Neurologic/Psychiatric: Alert, Normal Mood/Affect, Other (oriented 2) Skin: Normal Color, Warm/Dry Results/Procedures Lab Bad table Assessment/Plan Assessment and Plan Assess & Plan/Chief Complaint 1. 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 Viral studies pending. If this turns out to be the case patient will likely require a longer course of viral therapy having failed 2 weeks of IV therapy. When studies are back we will discuss with infectious disease at . SOBEIDA NEGRON MD Jul 03, 2016 08:52
[2016-07-03 12:00] VITALS: BP 145/92
[2016-07-03] MEDS: SODIUM CHLORIDE IV SCH ×4 (13:24→22:00)
[2016-07-03] MEDS: [UNRECOGNIZED DRUG - MIXTURE] OU PRN (13:34)
[2016-07-03 15:55] VITALS: BP 154/88
[2016-07-03 19:55] VITALS: BP 156/89
[2016-07-03] MEDS: LOSARTAN 100MG TABLETS PO SCH (20:21)
[2016-07-03] MEDS: ACETAMINOPHEN 500 MG TAB (TYLENOL) PO PRN (22:31)
[2016-07-03 23:24] VITALS: BP 147/83
[2016-07-04] MEDS: SODIUM CHLORIDE IV SCH ×4 (05:18→17:24)
[2016-07-04] MEDS: ACYCLOVIR IV SCH ×4 (05:18→17:24)
[2016-07-04] MEDS: CATHETER FLUSH 10 ML SYR IV PRN ×2 (05:19→17:24)
[2016-07-04 08:00] VITALS: BP 172/91
[2016-07-04] MEDS: amLODIPine 5 MG (NORVASC) TAB PO SCH (08:24)
[2016-07-04] MEDS: NEBIVOLOL 5 MG TAB (BYSTOLIC) PO SCH (09:20)
[2016-07-04] MEDS: IBUPROFEN TABLET 200 MG TAB PO PRN (10:47)
[2016-07-04] MEDS: ACETAMINOPHEN 500 MG TAB (TYLENOL) PO PRN (11:16)
[2016-07-04 15:40] VITALS: BP 116/66
[2016-07-04] MEDS ORDERED: SENNOSIDES 8.6 MG (SENOKOT) TAB PO NR (16:00)
[2016-07-04 17:37] LABS: CSF LYME IGM <1:2 (<1:2)
[2016-07-04] MEDS: POLYETHYLENE GLYCOL 17 GM (MIRALAX) PACK PO SCH (19:59)
[2016-07-04] MEDS: LOSARTAN 100MG TABLETS PO SCH (20:02)
--- NOTE | 2016-07-04 20:30 | Progress Note-Hospitalist ---
Subjective Date Seen 07/04/16 Subjective/Events-last exam He reports minimal intermittent headache and appears to be in no acute distress. He remains afebrile with no hallucinations or agitation. Objective Exam Vital Signs Vital Sign - Last 12Hours 07/01/16 19:50 Temp 99.4 Pulse 107 Resp 18 B/P (MAP) 150/100 Pulse Ox 95 O2 Delivery Nasal Cannula O2 Flow Rate 2 Capillary Refill : Less Than 3 Seconds Respiratory: Chest Non Tender, Lungs Clear, Normal Breath Sounds, No Accessory Muscle Use, No Respiratory Distress Cardiovascular: Regular Rate, Rhythm, No Edema, No Gallop, No JVD, No Murmur, Normal Peripheral Pulses Assessment/Plan Assessment and Plan Assess & Plan/Chief Complaint 1. 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 Viral studies pending. If this turns out to be the case patient will likely require a longer course of viral therapy having relapsed after 2 weeks of IV acyclovir therapy. When studies are back we will discuss with infectious disease at . SOBEIDA NEGRON MD Jul 04, 2016 20:30
[2016-07-05] VITALS: BP 109/61
[2016-07-05] MEDS: ACYCLOVIR IV SCH ×4 (05:38→17:16)
[2016-07-05] MEDS: SODIUM CHLORIDE IV SCH ×4 (05:38→17:16)
[2016-07-05] MEDS: IBUPROFEN TABLET 200 MG TAB PO PRN (07:33)
[2016-07-05 08:00] VITALS: BP 147/77
[2016-07-05] MEDS: NEBIVOLOL 5 MG TAB (BYSTOLIC) PO SCH (08:18)
[2016-07-05] MEDS: amLODIPine 5 MG (NORVASC) TAB PO SCH (08:19)
[2016-07-05] MEDS: [UNRECOGNIZED DRUG - MIXTURE] OU PRN ×3 (08:20→18:39)
[2016-07-05 15:50] VITALS: BP 124/85
--- NOTE | 2016-07-05 17:01 | Progress Note-Hospitalist ---
Subjective HPI/CC On Admission Mr. 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 History taken by his daughter at the bedside. She stated that he initially did well for the first 48 hours. He then lost his appetite for food and fluids. He became increasingly confused the evening of his admission and at 4 a.m. he woke her up from sleep getting ready to go to work. He has been retired for 15 years. He appeared flushed and his temperature is a recall was a little over 100. He was brought to the emergency room where he was confused and did reports that he had a headache. He denied neck stiffness chills or fever but did exhibit inattention and his history was suspect. 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 He had no evidence for keratitis or corneal involvement and finished up a course of Viroptic and valacyclovir. As I recall roughly a week and this he developed fever and left-sided headache. Lumbar puncture revealed elevated protein level around 230 decreased glucose level is predominantly lymphocytic. Herpes simplex 1 and 2 were negative until and bacterial cultures were negative Gram stain was negative. I had thought that herpes zoster studies were done but cannot locate them at this time. 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 Date Seen 07/05/16 Subjective/Events-last exam Mr. Bartlett wired one-on-one care last night due to hallucinations with agitated behavior. This morning he is alert and oriented 2 and her counts the fact that a friend between nowpassed away appeared a.m. and threatened commit suicide. He saw her clearly and it was upsetting for him. He had not received any medication. He attempted to leave but was redirected and did not require any medication. He was up for most of the night but upon my arrival around 1030 he was sleeping soundly. He was easily arousable and understands that while he saw was not actually real this morning. He denies headaches or photophobia and remains afebrile. Objective Exam Vital Signs Vital Sign - Last 12Hours 07/01/16 19:50 Temp 99.4 Pulse 107 Resp 18 B/P (MAP) 150/100 Pulse Ox 95 O2 Delivery Nasal Cannula O2 Flow Rate 2 Capillary Refill : Less Than 3 Seconds General Appearance: No Apparent Distress, Anxious Respiratory: Chest Non Tender, Lungs Clear, Normal Breath Sounds, No Accessory Muscle Use, No Respiratory Distress Cardiovascular: Regular Rate, Rhythm, No Edema, No Gallop, No JVD, No Murmur Neurologic/Psychiatric: Alert, Normal Mood/Affect (set for slide anxiety over last night's hallucination strength and gait this morning are normal.), Other Assessment/Plan Assessment and Plan Assess & Plan/Chief Complaint 1. 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 Viral studies pending. If this turns out to be the case patient will likely require a longer course of viral therapy having relapsed after 2 weeks of IV acyclovir therapy. When studies are back we will discuss with infectious disease at . 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 The patient also does not exhibit any cranial nerve deficits. He also reports no past history of Cuteo's palsy or other cranial nerve deficits. SOBEIDA NEGRON MD Jul 05, 2016 17:01
[2016-07-05] MEDS: ACETAMINOPHEN 500 MG TAB (TYLENOL) PO PRN (19:44)
[2016-07-05] MEDS: LOSARTAN 100MG TABLETS PO SCH (20:00)
[2016-07-05] MEDS: POLYETHYLENE GLYCOL 17 GM (MIRALAX) PACK PO SCH (20:06)
[2016-07-06] VITALS: BP 142/74
[2016-07-06] MEDS: ACYCLOVIR IV SCH ×4 (06:13→18:21)
[2016-07-06] MEDS: [UNRECOGNIZED DRUG - MIXTURE] OU PRN ×3 (06:13→20:31)
[2016-07-06] MEDS: SODIUM CHLORIDE IV SCH ×4 (06:13→18:21)
[2016-07-06] MEDS: IBUPROFEN TABLET 200 MG TAB PO PRN ×3 (06:20→20:31)
[2016-07-06 08:00] VITALS: BP 129/65
[2016-07-06] MEDS: NEBIVOLOL 5 MG TAB (BYSTOLIC) PO SCH (09:43)
[2016-07-06] MEDS: amLODIPine 5 MG (NORVASC) TAB PO SCH (09:43)
[2016-07-06] MEDS: ACETAMINOPHEN 500 MG TAB (TYLENOL) PO PRN (11:49)
--- NOTE | 2016-07-06 12:19 | Progress Note-Hospitalist ---
Subjective HPI/CC On Admission Mr. 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 History taken by his daughter at the bedside. She stated that he initially did well for the first 48 hours. He then lost his appetite for food and fluids. He became increasingly confused the evening of his admission and at 4 a.m. he woke her up from sleep getting ready to go to work. He has been retired for 15 years. He appeared flushed and his temperature is a recall was a little over 100. He was brought to the emergency room where he was confused and did reports that he had a headache. He denied neck stiffness chills or fever but did exhibit inattention and his history was suspect. 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 He had no evidence for keratitis or corneal involvement and finished up a course of Viroptic and valacyclovir. As I recall roughly a week and this he developed fever and left-sided headache. Lumbar puncture revealed elevated protein level around 230 decreased glucose level is predominantly lymphocytic. Herpes simplex 1 and 2 were negative until and bacterial cultures were negative Gram stain was negative. I had thought that herpes zoster studies were done but cannot locate them at this time. 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 Date Seen 07/06/16 Subjective/Events-last exam patient alert with daughter at the bedside this morning. No problems with confusion or delirium last night. He reports no headache or photophobia. Objective Exam Vital Signs Vital Sign - Last 12Hours 07/01/16 19:50 Temp 99.4 Pulse 107 Resp 18 B/P (MAP) 150/100 Pulse Ox 95 O2 Delivery Nasal Cannula O2 Flow Rate 2 Capillary Refill : Less Than 3 Seconds General Appearance: No Apparent Distress Respiratory: Chest Non Tender, Lungs Clear, Normal Breath Sounds, No Accessory Muscle Use, No Respiratory Distress Cardiovascular: Regular Rate, Rhythm, No Edema, No Gallop, No JVD, No Murmur Assessment/Plan Assessment and Plan Assess & Plan/Chief Complaint 1. 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 Viral studies pending. If this turns out to be the case patient will likely require a longer course of viral therapy having relapsed after 2 weeks of IV acyclovir therapy. When studies are back we will discuss with infectious disease at . 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 The patient also does not exhibit any cranial nerve deficits. He also reports no past history of Cueto's palsy or other cranial nerve deficits. SOBEIDA NEGRON MD Jul 06, 2016 12:19
[2016-07-06 16:49] VITALS: BP 140/77
[2016-07-06] MEDS: POLYETHYLENE GLYCOL 17 GM (MIRALAX) PACK PO SCH (20:31)
[2016-07-06] MEDS: LOSARTAN 100MG TABLETS PO SCH (20:31)
[2016-07-06 23:33] VITALS: BP 123/59
[2016-07-07] MEDS: [UNRECOGNIZED DRUG - MIXTURE] OU PRN ×3 (05:15→20:44)
[2016-07-07] MEDS: ACYCLOVIR IV SCH ×4 (05:15→18:18)
[2016-07-07] MEDS: SODIUM CHLORIDE IV SCH ×4 (05:15→18:18)
[2016-07-07 08:00] VITALS: BP 146/86
[2016-07-07] MEDS: amLODIPine 5 MG (NORVASC) TAB PO SCH (08:03)
[2016-07-07] MEDS: NEBIVOLOL 5 MG TAB (BYSTOLIC) PO SCH (08:03)
[2016-07-07] MEDS: ACETAMINOPHEN 500 MG TAB (TYLENOL) PO PRN ×2 (08:05→18:54)
--- NOTE | 2016-07-07 10:40 | Progress Note-Hospitalist ---
Subjective HPI/CC On Admission Mr. 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 History taken by his daughter at the bedside. She stated that he initially did well for the first 48 hours. He then lost his appetite for food and fluids. He became increasingly confused the evening of his admission and at 4 a.m. he woke her up from sleep getting ready to go to work. He has been retired for 15 years. He appeared flushed and his temperature is a recall was a little over 100. He was brought to the emergency room where he was confused and did reports that he had a headache. He denied neck stiffness chills or fever but did exhibit inattention and his history was suspect. 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 He had no evidence for keratitis or corneal involvement and finished up a course of Viroptic and valacyclovir. As I recall roughly a week and this he developed fever and left-sided headache. Lumbar puncture revealed elevated protein level around 230 decreased glucose level is predominantly lymphocytic. Herpes simplex 1 and 2 were negative until and bacterial cultures were negative Gram stain was negative. I had thought that herpes zoster studies were done but cannot locate them at this time. 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 Date Seen 07/07/16 Subjective/Events-last exam patient is awake and alert this morning voicing no complaints. Nursing staff say for the last 48 hours there has been no problems with agitation or confusion at night or during the day. Objective Exam Vital Signs Vital Sign - Last 12Hours 07/01/16 19:50 Temp 99.4 Pulse 107 Resp 18 B/P (MAP) 150/100 Pulse Ox 95 O2 Delivery Nasal Cannula O2 Flow Rate 2 Capillary Refill : Less Than 3 Seconds General Appearance: No Apparent Distress HEENT: Other (no ocular edema is noted no conjunctival injection is noted patient denies headache this morning. There is a lot of sensitivity to light touch in the periorbital area on the left) Respiratory: Lungs Clear, Normal Breath Sounds, No Accessory Muscle Use, No Respiratory Distress Cardiovascular: Regular Rate, Rhythm, No Edema, No Gallop, No JVD, No Murmur Assessment/Plan Assessment and Plan Assess & Plan/Chief Complaint 1. 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 herpes zoster viral studies from CSF pending at this time.. If this turns out to be the case patient will likely require a longer course of viral therapy having relapsed after 2 weeks of IV acyclovir therapy. When studies are back we will discuss with infectious disease at . 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 The patient also does not exhibit any cranial nerve deficits. He also reports no past history of Cueto's palsy or other cranial nerve deficits. SOBEIDA NEGRON MD Jul 07, 2016 10:40
[2016-07-07] MEDS: IBUPROFEN TABLET 200 MG TAB PO PRN ×2 (10:43→20:43)
[2016-07-07 16:59] VITALS: BP 105/66
[2016-07-07] MEDS: LOSARTAN 100MG TABLETS PO SCH (20:43)
[2016-07-07] MEDS: POLYETHYLENE GLYCOL 17 GM (MIRALAX) PACK PO SCH (20:45)
[2016-07-07 23:24] VITALS: BP 120/69
[2016-07-08] MEDS: [UNRECOGNIZED DRUG - MIXTURE] OU PRN (04:06)
[2016-07-08] MEDS: SODIUM CHLORIDE IV SCH ×4 (05:50→17:50)
[2016-07-08] MEDS: ACYCLOVIR IV SCH ×4 (05:50→17:50)
[2016-07-08 08:00] VITALS: BP 132/81
--- NOTE | 2016-07-08 08:49 | Progress Note-Hospitalist ---
Subjective HPI/CC On Admission Mr. 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 History taken by his daughter at the bedside. She stated that he initially did well for the first 48 hours. He then lost his appetite for food and fluids. He became increasingly confused the evening of his admission and at 4 a.m. he woke her up from sleep getting ready to go to work. He has been retired for 15 years. He appeared flushed and his temperature is a recall was a little over 100. He was brought to the emergency room where he was confused and did reports that he had a headache. He denied neck stiffness chills or fever but did exhibit inattention and his history was suspect. 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 He had no evidence for keratitis or corneal involvement and finished up a course of Viroptic and valacyclovir. As I recall roughly a week and this he developed fever and left-sided headache. Lumbar puncture revealed elevated protein level around 230 decreased glucose level is predominantly lymphocytic. Herpes simplex 1 and 2 were negative until and bacterial cultures were negative Gram stain was negative. I had thought that herpes zoster studies were done but cannot locate them at this time. 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 Date Seen 07/08/16 Subjective/Events-last exam patient feeling well this morning voicing no complaints. He had no problems with confusion last night and a good breakfast this morning. He denies headache. Objective Exam Vital Signs Vital Sign - Last 12Hours 07/02/16 00:00 Temp 97.9 Pulse 89 Resp 16 B/P (MAP) 157/84 Pulse Ox 98 O2 Delivery Room Air Capillary Refill : Less Than 3 Seconds General Appearance: No Apparent Distress Assessment/Plan Assessment and Plan Assess & Plan/Chief Complaint 1. 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 herpes zoster viral studies from CSF pending at this time.. If this turns out to be the case patient will likely require a longer course of viral therapy having relapsed after 2 weeks of IV acyclovir therapy. When studies are back we will discuss with infectious disease at . 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 The patient also does not exhibit any cranial nerve deficits. He also reports no past history of Cueto's palsy or other cranial nerve deficits. our pathologist should be back from vacation we will check on Malaika zoster CSF titers and then contact infectious disease. SOBEIDA NEGRON MD Jul 08, 2016 08:49
[2016-07-08] MEDS: IBUPROFEN TABLET 200 MG TAB PO PRN ×2 (09:05→19:11)
[2016-07-08] MEDS: amLODIPine 5 MG (NORVASC) TAB PO SCH (09:05)
[2016-07-08] MEDS: NEBIVOLOL 5 MG TAB (BYSTOLIC) PO SCH (09:05)
[2016-07-08 16:23] VITALS: BP 162/89
[2016-07-08] MEDS: POLYETHYLENE GLYCOL 17 GM (MIRALAX) PACK PO SCH (20:13)
[2016-07-08] MEDS: LOSARTAN 100MG TABLETS PO SCH (20:14)
[2016-07-09 00:15] VITALS: BP 143/76
[2016-07-09 04:30] VITALS: BP 150/72
[2016-07-09] MEDS: ACYCLOVIR IV SCH ×4 (05:16→18:14)
[2016-07-09] MEDS: SODIUM CHLORIDE IV SCH ×4 (05:16→18:14)
[2016-07-09 08:00] VITALS: BP 145/75
[2016-07-09] MEDS: IBUPROFEN TABLET 200 MG TAB PO PRN ×2 (08:36→16:08)
[2016-07-09] MEDS: amLODIPine 5 MG (NORVASC) TAB PO SCH (08:36)
[2016-07-09] MEDS: NEBIVOLOL 5 MG TAB (BYSTOLIC) PO SCH (08:36)
[2016-07-09] MEDS: ACETAMINOPHEN 500 MG TAB (TYLENOL) PO PRN ×2 (08:36→16:08)
[2016-07-09] MEDS: [UNRECOGNIZED DRUG - MIXTURE] OU PRN ×2 (08:44→13:24)
[2016-07-09 10:16] LABS: CSF VDRL Non Reactive (Non Reactiv)
[2016-07-09 16:35] VITALS: BP 135/80
--- NOTE | 2016-07-09 20:26 | Progress Note-Hospitalist ---
Subjective HPI/CC On Admission Mr. 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 History taken by his daughter at the bedside. She stated that he initially did well for the first 48 hours. He then lost his appetite for food and fluids. He became increasingly confused the evening of his admission and at 4 a.m. he woke her up from sleep getting ready to go to work. He has been retired for 15 years. He appeared flushed and his temperature is a recall was a little over 100. He was brought to the emergency room where he was confused and did reports that he had a headache. He denied neck stiffness chills or fever but did exhibit inattention and his history was suspect. 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 He had no evidence for keratitis or corneal involvement and finished up a course of Viroptic and valacyclovir. As I recall roughly a week and this he developed fever and left-sided headache. Lumbar puncture revealed elevated protein level around 230 decreased glucose level is predominantly lymphocytic. Herpes simplex 1 and 2 were negative until and bacterial cultures were negative Gram stain was negative. I had thought that herpes zoster studies were done but cannot locate them at this time. 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 Date Seen 07/09/16 Subjective/Events-last exam Glenn reports feeling well there's been no reported confusion at night. He denies headache this morning. Objective Exam Vital Signs Vital Sign - Last 12Hours 07/06/16 00:00 Temp 97.1 Pulse 74 Resp 20 B/P (MAP) 142/74 Pulse Ox 98 O2 Delivery Room Air Capillary Refill : Less Than 3 Seconds General Appearance: No Apparent Distress Respiratory: Lungs Clear, Normal Breath Sounds, No Accessory Muscle Use, No Respiratory Distress Cardiovascular: Regular Rate, Rhythm, No Edema, No Gallop, No JVD, No Murmur Assessment/Plan Assessment and Plan Assess & Plan/Chief Complaint 1. 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 herpes zoster viral studies from CSF pending at this time.. If this turns out to be the case patient will likely require a longer course of viral therapy having relapsed after 2 weeks of IV acyclovir therapy. When studies are back we will discuss with infectious disease at . 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 The patient also does not exhibit any cranial nerve deficits. He also reports no past history of Cueto's palsy or other cranial nerve deficits. our pathologist should be back from vacation we will check on herpes zoster CSF titers and then contact infectious disease. SOBEIDA NEGRON MD Jul 09, 2016 20:25
[2016-07-09] MEDS: POLYETHYLENE GLYCOL 17 GM (MIRALAX) PACK PO SCH (20:58)
[2016-07-09] MEDS: LOSARTAN 100MG TABLETS PO SCH (20:58)
[2016-07-10] VITALS: BP 121/74
[2016-07-10] MEDS: SODIUM CHLORIDE IV SCH ×4 (05:23→18:19)
[2016-07-10] MEDS: ACYCLOVIR IV SCH ×4 (05:23→18:19)
[2016-07-10] MEDS: IBUPROFEN TABLET 200 MG TAB PO PRN ×2 (06:44→21:33)
[2016-07-10] MEDS: ACETAMINOPHEN 500 MG TAB (TYLENOL) PO PRN ×2 (06:44→18:19)
[2016-07-10 08:00] VITALS: BP 144/80
[2016-07-10] MEDS: NEBIVOLOL 5 MG TAB (BYSTOLIC) PO SCH (09:36)
[2016-07-10] MEDS: amLODIPine 5 MG (NORVASC) TAB PO SCH (09:36)
--- NOTE | 2016-07-10 10:48 | Progress Note-Hospitalist ---
Progress Note HPI/CC on Admission Mr. 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 History taken by his daughter at the bedside. She stated that he initially did well for the first 48 hours. He then lost his appetite for food and fluids. He became increasingly confused the evening of his admission and at 4 a.m. he woke her up from sleep getting ready to go to work. He has been retired for 15 years. He appeared flushed and his temperature is a recall was a little over 100. He was brought to the emergency room where he was confused and did reports that he had a headache. He denied neck stiffness chills or fever but did exhibit inattention and his history was suspect. 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 He had no evidence for keratitis or corneal involvement and finished up a course of Viroptic and valacyclovir. As I recall roughly a week and this he developed fever and left-sided headache. Lumbar puncture revealed elevated protein level around 230 decreased glucose level is predominantly lymphocytic. Herpes simplex 1 and 2 were negative until and bacterial cultures were negative Gram stain was negative. I had thought that herpes zoster studies were done but cannot locate them at this time. 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 Progress Notes/Assess & Plan Date Seen 07/10/16 Diagonsis/Assessment & Plan Patient Interview: Pt states that he has not had a BM. Pt states that previously prune juice and apple juice worked to move his bowels. Physical exam stable. Dr. Centeno informed pt that the test results will be ready in two days. 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 Scribed by Gilbert Torres under the direct supervision of Dr. Centeno. DIEGO CENTENO DO Jul 10, 2016 10:48
[2016-07-10 17:00] VITALS: BP 147/81
[2016-07-10 21:00] VITALS: BP 147/76
[2016-07-10] MEDS: LOSARTAN 100MG TABLETS PO SCH (21:33)
[2016-07-10] MEDS: POLYETHYLENE GLYCOL 17 GM (MIRALAX) PACK PO SCH (21:33)
[2016-07-11] VITALS: BP 146/79
[2016-07-11] MEDS: ACYCLOVIR IV SCH ×4 (05:18→18:41)
[2016-07-11] MEDS: SODIUM CHLORIDE IV SCH ×4 (05:18→18:41)
[2016-07-11 07:58] LABS: MISC LAB TEST & RESULT ENCEPH AB PNL CSF
[2016-07-11] MEDS: [UNRECOGNIZED DRUG - MIXTURE] OU PRN ×2 (08:27→17:59)
[2016-07-11] MEDS: amLODIPine 5 MG (NORVASC) TAB PO SCH (08:27)
[2016-07-11] MEDS: NEBIVOLOL 5 MG TAB (BYSTOLIC) PO SCH (08:31)
[2016-07-11 08:38] VITALS: BP 166/67
--- NOTE | 2016-07-11 08:53 | Progress Note-Hospitalist ---
Subjective HPI/CC On Admission Mr. 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 History taken by his daughter at the bedside. She stated that he initially did well for the first 48 hours. He then lost his appetite for food and fluids. He became increasingly confused the evening of his admission and at 4 a.m. he woke her up from sleep getting ready to go to work. He has been retired for 15 years. He appeared flushed and his temperature is a recall was a little over 100. He was brought to the emergency room where he was confused and did reports that he had a headache. He denied neck stiffness chills or fever but did exhibit inattention and his history was suspect. 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 He had no evidence for keratitis or corneal involvement and finished up a course of Viroptic and valacyclovir. As I recall roughly a week and this he developed fever and left-sided headache. Lumbar puncture revealed elevated protein level around 230 decreased glucose level is predominantly lymphocytic. Herpes simplex 1 and 2 were negative until and bacterial cultures were negative Gram stain was negative. I had thought that herpes zoster studies were done but cannot locate them at this time. 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 Date Seen 07/11/16 Subjective/Events-last exam Glenn reports feeling well and voices no complaints. He denies headache and there's been no problems with confusion. Objective Exam Vital Signs Vital Sign - Last 12Hours 07/06/16 00:00 Temp 97.1 Pulse 74 Resp 20 B/P (MAP) 142/74 Pulse Ox 98 O2 Delivery Room Air Capillary Refill : Less Than 3 Seconds General Appearance: No Apparent Distress Assessment/Plan Assessment and Plan Assess & Plan/Chief Complaint 1. in the gyrus panel confirms herpes zoster infection with a high titer 1-64. I discussed the case with infectious disease at and they recommend total of 3 weeks IV acyclovir therapy. We will plan on discharge to swing bed status in the morning to finish out 3 weeks of IV acyclovir. This was discussed with the patient.. SOBEIDA NEGRON MD Jul 11, 2016 08:53
[2016-07-11] MEDS: IBUPROFEN TABLET 200 MG TAB PO PRN ×2 (11:40→17:59)
[2016-07-11] MEDS: ACETAMINOPHEN 500 MG TAB (TYLENOL) PO PRN ×2 (11:41→17:58)
[2016-07-11 15:55] VITALS: BP 118/69
[2016-07-11] MEDS: LOSARTAN 100MG TABLETS PO SCH (20:56)
[2016-07-11] MEDS: POLYETHYLENE GLYCOL 17 GM (MIRALAX) PACK PO SCH (20:56)
[2016-07-12] MEDS: IBUPROFEN TABLET 200 MG TAB PO PRN ×3 (00:04→08:44)
[2016-07-12] MEDS: [UNRECOGNIZED DRUG - MIXTURE] OU PRN ×2 (00:04→05:36)
[2016-07-12] MEDS: ACETAMINOPHEN 500 MG TAB (TYLENOL) PO PRN ×3 (00:04→08:44)
[2016-07-12 00:25] VITALS: BP 133/75
[2016-07-12] MEDS: SODIUM CHLORIDE IV SCH ×2 (05:34)
[2016-07-12] MEDS: ACYCLOVIR IV SCH ×2 (05:34)
[2016-07-12 08:00] VITALS: BP 146/69
[2016-07-12] MEDS: amLODIPine 5 MG (NORVASC) TAB PO SCH (08:45)
[2016-07-12] MEDS: NEBIVOLOL 5 MG TAB (BYSTOLIC) PO SCH (08:46)
--- NOTE | 2016-07-12 13:43 | Discharge Summary-Hospitalist ---
Diagnosis/Chief Complaint Date of Admission Jul 03, 2016 at 09:45 Date of Discharge Jul 12, 2016 at 12:15 Discharge Date: Jul 12, 2016 Admission Diagnosis 1. 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 the possibility of her nonbacterial forms of meningitis or Lyme's are in the differential as well will await fungal studies and Lyme serologies. . We will also consult with infectious disease. Discharge Diagnosis 1. herpes zoster encephalitis I discussed the case with infectious disease at and they recommend total of 3 weeks IV acyclovir therapy. We will plan on discharge to swing bed status in the morning to finish out 3 weeks of IV acyclovir. This was discussed with the patient.. Reason Hospital Visit/Course Mr. 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 History taken by his daughter at the bedside. She stated that he initially did well for the first 48 hours. He then lost his appetite for food and fluids. He became increasingly confused the evening of his admission and at 4 a.m. he woke her up from sleep getting ready to go to work. He has been retired for 15 years. He appeared flushed and his temperature is a recall was a little over 100. He was brought to the emergency room where he was confused and did reports that he had a headache. He denied neck stiffness chills or fever but did exhibit inattention and his history was suspect. 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 He had no evidence for keratitis or corneal involvement and finished up a course of Viroptic and valacyclovir. As I recall roughly a week and this he developed fever and left-sided headache. Lumbar puncture revealed elevated protein level around 230 decreased glucose level is predominantly lymphocytic. Herpes simplex 1 and 2 were negative until and bacterial cultures were negative Gram stain was negative. I had thought that herpes zoster studies were done but cannot locate them at this time. 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 Hospital course: IV acyclovir was initiated. The patient's low-grade fever defervesced with return of appetite and within several days there was resolution of confusion. Patient had one nightmare about a week and a therapy requiring a one-on-one sitter but otherwise his hospital stay was uneventful. Encephalitis panel returned confirming herpes zoster infection with a 1-64 titer. He had a past history of Lyme's disease. His IgM titer was negative his IgG titer was weakly positive at 1-4 favored to be past exposure and not an acute infection. This was discussed with infectious disease at who recommended a three-week course of IV acyclovir. The patient is being discharged to swing bed status to finish out the remainder of a three-week course of IV therapy. Discharge Summary Discharge Physical Examination Allergies: Coded Allergies: Iodinated Contrast Media - Oral and (Unverified Allergy, Severe, HIVES & SHORTNESS OF BREATH, 07/03/16) Penicillins (Unverified Allergy, Severe, HIVES, SHORTNESS OF BREATH, ) Uncoded Allergies: pcn, iv dye (Allergy, Intermediate, hives and sob , 06/01/16) Vitals & I&Os Vital Signs Date Time Temp Pulse Resp B/P (MAP) Pulse Ox O2 Delivery O2 Flow Rate FiO2 07/12/16 08:00 96.4 85 20 146/69 95 Room Air Hospital Course Labs (last 24 hrs) Microbiology 07/01/16 Blood Culture - Final, Complete No growth 07/02/16 Gram Stain - Final, Resulted 07/02/16 CSF Culture - Final, Resulted No growth 07/02/16 Fungal Culture - Preliminary, Resulted No growth 07/01/16 Influenza Types A,B Antigen (JUAN A) - Final, Complete Discharge Home Medications: Active Scripts Active Reported Lubricant Eye Drops (Propylene Glycol) 10 Ml Drops 1 Drop OU Q4H PRN Acetaminophen 500 Mg Tablet 500-1,000 Mg PO Q6H PRN TAKES 1-2 (500 MG) TABLETS / ALTERNATES WITH IBUPROFEN NEEDED Ibuprofen 200 Mg Tablet 200-400 Mg PO Q6H PRN TAKES 1-2 (200 MG) TABLETS / ALTERNATES WITH ACETAMINOPHEN NEEDED Amlodipine Besylate 5 Mg Tablet 5 Mg PO DAILY Losartan Potassium 100 Mg Tablet 100 Mg PO HS Bystolic (Nebivolol HCl) 5 Mg Tablet 5 Mg PO DAILY PRN Instructions to patient/family Please see electonic discharge instructions given to patient. Clinical Quality Measures DVT/VTE Risk/Contraindication: Risk Factor Score Per Nursin RFS Level Per Nursing on Admit: 3=High SOBEIDA NEGRON MD Jul 12, 2016 13:43
[2016-07-21] MEDS ORDERED: VALA10004 PO (08:11)
[2016-07-21] MEDS ORDERED: NEBI5TAB8 PO (08:11)
== END 2016-07-12 12:15 | disposition swing bed (61) | DRG 74 ==
LOC: DELPENDDIS → EDUNIT# 19:28 → ER 19:29 → 4TH 22:30 → UNDOADMOB 22:30 → 4TH 23:00 → OBSVTOIN 07-03 09:45 → INTOOBSV 07-03 09:45
PROVIDERS: ADMIT Internal Medicine; ATTEND Internal Medicine
PROC: 009U3ZX Drainage of Spinal Canal, Percutaneous Approach, Diagnostic (ICD-10-PCS; principal; 2016-07-02)
DX: B02.0 Zoster encephalitis (principal); F05 Delirium due to known physiological condition; E86.0 Dehydration; F03.90 Unspecified dementia, unspecified severity, without behavioral disturbance, psychotic disturbance, mood disturbance, and anxiety; R50.9 Fever, unspecified; Z66 Do not resuscitate; I10 Essential (primary) hypertension; K59.00 Constipation, unspecified; J42 Unspecified chronic bronchitis; K21.9 Gastro-esophageal reflux disease without esophagitis; M19.91 Primary osteoarthritis, unspecified site; H91.93 Unspecified hearing loss, bilateral; Z87.891 Personal history of nicotine dependence; Z86.73 Personal history of transient ischemic attack (TIA), and cerebral infarction without residual deficits; Z86.61 Personal history of infections of the central nervous system
CPT/HCPCS: 36415; 70450; 71010; 80053; 81000; 82945; 83605; 84157; 84484; 85025; 85610; 85730; 86592; 86618; 87040; 87070; 87101; 87205; 87804; 89051; 93005; G0378

== ENCOUNTER 2016-07-12 12:09 | Inpatient (IN) | payer MEDICARE ==
[~2016-07-12] VITALS: Ht 172.7 cm; Wt 54.9 kg
[~2016-07-12 12:09] MED LIST changes: +ACET-93 PO; +PROP10DR9 OU
[2016-07-12] MEDS ORDERED: PATIENT MAY USE OWN MEDS, ALL MC SCH (12:15)
[2016-07-12] MEDS ORDERED: LOSARTAN 100MG TABLETS PO SCH (12:36)
[2016-07-12] MEDS: ACYCLOVIR IV SCH ×2 (14:10→21:04)
[2016-07-12] MEDS: NS IV SCH ×2 (14:10→21:04)
[2016-07-12] MEDS: IBUPROFEN TABLET 200 MG TAB PO PRN (15:35)
[2016-07-12] MEDS: ACETAMINOPHEN 500 MG TAB (TYLENOL) PO PRN (15:36)
[2016-07-12 18:20] VITALS: BP 137/82
[2016-07-12] MEDS: LOSARTAN 100 MG TAB PO SCH (20:25)
[2016-07-12] MEDS: POLYETHYLENE GLYCOL 17 GM (MIRALAX) PACK PO SCH (20:25)
[2016-07-13 05:00] VITALS: BP 162/78
[2016-07-13] MEDS: IBUPROFEN TABLET 200 MG TAB PO PRN ×2 (05:21→14:10)
[2016-07-13] MEDS: SOOTHE EYE DROPS OU PRN (05:21)
[2016-07-13] MEDS: ACYCLOVIR IV SCH ×3 (05:22→21:00)
[2016-07-13] MEDS: NS IV SCH ×3 (05:22→21:00)
[2016-07-13] MEDS: ACETAMINOPHEN 500 MG TAB (TYLENOL) PO PRN (05:22)
[2016-07-13] MEDS: NEBIVOLOL 5 MG TAB (BYSTOLIC) PO SCH (09:32)
[2016-07-13] MEDS: amLODIPine 5 MG (NORVASC) TAB PO SCH (09:33)
[2016-07-13] MEDS ORDERED: HALOPERIDOL 5 MG/ML (HALDOL) AMP IM NR (13:02)
[2016-07-13] MEDS: CATHETER FLUSH 10 ML SYR IV PRN (14:10)
[2016-07-13 19:00] VITALS: BP 152/72
[2016-07-13] MEDS: LOSARTAN 100 MG TAB PO SCH (20:56)
[2016-07-13] MEDS: POLYETHYLENE GLYCOL 17 GM (MIRALAX) PACK PO SCH (20:56)
[2016-07-14] MEDS: NS IV SCH ×3 (05:33→21:21)
[2016-07-14] MEDS: ACYCLOVIR IV SCH ×3 (05:33→21:21)
[2016-07-14 05:53] VITALS: BP 164/73
[2016-07-14] MEDS: IBUPROFEN TABLET 200 MG TAB PO PRN ×2 (09:45→19:37)
[2016-07-14] MEDS: NEBIVOLOL 5 MG TAB (BYSTOLIC) PO SCH (09:45)
[2016-07-14] MEDS: amLODIPine 5 MG (NORVASC) TAB PO SCH (09:45)
[2016-07-14] MEDS: SOOTHE EYE DROPS OU PRN ×2 (10:16→17:57)
[2016-07-14 17:55] VITALS: BP 126/72
[2016-07-14] MEDS: LOSARTAN 100 MG TAB PO SCH (20:47)
[2016-07-14] MEDS: POLYETHYLENE GLYCOL 17 GM (MIRALAX) PACK PO SCH (20:48)
[2016-07-14] MEDS: ACETAMINOPHEN 500 MG TAB (TYLENOL) PO PRN (21:21)
[2016-07-15 05:06] VITALS: BP 148/80
[2016-07-15] MEDS: NS IV SCH ×3 (05:08→21:00)
[2016-07-15] MEDS: ACYCLOVIR IV SCH ×3 (05:08→21:00)
[2016-07-15] MEDS: NEBIVOLOL 5 MG TAB (BYSTOLIC) PO SCH (08:11)
[2016-07-15] MEDS: amLODIPine 5 MG (NORVASC) TAB PO SCH (08:11)
[2016-07-15] MEDS: SOOTHE EYE DROPS OU PRN ×2 (08:12→21:00)
[2016-07-15] MEDS: ACETAMINOPHEN 500 MG TAB (TYLENOL) PO PRN (08:12)
[2016-07-15] MEDS: IBUPROFEN TABLET 200 MG TAB PO PRN (08:12)
[2016-07-15 18:05] VITALS: BP 129/77
[2016-07-15] MEDS: LOSARTAN 100 MG TAB PO SCH (20:56)
[2016-07-15] MEDS: POLYETHYLENE GLYCOL 17 GM (MIRALAX) PACK PO SCH (20:57)
[2016-07-15] MEDS: CATHETER FLUSH 10 ML SYR IV PRN (20:58)
[2016-07-16] MEDS: IBUPROFEN TABLET 200 MG TAB PO PRN ×2 (02:12→20:53)
[2016-07-16] MEDS: ACYCLOVIR IV SCH ×3 (05:06→20:53)
[2016-07-16] MEDS: NS IV SCH ×3 (05:06→20:53)
[2016-07-16 06:00] VITALS: BP 150/78
[2016-07-16] MEDS: POLYETHYLENE GLYCOL 17 GM (MIRALAX) PACK PO SCH (08:47)
[2016-07-16] MEDS: NEBIVOLOL 5 MG TAB (BYSTOLIC) PO SCH (08:54)
[2016-07-16] MEDS: amLODIPine 5 MG (NORVASC) TAB PO SCH (08:54)
[2016-07-16] MEDS: ACETAMINOPHEN 500 MG TAB (TYLENOL) PO PRN (10:58)
--- NOTE | 2016-07-16 12:21 | Progress Note-Hospitalist ---
Subjective Date Seen 07/16/16 Subjective/Events-last exam Patient reports he feels well dental headache last night they took some ibuprofen for. His appetite has been normal and he is been afebrile.'s been visiting with a friend today who states that he appears well Objective Exam Vital Signs Vital Sign - Last 12Hours 07/12/16 18:20 Temp 97.7 Pulse 66 Resp 20 B/P (MAP) 137/82 Pulse Ox 97 O2 Delivery Room Air Capillary Refill : General Appearance: No Apparent Distress Assessment/Plan Assessment and Plan Assess & Plan/Chief Complaint 1. Herpes zoster meningitis patient here to finish up a three-week course of IV acyclovir having relapsed after a 2 week course. This will be accomplished I believe on Friday I will check his medical record. SOBEIDA NEGRON MD Jul 16, 2016 12:21
[2016-07-16] MEDS: CATHETER FLUSH 10 ML SYR IV PRN (13:54)
[2016-07-16 18:45] VITALS: BP 161/83
[2016-07-16] MEDS: SOOTHE EYE DROPS OU PRN (20:53)
[2016-07-16] MEDS: LOSARTAN 100 MG TAB PO SCH (20:53)
[2016-07-17] MEDS: NS IV SCH ×3 (05:29→21:08)
[2016-07-17] MEDS: ACYCLOVIR IV SCH ×3 (05:29→21:08)
[2016-07-17 06:40] VITALS: BP 152/77
[2016-07-17] MEDS: NEBIVOLOL 5 MG TAB (BYSTOLIC) PO SCH (08:17)
[2016-07-17] MEDS: amLODIPine 5 MG (NORVASC) TAB PO SCH (08:17)
[2016-07-17] MEDS: ACETAMINOPHEN 500 MG TAB (TYLENOL) PO PRN (14:32)
[2016-07-17] MEDS: IBUPROFEN TABLET 200 MG TAB PO PRN (17:58)
[2016-07-17 18:50] VITALS: BP 134/75
[2016-07-17] MEDS: POLYETHYLENE GLYCOL 17 GM (MIRALAX) PACK PO SCH (21:00)
[2016-07-17] MEDS: LOSARTAN 100 MG TAB PO SCH (21:07)
[2016-07-18] MEDS: NS IV SCH ×3 (05:23→20:52)
[2016-07-18] MEDS: ACYCLOVIR IV SCH ×3 (05:23→20:52)
[2016-07-18 06:28] VITALS: BP 136/65
--- NOTE | 2016-07-18 08:42 | Progress Note-Hospitalist ---
Subjective Date Seen 07/18/16 Subjective/Events-last exam Patient reports feeling well denies headache slept well last night no confusion reported. He's been afebrile and blood pressures been under good control. Daughters the bedside and discussed Friday discharge. Patient is looking forward to this. Objective Exam Vital Signs Vital Sign - Last 12Hours 07/12/16 18:20 Temp 97.7 Pulse 66 Resp 20 B/P (MAP) 137/82 Pulse Ox 97 O2 Delivery Room Air Capillary Refill : General Appearance: No Apparent Distress Assessment/Plan Assessment and Plan Assess & Plan/Chief Complaint 1. Herpes zoster meningitis patient here to finish up a three-week course of IV acyclovir having relapsed after a 2 week course. This will be accomplished I believe on Friday. We'll plan discharge on a week of Valtrex. SOBEIDA NEGRON MD Jul 18, 2016 08:42
[2016-07-18] MEDS: amLODIPine 5 MG (NORVASC) TAB PO SCH (08:43)
[2016-07-18] MEDS: ACETAMINOPHEN 500 MG TAB (TYLENOL) PO PRN (08:44)
[2016-07-18] MEDS: IBUPROFEN TABLET 200 MG TAB PO PRN ×2 (08:44→19:27)
[2016-07-18] MEDS: NEBIVOLOL 5 MG TAB (BYSTOLIC) PO SCH (08:44)
[2016-07-18] MEDS: SOOTHE EYE DROPS OU PRN ×2 (08:45→20:57)
[2016-07-18 18:40] VITALS: BP 129/75
[2016-07-18] MEDS: POLYETHYLENE GLYCOL 17 GM (MIRALAX) PACK PO SCH (20:50)
[2016-07-18] MEDS: LOSARTAN 100 MG TAB PO SCH (21:30)
[2016-07-19] MEDS: ACYCLOVIR IV SCH ×3 (05:32→21:36)
[2016-07-19] MEDS: NS IV SCH ×3 (05:32→21:36)
[2016-07-19 05:45] VITALS: BP 143/77
[2016-07-19] MEDS: SOOTHE EYE DROPS OU PRN (06:36)
[2016-07-19] MEDS: amLODIPine 5 MG (NORVASC) TAB PO SCH (08:49)
[2016-07-19] MEDS: NEBIVOLOL 5 MG TAB (BYSTOLIC) PO SCH (08:53)
[2016-07-19] MEDS: IBUPROFEN TABLET 200 MG TAB PO PRN (16:39)
[2016-07-19 18:10] VITALS: BP 153/76
[2016-07-19] MEDS: LOSARTAN 100 MG TAB PO SCH (20:24)
[2016-07-19] MEDS: POLYETHYLENE GLYCOL 17 GM (MIRALAX) PACK PO SCH (20:25)
[2016-07-20] MEDS: ACYCLOVIR IV SCH ×3 (05:34→21:12)
[2016-07-20] MEDS: NS IV SCH ×3 (05:34→21:12)
[2016-07-20] MEDS: SOOTHE EYE DROPS OU PRN ×2 (05:47→23:37)
[2016-07-20 08:00] VITALS: BP 150/76
[2016-07-20] MEDS: amLODIPine 5 MG (NORVASC) TAB PO SCH (09:06)
[2016-07-20] MEDS: NEBIVOLOL 5 MG TAB (BYSTOLIC) PO SCH (09:06)
[2016-07-20] MEDS: ACETAMINOPHEN 500 MG TAB (TYLENOL) PO PRN (14:59)
[2016-07-20 17:45] VITALS: BP 147/75
[2016-07-20] MEDS: LOSARTAN 100 MG TAB PO SCH (20:39)
[2016-07-20] MEDS: POLYETHYLENE GLYCOL 17 GM (MIRALAX) PACK PO SCH (20:39)
[2016-07-20] MEDS: IBUPROFEN TABLET 200 MG TAB PO PRN (23:36)
[2016-07-21] MEDS: ACYCLOVIR IV SCH ×2 (05:10→14:14)
[2016-07-21] MEDS: NS IV SCH ×2 (05:10→14:14)
[2016-07-21 05:18] VITALS: BP 106/64
[2016-07-21] MEDS ORDERED: NEBI5TAB8 PO (08:11)
[2016-07-21] MEDS ORDERED: VALA10004 PO (08:11)
[2016-07-21] MEDS: IBUPROFEN TABLET 200 MG TAB PO PRN (09:20)
[2016-07-21] MEDS: NEBIVOLOL 5 MG TAB (BYSTOLIC) PO SCH (09:20)
[2016-07-21] MEDS: amLODIPine 5 MG (NORVASC) TAB PO SCH (09:21)
--- NOTE | 2016-07-21 10:01 | Discharge Summary-Hospitalist ---
Diagnosis/Chief Complaint Date of Admission Jul 12, 2016 at 12:23 Date of Discharge Discharge Date: Jul 21, 2016 Discharge Diagnosis 1. Herpes zoster meningitis patient here to finish up a three-week course of IV acyclovir having relapsed after a 2 week course. This will be accomplished I believe on Friday. We'll plan discharge on a week of Valtrex. Reason Hospital Visit/Course The patient was transferred to swing bed status to finish up a three-week course of IV acyclovir for herpes zoster meningitis. He remained afebrile but still had some intermittent confusion with propensity toward mild sundowning. Otherwise his stay was uneventful. He has history of hypertension and blood pressure remained under good control. He'll be discharged on one week of Valtrex 1 g 3 times a day. he will continue his antihypertensive medications which include bystolic 10 mg daily. Amlodipine 5 mg daily and losartin 100 mg daily.his daughter will make an appointment with Dr. New in 1-2 weeks for routine follow-up. I did discuss the possibility of early dementia with the daughter. He may need more formal memory testing as an outpatient. Discharge Summary Discharge Physical Examination Allergies: Coded Allergies: Iodinated Contrast Media - Oral and (Unverified Allergy, Severe, HIVES & SHORTNESS OF BREATH, 07/03/16) Penicillins (Unverified Allergy, Severe, HIVES, SHORTNESS OF BREATH, ) Uncoded Allergies: pcn, iv dye (Allergy, Intermediate, hives and sob , 06/01/16) Vitals & I&Os Vital Signs Date Time Temp Pulse Resp B/P (MAP) Pulse Ox O2 Delivery O2 Flow Rate FiO2 07/21/16 05:18 97.0 63 16 106/64 98 Room Air Discharge Home Medications: Active Scripts Active Valtrex (Valacyclovir HCl) 1,000 Mg Tablet 1,000 Mg PO Q8H Bystolic (Nebivolol HCl) 5 Mg Tablet 10 Mg PO DAILY 30 Days Reported Lubricant Eye Drops (Propylene Glycol) 10 Ml Drops 1 Drop OU Q4H PRN Acetaminophen 500 Mg Tablet 500-1,000 Mg PO Q6H PRN TAKES 1-2 (500 MG) TABLETS / ALTERNATES WITH IBUPROFEN NEEDED Ibuprofen 200 Mg Tablet 200-400 Mg PO Q6H PRN TAKES 1-2 (200 MG) TABLETS / ALTERNATES WITH ACETAMINOPHEN NEEDED Amlodipine Besylate 5 Mg Tablet 5 Mg PO DAILY Losartan Potassium 100 Mg Tablet 100 Mg PO HS Bystolic (Nebivolol HCl) 5 Mg Tablet 5 Mg PO DAILY PRN Instructions to patient/family Please see electonic discharge instructions given to patient. Copy Copies To 1: DEVIN NEW MD, MARK D MD Jul 21, 2016 10:01
[2016-07-21 14:00] VITALS: BP 106/64
--- OUTSIDE RECORDS SUMMARY | 2016-08-04 08:17 | XMS REPORT | Continuity of Care Document ---
Author Author [facility] Organization [facility] Address Unknown Phone Unavailable Allergies Active Description Code Type Severity Reaction Onset Reported/Identified Relationship to Patient Clinical Status Yes Penicillins [id number] Drug Allergy Unknown N/A 02/17/2008 Yes No Known Drug Allergies [id number] Drug Allergy Unknown N/ A 07/07/2015 Yes pcn, iv dye pcn, iv dye Moderate hives and sob 06/01/2016 Yes Iodinated Contrast Media - Oral and [id number] Drug Allergy Severe HIVES SHORTNE 07/03/2016 Yes Penicillins [id number] Drug Allergy Severe HIVES, SHORTNES 07/03/2016 Medications Problems Date Dx Coded Attending Type Code Diagnosis Diagnosed By 01/17/2015 Ot 401.9 01/17/2015 ROSA MARIE [employer]OS[employer] SPECIALIST Ot 780.79 01/17/2015 ROSA MARIE [employer]OS[employer] SPECIALIST Ot 786.50 02/07/2015 VIRGEN FRANKLIN, DEVIN Magdaleno Ot R07.89 02/14/2015 VIRGEN FRANLKIN, DEVIN Magdaleno Ot R07.89 07/07/2015 MARQUEZ FRANKLIN, JUDIE Ken Ot R19.5 07/07/2015 MARQUEZ FRANKLIN, JUDIE Ken Ot R19.7 07/07/2015 MARQUEZ FRANKLIN, JUDIE Ken Ot Z01.818 07/10/2015 ROSA MARIE [employer]OS[employer] SPECIALIST Ot 780.79 07/10/2015 ROSA MARIEP Ot 786.50 07/10/2015 VIRGEN FRANKLIN, DEVIN Magdaleno Ot R07.89 07/10/2015 MARQUEZ FRANKLIN, JUDIE Ken Ot K57.90 DVRTCLOS OF INTEST, PART UNSP, W/O PERF 07/10/2015 MARQUEZ FRANKLIN, JUDIE Ken Ot K62.1 RECTAL POLYP 07/11/2015 MARQUEZ FRANKLIN, JUDIE Ken Ot K57.90 07/11/2015 MARQUEZ FRANKLIN, JUDIE Ken Ot K62.1 05/30/2016 DEJUAN BRANDON MD Ot J11.1 FLU DUE TO UNIDENTIFIED INFLUENZA VIRUS 05/30/2016 DEJUAN BRANDON MD Ot R10.13 EPIGASTRIC PAIN 05/30/2016 DEJUAN BRANDON MD Ot R51 HEADACHE 05/30/2016 DEJUAN BRANDON MD Ot Z87.891 PERSONAL HISTORY OF NICOTINE DEPENDENCE 05/31/2016 DEJUAN BRANDON MD Ot J11.1 FLU DUE TO UNIDENTIFIED INFLUENZA VIRUS 05/31/2016 DEJUAN BRANDON MD Ot R10.13 EPIGASTRIC PAIN 05/31/2016 DEJUAN BRANDON MD Ot R51 HEADACHE 05/31/2016 DEJUAN BRANDON MD Ot Z87.891 PERSONAL HISTORY OF NICOTINE DEPENDENCE 06/05/2016 ELLIS ROSARIO MD Ot 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 06/05/2016 ELLIS ROSARIO MD Ot 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 06/05/2016 ELLIS ROSARIO MD Ot E86.0 DEHYDRATION 06/05/2016 ELLIS ROSARIO MD Ot E87.1 HYPO-OSMOLALITY AND HYPONATREMIA 06/05/2016 ELLIS ROSARIO MD Ot E87.6 HYPOKALEMIA 06/05/2016 ELLIS ROSARIO MD Ot H16.8 OTHER KERATITIS 06/05/2016 ELLIS ROSARIO MD Ot H57.8 OTHER SPECIFIED DISORDERS OF EYE AND ADN 06/05/2016 ELLIS ROSARIO MD Ot I10 ESSENTIAL (PRIMARY) HYPERTENSION 06/05/2016 ELLIS ROSARIO MD Ot J01.00 ACUTE MAXILLARY SINUSITIS, UNSPECIFIED 06/05/2016 ELLIS RSOARIO MD Ot K21.9 GASTRO-ESOPHAGEAL REFLUX DISEASE WITHOUT 06/05/2016 ELLIS ROSARIO MD Ot 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, 06/05/2016 ELLIS ROSARIO MD Ot R63.0 ANOREXIA 06/05/2016 ELLIS ROSARIO MD Ot R63.4 ABNORMAL WEIGHT LOSS 06/05/2016 ELLIS ROSARIO MD Ot Z66 DO NOT RESUSCITATE 06/06/2016 ALEKSANDR FRANKLIN, DEJUAN Nicole Ot J11.1 FLU DUE TO UNIDENTIFIED INFLUENZA VIRUS 06/06/2016 ALEKSANDR FRANKLIN, DEJUAN Nicole Ot R10.13 EPIGASTRIC PAIN 06/06/2016 ALEKSANDR FRANKLIN, DEJUAN Nicole Ot R51 HEADACHE 06/06/2016 ALEKSANDR FRANKLIN, DEJUAN Nicole Ot Z87.891 PERSONAL HISTORY OF NICOTINE DEPENDENCE 06/07/2016 LEELEE FULTON DIEGO Ot 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 06/07/2016 MCKOY DO, DIEGO Ot 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 06/07/2016 MCKOY DO DIEGO Ot G45.9 TRANSIENT CEREBRAL ISCHEMIC ATTACK, UNSP 06/07/2016 LEELEE DO DIEGO Ot I10 ESSENTIAL (PRIMARY) HYPERTENSION 06/07/2016 LEELEE DO DIEGO Ot K21.9 GASTRO-ESOPHAGEAL REFLUX DISEASE WITHOUT 06/07/2016 LEELEE DO DIEGO Ot R33.9 RETENTION OF URINE, UNSPECIFIED 06/07/2016 LEELEE DO DIEGO Ot R50.9 FEVER, UNSPECIFIED 06/07/2016 LEELEE FULTON DIEGO Ot Z66 DO NOT RESUSCITATE 06/11/2016 VIRGEN FRANKLIN, DEVIN Magdaleno Ot A41.9 SEPSIS, UNSPECIFIED ORGANISM 06/11/2016 VIRGEN FRANKLIN, DEVIN Magdaleno Ot B02.8 ZOSTER WITH OTHER COMPLICATIONS 06/11/2016 DEVIN NEW MD Ot G03.9 MENINGITIS, UNSPECIFIED 06/11/2016 DEVIN NEW MD Ot I16.0 HYPERTENSIVE URGENCY 06/11/2016 DEVIN NEW MD Ot J32.9 CHRONIC SINUSITIS, UNSPECIFIED 06/11/2016 DEVIN NEW MD Ot J42 UNSPECIFIED CHRONIC BRONCHITIS 06/11/2016 DEVIN NEW MD Ot K21.9 GASTRO-ESOPHAGEAL REFLUX DISEASE WITHOUT 06/11/2016 DEVIN NEW MD Ot R41.82 ALTERED MENTAL STATUS, UNSPECIFIED 06/11/2016 DEVIN NEW MD Ot R63.0 ANOREXIA 06/11/2016 DEVIN NEW MD Ot Z66 DO NOT RESUSCITATE 06/11/2016 DEVIN NEW MD Ot Z86.73 PRSNL HX OF TIA (TIA), AND CEREB INFRC W 06/11/2016 DEVIN NEW MD Ot A41.9 SEPSIS, UNSPECIFIED ORGANISM 06/11/2016 DEVIN NEW MD Ot B02.8 ZOSTER WITH OTHER COMPLICATIONS 06/11/2016 DEVIN NEW MD Ot G03.9 MENINGITIS, UNSPECIFIED 06/11/2016 DEVIN NEW MD Ot I16.0 HYPERTENSIVE URGENCY 06/11/2016 DEVIN NEW MD Ot J32.9 CHRONIC SINUSITIS, UNSPECIFIED 06/11/2016 DEVIN NEW MD Ot J42 UNSPECIFIED CHRONIC BRONCHITIS 06/11/2016 DEVIN NEW MD Ot K21.9 GASTRO-ESOPHAGEAL REFLUX DISEASE WITHOUT 06/11/2016 DEVIN NEW MD Ot R41.82 ALTERED MENTAL STATUS, UNSPECIFIED 06/11/2016 DEVIN NEW MD Ot R63.0 ANOREXIA 06/11/2016 DEVIN NEW MD Ot Z66 DO NOT RESUSCITATE 06/11/2016 DEVIN NEW MD Ot Z86.73 PRSNL HX OF TIA (TIA), AND CEREB INFRC W 06/11/2016 DEVIN NEW MD Ot A41.9 SEPSIS, UNSPECIFIED ORGANISM 06/11/2016 DEVIN NEW MD Ot B02.8 ZOSTER WITH OTHER COMPLICATIONS 06/11/2016 DEVIN NEW MD Ot G03.9 MENINGITIS, UNSPECIFIED 06/11/2016 DEVIN NEW MD Ot I16.0 HYPERTENSIVE URGENCY 06/11/2016 DEVIN NEW MD Ot J32.9 CHRONIC SINUSITIS, UNSPECIFIED 06/11/2016 DEVIN NEW MD Ot J42 UNSPECIFIED CHRONIC BRONCHITIS 06/11/2016 DEVIN NEW MD Ot K21.9 GASTRO-ESOPHAGEAL REFLUX DISEASE WITHOUT 06/11/2016 DEVIN NWE MD Ot R41.82 ALTERED MENTAL STATUS, UNSPECIFIED 06/11/2016 DEVIN NEW MD Ot R63.0 ANOREXIA 06/11/2016 DEVIN NEW MD Ot Z66 DO NOT RESUSCITATE 06/11/2016 DEVIN NEW MD Ot Z86.73 PRSNL HX OF TIA (TIA), AND CEREB INFRC W 06/12/2016 DEVIN NEW MD Ot A41.9 SEPSIS, UNSPECIFIED ORGANISM 06/12/2016 DEVIN NEW MD Ot B02.8 ZOSTER WITH OTHER COMPLICATIONS 06/12/2016 DEVIN NEW MD Ot G03.9 MENINGITIS, UNSPECIFIED 06/12/2016 DEVIN NEW MD Ot I16.0 HYPERTENSIVE URGENCY 06/12/2016 DEVIN NEW MD Ot J32.9 CHRONIC SINUSITIS, UNSPECIFIED 06/12/2016 DEVIN NEW MD Ot J42 UNSPECIFIED CHRONIC BRONCHITIS 06/12/2016 DEVIN NEW MD Ot K21.9 GASTRO-ESOPHAGEAL REFLUX DISEASE WITHOUT 06/12/2016 DEVIN NEW MD Ot R41.82 ALTERED MENTAL STATUS, UNSPECIFIED 06/12/2016 DEVIN NEW MD Ot R63.0 ANOREXIA 06/12/2016 DEVIN NEW MD Ot Z66 DO NOT RESUSCITATE 06/12/2016 DEVIN NEW MD Ot Z86.73 PRSNL HX OF TIA (TIA), AND CEREB INFRC W 06/13/2016 DEVIN NEW MD Ot A41.9 SEPSIS, UNSPECIFIED ORGANISM 06/13/2016 DEVIN NEW MD Ot B02.8 ZOSTER WITH OTHER COMPLICATIONS 06/13/2016 DEVIN NEW MD Ot G03.9 MENINGITIS, UNSPECIFIED 06/13/2016 DEVIN NEW MD Ot I16.0 HYPERTENSIVE URGENCY 06/13/2016 DEVIN NEW MD Ot J32.9 CHRONIC SINUSITIS, UNSPECIFIED 06/13/2016 DEVIN NEW MD Ot J42 UNSPECIFIED CHRONIC BRONCHITIS 06/13/2016 DEVIN NWE MD Ot K21.9 GASTRO-ESOPHAGEAL REFLUX DISEASE WITHOUT 06/13/2016 DEVIN NEW MD Ot R41.82 ALTERED MENTAL STATUS, UNSPECIFIED 06/13/2016 DEVIN NEW MD Ot R63.0 ANOREXIA 06/13/2016 DEVIN NEW MD Ot Z66 DO NOT RESUSCITATE 06/13/2016 DEVIN NEW MD Ot Z86.73 PRSNL HX OF TIA (TIA), AND CEREB INFRC W 06/13/2016 DEVIN NEW MD Ot B02.0 ZOSTER ENCEPHALITIS 06/13/2016 DEVIN NEW MD Ot E87.1 HYPO-OSMOLALITY AND HYPONATREMIA 06/13/2016 DEVIN NEW MD Ot H91.90 UNSPECIFIED HEARING LOSS, UNSPECIFIED EA 06/13/2016 DEVIN NEW MD Ot I10 ESSENTIAL (PRIMARY) HYPERTENSION 06/13/2016 DEIVN NEW MD Ot I16.0 HYPERTENSIVE URGENCY 06/13/2016 DEVIN NEW MD Ot J32.9 CHRONIC SINUSITIS, UNSPECIFIED 06/13/2016 DEVIN NEW MD Ot J42 UNSPECIFIED CHRONIC BRONCHITIS 06/13/2016 DEVIN NEW MD Ot K21.9 GASTRO-ESOPHAGEAL REFLUX DISEASE WITHOUT 06/13/2016 DEVIN NEW MD Ot N40.1 BENIGN PROSTATIC HYPERPLASIA WITH LOWER 06/13/2016 DEVIN NEW MD Ot R41.82 ALTERED MENTAL STATUS, UNSPECIFIED 06/13/2016 DEVIN NEW MD Ot R63.0 ANOREXIA 06/13/2016 DEVIN NEW MD Ot Z66 DO NOT RESUSCITATE 06/13/2016 DEVIN NEW MD Ot Z86.73 PRSNL HX OF TIA (TIA), AND CEREB INFRC W 06/13/2016 DEVIN NEW MD Ot Z87.891 PERSONAL HISTORY OF NICOTINE DEPENDENCE 06/14/2016 MCKOY DO DIEGO Ot B02.0 ZOSTER ENCEPHALITIS 06/14/2016 LEELEE DO DIEGO Ot E87.1 HYPO-OSMOLALITY AND HYPONATREMIA 06/14/2016 LEELEE FULTON DIEGO Ot H91.90 UNSPECIFIED HEARING LOSS, UNSPECIFIED EA 06/14/2016 LEELEE DO DIEGO Ot I10 ESSENTIAL (PRIMARY) HYPERTENSION 06/14/2016 LEELEE DO DIEGO Ot I16.0 HYPERTENSIVE URGENCY 06/14/2016 LEELEE DO DIEGO Ot J32.9 CHRONIC SINUSITIS, UNSPECIFIED 06/14/2016 MKCOY DO DIEGO Ot J42 UNSPECIFIED CHRONIC BRONCHITIS 06/14/2016 LEELEE FULTON DIEGO Ot K21.9 GASTRO-ESOPHAGEAL REFLUX DISEASE WITHOUT 06/14/2016 MCKOY DO DIEGO Ot N40.1 BENIGN PROSTATIC HYPERPLASIA WITH LOWER 06/14/2016 LEELEE DO DIEGO Ot R41.82 ALTERED MENTAL STATUS, UNSPECIFIED 06/14/2016 LEELEE FULTON DIEGO Ot R63.0 ANOREXIA 06/14/2016 MCKOY DO, DIEGO Ot Z66 DO NOT RESUSCITATE 06/14/2016 MCKOY DO, DIEGO Ot Z86.73 PRSNL HX OF TIA (TIA), AND CEREB INFRC W 06/14/2016 MCKOY DO, DIEGO Ot Z87.891 PERSONAL HISTORY OF NICOTINE DEPENDENCE 06/17/2016 MCKOY DO, DIEGO Ot B02.0 ZOSTER ENCEPHALITIS 06/17/2016 MCKOY DO, DIEGO Ot E87.1 HYPO-OSMOLALITY AND HYPONATREMIA 06/17/2016 MCKOY DO, DIEGO Ot H91.90 UNSPECIFIED HEARING LOSS, UNSPECIFIED EA 06/17/2016 MCKOY DO, DIEGO Ot I10 ESSENTIAL (PRIMARY) HYPERTENSION 06/17/2016 MCKOY DO, DIEGO Ot I16.0 HYPERTENSIVE URGENCY 06/17/2016 MCKOY DO, DIEGO Ot J32.9 CHRONIC SINUSITIS, UNSPECIFIED 06/17/2016 MCKOY DO, DIEGO Ot J42 UNSPECIFIED CHRONIC BRONCHITIS 06/17/2016 MCKOY DO, DIEGO Ot K21.9 GASTRO-ESOPHAGEAL REFLUX DISEASE WITHOUT 06/17/2016 MCKOY DO, DIEGO Ot N40.1 BENIGN PROSTATIC HYPERPLASIA WITH LOWER 06/17/2016 MCKOY DO, DIEGO Ot R41.82 ALTERED MENTAL STATUS, UNSPECIFIED 06/17/2016 MCKOY DO, DIEGO Ot R63.0 ANOREXIA 06/17/2016 MCKOY DO, DIEGO Ot Z66 DO NOT RESUSCITATE 06/17/2016 MCKOY DO, DIEGO Ot Z86.73 PRSNL HX OF TIA (TIA), AND CEREB INFRC W 06/17/2016 MCKOY DO, DIEGO Ot Z87.891 PERSONAL HISTORY OF NICOTINE DEPENDENCE 06/18/2016 MCKOY DO, DIEGO Ot B02.0 ZOSTER ENCEPHALITIS 06/18/2016 MCKOY DO, DIEGO Ot E87.1 HYPO-OSMOLALITY AND HYPONATREMIA 06/18/2016 MCKOY DO, DIEGO Ot H91.90 UNSPECIFIED HEARING LOSS, UNSPECIFIED EA 06/18/2016 MCKOY DO, DIEGO Ot I10 ESSENTIAL (PRIMARY) HYPERTENSION 06/18/2016 MCKOY DO, DIEGO Ot I16.0 HYPERTENSIVE URGENCY 06/18/2016 MCKOY DO, DIEGO Ot J32.9 CHRONIC SINUSITIS, UNSPECIFIED 06/18/2016 MCKOY DO, DIEGO Ot J42 UNSPECIFIED CHRONIC BRONCHITIS 06/18/2016 MCKOY DO, DIEGO Ot K21.9 GASTRO-ESOPHAGEAL REFLUX DISEASE WITHOUT 06/18/2016 MCKOY DO, DIEGO Ot N40.1 BENIGN PROSTATIC HYPERPLASIA WITH LOWER 06/18/2016 MCKOY DO, DIEGO Ot R41.82 ALTERED MENTAL STATUS, UNSPECIFIED 06/18/2016 MCKOY DO, DIEGO Ot R63.0 ANOREXIA 06/18/2016 MCKOY DO, DIEGO Ot Z66 DO NOT RESUSCITATE 06/18/2016 MCKOY DO, DIEGO Ot Z86.73 PRSNL HX OF TIA (TIA), AND CEREB INFRC W 06/18/2016 MCKOY DO, DIEGO Ot Z87.891 PERSONAL HISTORY OF NICOTINE DEPENDENCE 06/19/2016 MCKOY DO, DIEGO Ot B02.0 ZOSTER ENCEPHALITIS 06/19/2016 MCKOY DO, DIEGO Ot E87.1 HYPO-OSMOLALITY AND HYPONATREMIA 06/19/2016 MCKOY DO, DIEGO Ot H91.90 UNSPECIFIED HEARING LOSS, UNSPECIFIED EA 06/19/2016 MCKOY DO, DIEGO Ot I10 ESSENTIAL (PRIMARY) HYPERTENSION 06/19/2016 MCKOY DO, DIEGO Ot I16.0 HYPERTENSIVE URGENCY 06/19/2016 MCKOY DO, DIEGO Ot J32.9 CHRONIC SINUSITIS, UNSPECIFIED 06/19/2016 MCKOY DO, DIEGO Ot J42 UNSPECIFIED CHRONIC BRONCHITIS 06/19/2016 MCKOY DO, DIEGO Ot K21.9 GASTRO-ESOPHAGEAL REFLUX DISEASE WITHOUT 06/19/2016 MCKOY DO, DIEGO Ot N40.1 BENIGN PROSTATIC HYPERPLASIA WITH LOWER 06/19/2016 MCKOY DO, DIEGO Ot R41.82 ALTERED MENTAL STATUS, UNSPECIFIED 06/19/2016 MCKOY DO, DIEGO Ot R63.0 ANOREXIA 06/19/2016 MCKOY DO, DIEGO Ot Z66 DO NOT RESUSCITATE 06/19/2016 MCKOY DO, DIEGO Ot Z86.73 PRSNL HX OF TIA (TIA), AND CEREB INFRC W 06/19/2016 MCKOY DO, DIEGO Ot Z87.891 PERSONAL HISTORY OF NICOTINE DEPENDENCE 06/19/2016 MCKOY DO, DIEGO Ot B02.0 ZOSTER ENCEPHALITIS 06/19/2016 MCKOY DO, DIEGO Ot E87.1 HYPO-OSMOLALITY AND HYPONATREMIA 06/19/2016 MCKOY DO, DIEGO Ot H91.90 UNSPECIFIED HEARING LOSS, UNSPECIFIED EA 06/19/2016 MCKOY DO, DIEGO Ot I10 ESSENTIAL (PRIMARY) HYPERTENSION 06/19/2016 MCKOY DO, DIEGO Ot I16.0 HYPERTENSIVE URGENCY 06/19/2016 MCKOY DO, DIEGO Ot J32.9 CHRONIC SINUSITIS, UNSPECIFIED 06/19/2016 MCKOY DO, DIEGO Ot J42 UNSPECIFIED CHRONIC BRONCHITIS 06/19/2016 MCKOY DO, DIEGO Ot K21.9 GASTRO-ESOPHAGEAL REFLUX DISEASE WITHOUT 06/19/2016 MCKOY DO, DIEGO Ot N40.1 BENIGN PROSTATIC HYPERPLASIA WITH LOWER 06/19/2016 MCKOY DO, DIEGO Ot R41.82 ALTERED MENTAL STATUS, UNSPECIFIED 06/19/2016 MCKOY DO, DIEGO Ot R63.0 ANOREXIA 06/19/2016 MCKOY DO, DIEGO Ot Z66 DO NOT RESUSCITATE 06/19/2016 MCKOY DO, DIEGO Ot Z86.73 PRSNL HX OF TIA (TIA), AND CEREB INFRC W 06/19/2016 MCKOY DO, DIEGO Ot Z87.891 PERSONAL HISTORY OF NICOTINE DEPENDENCE 06/20/2016 MCKOY DO, DIEGO Ot B02.0 ZOSTER ENCEPHALITIS 06/20/2016 MCKOY DO, DIEGO Ot E87.1 HYPO-OSMOLALITY AND HYPONATREMIA 06/20/2016 MCKOY DO, DIEGO Ot H91.90 UNSPECIFIED HEARING LOSS, UNSPECIFIED EA 06/20/2016 MCKOY DO, DIEGO Ot I10 ESSENTIAL (PRIMARY) HYPERTENSION 06/20/2016 MCKOY DO, DIEGO Ot I16.0 HYPERTENSIVE URGENCY 06/20/2016 MCKOY DO, DIEGO Ot J32.9 CHRONIC SINUSITIS, UNSPECIFIED 06/20/2016 MCKOY DO, DIEGO Ot J42 UNSPECIFIED CHRONIC BRONCHITIS 06/20/2016 MCKOY DO, DIEGO Ot K21.9 GASTRO-ESOPHAGEAL REFLUX DISEASE WITHOUT 06/20/2016 MCKOY DO, DIEGO Ot N40.1 BENIGN PROSTATIC HYPERPLASIA WITH LOWER 06/20/2016 MCKOY DO, DIEGO Ot R41.82 ALTERED MENTAL STATUS, UNSPECIFIED 06/20/2016 MCKOY DO, DIEGO Ot R63.0 ANOREXIA 06/20/2016 MCKOY DO, DIEGO Ot Z66 DO NOT RESUSCITATE 06/20/2016 MCKOY DO, DIEGO Ot Z86.73 PRSNL HX OF TIA (TIA), AND CEREB INFRC W 06/20/2016 LEELEE FULTON DIEGO Ot Z87.891 PERSONAL HISTORY OF NICOTINE DEPENDENCE 06/26/2016 OTIS FERNANDEZ MD Ot B02.0 ZOSTER ENCEPHALITIS 06/26/2016 OTIS FERNANDEZ MD E Ot E87.1 HYPO-OSMOLALITY AND HYPONATREMIA 06/26/2016 OTIS FERNANDEZ MD E Ot G93.40 ENCEPHALOPATHY, UNSPECIFIED 06/26/2016 OTIS FERNANDEZ MD E Ot H91.10 PRESBYCUSIS, UNSPECIFIED EAR 06/26/2016 OTIS FERNANDEZ MD E Ot I10 ESSENTIAL (PRIMARY) HYPERTENSION 06/26/2016 OTIS FERNANDEZ MD E Ot J42 UNSPECIFIED CHRONIC BRONCHITIS 06/26/2016 OTIS FERNANDEZ MD E Ot K21.9 GASTRO-ESOPHAGEAL REFLUX DISEASE WITHOUT 06/26/2016 OTIS FERNANDEZ MD Ot N40.1 BENIGN PROSTATIC HYPERPLASIA WITH LOWER 06/26/2016 OTIS FERNANDEZ MD Ot R33.9 RETENTION OF URINE, UNSPECIFIED 06/26/2016 OTIS FERNANDEZ MD Ot Z66 DO NOT RESUSCITATE 07/09/2016 SHERLEY WITT MD Ot E86.0 DEHYDRATION 07/09/2016 SHERLEY WITT MD Ot H91.93 UNSPECIFIED HEARING LOSS, BILATERAL 07/09/2016 SHERLEY WITT MD Ot I10 ESSENTIAL (PRIMARY) HYPERTENSION 07/09/2016 SHERLEY WITT MD Ot J42 UNSPECIFIED CHRONIC BRONCHITIS 07/09/2016 SHERLEY WITT MD Ot K21.9 GASTRO-ESOPHAGEAL REFLUX DISEASE WITHOUT 07/09/2016 SHERLEY WITT MD Ot M19.91 PRIMARY OSTEOARTHRITIS, UNSPECIFIED SITE 07/09/2016 SHERLEY WITT MD Ot R41.0 DISORIENTATION, UNSPECIFIED 07/09/2016 SHERLEY WITT MD Ot R41.82 ALTERED MENTAL STATUS, UNSPECIFIED 07/09/2016 SHERLEY WITT MD Ot R50.9 FEVER, UNSPECIFIED 07/09/2016 SHERLEY WITT MD Ot Z66 DO NOT RESUSCITATE 07/09/2016 SHERLEY WITT MD Ot Z86.61 PERSONAL HISTORY OF INFECTIONS OF THE CE 07/09/2016 SHERLEY WITT MD Ot Z86.73 PRSNL HX OF TIA (TIA), AND CEREB INFRC W 07/09/2016 SHERLEY WITT MD Ot Z87.891 PERSONAL HISTORY OF NICOTINE DEPENDENCE 07/12/2016 SHERLEY WITT MD Ot B02.0 ZOSTER ENCEPHALITIS 07/12/2016 SHERLEY WITT MD Ot E86.0 DEHYDRATION 07/12/2016 SHERLEY WITT MD Ot F03.90 UNSPECIFIED DEMENTIA WITHOUT BEHAVIORAL 07/12/2016 SHERLEY WITT MD Ot 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 07/12/2016 SHERLEY WITT MD Ot H91.93 UNSPECIFIED HEARING LOSS, BILATERAL 07/12/2016 SHERLEY WITT MD Ot I10 ESSENTIAL (PRIMARY) HYPERTENSION 07/12/2016 SHERLEY WITT MD Ot J42 UNSPECIFIED CHRONIC BRONCHITIS 07/12/2016 SHERLEY WITT MD Ot K21.9 GASTRO-ESOPHAGEAL REFLUX DISEASE WITHOUT 07/12/2016 SHERLEY WITT MD Ot K59.00 CONSTIPATION, UNSPECIFIED 07/12/2016 SHERLEY WITT MD Ot M19.91 PRIMARY OSTEOARTHRITIS, UNSPECIFIED SITE 07/12/2016 SHERLEY WITT MD Ot R41.0 DISORIENTATION, UNSPECIFIED 07/12/2016 SHERLEY WITT MD Ot R41.82 ALTERED MENTAL STATUS, UNSPECIFIED 07/12/2016 SHERLEY WITT MD Ot R50.9 FEVER, UNSPECIFIED 07/12/2016 SHERLEY WITT MD Ot Z66 DO NOT RESUSCITATE 07/12/2016 SHERLEY WITT MD Ot Z86.61 PERSONAL HISTORY OF INFECTIONS OF THE CE 07/12/2016 SHERLEY WITT MD Ot Z86.73 PRSNL HX OF TIA (TIA), AND CEREB INFRC W 07/12/2016 SHERLEY WITT MD Ot Z87.891 PERSONAL HISTORY OF NICOTINE DEPENDENCE 07/16/2016 SOBEIDA NEGRON MD Ot B02.0 ZOSTER ENCEPHALITIS 07/16/2016 SOBEIDA NEGRON MD Ot E86.0 DEHYDRATION 07/16/2016 SOBEIDA NEGRON MD Ot F03.90 UNSPECIFIED DEMENTIA WITHOUT BEHAVIORAL 07/16/2016 SOBEIDA NEGRON MD Ot 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 07/16/2016 SOBEIDA NEGRON MD Ot H91.93 UNSPECIFIED HEARING LOSS, BILATERAL 07/16/2016 SOBEIDA NEGRON MD Ot I10 ESSENTIAL (PRIMARY) HYPERTENSION 07/16/2016 SOBEIDA NEGRON MD Ot J42 UNSPECIFIED CHRONIC BRONCHITIS 07/16/2016 SOBEIDA NEGRON MD Ot K21.9 GASTRO-ESOPHAGEAL REFLUX DISEASE WITHOUT 07/16/2016 SOBEIDA NEGRON MD Ot K59.00 CONSTIPATION, UNSPECIFIED 07/16/2016 SOBEIDA NEGRON MD Ot M19.91 PRIMARY OSTEOARTHRITIS, UNSPECIFIED SITE 07/16/2016 SOBEIDA NEGRON MD Ot R50.9 FEVER, UNSPECIFIED 07/16/2016 SOBEIDA NEGRON MD Ot Z66 DO NOT RESUSCITATE 07/16/2016 SOBEIDA NEGRON MD Ot Z86.61 PERSONAL HISTORY OF INFECTIONS OF THE CE 07/16/2016 SOBEIDA NEGRON MD Ot Z86.73 PRSNL HX OF TIA (TIA), AND CEREB INFRC W 07/16/2016 SOBEIDA NEGRON MD Ot Z87.891 PERSONAL HISTORY OF NICOTINE DEPENDENCE 07/17/2016 SOBEIDA NEGRON MD Ot B02.0 ZOSTER ENCEPHALITIS 07/17/2016 SOBEIDA NEGRON MD Ot E86.0 DEHYDRATION 07/17/2016 SOBEIDA NEGRON MD Ot F03.90 UNSPECIFIED DEMENTIA WITHOUT BEHAVIORAL 07/17/2016 SOBEIDA NEGRON MD Ot 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 07/17/2016 SOBEIDA NEGRON MD Ot H91.93 UNSPECIFIED HEARING LOSS, BILATERAL 07/17/2016 SOBEIDA NEGRON MD Ot I10 ESSENTIAL (PRIMARY) HYPERTENSION 07/17/2016 SOBEIDA ENGRON MD Ot J42 UNSPECIFIED CHRONIC BRONCHITIS 07/17/2016 SOBEIDA NEGRON MD Ot K21.9 GASTRO-ESOPHAGEAL REFLUX DISEASE WITHOUT 07/17/2016 SOBEIDA NEGRON MD Ot K59.00 CONSTIPATION, UNSPECIFIED 07/17/2016 SOBEIDA NEGRON MD Ot M19.91 PRIMARY OSTEOARTHRITIS, UNSPECIFIED SITE 07/17/2016 SOBEIDA NEGRON MD Ot R50.9 FEVER, UNSPECIFIED 07/17/2016 SOBEIDA NEGRON MD Ot Z66 DO NOT RESUSCITATE 07/17/2016 SOBEIDA NEGRON MD Ot Z86.61 PERSONAL HISTORY OF INFECTIONS OF THE CE 07/17/2016 SOBEIDA NEGRON MD Ot Z86.73 PRSNL HX OF TIA (TIA), AND CEREB INFRC W 07/17/2016 SOBEIDA NEGRON MD Ot Z87.891 PERSONAL HISTORY OF NICOTINE DEPENDENCE 07/18/2016 SOBEIDA NEGRON MD Ot B02.0 ZOSTER ENCEPHALITIS 07/18/2016 SOBEIDA NEGRON MD Ot E86.0 DEHYDRATION 07/18/2016 SOBEIDA NEGRON MD Ot F03.90 UNSPECIFIED DEMENTIA WITHOUT BEHAVIORAL 07/18/2016 SOBEIDA NEGRON MD Ot 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 07/18/2016 SOBEIDA NEGRON MD Ot H91.93 UNSPECIFIED HEARING LOSS, BILATERAL 07/18/2016 SOBEIDA NEGRON MD Ot I10 ESSENTIAL (PRIMARY) HYPERTENSION 07/18/2016 SOBEIDA NEGRON MD Ot J42 UNSPECIFIED CHRONIC BRONCHITIS 07/18/2016 SOBEIDA NEGRON MD Ot K21.9 GASTRO-ESOPHAGEAL REFLUX DISEASE WITHOUT 07/18/2016 SOBEIDA NEGRON MD Ot K59.00 CONSTIPATION, UNSPECIFIED 07/18/2016 SOBEIDA NEGRON MD Ot M19.91 PRIMARY OSTEOARTHRITIS, UNSPECIFIED SITE 07/18/2016 SOBEIDA NEGRON MD Ot R50.9 FEVER, UNSPECIFIED 07/18/2016 SOBEIDA NEGRON MD Ot Z66 DO NOT RESUSCITATE 07/18/2016 SOBEIDA NEGRON MD Ot Z86.61 PERSONAL HISTORY OF INFECTIONS OF THE CE 07/18/2016 SOBEIDA NEGRON MD Ot Z86.73 PRSNL HX OF TIA (TIA), AND CEREB INFRC W 07/18/2016 SOBEIDA NEGRON MD Ot Z87.891 PERSONAL HISTORY OF NICOTINE DEPENDENCE 07/19/2016 SOBEIDA NEGRON MD Ot B02.0 ZOSTER ENCEPHALITIS 07/19/2016 SOBEIDA NEGRON MD Ot E86.0 DEHYDRATION 07/19/2016 SOBEIDA NEGRON MD Ot F03.90 UNSPECIFIED DEMENTIA WITHOUT BEHAVIORAL 07/19/2016 SOBEIDA NEGRON MD Ot 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 07/19/2016 SOBEIDA NEGRON MD Ot H91.93 UNSPECIFIED HEARING LOSS, BILATERAL 07/19/2016 SOBEIDA NEGRON MD Ot I10 ESSENTIAL (PRIMARY) HYPERTENSION 07/19/2016 SOBEIDA NEGRON MD Ot J42 UNSPECIFIED CHRONIC BRONCHITIS 07/19/2016 SOBEIDA NEGRON MD Ot K21.9 GASTRO-ESOPHAGEAL REFLUX DISEASE WITHOUT 07/19/2016 SOBEIDA NEGRON MD Ot K59.00 CONSTIPATION, UNSPECIFIED 07/19/2016 SOBEIDA NEGRON MD Ot M19.91 PRIMARY OSTEOARTHRITIS, UNSPECIFIED SITE 07/19/2016 SOBEIDA NEGRON MD Ot R50.9 FEVER, UNSPECIFIED 07/19/2016 SOBEIDA NEGRON MD Ot Z66 DO NOT RESUSCITATE 07/19/2016 SOBEIDA NEGRON MD Ot Z86.61 PERSONAL HISTORY OF INFECTIONS OF THE CE 07/19/2016 SOBEIDA NEGRON MD Ot Z86.73 PRSNL HX OF TIA (TIA), AND CEREB INFRC W 07/19/2016 SOBEIDA NEGRON MD Ot Z87.891 PERSONAL HISTORY OF NICOTINE DEPENDENCE 07/20/2016 SOBEIDA NEGRON MD Ot B02.0 ZOSTER ENCEPHALITIS 07/20/2016 SOBEIDA NEGRON MD Ot E86.0 DEHYDRATION 07/20/2016 SOBEIDA NEGRON MD Ot F03.90 UNSPECIFIED DEMENTIA WITHOUT BEHAVIORAL 07/20/2016 SBOEIDA NEGRON MD Ot 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 07/20/2016 SOBEIDA NEGRON MD Ot H91.93 UNSPECIFIED HEARING LOSS, BILATERAL 07/20/2016 SOBEIDA NEGRON MD Ot I10 ESSENTIAL (PRIMARY) HYPERTENSION 07/20/2016 SOBEIDA NEGRON MD Ot J42 UNSPECIFIED CHRONIC BRONCHITIS 07/20/2016 SOBEIDA NEGRON MD Ot K21.9 GASTRO-ESOPHAGEAL REFLUX DISEASE WITHOUT 07/20/2016 SOBEIDA NEGRON MD Ot K59.00 CONSTIPATION, UNSPECIFIED 07/20/2016 SOBEIDA NEGRON MD Ot M19.91 PRIMARY OSTEOARTHRITIS, UNSPECIFIED SITE 07/20/2016 SOBEIDA NEGRON MD Ot R50.9 FEVER, UNSPECIFIED 07/20/2016 SOBEIDA NEGRON MD Ot Z66 DO NOT RESUSCITATE 07/20/2016 SOBEIDA NEGRON MD Ot Z86.61 PERSONAL HISTORY OF INFECTIONS OF THE CE 07/20/2016 SOBEIDA NEGRON MD Ot Z86.73 PRSNL HX OF TIA (TIA), AND CEREB INFRC W 07/20/2016 SOBEIDA NEGRON MD Ot Z87.891 PERSONAL HISTORY OF NICOTINE DEPENDENCE 07/21/2016 SOBEIDA NEGRON MD Ot B02.0 ZOSTER ENCEPHALITIS 07/21/2016 SOBEIDA NEGRON MD Ot E86.0 DEHYDRATION 07/21/2016 SOBEIDA NEGRON MD Ot F03.90 UNSPECIFIED DEMENTIA WITHOUT BEHAVIORAL 07/21/2016 SOBEIDA NEGRON MD Ot 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 07/21/2016 SOBEIDA NEGRON MD Ot H91.93 UNSPECIFIED HEARING LOSS, BILATERAL 07/21/2016 SOBEIDA NEGRON MD Ot I10 ESSENTIAL (PRIMARY) HYPERTENSION 07/21/2016 SOBEIDA NEGRON MD, Ot J42 UNSPECIFIED CHRONIC BRONCHITIS 07/21/2016 SOBEIDA NEGRON MD Ot K21.9 GASTRO-ESOPHAGEAL REFLUX DISEASE WITHOUT 07/21/2016 SOBEIDA NEGRON MD, Ot K59.00 CONSTIPATION, UNSPECIFIED 07/21/2016 SOBEIDA NEGRON MD, Ot M19.91 PRIMARY OSTEOARTHRITIS, UNSPECIFIED SITE 07/21/2016 SOBEIDA NEGRON MD, Ot R50.9 FEVER, UNSPECIFIED 07/21/2016 SOBEIDA NEGRON MD, Ot Z66 DO NOT RESUSCITATE 07/21/2016 SOBEIDA NEGRON MD, Ot Z86.61 PERSONAL HISTORY OF INFECTIONS OF THE CE 07/21/2016 SOBEIDA NEGRON MD, Ot Z86.73 PRSNL HX OF TIA (TIA), AND CEREB INFRC W 07/21/2016 SOBEIDA NEGRON MD, Ot Z87.891 PERSONAL HISTORY OF NICOTINE DEPENDENCE Procedures Code Description Performed By Performed On [id number] DRAINAGE OF SPINAL CANAL, PERCUTANEOUS A 06/09/2016 [id number] DRAINAGE OF SPINAL CANAL, PERCUTANEOUS A 07/02/2016 Results Test Result Range Complete blood count (CBC) with automated white blood cell (WBC) differential - 05/30/16 10:05 Blood leukocytes automated count (number/volume) 9.3 10*3/ uL 4.3-11.0 Blood erythrocytes automated count (number/volume) 4.66 10*6 /uL 4.35-5.85 Venous blood hemoglobin measurement (mass/volume) 15.3 g/dL 13.3-17.7 Blood hematocrit (volume fraction) 44 % 40-54 Automated erythrocyte mean corpuscular volume 94 [foz_us] 80-99 Automated erythrocyte mean corpuscular hemoglobin (mass per erythrocyte) 33 pg 25-34 Automated erythrocyte mean corpuscular hemoglobin concentration measurement ( mass/volume) 35 g/dL 32-36 Automated erythrocyte distribution width ratio 13.1 % 10.0-14.5 Automated blood platelet count (count/volume) 309 10*3/uL 130-400 Automated blood platelet mean volume measurement 8.6 [foz_us ] 7.4-10.4 Automated blood neutrophils/100 leukocytes 53 % 42-75 Automated blood lymphocytes/100 leukocytes 37 % 12-44 Blood monocytes/100 leukocytes 9 % 0-12 Automated blood eosinophils/100 leukocytes 0 % 0-10 Automated blood basophils/100 leukocytes 0 % 0-10 Blood neutrophils automated count (number/volume) 4.9 10*3 1.8-7.8 Blood lymphocytes automated count (number/volume) 3.4 10*3 1.0-4.0 Blood monocytes automated count (number/volume) 0.9 10*3 0.0-1.0 Automated eosinophil count 0.0 10*3/uL 0.0-0.3 Automated blood basophil count (count/volume) 0.0 10*3/uL 0.0-0.1 Influenza virus A and B antigen detection - 05/30/16 10:05 FLU RESULT NEGATIVE FOR INFLUENZA A AND B ANTIGENS BY IA [facility] Comprehensive metabolic panel - 05/30/16 10:05 Serum or plasma sodium measurement (moles/volume) 132 mmol/ L 135-145 Serum or plasma potassium measurement (moles/volume) 3.8 mmol/L 3.6-5.0 Serum or plasma chloride measurement (moles/volume) 95 mmol/ L 98-107 Carbon dioxide 25 mmol/L 21-32 Serum or plasma anion gap determination (moles/volume) 12 mmol/L 5-14 Serum or plasma urea nitrogen measurement (mass/volume) 14 mg/dL 7-18 Serum or plasma creatinine measurement (mass/volume) 0.93 mg /dL 0.60-1.30 Serum or plasma urea nitrogen/creatinine mass ratio 15 [facility] [place] Serum or plasma creatinine measurement with calculation of estimated glomerular filtration rate > [facility] [place] Serum or plasma glucose measurement (mass/volume) 106 mg/dL 70-105 Serum or plasma calcium measurement (mass/volume) 8.7 mg/dL 8.5-10.1 Serum or plasma total bilirubin measurement (mass/volume) 1.4 mg/dL 0.1-1.0 Serum or plasma alkaline phosphatase measurement (enzymatic activity/volume) 63 U/L 40-136 Serum or plasma aspartate aminotransferase measurement (enzymatic activity/ volume) 18 U/L 5-34 Serum or plasma alanine aminotransferase measurement (enzymatic activity/volume ) 16 U/L 0-55 Serum or plasma protein measurement (mass/volume) 6.7 g/dL 6.4-8.2 Serum or plasma albumin measurement (mass/volume) 4.2 g/dL 3.2-4.5 Lipase - 05/30/16 10:05 Lipase 18 U/L 8-78 Complete urinalysis with reflex to culture - 05/30/16 11:50 Urine color determination YELLOW NRG Urine clarity determination CLEAR NRG Urine pH measurement by test strip 7 5- 9 Specific gravity of urine by test strip 1.010 1.016-1.022 Urine protein assay by test strip, semi-quantitative NEGATIVE NEGATIVE Urine glucose detection by automated test strip NEGATIVE NEGATIVE Erythrocytes detection in urine sediment by light microscopy 1+ NEGATIVE Urine ketones detection by automated test strip NEGATIVE NEGATIVE Urine nitrite detection by test strip NEGATIVE NEGATIVE Urine total bilirubin detection by test strip NEGATIVE NEGATIVE Urine urobilinogen measurement by automated test strip (mass/volume) NORMAL NORMAL Urine leukocyte esterase detection by dipstick NEGATIVE NEGATIVE Automated urine sediment erythrocyte count by microscopy (number/high power field) NONE NRG Automated urine sediment leukocyte count by microscopy (number/high power field ) NONE NRG Bacteria detection in urine sediment by light microscopy NEGATIVE NRG Squamous epithelial cells detection in urine sediment by light microscopy RARE NRG Crystals detection in urine sediment by light microscopy NONE NRG Casts detection in urine sediment by light microscopy NONE NRG Mucus detection in urine sediment by light microscopy NEGATIVE NRG Complete urinalysis with reflex to culture NO NRG Complete blood count (CBC) with automated white blood cell (WBC) differential - 05/31/16 09:30 Blood leukocytes automated count (number/volume) 12.0 10*3/ uL 4.3-11.0 Blood erythrocytes automated count (number/volume) 4.86 10*6 /uL 4.35-5.85 Venous blood hemoglobin measurement (mass/volume) 15.8 g/dL 13.3-17.7 Blood hematocrit (volume fraction) 45 % 40-54 Automated erythrocyte mean corpuscular volume 93 [foz_us] 80-99 Automated erythrocyte mean corpuscular hemoglobin (mass per erythrocyte) 33 pg 25-34 Automated erythrocyte mean corpuscular hemoglobin concentration measurement ( mass/volume) 35 g/dL 32-36 Automated erythrocyte distribution width ratio 12.9 % 10.0-14.5 Automated blood platelet count (count/volume) 301 10*3/uL 130-400 Automated blood platelet mean volume measurement 8.8 [foz_us ] 7.4-10.4 Automated blood neutrophils/100 leukocytes 69 % 42-75 Automated blood lymphocytes/100 leukocytes 24 % 12-44 Blood monocytes/100 leukocytes 7 % 0-12 Automated blood eosinophils/100 leukocytes 0 % 0-10 Automated blood basophils/100 leukocytes 0 % 0-10 Blood neutrophils automated count (number/volume) 8.3 10*3 1.8-7.8 Blood lymphocytes automated count (number/volume) 2.9 10*3 1.0-4.0 Blood monocytes automated count (number/volume) 0.8 10*3 0.0-1.0 Automated eosinophil count 0.0 10*3/uL 0.0-0.3 Automated blood basophil count (count/volume) 0.0 10*3/uL 0.0-0.1 Comprehensive metabolic panel - 05/31/16 09:30 Serum or plasma sodium measurement (moles/volume) 128 mmol/ L 135-145 Serum or plasma potassium measurement (moles/volume) 4.0 mmol/L 3.6-5.0 Serum or plasma chloride measurement (moles/volume) 93 mmol/ L 98-107 Carbon dioxide 24 mmol/L 21-32 Serum or plasma anion gap determination (moles/volume) 11 mmol/L 5-14 Serum or plasma urea nitrogen measurement (mass/volume) 12 mg/dL 7-18 Serum or plasma creatinine measurement (mass/volume) 0.99 mg /dL 0.60-1.30 Serum or plasma urea nitrogen/creatinine mass ratio 12 NRG Serum or plasma creatinine measurement with calculation of estimated glomerular filtration rate > NRG Serum or plasma glucose measurement (mass/volume) 117 mg/dL 70-105 Serum or plasma calcium measurement (mass/volume) 9.1 mg/dL 8.5-10.1 Serum or plasma total bilirubin measurement (mass/volume) 1.5 mg/dL 0.1-1.0 Serum or plasma alkaline phosphatase measurement (enzymatic activity/volume) 64 U/L 40-136 Serum or plasma aspartate aminotransferase measurement (enzymatic activity/ volume) 19 U/L 5-34 Serum or plasma alanine aminotransferase measurement (enzymatic activity/volume ) 18 U/L 0-55 Serum or plasma protein measurement (mass/volume) 7.2 g/dL 6.4-8.2 Serum or plasma albumin measurement (mass/volume) 4.5 g/dL 3.2-4.5 Serum or plasma C reactive protein measurement (mass/volume) - 05/31/16 09:30 Serum or plasma C reactive protein measurement (mass/volume) 0.10 mg/dL 0.00-0.50 Semen free prostate specific antigen (PSA) measurement (units/volume) - 09:30 Prostate specific ag [mass/volume] in serum or plasma 6.95 % 0.00-4.00 Complete blood count (CBC) with automated white blood cell (WBC) differential - 06/01/16 04:50 Blood leukocytes automated count (number/volume) 11.3 10*3/ uL 4.3-11.0 Blood erythrocytes automated count (number/volume) 4.29 10*6 /uL 4.35-5.85 Venous blood hemoglobin measurement (mass/volume) 14.2 g/dL 13.3-17.7 Blood hematocrit (volume fraction) 40 % 40-54 Automated erythrocyte mean corpuscular volume 94 [foz_us] 80-99 Automated erythrocyte mean corpuscular hemoglobin (mass per erythrocyte) 33 pg 25-34 Automated erythrocyte mean corpuscular hemoglobin concentration measurement ( mass/volume) 35 g/dL 32-36 Automated erythrocyte distribution width ratio 13.0 % 10.0-14.5 Automated blood platelet count (count/volume) 293 10*3/uL 130-400 Automated blood platelet mean volume measurement 9.2 [foz_us ] 7.4-10.4 Automated blood neutrophils/100 leukocytes 68 % 42-75 Automated blood lymphocytes/100 leukocytes 22 % 12-44 Blood monocytes/100 leukocytes 10 % 0-12 Automated blood eosinophils/100 leukocytes 0 % 0-10 Automated blood basophils/100 leukocytes 0 % 0-10 Blood neutrophils automated count (number/volume) 7.7 10*3 1.8-7.8 Blood lymphocytes automated count (number/volume) 2.5 10*3 1.0-4.0 Blood monocytes automated count (number/volume) 1.1 10*3 0.0-1.0 Automated eosinophil count 0.0 10*3/uL 0.0-0.3 Automated blood basophil count (count/volume) 0.0 10*3/uL 0.0-0.1 Comprehensive metabolic panel - 06/01/16 04:50 Serum or plasma sodium measurement (moles/volume) 131 mmol/ L 135-145 Serum or plasma potassium measurement (moles/volume) 4.4 mmol/L 3.6-5.0 Serum or plasma chloride measurement (moles/volume) 97 mmol/ L 98-107 Carbon dioxide 23 mmol/L 21-32 Serum or plasma anion gap determination (moles/volume) 11 mmol/L 5-14 Serum or plasma urea nitrogen measurement (mass/volume) 9 mg /dL 7-18 Serum or plasma creatinine measurement (mass/volume) 0.84 mg /dL 0.60-1.30 Serum or plasma urea nitrogen/creatinine mass ratio 11 NRG Serum or plasma creatinine measurement with calculation of estimated glomerular filtration rate > NRG Serum or plasma glucose measurement (mass/volume) 102 mg/dL 70-105 Serum or plasma calcium measurement (mass/volume) 8.4 mg/dL 8.5-10.1 Serum or plasma total bilirubin measurement (mass/volume) 1.1 mg/dL 0.1-1.0 Serum or plasma alkaline phosphatase measurement (enzymatic activity/volume) 56 U/L 40-136 Serum or plasma aspartate aminotransferase measurement (enzymatic activity/ volume) 15 U/L 5-34 Serum or plasma alanine aminotransferase measurement (enzymatic activity/volume ) 15 U/L 0-55 Serum or plasma protein measurement (mass/volume) 5.7 g/dL 6.4-8.2 Serum or plasma albumin measurement (mass/volume) 4.0 g/dL 3.2-4.5 Erythrocyte sedimentation rate by westergren method - 06/01/16 04:50 Erythrocyte sedimentation rate by westergren method 5 mm 0-30 Complete urinalysis with reflex to culture - 06/01/16 06:25 Urine color determination YELLOW NRG Urine clarity determination CLEAR NRG Urine pH measurement by test strip 7 5- 9 Specific gravity of urine by test strip 1.015 1.016-1.022 Urine protein assay by test strip, semi-quantitative 1+ NEGATIVE Urine glucose detection by automated test strip NEGATIVE NEGATIVE Erythrocytes detection in urine sediment by light microscopy 1+ NEGATIVE Urine ketones detection by automated test strip NEGATIVE NEGATIVE Urine nitrite detection by test strip NEGATIVE NEGATIVE Urine total bilirubin detection by test strip NEGATIVE NEGATIVE Urine urobilinogen measurement by automated test strip (mass/volume) NORMAL NORMAL Urine leukocyte esterase detection by dipstick NEGATIVE NEGATIVE Automated urine sediment erythrocyte count by microscopy (number/high power field) [HPF] NRG Automated urine sediment leukocyte count by microscopy (number/high power field ) RARE NRG Bacteria detection in urine sediment by light microscopy NEGATIVE NRG Squamous epithelial cells detection in urine sediment by light microscopy RARE NRG Crystals detection in urine sediment by light microscopy NONE NRG Casts detection in urine sediment by light microscopy NONE NRG Mucus detection in urine sediment by light microscopy NEGATIVE NRG Complete urinalysis with reflex to culture NO NRG Capillary blood glucose measurement by glucometer (mass/volume) - 06/01/16 08: 16 Capillary blood glucose measurement by glucometer (mass/volume) 93 mg/dL 70-110 Blood lactic acid measurement (moles/volume) - 06/01/16 08:50 Blood lactic acid measurement (moles/volume) 1.1 mmol/L 0.5-2.0 Bacterial blood culture - 06/01/16 08:50 Bacterial blood culture NG NRG Complete blood count (CBC) with automated white blood cell (WBC) differential - 06/02/16 04:50 Blood leukocytes automated count (number/volume) 10.3 10*3/ uL 4.3-11.0 Blood erythrocytes automated count (number/volume) 4.04 10*6 /uL 4.35-5.85 Venous blood hemoglobin measurement (mass/volume) 13.5 g/dL 13.3-17.7 Blood hematocrit (volume fraction) 38 % 40-54 Automated erythrocyte mean corpuscular volume 95 [foz_us] 80-99 Automated erythrocyte mean corpuscular hemoglobin (mass per erythrocyte) 33 pg 25-34 Automated erythrocyte mean corpuscular hemoglobin concentration measurement ( mass/volume) 35 g/dL 32-36 Automated erythrocyte distribution width ratio 12.8 % 10.0-14.5 Automated blood platelet count (count/volume) 231 10*3/uL 130-400 Automated blood platelet mean volume measurement 8.9 [foz_us ] 7.4-10.4 Automated blood neutrophils/100 leukocytes 70 % 42-75 Automated blood lymphocytes/100 leukocytes 19 % 12-44 Blood monocytes/100 leukocytes 10 % 0-12 Automated blood eosinophils/100 leukocytes 0 % 0-10 Automated blood basophils/100 leukocytes 0 % 0-10 Blood neutrophils automated count (number/volume) 7.1 10*3 1.8-7.8 Blood lymphocytes automated count (number/volume) 2.0 10*3 1.0-4.0 Blood monocytes automated count (number/volume) 1.1 10*3 0.0-1.0 Automated eosinophil count 0.0 10*3/uL 0.0-0.3 Automated blood basophil count (count/volume) 0.0 10*3/uL 0.0-0.1 Comprehensive metabolic panel - 06/02/16 04:50 Serum or plasma sodium measurement (moles/volume) 126 mmol/ L 135-145 Serum or plasma potassium measurement (moles/volume) 3.4 mmol/L 3.6-5.0 Serum or plasma chloride measurement (moles/volume) 94 mmol/ L 98-107 Carbon dioxide 23 mmol/L 21-32 Serum or plasma anion gap determination (moles/volume) 9 mmol/L 5-14 Serum or plasma urea nitrogen measurement (mass/volume) 8 mg /dL 7-18 Serum or plasma creatinine measurement (mass/volume) 0.81 mg /dL 0.60-1.30 Serum or plasma urea nitrogen/creatinine mass ratio 10 NRG Serum or plasma creatinine measurement with calculation of estimated glomerular filtration rate > NRG Serum or plasma glucose measurement (mass/volume) 89 mg/dL 70-105 Serum or plasma calcium measurement (mass/volume) 7.6 mg/dL 8.5-10.1 Serum or plasma total bilirubin measurement (mass/volume) 0.7 mg/dL 0.1-1.0 Serum or plasma alkaline phosphatase measurement (enzymatic activity/volume) 48 U/L 40-136 Serum or plasma aspartate aminotransferase measurement (enzymatic activity/ volume) 19 U/L 5-34 Serum or plasma alanine aminotransferase measurement (enzymatic activity/volume ) 13 U/L 0-55 Serum or plasma protein measurement (mass/volume) 5.6 g/dL 6.4-8.2 Serum or plasma albumin measurement (mass/volume) 3.4 g/dL 3.2-4.5 Blood CBC with ordered manual differential panel - 06/04/16 10:29 Blood leukocytes automated count (number/volume) 8.7 10*3/ uL 4.3-11.0 Blood erythrocytes automated count (number/volume) 3.94 10*6 /uL 4.35-5.85 Venous blood hemoglobin measurement (mass/volume) 13.1 g/dL 13.3-17.7 Blood hematocrit (volume fraction) 36 % 40-54 Automated erythrocyte mean corpuscular volume 92 [fo_us] 80-99 Automated erythrocyte mean corpuscular hemoglobin (mass per erythrocyte) 33 pg 25-34 Automated erythrocyte mean corpuscular hemoglobin concentration measurement ( mass/volume) 36 g/dL 32-36 Automated erythrocyte distribution width ratio 12.7 % 10.0-14.5 Automated blood platelet count (count/volume) 223 10*3/uL 130-400 Automated blood platelet mean volume measurement 8.9 [foz_us ] 7.4-10.4 Automated blood neutrophils/100 leukocytes 55 % 42-75 Automated blood lymphocytes/100 leukocytes 32 % 12-44 Blood monocytes/100 leukocytes 8 % NRG Automated blood eosinophils/100 leukocytes 1 % 0-10 Automated blood basophils/100 leukocytes 0 % 0-10 Blood neutrophils automated count (number/volume) 4.8 10*3 1.8-7.8 Blood lymphocytes automated count (number/volume) 2.8 10*3 1.0-4.0 Blood monocytes automated count (number/volume) 1.1 10*3 0.0-1.0 Automated eosinophil count 0.0 10*3/uL 0.0-0.3 Automated blood basophil count (count/volume) 0.0 10*3/uL 0.0-0.1 Manual blood segmented neutrophils/100 leukocytes 58 % NRG Manual blood lymphocytes/100 leukocytes 18 % NRG Manual eosinophils/100 leukocytes in nose 1 % NRG Blood lymphocytes variant/100 leukocytes 15 % NR Blood mohsen cells detection by light microscopy MODERATE NR Whole blood basic metabolic panel - 06/04/16 10:29 Serum or plasma sodium measurement (moles/volume) 127 mmol/ L 135-145 Serum or plasma potassium measurement (moles/volume) 3.1 mmol/L 3.6-5.0 Serum or plasma chloride measurement (moles/volume) 95 mmol/ L 98-107 Carbon dioxide 22 mmol/L 21-32 Serum or plasma anion gap determination (moles/volume) 10 mmol/L 5-14 Serum or plasma urea nitrogen measurement (mass/volume) 10 mg/dL 7-18 Serum or plasma creatinine measurement (mass/volume) 0.72 mg /dL 0.60-1.30 Serum or plasma urea nitrogen/creatinine mass ratio 14 NRG Serum or plasma creatinine measurement with calculation of estimated glomerular filtration rate > NRG Serum or plasma glucose measurement (mass/volume) 95 mg/dL 70-105 Serum or plasma calcium measurement (mass/volume) 7.5 mg/dL 8.5-10.1 Erythrocyte sedimentation rate by westergren method - 06/04/16 10:29 Erythrocyte sedimentation rate by westergren method 9 mm 0-30 Complete blood count (CBC) with automated white blood cell (WBC) differential - 06/09/16 10:10 Blood leukocytes automated count (number/volume) 11.4 10*3/ uL 4.3-11.0 Blood erythrocytes automated count (number/volume) 4.43 10*6 /uL 4.35-5.85 Venous blood hemoglobin measurement (mass/volume) 14.6 g/dL 13.3-17.7 Blood hematocrit (volume fraction) 41 % 40-54 Automated erythrocyte mean corpuscular volume 92 [foz_us] 80-99 Automated erythrocyte mean corpuscular hemoglobin (mass per erythrocyte) 33 pg 25-34 Automated erythrocyte mean corpuscular hemoglobin concentration measurement ( mass/volume) 36 g/dL 32-36 Automated erythrocyte distribution width ratio 13.1 % 10.0-14.5 Automated blood platelet count (count/volume) 385 10*3/uL 130-400 Automated blood platelet mean volume measurement 8.4 [foz_us ] 7.4-10.4 Automated blood neutrophils/100 leukocytes 67 % 42-75 Automated blood lymphocytes/100 leukocytes 26 % 12-44 Blood monocytes/100 leukocytes 7 % 0-12 Automated blood eosinophils/100 leukocytes 0 % 0-10 Automated blood basophils/100 leukocytes 0 % 0-10 Blood neutrophils automated count (number/volume) 7.7 10*3 1.8-7.8 Blood lymphocytes automated count (number/volume) 2.9 10*3 1.0-4.0 Blood monocytes automated count (number/volume) 0.8 10*3 0.0-1.0 Automated eosinophil count 0.0 10*3/uL 0.0-0.3 Automated blood basophil count (count/volume) 0.0 10*3/uL 0.0-0.1 PT panel in platelet poor plasma by coagulation assay - 06/09/16 10:10 Prothrombin time (PT) in platelet poor plasma by coagulation assay 13.6 s 12.2-14.7 INR in platelet poor plasma or blood by coagulation assay 1.1 0.8-1.4 Activated partial thromboplastin time (aPTT) in platelet poor plasma bycoagulation assay - 06/09/16 10:10 Activated partial thromboplastin time (aPTT) in platelet poor plasma bycoagulation assay 22 s 24-35 Blood lactic acid measurement (moles/volume) - 06/09/16 10:10 Blood lactic acid measurement (moles/volume) 1.9 mmol/L 0.5-2.0 Comprehensive metabolic panel - 06/09/16 10:10 Serum or plasma sodium measurement (moles/volume) 130 mmol/ L 135-145 Serum or plasma potassium measurement (moles/volume) 4.0 mmol/L 3.6-5.0 Serum or plasma chloride measurement (moles/volume) 95 mmol/ L 98-107 Carbon dioxide 21 mmol/L 21-32 Serum or plasma anion gap determination (moles/volume) 14 mmol/L 5-14 Serum or plasma urea nitrogen measurement (mass/volume) 11 mg/dL 7-18 Serum or plasma creatinine measurement (mass/volume) 0.92 mg /dL 0.60-1.30 Serum or plasma urea nitrogen/creatinine mass ratio 12 NRG Serum or plasma creatinine measurement with calculation of estimated glomerular filtration rate > NRG Serum or plasma glucose measurement (mass/volume) 108 mg/dL 70-105 Serum or plasma calcium measurement (mass/volume) 8.9 mg/dL 8.5-10.1 Serum or plasma total bilirubin measurement (mass/volume) 1.7 mg/dL 0.1-1.0 Serum or plasma alkaline phosphatase measurement (enzymatic activity/volume) 53 U/L 40-136 Serum or plasma aspartate aminotransferase measurement (enzymatic activity/ volume) 27 U/L 5-34 Serum or plasma alanine aminotransferase measurement (enzymatic activity/volume ) 31 U/L 0-55 Serum or plasma protein measurement (mass/volume) 6.8 g/dL 6.4-8.2 Serum or plasma albumin measurement (mass/volume) 4.2 g/dL 3.2-4.5 Serum or plasma C reactive protein measurement (mass/volume) - 06/09/16 10:10 Serum or plasma C reactive protein measurement (mass/volume) 0.36 mg/dL 0.00-0.50 Bacterial blood culture - 06/09/16 10:10 Bacterial blood culture NG NRG Complete urinalysis with reflex to culture - 06/09/16 10:25 Urine color determination YELLOW NRG Urine clarity determination CLEAR NRG Urine pH measurement by test strip 8 5- 9 Specific gravity of urine by test strip 1.010 1.016-1.022 Urine protein assay by test strip, semi-quantitative 2+ NEGATIVE Urine glucose detection by automated test strip NEGATIVE NEGATIVE Erythrocytes detection in urine sediment by light microscopy 3+ NEGATIVE Urine ketones detection by automated test strip 3+ NEGATIVE Urine nitrite detection by test strip NEGATIVE NEGATIVE Urine total bilirubin detection by test strip NEGATIVE NEGATIVE Urine urobilinogen measurement by automated test strip (mass/volume) NORMAL NORMAL Urine leukocyte esterase detection by dipstick NEGATIVE NEGATIVE Automated urine sediment erythrocyte count by microscopy (number/high power field) NONE NRG Automated urine sediment leukocyte count by microscopy (number/high power field ) RARE NRG Bacteria detection in urine sediment by light microscopy FEW NRG Crystals detection in urine sediment by light microscopy PRESENT NRG Casts detection in urine sediment by light microscopy NONE NRG Mucus detection in urine sediment by light microscopy NEGATIVE NRG Complete urinalysis with reflex to culture NO NRG Amorphous sediment detection in urine sediment by light microscopy FEW SAMARA PHOSPHATE NRG Influenza virus A and B antigen detection - 06/09/16 10:25 FLU RESULT NEGATIVE FOR INFLUENZA A AND B ANTIGENS BY IA NRG Bacterial blood culture - 06/09/16 10:30 Bacterial blood culture NG NRG Cerebrospinal fluid cell count - 06/09/16 13:02 Cerebrospinal fluid appearance description SLT CLDY NRG Cerebrospinal fluid color identification SL XANTH NRG Cerebrospinal fluid leukocytes count (number/volume) 4 % 0-5 Cerebrospinal fluid erythrocytes count (number/volume) 53 % 0-0 Cerebrospinal fluid cell count on specimen from last tube collected 4 NRG Gram stain microscopy - 06/09/16 13:02 GRAM STAIN RESULT OBSERVED ON DIRECT GRAM STAIN OF CENTRIFUGED SPECIMEN NRG Cerebrospinal fluid glucose measurement (mass/volume) - 06/09/16 13:02 Cerebrospinal fluid glucose measurement (mass/volume) 43 mg/ dL 50-80 Cerebrospinal fluid protein measurement (mass/volume) - 06/09/16 13:02 Cerebrospinal fluid protein measurement (mass/volume) 396 mg /dL 15-40 Bacterial cerebrospinal fluid culture - 06/09/16 13:02 Bacterial cerebrospinal fluid culture NG NRG Cerebrospinal fluid HTLV 1 and 2 antibody assay by enzyme immunoassay - 13:02 Specimen type CSF NR Herpes simplex virus (HSV) type 1 DNA detection by polymerase chain reaction Not Detected Not Detected HSV 2 DNA PCR CSF Not Detected Not Detected Virus identification by culture - 06/09/16 13:02 DATE OF REF LAB REPORT 06/21/2016 NRG DATE/TIME 07/17/16 16:20 NRG RML PRELIM VIRUS NO VIRUS ISOLATED, 10 DAYS REQUIRED FOR FINAL NEGATIVE NRG RML FINAL NEGATIVE VIRUS NO VIRUS ISOLATED NRG Complete blood count (CBC) with automated white blood cell (WBC) differential - 06/10/16 04:05 Blood leukocytes automated count (number/volume) 12.7 10*3/ uL 4.3-11.0 Blood erythrocytes automated count (number/volume) 3.88 10*6 /uL 4.35-5.85 Venous blood hemoglobin measurement (mass/volume) 13.0 g/dL 13.3-17.7 Blood hematocrit (volume fraction) 36 % 40-54 Automated erythrocyte mean corpuscular volume 93 [foz_us] 80-99 Automated erythrocyte mean corpuscular hemoglobin (mass per erythrocyte) 34 pg 25-34 Automated erythrocyte mean corpuscular hemoglobin concentration measurement ( mass/volume) 36 g/dL 32-36 Automated erythrocyte distribution width ratio 13.3 % 10.0-14.5 Automated blood platelet count (count/volume) 329 10*3/uL 130-400 Automated blood platelet mean volume measurement 8.7 [foz_us ] 7.4-10.4 Automated blood neutrophils/100 leukocytes 64 % 42-75 Automated blood lymphocytes/100 leukocytes 23 % 12-44 Blood monocytes/100 leukocytes 13 % 0-12 Automated blood eosinophils/100 leukocytes 0 % 0-10 Automated blood basophils/100 leukocytes 0 % 0-10 Blood neutrophils automated count (number/volume) 8.1 10*3 1.8-7.8 Blood lymphocytes automated count (number/volume) 3.0 10*3 1.0-4.0 Blood monocytes automated count (number/volume) 1.6 10*3 0.0-1.0 Automated eosinophil count 0.0 10*3/uL 0.0-0.3 Automated blood basophil count (count/volume) 0.0 10*3/uL 0.0-0.1 Whole blood basic metabolic panel - 06/10/16 04:05 Serum or plasma sodium measurement (moles/volume) 129 mmol/ L 135-145 Serum or plasma potassium measurement (moles/volume) 3.5 mmol/L 3.6-5.0 Serum or plasma chloride measurement (moles/volume) 96 mmol/ L 98-107 Carbon dioxide 21 mmol/L 21-32 Serum or plasma anion gap determination (moles/volume) 12 mmol/L 5-14 Serum or plasma urea nitrogen measurement (mass/volume) 12 mg/dL 7-18 Serum or plasma creatinine measurement (mass/volume) 0.79 mg /dL 0.60-1.30 Serum or plasma urea nitrogen/creatinine mass ratio 15 NRG Serum or plasma creatinine measurement with calculation of estimated glomerular filtration rate > NRG Serum or plasma glucose measurement (mass/volume) 118 mg/dL 70-105 Serum or plasma calcium measurement (mass/volume) 7.9 mg/dL 8.5-10.1 Serum or plasma phosphate measurement (mass/volume) - 06/10/16 04:05 Serum or plasma phosphate measurement (mass/volume) 2.4 mg/ dL 2.3-4.7 Magnesium - 06/10/16 04:05 Magnesium 2.0 mg/dL 1.8-2.4 Complete blood count (CBC) with automated white blood cell (WBC) differential - 06/11/16 04:05 Blood leukocytes automated count (number/volume) 10.4 10*3/ uL 4.3-11.0 Blood erythrocytes automated count (number/volume) 3.87 10*6 /uL 4.35-5.85 Venous blood hemoglobin measurement (mass/volume) 12.9 g/dL 13.3-17.7 Blood hematocrit (volume fraction) 36 % 40-54 Automated erythrocyte mean corpuscular volume 93 [foz_us] 80-99 Automated erythrocyte mean corpuscular hemoglobin (mass per erythrocyte) 33 pg 25-34 Automated erythrocyte mean corpuscular hemoglobin concentration measurement ( mass/volume) 36 g/dL 32-36 Automated erythrocyte distribution width ratio 13.4 % 10.0-14.5 Automated blood platelet count (count/volume) 319 10*3/uL 130-400 Automated blood platelet mean volume measurement 8.3 [foz_us ] 7.4-10.4 Automated blood neutrophils/100 leukocytes 70 % 42-75 Automated blood lymphocytes/100 leukocytes 20 % 12-44 Blood monocytes/100 leukocytes 9 % 0-12 Automated blood eosinophils/100 leukocytes 1 % 0-10 Automated blood basophils/100 leukocytes 0 % 0-10 Blood neutrophils automated count (number/volume) 7.2 10*3 1.8-7.8 Blood lymphocytes automated count (number/volume) 2.1 10*3 1.0-4.0 Blood monocytes automated count (number/volume) 0.9 10*3 0.0-1.0 Automated eosinophil count 0.1 10*3/uL 0.0-0.3 Automated blood basophil count (count/volume) 0.0 10*3/uL 0.0-0.1 Whole blood basic metabolic panel - 06/11/16 04:05 Serum or plasma sodium measurement (moles/volume) 133 mmol/ L 135-145 Serum or plasma potassium measurement (moles/volume) 4.1 mmol/L 3.6-5.0 Serum or plasma chloride measurement (moles/volume) 101 mmol /L 98-107 Carbon dioxide 20 mmol/L 21-32 Serum or plasma anion gap determination (moles/volume) 12 mmol/L 5-14 Serum or plasma urea nitrogen measurement (mass/volume) 5 mg /dL 7-18 Serum or plasma creatinine measurement (mass/volume) 0.68 mg /dL 0.60-1.30 Serum or plasma urea nitrogen/creatinine mass ratio 7 NRG Serum or plasma creatinine measurement with calculation of estimated glomerular filtration rate > NRG Serum or plasma glucose measurement (mass/volume) 129 mg/dL 70-105 Serum or plasma calcium measurement (mass/volume) 7.9 mg/dL 8.5-10.1 Serum or plasma phosphate measurement (mass/volume) - 06/11/16 04:05 Serum or plasma phosphate measurement (mass/volume) 1.8 mg/ dL 2.3-4.7 Magnesium - 06/11/16 04:05 Magnesium 2.1 mg/dL 1.8-2.4 Complete blood count (CBC) with automated white blood cell (WBC) differential - 06/20/16 09:01 Blood leukocytes automated count (number/volume) 11.0 10*3/ uL 4.3-11.0 Blood erythrocytes automated count (number/volume) 4.14 10*6 /uL 4.35-5.85 Venous blood hemoglobin measurement (mass/volume) 14.3 g/dL 13.3-17.7 Blood hematocrit (volume fraction) 40 % 40-54 Automated erythrocyte mean corpuscular volume 96 [foz_us] 80-99 Automated erythrocyte mean corpuscular hemoglobin (mass per erythrocyte) 35 pg 25-34 Automated erythrocyte mean corpuscular hemoglobin concentration measurement ( mass/volume) 36 g/dL 32-36 Automated erythrocyte distribution width ratio 14.9 % 10.0-14.5 Automated blood platelet count (count/volume) 375 10*3/uL 130-400 Automated blood platelet mean volume measurement 8.4 [foz_us ] 7.4-10.4 Automated blood neutrophils/100 leukocytes 68 % 42-75 Automated blood lymphocytes/100 leukocytes 23 % 12-44 Blood monocytes/100 leukocytes 8 % 0-12 Automated blood eosinophils/100 leukocytes 1 % 0-10 Automated blood basophils/100 leukocytes 0 % 0-10 Blood neutrophils automated count (number/volume) 7.5 10*3 1.8-7.8 Blood lymphocytes automated count (number/volume) 2.6 10*3 1.0-4.0 Blood monocytes automated count (number/volume) 0.9 10*3 0.0-1.0 Automated eosinophil count 0.1 10*3/uL 0.0-0.3 Automated blood basophil count (count/volume) 0.0 10*3/uL 0.0-0.1 Comprehensive metabolic panel - 06/20/16 09:01 Serum or plasma sodium measurement (moles/volume) 131 mmol/ L 135-145 Serum or plasma potassium measurement (moles/volume) 3.9 mmol/L 3.6-5.0 Serum or plasma chloride measurement (moles/volume) 97 mmol/ L 98-107 Carbon dioxide 21 mmol/L 21-32 Serum or plasma anion gap determination (moles/volume) 13 mmol/L 5-14 Serum or plasma urea nitrogen measurement (mass/volume) 9 mg /dL 7-18 Serum or plasma creatinine measurement (mass/volume) 0.83 mg /dL 0.60-1.30 Serum or plasma urea nitrogen/creatinine mass ratio 11 NRG Serum or plasma creatinine measurement with calculation of estimated glomerular filtration rate > NRG Serum or plasma glucose measurement (mass/volume) 162 mg/dL 70-105 Serum or plasma calcium measurement (mass/volume) 8.6 mg/dL 8.5-10.1 Serum or plasma total bilirubin measurement (mass/volume) 1.1 mg/dL 0.1-1.0 Serum or plasma alkaline phosphatase measurement (enzymatic activity/volume) 59 U/L 40-136 Serum or plasma aspartate aminotransferase measurement (enzymatic activity/ volume) 20 U/L 5-34 Serum or plasma alanine aminotransferase measurement (enzymatic activity/volume ) 39 U/L 0-55 Serum or plasma protein measurement (mass/volume) 6.3 g/dL 6.4-8.2 Serum or plasma albumin measurement (mass/volume) 3.7 g/dL 3.2-4.5 Complete blood count (CBC) with automated white blood cell (WBC) differential - 06/25/16 15:40 Blood leukocytes automated count (number/volume) 9.4 10*3/ uL 4.3-11.0 Blood erythrocytes automated count (number/volume) 3.35 10*6 /uL 4.35-5.85 Venous blood hemoglobin measurement (mass/volume) 11.5 g/dL 13.3-17.7 Blood hematocrit (volume fraction) 34 % 40-54 Automated erythrocyte mean corpuscular volume 100 [foz_us] 80-99 Automated erythrocyte mean corpuscular hemoglobin (mass per erythrocyte) 34 pg 25-34 Automated erythrocyte mean corpuscular hemoglobin concentration measurement ( mass/volume) 34 g/dL 32-36 Automated erythrocyte distribution width ratio 15.6 % 10.0-14.5 Automated blood platelet count (count/volume) 323 10*3/uL 130-400 Automated blood platelet mean volume measurement 8.6 [foz_us ] 7.4-10.4 Automated blood neutrophils/100 leukocytes 63 % 42-75 Automated blood lymphocytes/100 leukocytes 29 % 12-44 Blood monocytes/100 leukocytes 7 % 0-12 Automated blood eosinophils/100 leukocytes 1 % 0-10 Automated blood basophils/100 leukocytes 0 % 0-10 Blood neutrophils automated count (number/volume) 5.9 10*3 1.8-7.8 Blood lymphocytes automated count (number/volume) 2.7 10*3 1.0-4.0 Blood monocytes automated count (number/volume) 0.7 10*3 0.0-1.0 Automated eosinophil count 0.1 10*3/uL 0.0-0.3 Automated blood basophil count (count/volume) 0.0 10*3/uL 0.0-0.1 Whole blood basic metabolic panel - 06/25/16 15:40 Serum or plasma sodium measurement (moles/volume) 137 mmol/ L 135-145 Serum or plasma potassium measurement (moles/volume) 3.6 mmol/L 3.6-5.0 Serum or plasma chloride measurement (moles/volume) 101 mmol /L 98-107 Carbon dioxide 23 mmol/L 21-32 Serum or plasma anion gap determination (moles/volume) 13 mmol/L 5-14 Serum or plasma urea nitrogen measurement (mass/volume) 7 mg /dL 7-18 Serum or plasma creatinine measurement (mass/volume) 0.94 mg /dL 0.60-1.30 Serum or plasma urea nitrogen/creatinine mass ratio 7 NRG Serum or plasma creatinine measurement with calculation of estimated glomerular filtration rate > NRG Serum or plasma glucose measurement (mass/volume) 132 mg/dL 70-105 Serum or plasma calcium measurement (mass/volume) 8.9 mg/dL 8.5-10.1 Complete blood count (CBC) with automated white blood cell (WBC) differential - 07/01/16 19:50 Blood leukocytes automated count (number/volume) 12.9 10*3/ uL 4.3-11.0 Blood erythrocytes automated count (number/volume) 4.07 10*6 /uL 4.35-5.85 Venous blood hemoglobin measurement (mass/volume) 14.3 g/dL 13.3-17.7 Blood hematocrit (volume fraction) 40 % 40-54 Automated erythrocyte mean corpuscular volume 97 [foz_us] 80-99 Automated erythrocyte mean corpuscular hemoglobin (mass per erythrocyte) 35 pg 25-34 Automated erythrocyte mean corpuscular hemoglobin concentration measurement ( mass/volume) 36 g/dL 32-36 Automated erythrocyte distribution width ratio 15.9 % 10.0-14.5 Automated blood platelet count (count/volume) 393 10*3/uL 130-400 Automated blood platelet mean volume measurement 8.6 [foz_us ] 7.4-10.4 Automated blood neutrophils/100 leukocytes 63 % 42-75 Automated blood lymphocytes/100 leukocytes 26 % 12-44 Blood monocytes/100 leukocytes 10 % 0-12 Automated blood eosinophils/100 leukocytes 1 % 0-10 Automated blood basophils/100 leukocytes 0 % 0-10 Blood neutrophils automated count (number/volume) 8.1 10*3 1.8-7.8 Blood lymphocytes automated count (number/volume) 3.3 10*3 1.0-4.0 Blood monocytes automated count (number/volume) 1.3 10*3 0.0-1.0 Automated eosinophil count 0.1 10*3/uL 0.0-0.3 Automated blood basophil count (count/volume) 0.0 10*3/uL 0.0-0.1 PT panel in platelet poor plasma by coagulation assay - 07/01/16 19:50 Prothrombin time (PT) in platelet poor plasma by coagulation assay 12.9 s 12.2-14.7 INR in platelet poor plasma or blood by coagulation assay 1.0 0.8-1.4 Activated partial thromboplastin time (aPTT) in platelet poor plasma bycoagulation assay - 07/01/16 19:50 Activated partial thromboplastin time (aPTT) in platelet poor plasma bycoagulation assay 22 s 24-35 Comprehensive metabolic panel - 07/01/16 19:50 Serum or plasma sodium measurement (moles/volume) 131 mmol/ L 135-145 Serum or plasma potassium measurement (moles/volume) 3.4 mmol/L 3.6-5.0 Serum or plasma chloride measurement (moles/volume) 95 mmol/ L 98-107 Carbon dioxide 23 mmol/L 21-32 Serum or plasma anion gap determination (moles/volume) 13 mmol/L 5-14 Serum or plasma urea nitrogen measurement (mass/volume) 12 mg/dL 7-18 Serum or plasma creatinine measurement (mass/volume) 0.85 mg /dL 0.60-1.30 Serum or plasma urea nitrogen/creatinine mass ratio 14 NRG Serum or plasma creatinine measurement with calculation of estimated glomerular filtration rate > NRG Serum or plasma glucose measurement (mass/volume) 130 mg/dL 70-105 Serum or plasma calcium measurement (mass/volume) 8.9 mg/dL 8.5-10.1 Serum or plasma total bilirubin measurement (mass/volume) 0.8 mg/dL 0.1-1.0 Serum or plasma alkaline phosphatase measurement (enzymatic activity/volume) 53 U/L 40-136 Serum or plasma aspartate aminotransferase measurement (enzymatic activity/ volume) 15 U/L 5-34 Serum or plasma alanine aminotransferase measurement (enzymatic activity/volume ) 21 U/L 0-55 Serum or plasma protein measurement (mass/volume) 6.5 g/dL 6.4-8.2 Serum or plasma albumin measurement (mass/volume) 3.9 g/dL 3.2-4.5 Blood lactic acid measurement (moles/volume) - 07/01/16 19:50 Blood lactic acid measurement (moles/volume) 2.28 mmol/L 0.50-2.00 Influenza virus A and B antigen detection - 07/01/16 19:50 FLU RESULT NEGATIVE FOR INFLUENZA A AND B ANTIGENS BY IA NRG Serum or plasma troponin i.cardiac measurement (mass/volume) - 07/01/16 19:50 Serum or plasma troponin i.cardiac measurement (mass/volume) < ng/mL <0.30 Bacterial blood culture - 07/01/16 19:50 Bacterial blood culture NG NRG Bacterial blood culture - 07/01/16 20:25 Bacterial blood culture NG NRG Complete urinalysis with reflex to culture - 07/01/16 20:41 Urine color determination YELLOW NRG Urine clarity determination CLEAR NRG Urine pH measurement by test strip 7 5- 9 Specific gravity of urine by test strip 1.010 1.016-1.022 Urine protein assay by test strip, semi-quantitative 2+ NEGATIVE Urine glucose detection by automated test strip NEGATIVE NEGATIVE Erythrocytes detection in urine sediment by light microscopy 1+ NEGATIVE Urine ketones detection by automated test strip NEGATIVE NEGATIVE Urine nitrite detection by test strip NEGATIVE NEGATIVE Urine total bilirubin detection by test strip NEGATIVE NEGATIVE Urine urobilinogen measurement by automated test strip (mass/volume) NORMAL NORMAL Urine leukocyte esterase detection by dipstick NEGATIVE NEGATIVE Automated urine sediment erythrocyte count by microscopy (number/high power field) [HPF] NRG Automated urine sediment leukocyte count by microscopy (number/high power field ) RARE NRG Bacteria detection in urine sediment by light microscopy NEGATIVE NRG Crystals detection in urine sediment by light microscopy NONE NRG Casts detection in urine sediment by light microscopy NONE NRG Mucus detection in urine sediment by light microscopy NEGATIVE NRG Complete urinalysis with reflex to culture NO NRG Serum or plasma lactate measurement (moles/volume) - 07/01/16 21:55 Serum or plasma lactate measurement (moles/volume) 1.19 mmol /L 0.50-2.00 Complete blood count (CBC) with automated white blood cell (WBC) differential - 07/02/16 05:08 Blood leukocytes automated count (number/volume) 10.6 10*3/ uL 4.3-11.0 Blood erythrocytes automated count (number/volume) 3.75 10*6 /uL 4.35-5.85 Venous blood hemoglobin measurement (mass/volume) 13.0 g/dL 13.3-17.7 Blood hematocrit (volume fraction) 37 % 40-54 Automated erythrocyte mean corpuscular volume 98 [foz_us] 80-99 Automated erythrocyte mean corpuscular hemoglobin (mass per erythrocyte) 35 pg 25-34 Automated erythrocyte mean corpuscular hemoglobin concentration measurement ( mass/volume) 35 g/dL 32-36 Automated erythrocyte distribution width ratio 15.9 % 10.0-14.5 Automated blood platelet count (count/volume) 376 10*3/uL 130-400 Automated blood platelet mean volume measurement 8.6 [foz_us ] 7.4-10.4 Automated blood neutrophils/100 leukocytes 61 % 42-75 Automated blood lymphocytes/100 leukocytes 29 % 12-44 Blood monocytes/100 leukocytes 9 % 0-12 Automated blood eosinophils/100 leukocytes 1 % 0-10 Automated blood basophils/100 leukocytes 0 % 0-10 Blood neutrophils automated count (number/volume) 6.4 10*3 1.8-7.8 Blood lymphocytes automated count (number/volume) 3.1 10*3 1.0-4.0 Blood monocytes automated count (number/volume) 0.9 10*3 0.0-1.0 Automated eosinophil count 0.1 10*3/uL 0.0-0.3 Automated blood basophil count (count/volume) 0.0 10*3/uL 0.0-0.1 Comprehensive metabolic panel - 07/02/16 05:08 Serum or plasma sodium measurement (moles/volume) 136 mmol/ L 135-145 Serum or plasma potassium measurement (moles/volume) 3.5 mmol/L 3.6-5.0 Serum or plasma chloride measurement (moles/volume) 99 mmol/ L 98-107 Carbon dioxide 25 mmol/L 21-32 Serum or plasma anion gap determination (moles/volume) 12 mmol/L 5-14 Serum or plasma urea nitrogen measurement (mass/volume) 8 mg /dL 7-18 Serum or plasma creatinine measurement (mass/volume) 0.79 mg /dL 0.60-1.30 Serum or plasma urea nitrogen/creatinine mass ratio 10 NRG Serum or plasma creatinine measurement with calculation of estimated glomerular filtration rate > NRG Serum or plasma glucose measurement (mass/volume) 104 mg/dL 70-105 Serum or plasma calcium measurement (mass/volume) 8.4 mg/dL 8.5-10.1 Serum or plasma total bilirubin measurement (mass/volume) 0.9 mg/dL 0.1-1.0 Serum or plasma alkaline phosphatase measurement (enzymatic activity/volume) 47 U/L 40-136 Serum or plasma aspartate aminotransferase measurement (enzymatic activity/ volume) 15 U/L 5-34 Serum or plasma alanine aminotransferase measurement (enzymatic activity/volume ) 17 U/L 0-55 Serum or plasma protein measurement (mass/volume) 5.9 g/dL 6.4-8.2 Serum or plasma albumin measurement (mass/volume) 3.7 g/dL 3.2-4.5 Cerebrospinal fluid cell count - 07/02/16 11:08 Cerebrospinal fluid appearance description CLEAR NRG Cerebrospinal fluid color identification SL XANTH NRG Cerebrospinal fluid leukocytes count (number/volume) 137 % 0-5 Cerebrospinal fluid erythrocytes count (number/volume) 6 % 0-0 Manual cerebrospinal fluid lymphocytes/100 leukocytes 86 % NRG Manual cerebrospinal fluid mononuclear cells/100 leukocytes 13 % NRG Manual cerebrospinal fluid polymorphonuclear cells/100 leukocytes 1 % NRG Cerebrospinal fluid cell count on specimen from last tube collected 4 NRG Cerebrospinal fluid glucose measurement (mass/volume) - 07/02/16 11:08 Cerebrospinal fluid glucose measurement (mass/volume) 47 mg/ dL 50-80 Cerebrospinal fluid protein measurement (mass/volume) - 07/02/16 11:08 Cerebrospinal fluid protein measurement (mass/volume) 259 mg /dL 15-40 Gram stain microscopy - 07/02/16 11:08 GRAM STAIN RESULT NO BACTERIA OBSERVED NRG Bacterial cerebrospinal fluid culture - 07/02/16 11:08 Bacterial cerebrospinal fluid culture NG NRG Cerebrospinal fluid VDRL titer - 07/02/16 11:08 Cerebrospinal fluid VDRL titer Non Reactive Non Reactiv Fungus culture - 07/02/16 11:08 Fungus culture NG NRG Cerebrospinal fluid Borrelia burgdorferi IgG and IgM antibody assay - 07/02/16 11:08 Cerebrospinal fluid Borrelia burgdorferi IgG antibody detection 1:4 <1:4 Cerebrospinal fluid Borrelia burgdorferi IgM antibody detection <1:2 <1:2 * Reference lab test name - 07/02/16 11:08 * Reference lab test results ENCEPH AB PNL CSF NRG Encounters ACCT No. Visit Date/Time Discharge Status Pt. Type Provider Facility Loc./Unit Complaint [id number] 07/12/2016 12:23:00 2016 15:30:00 DIS Inpatient MIGDALIA FRANKLIN, SOBEIDA Magdaleno [address] SWB [id number] 07/03/2016 09:45:00 2016 12:15:00 DIS Inpatient EDUAR FRANKLIN, SHERLEY Fry [address] DEHYDRATION,AMS [id number] 06/20/2016 09:50:00 2016 06:52:00 DIS Inpatient REBECCA FRANKLIN, OTIS Hale [facility] IRF MENINGITIS [id number] 06/09/2016 15:23:00 2016 15:42:00 DIS Inpatient VIRGEN FRANKLIN, DEVIN Magdaleno [facility] 4TH MENINGITIS, SEPSIS AMS [id number] 06/05/2016 11:42:00 2016 14:20:00 DIS Inpatient DIEGO MCKOY DO [address] SWB [id number] 06/02/2016 11:57:00 2016 11:38:00 DIS Inpatient ABRAHAM FRANKLIN, ELLIS Ken [facility] 4TH DEHYDRATION,BONE LESSION SKULL [id number] 05/30/2016 09:04:00 2016 12:46:00 DIS Emergency ALEKSANDR FRANKLIN, DEJUAN Nicole [facility] ER COUGH,ELEVATED BS, HEADACHE [id number] 07/10/2015 07:57:00 2015 11:44:00 DIS Outpatient JUDIE ZAYAS MD [facility] [address] [id number] 07/07/2015 06:05:00 2015 09:02:00 DIS Outpatient JUDIE ZAYAS MD [facility] PREOP [id number] 01/17/2015 11:47:00 2014 23:59:59 CLS Outpatient VIRGEN FRANKLIN, DEVIN Magdaleno [facility] RAD [id number] 12/03/2012 11:00:00 2012 23:59:59 CLS Outpatient ROSA MARIE [facility] LAB [id number] 06/13/2016 15:42:00 ACT Inpatient DIEGO MCKOY DO [facility] 4TH SWB MENINGITIS [id number] 01/17/2015 11:48:00 Document Registration
== END 2016-07-21 15:30 | disposition home or self-care (01) | DRG 74 ==
LOC: 4TH 12:23
PROVIDERS: ADMIT Internal Medicine; ATTEND Internal Medicine
DX: B02.0 Zoster encephalitis (principal); F05 Delirium due to known physiological condition; E86.0 Dehydration; F03.90 Unspecified dementia, unspecified severity, without behavioral disturbance, psychotic disturbance, mood disturbance, and anxiety; R50.9 Fever, unspecified; Z66 Do not resuscitate; I10 Essential (primary) hypertension; K59.00 Constipation, unspecified; J42 Unspecified chronic bronchitis; K21.9 Gastro-esophageal reflux disease without esophagitis; M19.91 Primary osteoarthritis, unspecified site; H91.93 Unspecified hearing loss, bilateral; Z87.891 Personal history of nicotine dependence; Z86.73 Personal history of transient ischemic attack (TIA), and cerebral infarction without residual deficits; Z86.61 Personal history of infections of the central nervous system
CPT/HCPCS: 76937